=== PATIENT | male | born 1970 | race Caucasian/White ===

== ENCOUNTER 2023-08-21 05:38 | Inpatient (IN) | payer MEDICARE, SELFPAY ==
[2023-08-21] VITALS (22 sets, daily range): BP systolic 109–197; BP diastolic 67–127; BMI 22.8; BMI 22.2
[2023-08-21] MEDS: NSS 1000 IV (03:17)
[2023-08-21] MEDS: ZOFRAN 4 MG IV ×2 (03:26→04:21)
[2023-08-21] MEDS: PROTONIX IV 40 MG IV (03:26)
[2023-08-21] MEDS: PROTONIX 100 IV ×4 (03:27→23:39)
[2023-08-21 03:29] LABS: % Basophils 0.2 % (0-2); % Immature Granulocytes 0.8 % (0-0.5); % Lymphocytes 4.9 % (20.5-51.1); % Monocytes 3.2 % (1.7-9.3); % Neutrophils 90.9 % (42.2-75.2); Absolute Basophils 0.1 10^3/uL (0-0.2); Absolute Immature Granulocytes 0.2 10^3/uL (0-0.05); Absolute Lymphocytes 1.4 10^3/uL (1.2-3.4); Absolute Monocytes 0.9 10^3/uL (0.1-0.6); Absolute Neutrophils 25.1 10^3/uL (1.4-6.5); Hematocrit 50.1 % (39.0-52.0); Hemoglobin 17.5 g/dL (13.0-18.0); Mean Corp Hgb Conc. 34.9 g/dL (33.0-37.0); Mean Corpuscular Hgb 30.4 pg (27.0-31.0); Mean Corpuscular Volume 87.1 fL (80.0-94.0); Mean Platelet Volume 11.2 fL (7.4-10.4); Nucleated Red Blood Cells % 0 % (-); Platelet Count 228 10^3/uL (130-400); Red Blood Cell Count 5.75 10^6/uL (4.70-6.10); Red Cell Dist. Width 13.1 % (11.5-14.5); White Blood Cell Count 27.6 10^3/uL (4.8-10.8)
[2023-08-21 03:40] LABS: INR 1.02; PT 13.4 Sec (11.4-14.6)
[2023-08-21 03:44] LABS: ALT (SGPT) 23 U/L (0-50); AST (SGOT) 29 U/L (17-59); Albumin 4.7 g/dl (3.5-5.0); Alkaline Phosphatase 129 U/L (38-126); Blood Urea Nitrogen 19 mg/dl (9-20); Calcium 9.5 mg/dl (8.4-10.2); Carbon Dioxide 17 mmol/L (22-30); Chloride 97 mmol/L (98-107); Estimated Creatinine Clearance > 125 ml/min; Glucose 194 mg/dl (70-99); Lipase 32 U/L (23-300); Potassium 3.4 mmol/L (3.5-5.1); Sodium 133 mmol/L (135-145); Total Bilirubin 1.4 mg/dl (0.2-1.3); Total Protein 7.9 g/dl (6.3-8.2); eGFR > 60.00
[2023-08-21 03:45] LABS: Lactic Acid 2.9 mmol/L (0.7-2.0)
[2023-08-21 03:48] LABS: Urine Albumin 1+ (Neg - Trace); Urine Bilirubin Negative (Negative); Urine Character Clear (Clear); Urine Color Yellow; Urine Glucose 3+ (Negative); Urine Ketone 3+ (Negative); Urine Leukocyte Negative (Negative); Urine Nitrite Negative (Negative); Urine Occult Blood 3+ (Negative); Urine Urobilinogen Negative (Neg - 1+)
[2023-08-21 04:05] LABS: NT-proBNP 3180 pg/ml; Troponin I 0.035 ng/ml
[2023-08-21 04:20] LABS: Urine Amorphous Seen
[2023-08-21 04:22] LABS: Urine Bacteria Few (Negative); Urine White Cell 0-2 /HPF (0-5)
--- NOTE | 2023-08-21 04:27 | ED.GENMED ---
History of Present Illness
General
Chief Complaint: Vomiting Blood
Source: patient and family
Exam Limitations: none
Time Seen by Provider: 08/21/23 02:37
Nursing documentation reviewed up to this point in time: agreed with
Travel History
Have you had any contact with someone who has COVID-19?: No
Do you have any symptoms of coronavirus? Fever > 100 degrees, chills, cough, shortness of breath, sore throat, loss of taste or smell, muscle aches, or headache?: No
History of Present Illness
History of Present Illness:
This a pleasant 53-year-old male who presents with hematemesis. He states that for the last few hours he has been vomiting up brownish coffee-ground emesis like blood and blood clots which were bright red in nature. Patient denies fever or chills.
He does have a history of COPD and CHF but states that he does not have any difficulty breathing at this time. Patient reports that this has happened to him 1 other time but that stopped.
Past History
Past History
ED Past Medical History: Arrthythmia (afib), COPD, HTN, Hypercholesterolemia, NIDDM, Other (pericarditis, cardiomyopathy, Kidney stones, UTI, Opiate abuse, Pyelonephritis, PVD) and Other (Sponge kidney)
ED Past Surgical History: Appendectomy, Orthopedic, Urological and Other
Patient has exhibited threatening behavior?: No
Social History
Tobacco: Smoker (1-2 packs per day)
Alcohol: None
Drug: Former user and Narcotics
Personal:
Living: alone
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
Family History
Family History: Other (mom with hx PE); Negative Early CAD or CAD
Review of Systems
Review of Systems
Allergies reviewed?: Yes
All Other Systems: ROS reviewed and negative except as documented in HPI and ROS
Constitutional: Reports no symptoms
EENT: Reports no symptoms
Respiratory: Reports no symptoms
Cardiac: Reports no symptoms
ABD/GI: Reports nausea and vomiting
: Reports no symptoms
Musculoskeletal: Reports no symptoms
Skin: Reports no symptoms
Neurological: Reports no symptoms
Endocrine: Reports no symptoms
Hematologic/Lymphatic: Reports no symptoms
Psychiatric: Reports no symptoms
Phy Exam
General Physical Exam
General Presentation: well appearing, moderate distress and mild distress
General age: appears older than age
General Skin: warm and dry
General Habitus: normal
General Mental: alert
General Hydration: appears well hydrated
ENT Exam
ENT Exam: EOMI, pharynx normal, neck supple and normocephalic
Eye Exam
Eye Exam: PERRL, cornea clear and conjunctiva normal
Cardiovascular Exam
Cardiovascular Exam: regular rate/rhythm, no edema, no murmur and normal peripheral pulses
Pulmonary Exam
Pulmonary Exam: lungs clear, no respiratory distress, no rales, no crackles, no rhonchi, no stridor, no wheezing and no cough
Gastrointestinal Exam
Gastrointestinal Exam: normal bowel sounds, non tender, soft, no organomegaly, no pulsatile mass and non distended
Neurological Exam
Neurological Exam: alert, oriented x3, no motor deficits and speech normal
Musculoskeletal Exam
Musculoskeletal Exam: full ROM and no edema
Skin Exam
Skin Exam: normal color, warm/dry, no rash and no petechia
Psychiatric Exam
Psychiatric Exam: normal mood/affect
Course
Orders/Labs/Results
Orders:
Orders
08/21/23
Electrocardiogram (*1) Stat
Reason for Study: Chest Pain
08/21/23 02:54
Cardiac Monitoring- Treatment ONCE
08/21/23 02:55
0.9% Sodium Chloride 1000 ml [Nss] 1,000 ml IV BOLUS
08/21/23 03:07
Comprehensive Metabolic Panel Urgent
Lipase Urgent
Magnesium Urgent
Comment: ADD ON
NT-proBNP Urgent
PTT Urgent
Prothrombin Time Urgent
Troponin I Urgent
Blood Culture Urgent
POOL Source: Blood/Venous
Specimen Description:
08/21/23 03:08
Type+Screen Urgent
Complete Blood Count/With Diff Urgent
Lactic Acid Urgent
08/21/23 03:09
Pantoprazole 80 mg/100 ml Nss [Protonix] 80 mg in 100 ml IV NOW
Pantoprazole [Protonix IV] 40 mg IV NOW STA
08/21/23 03:21
Ondansetron Injectable [Zofran] 4 mg .ROUTE .[facility]
08/21/23 03:26
Ondansetron Injectable [Zofran] 4 mg IV NOW STA
08/21/23 03:32
Urinalysis Reflex To Culture Urgent
Date Specimen was Collected: 08/21/23
Time Specimen was Collected: 03:25
Urine Microscopic Reflex Cult Urgent
08/21/23 04:20
Ondansetron Injectable [Zofran] 4 mg IV NOW STA
08/21/23 05:00
CT Chest With Iv Contrast Urgent
Comment:
Reason For Exam: hematemesis hx of esoph rupture
08/21/23 05:01
Admit/Transfer Patient As Directed
Co-Sign Provider:
Level of Care: Inpatient admission
Assign to:: ICU
Physician / Group: [facility]
Diagnosis: Hematemesis, Intractable N/V
Reason for Hospitalization: Hematemesis, Intractable N/V
Expected length of stay greater than two midnights?: Yes
ELOS- Estimated Length of Stay in days: 3
I certify the patient meets the requirements for IP care: Yes
08/21/23 05:02
Code Status As Directed
Resuscitation Status: Full Code
08/21/23 05:43
Urine Drug Abuse Screen Urgent
Date Specimen was Collected: 08/21/23
Time Specimen was Collected: 05:40
08/21/23 06:17
Dextrose 50%-Water [Dextrose 50% Syringe] 12.5 grams IV [id number] PRN
Glucagon [GlucaGen] 1 mg IM PRN PRN
HydrALAZINE [Apresoline] 10 mg IV Q4HPRN PRN
Ipratropium/Albuterol Sulfate [Duoneb] 3 ml INH R Q4HPRN PRN
Lactated Ringers [Lr] 1,000 ml IV 60 mls/hr
Lorazepam [Ativan] 0.5 mg IV Q4HPRN PRN
Nitroglycerin Sublingual [Nitrostat (Sublingual)] 0.4 mg SL [id number] PRN
Pantoprazole 80 mg/100 ml Nss [Protonix] 80 mg in 100 ml IV Q10H
Prochlorperazine [Compazine] 5 mg IV Q6HPRN PRN
Trimethobenzamide [Tigan] 200 mg IM Q6HPRN PRN
08/21/23 06:17
Consult Notification Routine
Specialty to Notify: Gastroenterology
Date consulting provider notified: 08/21/23
Time consulting provider notified: 06:55
Notified:: Provider
Consult Notification Routine
Specialty to Notify: Coding Compliance Specialist
Date consulting provider notified: 08/21/23
Time consulting provider notified: 06:53
Notified:: Provider
GASTROINTESTINAL CONSULT Routine
Consulting Provider: Aydee Crews
Was physician already notified: No
Reason for consult: Hematemesis
Coding Compliance Specialist Consult Routine
Consulting Provider: Florian Guillen
Was physician already notified: No
Reason for consult: Hematemesis
Activity As Directed
Activity Level: Bedrest
Bedside Glucose Monitoring As Directed
Frequency: AC&HS
Comment: Change to q6h if pt on TPN, tube feeding or not eating
EKG with chest pain [ECG as needed] As Directed
ECG as needed for:: Chest Pain
I/O [Intake/ Output] As Directed
Frequency: Per unit guidelines
Orthostatic Vital Signs As Directed
Orthostatic VS Frequency: BID
Pneumatic Compression Sleeves As Directed
Type: Knee high
Vital Signs As Directed
Frequency: Per unit guidelines
Oxygen Therapy [O2 Therapy] [RESP] Routine
Titrate/Wean O2 to maintain O2 sat greater than (%): 94
DX Deep Vein Thrombosis Video Routine
08/21/23 06:20
HH [H&H] Q6H
Troponin I Q6H
08/21/23 07:30
Insulin Aspart Corrective Low [Novolog Flexpen-Low Resistance] See Protocol SC AC
08/21/23 14:23
HH [H&H] Q6H
08/21/23 18:50
HH [H&H] Q6H
Troponin I Q6H
08/22/23 05:56
Cardiovascular Evaluation IN AM
Magnesium IN AM
08/22/23 05:57
Complete Blood Count/No Diff IN AM
Glycohemoglobin (HgbA1c) IN AM
08/22/23 Breakfast
NPO
Allow oral meds: Yes
Allow clear liquids: Sips of Clears
Abnormal Lab Results
08/21/23 08/21/23 08/21/23
03:07 03:08 03:32
WBC 27.6 H 10^3/uL
(4.8-10.8)
MPV 11.2 H fL
(7.4-10.4)
Abs Immat Gran (auto) 0.2 H 10^3/uL
(0-0.05)
Absolute Neuts (auto) 25.1 H 10^3/uL
(1.4-6.5)
Absolute Monos (auto) 0.9 H 10^3/uL
(0.1-0.6)
Immature Gran % 0.8 H %
(0-0.5)
Neutrophils % 90.9 H %
(42.2-75.2)
Lymphocytes % 4.9 L %
(20.5-51.1)
Sodium 133 L mmol/L
(135-145)
Potassium 3.4 L mmol/L
(3.5-5.1)
Chloride 97 L mmol/L
(98-107)
Carbon Dioxide 17 L mmol/L
(22-30)
Creatinine 0.6 L mg/dL
(0.7-1.3)
Glucose 194 H mg/dl
(70-99)
Lactic Acid 2.9 H mmol/L
(0.7-2.0)
Total Bilirubin 1.4 H mg/dl
(0.2-1.3)
Alkaline Phosphatase 129 H U/L
(38-126)
Troponin I 0.035 H* ng/ml
Urine Ketones 3+ A
(Negative)
Ur Occult Blood Reflex 3+ A
(Negative)
Urine RBC 7-10 A /HPF
(0-2)
Urine Bacteria (Reflex) Few A
(Negative)
Urine Glucose 3+ A
(Negative)
Urine Albumin (Reflex) 1+ A
(Neg - Trace)
08/21/23 03:08
08/21/23 03:07
Vital Signs
Initial and Last Documented VS:
Initial Vital Signs
Temp Pulse Resp BP Pulse Ox
98.3 F 111 22 187/127 99
08/21/23 02:32 08/21/23 02:32 08/21/23 02:32 08/21/23 02:32 08/21/23 02:32
Last Documented Vital Signs
Temp Pulse Resp BP Pulse Ox
98.3 F 68 17 134/75 97
08/23/23 15:00 08/23/23 15:00 08/23/23 15:00 08/23/23 15:00 08/23/23 15:00
*Critical Care Note
Total Time (30-74mins, 75-104mins- exclusive of procedures): Not Applicable
ED Attending Note
-
Portions of this chart may have been created with voice recognition software.� Occasional wrong word or��sound alike� substitutions may have occurred due to the inherent limitations of voice recognition software.
Discharge Plan
Departure
Patient Disposition: Admit
Date of Disposition: 08/21/23
Time of Disposition: 04:41
Admit to: Telemetry
Presentation/result/management discussed w/ accepting MD/DO: Hospitalist
Discharge Problem:
Acute GI bleeding
Interventions
Interventions:
*General Assessment Last Done: 08/21/23 02:32
*Neglect/Abuse Screening Last Done: 08/21/23 02:32
ED- Fall Risk Assessment Last Done: 08/21/23 02:32
*Nursing Disposition Last Done: 08/21/23 06:16
[place]-Vtnvgp-Drfjharhdw Assessment Last Done: 08/21/23 03:41
ED- Cardiac Assessment Last Done: 08/21/23 03:41
ED- Pulmonary Assessment Last Done: 08/21/23 03:41
Discharge Date and Time
Discharge Date/Time: 08/21/23 06:17
--- NOTE | 2023-08-21 05:06 | HPS.HSE ---
Family Physician
-
Family Physician: * NONE
Chief Complaint
-
Throwing up blood
History of Present Illness
Patient is a 53y M with PMH significant for opioid abuse on chronic methadone, CHF and prior h/o GI bleeding who presents to ED complaining of N/V and hematemesis. History obtained from patient and family at the bedside. Patient started with
N/V around 9:30 in the AM and has had persistent symptoms since that time. Emesis was reportedly initially mucoid appearing but has since transitioned to bright red blood and clots. Mother estimates > 1 coffee cup in total of blood / clots
throughout the day. Patient complains of severe, burning discomfort in the chest. No abdominal pain. No changes in stools. No fevers / chills, cough, SOB, etc.
Patient had similar episodes in 04/2023 and 09/2022. His initial presentation in 04/2023 was noted to be secondary to esophageal tear at GE junction.
Patient was transferred to [facility] but notes that no specific intervention / procedure was done at that time.
He has since had multiple EGDs with dilation done at [facility] and he is followed by Dr. Chinchilla there.
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 He states that he has his medical marijuana card and he continues to use this daily.
Patient denies any recent changes in his medications.
He takes ASA 81mg daily but no other blood thinners / antiplatelets.
He is on chronic methadone and missed his appointment at the clinic today due to his current symptoms.
In the ED, patient is in moderate - severe distress due to burning chest discomfort and nausea.
Medical History
Past Medical History
Past Medical History: Reports Other
Additional Past Medical History:
Peripheral Arterial Disease s/p Right Fem-Pop Bypass
Non-Ischemic Cardiomyopathy / Chronic HFpEF
Esophageal Rupture
Hypertension
Hyperlipidemia
Type II Diabetes Mellitus
COPD
Hx Opioid Abuse
Gout
Past Surgical History: Reports Other
Additional Past Surgical History:
Appendectomy
Multiple Lithotripsies/Ureteral Stent
Bilateral Shoulder Surgery
Melanoma Resection
Right Lower Ext Fem-Pop Bypass
EGD with Dilations
Social History
Tobacco: Smoker (1ppd x 38 yrs)
Alcohol: None
Drug: Former User (Maintained on chronic methadone.)
Family History
Family History: Not pertinent
Allergies / Home Medications
Allergies reflects when Allergies were last updated in [employer].
Home Medications with original date entered in [employer]
Allergy/Medication List:
Patient is unable to state his current meds and doses other than:
Aspirin 81mg PO daily
Methadone 150mg PO daily
If medication reconciliation has not been performed, why?: Medication List N/A (Patient cannot recall.)
Review of Systems
-
History Source: Patient
A 12 point ROS was completed and negative except as noted: Yes
Constitutional: Denies Fever or Chills
EENT: Denies Sore Throat
Respiratory: Denies Cough or Trouble Breathing
Cardiac: Reports Chest Pain
Abdomen/GI: Reports Nausea and Vomiting; Denies Abdominal Pain, Diarrhea, Constipated, Bloody Stools or Black Stools
: Denies Dysuria, Frequency or Flank Pain
Musculoskeletal: Denies Joint Pain or Edema
Neurological: Denies Dizzy or Headache
Psych: Denies Depression or Anxiety
Physical Exam
Vital Signs
Vital Signs
Temp Pulse Resp BP Pulse Ox
98.3 F 85 26 182/82 96
08/21/23 02:37 08/21/23 04:29 08/21/23 04:01 08/21/23 04:01 08/21/23 02:54
Physical Exam
General: Other (53y M in moderate distress due to chest pain / nausea.)
HEENT: Other (Dry MM.)
Respiratory: Clear; No Wheezes, Rales or Rhonchi
Cardiac: S1/S2, Regular Rhythm and Tachycardia; No Murmur
GI: Soft, Non Tender, Non Distended and Normal Bowel Sounds
Musculoskeletal: No Clubbing, No Cyanosis and No Edema
Neuro: AO x 3
Laboratory Results
-
08/21/23 03:08
08/21/23 03:07
Laboratory Results
PT 13.4 Sec (11.4-14.6) 08/21/23 03:07
INR 1.02 08/21/23 03:07
APTT 29.0 Sec (23.4-35.0) 08/21/23 03:07
Lactic Acid 2.9 mmol/L (0.7-2.0) H 08/21/23 03:08
Total Bilirubin 1.4 mg/dl (0.2-1.3) H 08/21/23 03:07
AST 29 U/L (17-59) 08/21/23 03:07
ALT 23 U/L (0-50) 08/21/23 03:07
Alkaline Phosphatase 129 U/L (38-126) H 08/21/23 03:07
Troponin I 0.035 ng/ml H* 08/21/23 03:07
Lipase 32 U/L (23-300) 08/21/23 03:07
Impression/Plan
-
A/P: Patient is a 53y M with PMH significant for CHFpEF, chronic opioid dependence and GERD / GI bleeding who presents to ED for evaluation of intractable N/V and hematemesis.
Intractable N/V
Hematemesis secondary to the above
- Admit to ICU for further evaluation and treatment.
- Symptoms seem c/w prior presentation for esophageal tear secondary to intractable N/V.
- N/V started in the AM and persisted throughout the day - later developing into gross blood / clots.
- Burning chest pain concerning for more significant esophageal injury.
- HR is elevated, but BP and cell counts are stable at present.
- CT ordered in the ED to evaluate for possible rupture.
- IVF support. IV PPI infusion.
- GI evaluation and will likely require repeat endoscopic examination.
- Antiemetics / supportive care.
- Follow H&H and consider transfusion support if needed.
- Advised patient against habitual marijuana use given his repeated history of intractable N/V and associated esophageal injury.
Chronic HFpEF
- No evidence of volume overload at present and suspect hypovolemia due to GI losses.
- Hold all PO medications including diuretics.
- Follow I/Os, daily weights, etc.
ASCVD
Chest Pain
- Chest pain is very likely GI in origin as noted above.
- Does have documented history of PAD / ASCVD and prior LE bypass.
- Initial troponin is non-negative and will continue to trend to peak.
- Hold any ASA or similar obviously given GI bleeding.
- Had stress testing in 04/2023 which was unremarkable.
Benign Hypertension
- BP elevated / uncontrolled on presentation - likely in part due to acute distress / pain.
- Hold PO medications acutely.
- Supportive care - pain / nausea control as noted above.
- IV hydralazine for now as needed for very high BP.
- Resume PO regimen when able.
DM-II
- Glucose elevated on admission, likely secondary to stress response.
- Hold PO medications.
- Follow glucose and cover with SSI as needed.
- Update A1C.
Chronic Opioid Dependence
- Patient is on chronic methadone therapy 150mg daily.
- Resume regular dosing as soon as able / once acute GI issues are addressed and resolved.
- May need to monitor / treat for withdrawal if symptoms develop.
COPD without Acute Exacerbation
- Stable. No hypoemia, active wheezing, etc.
- DuoNebs PRN.
DVT Prophylaxis: SCDs
Code Status: Full
[2023-08-21 06:29] LABS: Amphetamines Negative (Negative); Barbiturates Negative (Negative); Benzodiazepines Negative (Negative); Buprenorphine Negative (Negative); Cocaine Negative (Negative); Marijuana Positive (Negative); Methadone Positive (Negative); Methamphetamines Negative (Negative); Opiates Negative (Negative); Phencyclidine Negative (Negative)
[2023-08-21 06:30] LABS: Tricyclic Antidepressants Negative (Negative)
[2023-08-21] MEDS: LR 1000 IV ×3 (06:32→23:40)
[2023-08-21 06:36] LABS: Hematocrit 47.7 % (39.0-52.0); Hemoglobin 16.5 g/dL (13.0-18.0)
[2023-08-21 06:45] LABS: Fentanyl, Urine Negative (Negative)
--- NOTE | 2023-08-21 06:54 | PTCARENOTE ---
Pt received form er alert tolerated transfer well,pt got up off of stretcher and into hospital bed without any difficulty.Physical assessment preformed,pt denies pain,VS stable,slight nausea.IVF LR at 125mls initiated upon arrival,Protonix gtt at
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
[2023-08-21 07:14] LABS: Troponin I 0.061 ng/ml
--- NOTE | 2023-08-21 07:15 | CON.INTV ---
Addendum entered and electronically signed by Florian Guillen MD 08/21/23 14:59:
Patient transferred out of ICU. We will sign off. Please call with questions
Addendum entered and electronically signed by Florian Guillen MD 08/21/23 08:36:
Correction: Patient followed at [facility] (Dr. Chinchilla)
Original Note:
Consultation
Consultation Request
Date/Time Consultation Requested: 08/21
Date/Time Consultation Performed: 08/21
Reason for Consultation: critical care
Medical History
-
History of Present Illness:
History obtained from the chart, reviewing records and obtained from the patient. 53-year-old male on chronic methadone therapy, daily marijuana use, history of esophageal stricture with follow-up at [facility], last dilatation about 4 months ago,
was in usual state of health until developed nausea, hematemesis throughout the day yesterday. Per records, clots with blood, about a coffee cup. With this he denied abdominal pain, diarrhea, blood in urine or stool. He denies any prior inciting
factors but does admit to chronic dysphagia, sticking sensation. Following dilatation symptoms improved. Upon arrival to [facility], afebrile, pulse 111, breathing at 22, blood pressure 187/127, 99%. Patient had CT chest to rule out
esophageal tear, pneumomediastinum. Will start on Protonix, IV fluids, antiemetic therapy. Hemoglobin 17.5. Patient admitted to ICU for further management 08/21/2023
Presently he is feeling much improved. Describes chest burning is 3/10, much improved from 10/10. Denies any further nausea. Has not had any hematemesis since hospital arrival
.
PMH: Chronic methadone therapy with opioid abuse, history of GI bleed, Hypertension, hyperlipidemia, diabetes, COPD, history of esophageal rupture in the past followed at [facility] with esophageal dilatation/stricture, gout. History of appendectomy,
lithotripsy/nephrolithiasis/ureteral stent, bilateral shoulder surgery, melanoma resection, right lower extremity femoropopliteal bypass
Past Medical History
Past Medical History: None (See above)
Past Surgical History: None (See above)
Social History
Tobacco: Smoker (1 pack a day, marijuana daily)
Alcohol: None
Drug: Marijuana (Daily marijuana)
Personal: Single
Living: With Family
Employment: Not Employed
Family History
Family History: Other (1 daughter, 1 sister, parents alive and well. Family history of lung cancer, blood clots negative)
Allergies / Home Medications
Allergies
Allergy/AdvReac Type Severity Reaction Status Date / Time
amlodipine besylate Allergy Tongue Verified 08/21/23 02:31
[From Norvas] Swelling
erythromycin base Allergy Hives Verified 08/21/23 02:31
Penicillins Allergy Hives/tolerates Verified 08/21/23 02:31
ceftriaxone
Home Medications
Medication Instructions Recorded Confirmed Last Taken Type
fluticasone fur. 100 mcg-umeclid 1 puff inhalation R DAILY 07/03/20 05/08/23 05/23/22 08:00 History
62.5 mcg-vilant 25 mcg Lung/breathing issues
inhalat.powder (Trelegy Ellipta)
aspirin 81 mg tablet,delayed 81 mg PO DAILY Blood clot 09/14/20 05/08/23 05/08/23 History
release prevention/tx
empagliflozin 10 mg tablet 10 mg PO DAILY Diabetes 04/29/22 05/08/23 05/08/23 History
(Jardiance)
sacubitril 24 mg-valsartan 26 mg 1 tab PO BID Heart Failure 04/29/22 05/08/23 05/08/23 History
tablet (Entresto)
atorvastatin 10 mg tablet 10 mg PO DAILY High cholesterol 10/21/22 05/08/23 05/08/23 History
pantoprazole 40 mg tablet,delayed 40 mg PO BID Gastrointestinal 10/23/22 05/08/23 05/08/23 Rx
release issue #60 tabs
albuterol sulfate 90 mcg/actuation 2 puff inhalation R Q6HPRN PRN SOB 05/08/23 05/08/23 Unknown History
aerosol inhaler
hydroxyzine pamoate 50 mg capsule 50 mg PO Q6HPRN PRN anxiety 05/08/23 05/08/23 Unknown History
carvedilol 25 mg tablet 12.5 mg PO BID Heart 05/11/23 05/08/23 05/08/23 Rx
disease/condition #0 tabs
furosemide 20 mg tablet 20 mg PO Q48H Fluid 05/11/23 Unknown Rx
retention/Swelling #30 tabs
methadone 10 mg/5 mL oral solution 145 mg (72.5 mL) PO DAILY Opioid 05/11/23 10/22/22 05/08/23 Rx
use disorder #0 mL
nicotine 14 mg/24 hr daily 14 mg transdermal DAILY Smoking 05/11/23 Unknown Rx
transdermal patch cessation #15 ea
Review of Systems
-
All other systems: Negative unless noted
Vitals / Labs / Diagnostic Testing
Vital Signs
Temp Pulse Resp BP Pulse Ox
98.3 F 104 23 171/94 96
08/21/23 06:40 08/21/23 06:30 08/21/23 06:30 08/21/23 06:17 08/21/23 06:45
Lab Data
08/21/23 03:07
Laboratory Results
08/21/23
03:07
PT 13.4
INR 1.02
APTT 29.0
Diagnostic Testing:
Physical Exam
-
HEENT: Normocephalic and Anicteric
Cardiovascular: S1/S2, Regular Rhythm (Tachycardic), Murmur (n) and Peripheral Edema (n)
Respiratory: Wheeze (n), Rales (n) and Rhonchi (n)
GI: Soft, Non Distended and Non Tender
Neurology: Awake, Alert and No Motor Deficits
Skin: Other (No clubbing, cyanosis. Lying flat)
General: Comfortable
Assessment
-
53-year-old male with history of esophageal rupture in the past with dilatation, chronic dysphagia, diabetes, peripheral arterial disease, on chronic methadone therapy presents with 24 hours of hematemesis. He cannot recall the trigger but states
he has chronic dysphagia, last dilatation 4 months ago. Takes aspirin daily. Admitted to ICU for further management on Protonix drip 08/21/2023
Acute hematemesis
CT chest negative for pneumomediastinum
Chronic methadone use
History of opioid abuse
History of esophageal rupture/stricture
Followed at [facility], intermittent dilatation
Conditions present prior to admission
Hypertension/hyperlipidemia
Type 2 diabetes
History of COPD
Mild emphysema per CT imaging
[id number] history of smoking, ongoing
Pulmonary nodule per CT imaging (my review)
Peripheral arterial disease with right femoropopliteal bypass
History of cardiomyopathy, heart failure
Normal echo April 2023
Daily marijuana use
Plan/recommendations
At this time, patient critically ill with hematemesis for 24 hours, unsure about trigger. Describes chronic dysphagia
No evidence of pneumomediastinum per CT chest. Formal report pending
Describes chest burning 04/07, significant improved since admission, currently 09/05
Hemoglobin stable
No evidence of coagulopathy
Moving forward
Continue with IV fluids, IV Protonix
Hold aspirin
GI evaluation
Patient with history of esophageal perforation/stricture with dilatation, last completed 4 months ago
Followed at [facility] ([facility])
Remains n.p.o.
Patient missed methadone dose yesterday
Will review with pharmacy
Hypertension noted. P.o. medications held. Hydralazine as needed for now
Follow blood sugars
Tobacco use noted. Discussed importance of tobacco cessation
Pulmonary nodule noted on CT chest. Would recommend follow-up CT chest January 2024
Reviewed with critical care nursing, respiratory care, pharmacy
TCCT 31 min
[2023-08-21 07:25] LABS: Magnesium 1.8 mg/dl (1.6-2.3)
[2023-08-21] MEDS: ATIVAN 0.5 MG IV (07:34)
[2023-08-21] MEDS: COMPAZINE 5 MG IV (07:38)
--- NOTE | 2023-08-21 07:58 | PTCARENOTE ---
patient received at 0700 in bed . AAO x3 able to answer questions appropriately . c/o of chest tightness which improved since admission. BP 150/90 ST 107; RR 23; POX 94%RA. Lungs clear . no edema . abdomen soft, denies been tender. c/o of nausea
Compazine adm. COWN 15 appears restless. Ativan 0.5 prn IV adm . Blood sugar 151. pt NPO call antunez with reach. SCD for DVT prevention .
[2023-08-21 08:16] LABS: Glucose - Point of Care 152 mg/dl (70-99)
--- NOTE | 2023-08-21 08:16 | CON.GI ---
Addendum entered and electronically signed by Aydee Crews DO 08/21/23 12:34:
patient seen and examined independently of PALOMO.
Agree with her note with my additions below:
Colt is a 53yoM with hx of chronic esophagitis who developed benign stricturing disease requiring multiple dilations in the past, possibly with last being about 4 months ago at [facility] with Dr. Chinchilla. Last one we have in our system was with
[facility] in 2021. He suffers with chronic dysphagia because of this. He also has many other chronic issues including: pericarditis, cardiomyopathy, HTN, DM2, PVD, COPD, HLD, kidney stones, hx heroin abuse on methadone, active marijuana use who
presented with vomiting that was initially bilious then turned bright red. He denies chest pain and says no vomiting since yesterday and his nausea stopped. His hgb is above normal likely dry/hemoconcentrated. UDS +methadone and marijuana. He is
tachy and hypertensive didn't get his methadone yesterday during the vomiting.
No abdominal imaging this admission, but his CT chest doesn't show any concerning pathology other than his chronic esophageal thickening. No perforation. No chest pain per patient.
Overall, n/v induced by cannabis vs infectious vs medication withdrawal
-- currently no more n/v
-- no indication for urgent EGD at this time
-- continue medications isaiah BZD to help keep his nausea and vomiting under control
-- IVF, ppi gtt is fine and if no more blood will change to twice daily
-- sips of clears if tolerated
Original Note:
Consultation
-
Date/Time Consultation Requested: 08/21/23 @ 06:17
Date/Time Consultation Performed: 08/21/23 @ 08:30
Requesting Provider: Dr. Ruben Segura
Performing Provider: PALOMO Coombs; Dr. Aydee Crews
Reason for Consultation: hematemesis
Medical History
Chief Complaint / HPI
Chief Complaint: vomiting blood
History of Present Illness:
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 Chinchilla, hx colon polyps, pericarditis, cardiomyopathy, HTN, DM2, PVD, COPD, HLD,
kidney stones, hx heroin abuse on methadone, hx of marijuana use, who presented to the ER with complaints of vomiting blood, which we are being asked to evaluate for. Upon review of records, he has been followed by [facility], Dr. Chinchilla, for
esophageal stenosis requiring several encounters for dilation in the past. He was last seen here at in September last year after having vomited blood with symptoms or odynophagia and dysphagia. At that time he was managed symptomatically with
carafate and PPI and advised to follow-up with [facility] for repeat dilation. He had been previously seen in April 2022 where he was found to have an esophageal tear and was evaluated at [facility]. He had subsequent admission later in the month
requiring repeat EGD with dilation for esophageal stenosis along with severe esophagitis. Today he is drowsy and unable to contribute much to the interview but admits to developing vomiting yesterday. He notes it was bilious at first but after
numerous episodes of vomiting it turned to bright red blood. He denies any fevers or chills. He denies any pain currently. He admits he has not been at [facility] recently for dilation. He is drifting off to sleep during the interview after multiple
attempts at stimulation. Per nursing he has been agitated and nauseated this morning but has had no vomiting, hematemesis, melena, or hematochezia. He did receive Ativan and Compazine this morning. CT imaging was performed which showed no signs of
esophageal perforation. Hgb stable on admission at 17.5. Other notable lab findings include WBC 27.6, lactic acid 2.9, plt 228,000, INR 1.02, Na 133, K 3.4, total Co2 17, BUN 19, Cr 0.6, troponin 0.035, ProBNP 3180, TB 1.4, ALk phos 129, lipase 32.
He was started on PPI gtt, made NPO, and admitted for further evaluation by GI. He is tachycardic and hypertensive upon my evaluation.
Past Medical History
Past Medical History: COPD, GERD, HTN, Hypercholesterolemia, NIDDM, Psychiatric (hx heroin abuse on methadone) and Other (severe esophagitis/stenosis requiring serial dilations, hx Boorhaaves Apr 2022, pericarditis, hx colon polyps, non-ischemic
cardiomyopathy, kidney stones)
Past Surgical History: Appendectomy, Urological and Other (right fem-pop bypass, esophageal dilation, kidney stone extraction)
Social History
Tobacco: Former Smoker
Alcohol: None
Drug: Marijuana
Family History
Family History: Unable to Obtain (pt lethargic)
Allergies / Home Medications
Allergy/AdvReac Type Severity Reaction Status Date / Time
amlodipine besylate Allergy Tongue Verified 08/21/23 02:31
[From Norvasc] Swelling
erythromycin base Allergy Hives Verified 08/21/23 02:31
Penicillins Allergy Hives/tolerates Verified 08/21/23 02:31
ceftriaxone
Medication Instructions Recorded
fluticasone fur. 100 mcg-umeclid 1 puff inhalation R DAILY 07/03/20
62.5 mcg-vilant 25 mcg Lung/breathing issues
inhalat.powder (Trelegy Ellipta)
aspirin 81 mg tablet,delayed 81 mg PO DAILY Blood clot 09/14/20
release prevention/tx
empagliflozin 10 mg tablet 10 mg PO DAILY Diabetes 04/29/22
(Jardiance)
sacubitril 24 mg-valsartan 26 mg 1 tab PO BID Heart Failure 04/29/22
tablet (Entresto)
atorvastatin 10 mg tablet 10 mg PO DAILY High cholesterol 10/21/22
pantoprazole 40 mg tablet,delayed 40 mg PO BID Gastrointestinal 10/23/22
release issue #60 tabs
albuterol sulfate 90 mcg/actuation 2 puff inhalation R Q6HPRN PRN SOB 05/08/23
aerosol inhaler
hydroxyzine pamoate 50 mg capsule 50 mg PO Q6HPRN PRN anxiety 05/08/23
carvedilol 25 mg tablet 12.5 mg PO BID Heart 05/11/23
disease/condition #0 tabs
furosemide 20 mg tablet 20 mg PO Q48H Fluid 05/11/23
retention/Swelling #30 tabs
methadone 10 mg/5 mL oral solution 145 mg (72.5 mL) PO DAILY Opioid 05/11/23
use disorder #0 mL
nicotine 14 mg/24 hr daily 14 mg transdermal DAILY Smoking 05/11/23
transdermal patch cessation #15 ea
Review of Systems
-
Unable to obtain full review of systems at this time due to: Other (lethargic)
Vital Signs
Temp Pulse Resp BP Pulse Ox
98.3 F 111 24 150/90 100
08/21/23 06:40 08/21/23 08:00 08/21/23 08:00 08/21/23 08:00 08/21/23 08:00
Physical Exam
Exam
General: Well Nourished and No Apparent Distress
HEENT: Normocephalic and Atraumatic
Respiratory: Clear
Cardiac: S1/S2 and Regular Rhythm (tachycardic on tele monitor)
GI: Soft, Non Tender, Non Distended and Normal Bowel Sounds
Rectal: Deferred by Provider
Musculoskeletal: No Edema
Skin: Warm and Dry
Neuro: Other (drowsy but arousable, falls asleep quickly)
Psych: Calm
Results
WBC 27.6 10^3/uL (4.8-10.8) H 08/21/23 03:08
Hgb 16.5 g/dL (13.0-18.0) 08/21/23 06:20
Hct 47.7 % (39.0-52.0) 08/21/23 06:20
MCV 87.1 fL (80.0-94.0) 08/21/23 03:08
Plt Count 228 10^3/uL (130-400) 08/21/23 03:08
Absolute Neuts (auto) 25.1 10^3/uL (1.4-6.5) H 08/21/23 03:08
PT 13.4 Sec (11.4-14.6) 08/21/23 03:07
INR 1.02 08/21/23 03:07
APTT 29.0 Sec (23.4-35.0) 08/21/23 03:07
Sodium 133 mmol/L (135-145) L 08/21/23 03:07
Potassium 3.4 mmol/L (3.5-5.1) L 08/21/23 03:07
Chloride 97 mmol/L (98-107) L 08/21/23 03:07
Carbon Dioxide 17 mmol/L (22-30) L 08/21/23 03:07
BUN 19 mg/dl (9-20) 08/21/23 03:07
Creatinine 0.6 mg/dL (0.7-1.3) L 08/21/23 03:07
Calcium 9.5 mg/dl (8.4-10.2) 08/21/23 03:07
Total Bilirubin 1.4 mg/dl (0.2-1.3) H 08/21/23 03:07
AST 29 U/L (17-59) 08/21/23 03:07
ALT 23 U/L (0-50) 08/21/23 03:07
Alkaline Phosphatase 129 U/L (38-126) H 08/21/23 03:07
Lipase 32 U/L (23-300) 08/21/23 03:07
Diagnostic Image Results:
08/21/23 CT Chest w IV contrast: IMPRESSION:
1. � Diffuse concentric abnormal wall thickening of the esophagus consistent with some form of esophagitis. Negative for mediastinal hematoma or collection. Negative for pneumomediastinum.
2. � Emphysema.
3. � Hepatic fatty infiltration
Prior GI Procedures:
EGD: 05/23/22, Dr. Hagan: LA Grade D esophagitis with bleeding as describe
�� � � � � � � � � � � above, friable, with areas of stenosis including GE
�� � � � � � � � � � � junction which could not be passed though was patent.
�� � � � � � � � � � � Possible change of EoE noted. Biopsied.
�� � � � � � � � � � � - Few areas of Esophageal stenoses including GE
�� � � � � � � � � � � junction.
04/30/2022 Dr. Martin: �Deep mucosal tear at the gastroesophageal junction,
�� � � � � � � � � � � but difficult to fully evaluate due to large overlying
�� � � � � � � � � � � clot.
�� � � � � � � � � � � - Discolored dusky mucosa in the entire esophagus.
�� � � � � � � � � � � - Hematin (altered blood/kfbgbj-hizunk-murm material)
�� � � � � � � � � � � in the stomach.
�� � � � � � � � � � � - Non-bleeding duodenal ulcers with no stigmata of
�� � � � � � � � � � � bleeding.
�� � � � � � � � � � � - No specimens collected.
Colonoscopy: 08/02/2019 Dr. Parikh: One 12 mm polyp in the cecum, removed with a hot
�� � � � � � � � � � snare. Resected and retrieved. Clip was placed.
�� � � � � � � � � � - One 17 mm polyp in the proximal ascending colon,
�� � � � � � � � � � removed with a hot snare. Resected and retrieved. Clip
�� � � � � � � � � � was placed. Tattooed.
�� � � � � � � � � � - One 6 mm polyp in the transverse colon, removed with a
�� � � � � � � � � � hot snare. Resected and retrieved.
�� � � � � � � � � � - One 5 mm polyp in the transverse colon, removed with a
�� � � � � � � � � � hot snare. Resected and retrieved.
�� � � � � � � � � � - One 4 mm polyp in the descending colon, removed with a
�� � � � � � � � � � hot snare. Resected and retrieved.
�� � � � � � � � � � - Diverticulosis in the cecum.
�� � � � � � � � � � - The examination was otherwise normal.
10/24/2014 Dr. Parikh: �� � � � � � � � � � � � � � � � � � � � � � � �
Impression:� � � � � - Diverticulosis in the sigmoid colon and in the cecum.
�� � � � � � � � � � - One 5 mm polyp in the cecum. Resected and retrieved.
�� � � � � � � � � � - One 5 mm polyp in the sigmoid colon. Resected and
�� � � � � � � � � � retrieved.
�� � � � � � � � � � - One 15 mm polyp in the rectum. Resected and retrieved.
�� � � � � � � � � � Clips were placed.
�� � � � � � � � � � - One 5 mm polyp in the rectum. Resected and retrieved.
�� � � � � � � � � � - The examination was otherwise normal.
Assessment / Plan
-
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 Chinchilla, hx colon polyps, pericarditis, cardiomyopathy, HTN, DM2, PVD, COPD, HLD,
kidney stones, hx heroin abuse on methadone, hx of marijuana use, who presented to the ER with complaints of vomiting blood, which we are being asked to evaluate for. History as noted above with severe esophagitis/stenosis and Boerhaave's in 2021.
Has required serial dilation at [facility] in the past with Dr. Chinchilla. Now with recurrent reported hematemesis. No further vomiting. Hgb is stable at 16.5. +Leukocytosis and lactic acidosis of unclear etiology. Started on PPI gtt and made NPO. ICU
monitoring for acuity. UDS+marijuana and methadone.
Problem list:
#1: Hematemesis:
-Possibly Elizabet Briggs tear as it was initially bilious v severe esophagitis v less likely recurrent esophageal tear v other.
-CT chest did not show any air to suggest esophageal perforation. He is not anemic and has had no further vomiting.
-Continue NPO
-Trend H/H
-PPI gtt
-PRN antiemetics
-Consider EGD for further evaluation pending record review and clinical course. To review with Dr. Crews and Dr. Camargo.
#2: hx severe esophagitis, esophageal stenosis requiring serial dilation at [facility]
-Follows with Dr. Chinchilla, unclear when his last dilation was. No records in [facility] and the pt is lethargic 2/2 ativan
-Obtain records from [facility]
-PPI
-Add Carafate when cleared for PO
#3: Daily marijuana use
-May be element of cyclical vomiting that induced this episode.
-Unclear how often he is using at this time but it was + in his UDS also for methadone which he is on for hx heroin abuse
-Would avoid marijuana going forward
#4: Hypokalemia
-replete electrolytes as per ICU team
-IV fluids while NPO
#5: Leukocytosis, lactic acidosis
-No obvious source of infection
-BC sent and pending
-No fevers
-Trend CBC
-further management per ICU team
#6: elevated troponin, proBNP
-ICU management
#7: hx heroin abuse on methadone
#8: hx colon polyps,
-He needs follow-up OP for this with hx of numerous colon polyps in 2020
Other pertinent medical hx:
-HTN
-PAD with hx fem-pop bypass
-kidney stones
-COPD
-non-ischemic cardiomyopathy
-HTN
-HLD
-DM2
-current smoker
-
-
Thank you for consultation and allowing me to participate in the patient's care. Please call the instrumentation supervisor GI physician during the after hours with any questions or concerns.
--- NOTE | 2023-08-21 09:11 | W.PN.HOSP.TC ---
Today's Communication/Plan
-
See plan
Total Critical Care Time___45__ minutes. I was immediately available to the patient and staff. I personally examined, reviewed labs, diagnostic images/reports, interpretations, treatment plans, discussed patient care with other providers and
family or caregivers (if patient is unable to make decisions), entered orders as appropriate and documented the medical record.
Assessment / Plan
Assessment / Plan
Impression:
Patient is a 53y M with PMH significant for CHFpEF, chronic opioid dependence and GERD / GI bleeding who presents to ED for evaluation of intractable N/V and hematemesis.
Presentation with intractable nausea and vomiting
Hematemesis.
Presumed esophagitis
Leukocytosis
Lactic acid elevation
Non-CT troponin elevation
Hemoconcentration
Conditions prior to admission:
History of esophagitis/esophageal tear/esophageal stenosis with prior dilation.
Chronic CHF preserved EF.
CAD.
Benign hypertension.
COPD without exacerbation
Diabetes type 2 known NIDDM.
Chronic opioid dependence on methadone.
Tobacco use disorder.
Plan:
Intractable nausea and vomiting
Hematemesis reported prior to admission, although no evidence since admission to ICU.
Patient with prior history of esophageal tear�esophageal stricture with prior dilation at [facility] records pending
Hemodynamically stable
CT scan in ED findings consistent with distal esophageal wall thickening, with no evidence of mediastinitis/esophageal tear/free air.
Hemoglobin stable with evidence of hemoconcentration 16
GI consult pending.
Keep n.p.o.
Hold aspirin
IV fluids,
IV PPI
Antiemetics.
Follow H&H
Leukocytosis.
Lactic acid elevation.
Suspected stress-induced and with dehydration/volume loss with persistent emesis.
Hemodynamically stable.
Imaging with no evidence of esophageal tear.
Monitor closely with serial CBCs/lactic acid level.
Opioid use disorder on methadone [employer] dose to be confirmed.
At risk for withdrawal given inability to take oral medications and missed methadone dose prior to admission
Remains tachycardic and diaphoretic.
IV opiates as needed while pending GI.
Chronic CHF preserved EF.
Hemoconcentrated on admission
Hold torsemide
Monitor volume status closely while on IV fluids.
CAD.
Hypertension
Presentation with chest pain most likely attributed to emesis.
Non-CT troponin elevation noted. Will follow trend.
ECG with no evidence of ischemia/sinus tachycardia.
Hold preadmission medications including Coreg, Entresto, aspirin, statin
IV hydralazine for elevated blood pressure.
Diabetes type 2.
Updated hemoglobin A1c pending.
Basal bolus protocol.
Hold Jardiance.
COPD without exacerbation.
Stable respiratory status.
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
Tobacco use disorder
Nicotine patch.
Full code
DVT prophylaxis mechanical
Anticipated Discharge: > 48 hours
Subjective/Interval History
-
Date of Service: August 21, 2023
Objective Data
-
Labs:
Laboratory Results
08/21/23 08/21/23 08/21/23
03:07 03:08 06:20
WBC 27.6 H
Hgb 17.5 16.5
Hct 50.1 47.7
Plt Count 228
PT 13.4
INR 1.02
APTT 29.0
Sodium 133 L
Potassium 3.4 L
Chloride 97 L
Carbon Dioxide 17 L
BUN 19
Creatinine 0.6 L
Glucose 194 H
Calcium 9.5
Total Bilirubin 1.4 H
AST 29
ALT 23
Alkaline Phosphatase 129 H
08/21/23 08/21/23
12:17 18:17
WBC
Hgb Pending Pending
Hct Pending Pending
Plt Count
PT
INR
APTT
Sodium
Potassium
Chloride
Carbon Dioxide
BUN
Creatinine
Glucose
Calcium
Total Bilirubin
AST
ALT
Alkaline Phosphatase
Vital Signs:
Vital Signs
Temp Pulse Resp BP Pulse Ox
98.3 F 111 24 150/90 100
08/21/23 06:40 08/21/23 08:00 08/21/23 08:00 08/21/23 08:00 08/21/23 08:00
I&O
08/20/23 08/21/23 08/22/23
06:59 06:59 06:59
Intake Total 135 / 135
Output Total 400 / 400
Balance -265 / -265
Physical Exam
-
General: Well Developed and No Apparent Distress
HEENT: Normocephalic, Atraumatic and Moist Mucous Membranes
Respiratory: Clear to Auscultation
Cardiac: Regular Rhythm and S1/S2; Negative Murmur, Rub or Gallop
GI: Soft, Nontender, Nondistended and Normal Bowel Sounds; Negative Organomegaly
Rectal: Deferred by Provider
Musculoskeletal: No Clubbing, No Cyanosis and No Edema
Skin: Negative Rash
Neuro: Awake, Alert and Nonfocal/Grossly Intact
[2023-08-21] MEDS: LOPRESSOR 5 MG IV (10:18)
[2023-08-21] MEDS: NOVOLOG FLEXPEN-LOW RESISTANCE SC ×3 (10:18→16:29)
[2023-08-21 11:51] LABS: Glucose - Point of Care 140 mg/dl (70-99)
--- NOTE | 2023-08-21 12:24 | CM ---
CM following re: discharge planning.
Discussed in Rounds, reviewed pt's chart, met with pt.
Pt is a 53 year old male, admitted with primary dx of Intractable nausea and vomiting.
Pt reports he lives with father and a mother in a 2SH, 2 steps to enter, has no children. Pt described himself as independent in all areas [employer], has [facility] in the past. No DME or SNF history.
Pt reports he is on methadone program at [facility] in [place], used to abuse illegal substances and has been on methadone program for some time. Pt expressed his desire to return back home at discharge with parents support. Pt stated
usually his father transports him home.
PCP - Abelardo Amaro
Pharmacy - [facility], [place]
D/C plan: home with anticipated no needs. Pt will resume methadone program at [facility].
CM will follow with discharge plan updates as hospitalization progresses
[2023-08-21] MEDS: COREG 12.5 MG PO ×2 (12:47→22:10)
[2023-08-21] MEDS: METHADONE 100 MG/10 ML 150 MG PO (12:49)
[2023-08-21 14:43] LABS: Hematocrit 45.9 % (39.0-52.0); Hemoglobin 16.3 g/dL (13.0-18.0)
[2023-08-21 14:49] LABS: Lactic Acid 1.8 mmol/L (0.7-2.0)
[2023-08-21 16:11] LABS: Glucose - Point of Care 142 mg/dl (70-99)
[2023-08-21 19:08] LABS: Hematocrit 42.8 % (39.0-52.0); Hemoglobin 15.1 g/dL (13.0-18.0)
--- NOTE | 2023-08-21 19:22 | PTCARENOTE ---
patient transfer telemetry room 326. pt's parent's at the bedside. labs troponin and H/H send results pending. pt transfer with LR at 125 and protonix VSS AAO x3
[2023-08-21 19:36] LABS: Troponin I 0.029 ng/ml
[2023-08-21] MEDS: PROTONIX IV (20:06)
[2023-08-21 20:49] LABS: Glucose - Point of Care 161 mg/dl (70-99)
[2023-08-21 21:44] LABS: Troponin I 0.021 ng/ml
--- NOTE | 2023-08-21 23:05 | PTCARENOTE ---
Patient with a hx of CHF, has been receiving IVF at 125ml/hr. New simone orbital edema noted. PALOMO Jay notified. Order entered electronically to decrease IVF to 100ml/hr. Will monitor.
[2023-08-21] MEDS: TYLENOL 650 MG PO (23:39)
[2023-08-22] VITALS (7 sets, daily range): BP systolic 127–158; BP diastolic 80–96; PULSE 64–75; BMI 22.9
--- NOTE | 2023-08-22 04:00 | PTCARENOTE ---
Patient becoming agitated, states his lower back pain is a 12/10. PALOMO Jay again notified of c/o pain. Order entered for Lidocaine patch. PALOMO aware of patient thinking he has a kidney stone. Will monitor.
--- NOTE | 2023-08-22 04:28 | PTCARENOTE ---
Patient c/o lower back pain. States he believes he has a kidney stone, has had them before per patient. Patient received Methadone 100mg earlier in the day. Patient requesting something for pain, PALOMO Wong notified. Order entered electronically
for a one time dose of Tylenol. Will monitor.
[2023-08-22] MEDS: LIDOCAINE 4% PATCH 1 PATCH TOPICAL (04:40)
[2023-08-22 07:13] LABS: Hematocrit 40.9 % (39.0-52.0); Hemoglobin 14.1 g/dL (13.0-18.0); Mean Corp Hgb Conc. 34.5 g/dL (33.0-37.0); Mean Corpuscular Hgb 30.5 pg (27.0-31.0); Mean Corpuscular Volume 88.5 fL (80.0-94.0); Platelet Count 161 10^3/uL (130-400); Red Blood Cell Count 4.62 10^6/uL (4.70-6.10); Red Cell Dist. Width 13.2 % (11.5-14.5)
[2023-08-22 08:00] LABS: ALT (SGPT) 16 U/L (0-50); AST (SGOT) 23 U/L (17-59); Albumin 3.1 g/dl (3.5-5.0); Alkaline Phosphatase 92 U/L (38-126); Blood Urea Nitrogen 18 mg/dl (9-20); Calcium 8.4 mg/dl (8.4-10.2); Carbon Dioxide 26 mmol/L (22-30); Chloride 104 mmol/L (98-107); Direct Bilirubin 0.5 mg/dl (0.0-0.4); Estimated Creatinine Clearance > 125 ml/min; Glucose 114 mg/dl (70-99); HDL Cholesterol 45 mg/dl; LDL Cholesterol, Calculated 58 mg/dl; Potassium 3.5 mmol/L (3.5-5.1); Sodium 135 mmol/L (135-145); Total Bilirubin 1.1 mg/dl (0.2-1.3); Total Cholesterol 118 mg/dl (50-199); Total Protein 5.7 g/dl (6.3-8.2); Triglyceride 76 mg/dl (10-149); Very Low Density Lipoprotein 15 mg/dl (0-30); eGFR > 60.00
--- NOTE | 2023-08-22 09:08 | W.PN.GI.CBS2 ---
Today's Communication / Plan
-
advance diet, add nutrition supplement, change ppi gtt to PO BID, add carafate and send home with BID
follow up with Dr. Chinchilla at [place]
GI to sign off, please call with questions
Assessment / Plan
-
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 Chinchilla (last about 4 months ago), hx colon polyps, pericarditis, cardiomyopathy, HTN,
DM2, PVD, COPD, HLD, kidney stones, hx heroin abuse on methadone, hx of marijuana use, who presented to the ER with complaints of vomiting blood, which we are being asked to evaluate for. History as noted above with severe esophagitis/stenosis and
Boerhaave's in 2021. Has required serial dilation at [place] in the past with Dr. Chinchilla. UDS+marijuana and methadone.
Problem list:
#1: Hematemesis:
-- stopped, hgb and vitals are stable
-Possibly Elizabet Briggs tear as it was initially bilious v severe esophagitis v less likely recurrent esophageal tear v other.
-CT chest did not show any air to suggest esophageal perforation. He is not anemic and has had no further vomiting.
-advance diet to soft - his baseline
-- change to PO bid ppi
--- added sucralfate
--- added apple supplement
-PRN antiemetics
-- I discussed stopping marijuana and he is refusing - needs better anxiety treatment
#2: hx severe esophagitis, esophageal stenosis requiring serial dilation at [place]
-Follows with Dr. Chinchilla, with last dilation 4 months ago - pt believes to 18mm
-- will follow up ther
-Obtain records from [place]
-PPI
-Add Carafate when cleared for PO
#3: Daily marijuana use
-- I discussed stopping marijuana and he is refusing - needs better anxiety treatment
#: hx heroin abuse on methadone
#: hx colon polyps,
-He needs follow-up OP for this with hx of numerous colon polyps in 2019
Other pertinent medical hx:
-HTN
-PAD with hx fem-pop bypass
-kidney stones
-COPD
-non-ischemic cardiomyopathy
-HTN
-HLD
-DM2
-current smoker
Total Time Spent with Patient (in minutes): 25
Subjective
Subjective
Date of Service: August 22, 2023
hgb stable. thirsty. last EGD with dilation was 4months ago at [place] - states dilated to 18mm
gets intermittent bouts of quick onset n/v - initially bilious turned bloody; no further since here
hurts to swallow. smokes marijuana daily since he was 13 and won't stop - says it helps his anxiety
Objective
Data Reviewed
Laboratory Data:
Laboratory Results
08/22/23 05:57
08/22/23 05:56
Laboratory Results
PT 13.4 Sec (11.4-14.6) 08/21/23 03:07
INR 1.02 08/21/23 03:07
APTT 29.0 Sec (23.4-35.0) 08/21/23 03:07
Magnesium 2.0 mg/dl (1.6-2.3) 08/22/23 05:56
Total Bilirubin 1.1 mg/dl (0.2-1.3) 08/22/23 05:56
AST 23 U/L (17-59) 08/22/23 05:56
ALT 16 U/L (0-50) 08/22/23 05:56
Alkaline Phosphatase 92 U/L (38-126) 08/22/23 05:56
Lipase 32 U/L (23-300) 08/21/23 03:07
Vital Signs and I&O:
Vital Signs
Temp Pulse Resp BP Pulse Ox
97.8 F 88 16 147/91 97
08/22/23 07:00 08/22/23 07:00 08/22/23 07:00 08/22/23 07:00 08/22/23 07:00
I&O
08/21/23 08/22/23 08/23/23
06:59 06:59 06:59
Intake Total 1305 / 1305
Output Total 1200 / 1200
Balance 105 / 105
Physical Exam
Physical Exam
HEENT: Anicteric
GI: Soft and Non Tender
Extremities: No Edema
Neuro: Non Focal
[2023-08-22] MEDS: COREG 12.5 MG PO ×2 (09:39→20:39)
[2023-08-22] MEDS: PROTONIX 40 MG PO ×2 (09:40→20:40)
[2023-08-22] MEDS: METHADONE 100 MG/10 ML 150 MG PO (09:40)
[2023-08-22] MEDS: LR 1000 IV ×2 (09:41→20:39)
[2023-08-22 09:45] LABS: Glucose - Point of Care 136 mg/dl (70-99)
[2023-08-22] MEDS: NOVOLOG FLEXPEN-LOW RESISTANCE SC ×3 (09:48→17:31)
[2023-08-22 11:10] LABS: Glycohemoglobin (HgbA1c) 5.9 % (4.0-5.6)
[2023-08-22 11:36] LABS: Glucose - Point of Care 121 mg/dl (70-99)
[2023-08-22] MEDS: CARAFATE SUSPENSION 1 GM PO ×3 (11:41→21:36)
[2023-08-22] MEDS: NORCO 5/325 1 TABLET PO (11:44)
--- NOTE | 2023-08-22 12:54 | PTCARENOTE ---
PT co pain 8/10 kidney pain. PT with hx of sponge kidney bilaterally and gets many stones. He says he lives with zero out of ten pain with his methadone dosing. However, last night he started with right sided flank 8/10 pain and radiates to
testicles sharp. He says he has had lots of stones in his life and he thinks he has a stone. Last night all we could give him was tylenol. He stated it did not work but he slept all night. ordered narcotic. it wsa given. pt now resting. CT scan
ordered. PT now vomiting. EKG obtained to evalute QTC 494. benadryl ordered
--- NOTE | 2023-08-22 13:28 | W.PN.HOSP.TC ---
Today's Communication/Plan
-
ct a/p
added pain meds
diet as tolerated
Assessment / Plan
Assessment / Plan
Impression:
Presentation with intractable nausea and vomiting
Hematemesis.
Presumed esophagitis
Leukocytosis
Lactic acid elevation
Non-SC troponin elevation
Hemoconcentration
Right flank pain - h/o nephrolithiasis
Conditions prior to admission:
History of esophagitis/esophageal tear/esophageal stenosis with prior dilation.
Chronic CHF preserved EF.
CAD.
Benign hypertension.
COPD without exacerbation
Diabetes type 2 known NIDDM.
Chronic opioid dependence on methadone.
Tobacco use disorder.
h/o marijuana use
h/o heroin abuse
Plan:
Intractable nausea and vomiting
Hematemesis reported prior to admission, although no evidence since admission to ICU.
Patient with prior history of esophageal tear�esophageal stricture with prior dilation at [facility] records pending
CT scan in ED findings consistent with distal esophageal wall thickening, with no evidence of mediastinitis/esophageal tear/free air.
Hemoglobin stable with evidence of hemoconcentration 16
GI evaluated -hematemesis likely from Elizabet-Briggs tear. No intervention required. Continue PPI/sucralfate. GI recommended for patient to follow-up with Dr. Chinchilla as of history of severe esophagitis/stenosis requiring serial dilations.
Started on diet as tolerated
Repeat QTc showed improvement in 495, continue on as needed Tigan. Trial of benadryl IV as well.
Having new onset of right flank pain
Reported history of nephrolithiasis with recurrent problems. Have been intervened upon by Dr. Ortiz in the past
Already on methadone home dose, with acute pain adding hydrocodone to regimen
CT a/p w/o contrast ordered.
Leukocytosis.
Lactic acid elevation.
Suspected stress-induced and with dehydration/volume loss with persistent emesis.
Hemodynamically stable.
Imaging with no evidence of esophageal tear.
Monitor closely with serial CBCs/lactic acid level.
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
At risk for withdrawal given inability to take oral medications and missed methadone dose prior to admission
Remains tachycardic and diaphoretic.
Patient has been started back on methadone 150 mg daily. Hydrocodone added for possible acute kidney stone pain.
Chronic CHF preserved EF.
Hemoconcentrated on admission
Hold torsemide as currently not able to tolerate oral diet/liquid
Monitor volume status closely while on IV fluids.
CAD.
Essential Hypertension
Presentation with chest pain most likely attributed to emesis.
Non-SC troponin elevation noted. Will follow trend.
ECG with no evidence of ischemia/sinus tachycardia.
Hold preadmission medications including Coreg, Entresto, aspirin, statin
IV hydralazine for elevated blood pressure.
Diabetes type 2.
Updated hemoglobin A1c pending.
Basal bolus protocol.
Hold Jardiance.
COPD without exacerbation.
Stable respiratory status.
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
Tobacco use disorder
Nicotine patch.
Full code
DVT prophylaxis mechanical
Anticipated Discharge: 24 - 48 hours
Subjective/Interval History
-
Date of Service: August 22, 2023
Complaining of new onset of right flank pain with radiation to testicle. Similar to previous pain related to kidney stone
Ongoing nausea and vomiting, poor appetite
Afebrile
Objective Data
-
Labs:
Laboratory Results
08/22/23 08/22/23
05:56 05:57
WBC 22.0 H
Hgb 14.1
Hct 40.9
Plt Count 161 D
Sodium 135
Potassium 3.5
Chloride 104
Carbon Dioxide 26
BUN 18
Creatinine 0.6 L
Glucose 114 H
Calcium 8.4
Total Bilirubin 1.1
AST 23
ALT 16
Alkaline Phosphatase 92
Vital Signs:
Vital Signs
Temp Pulse Resp BP Pulse Ox
97.6 F 77 16 134/82 96
08/22/23 11:00 08/22/23 11:00 08/22/23 11:00 08/22/23 11:00 08/22/23 11:00
I&O
08/21/23 08/22/23 08/23/23
06:59 06:59 06:59
Intake Total 1305 / 1305
Output Total 1200 / 1200
Balance 105 / 105
Review of Systems
-
Respiratory: Reports No Symptoms
Cardiac: Reports No Symptoms
Abdomen/GI: Reports Abdominal Pain (On right flank), Nausea and Vomiting
Physical Exam
-
General: Appears in Distress and Pain
HEENT: Negative Oxygen
Respiratory: Clear to Auscultation
GI: Soft, Nontender and Nondistended
Genito-urinary: Costovertebral Angle Tend (Right sided )
Neuro: Awake, Alert and Oriented
[2023-08-22] MEDS: BENADRYL 25 MG IV (13:47)
[2023-08-22 17:37] LABS: Glucose - Point of Care 152 mg/dl (70-99)
[2023-08-22 21:32] LABS: Glucose - Point of Care 132 mg/dl (70-99)
--- NOTE | 2023-08-22 21:56 | PTCARENOTE ---
Pt requesting something for sleep. States he takes something at home but cannot remember name. [employer] covering house contacted, electronic orders received for 1x dose of benadryl (refer to MAR). Will continue to closely monitor.
[2023-08-22] MEDS: BENADRYL 25 MG PO (21:59)
[2023-08-23] VITALS (7 sets, daily range): BP systolic 122–149; BP diastolic 73–91; PULSE 62–72; BMI 22.6
[2023-08-23] MEDS: LR 1000 IV ×2 (06:07→17:06)
[2023-08-23 07:51] LABS: Glucose - Point of Care 100 mg/dl (70-99)
[2023-08-23] MEDS: CARAFATE SUSPENSION 1 GM PO ×4 (09:02→23:15)
[2023-08-23] MEDS: COREG 12.5 MG PO ×2 (09:02→20:06)
[2023-08-23] MEDS: METHADONE 100 MG/10 ML 150 MG PO (09:02)
[2023-08-23] MEDS: PROTONIX 40 MG PO (09:02)
[2023-08-23] MEDS: NOVOLOG FLEXPEN-LOW RESISTANCE SC ×2 (09:26→11:57)
[2023-08-23] MEDS: BENADRYL 25 MG IV ×3 (10:03→23:16)
--- NOTE | 2023-08-23 10:21 | PTCARENOTE ---
PT drank orange juice and coffee from breakfast tray. I came in to give medications and then started vomiting clear liquid no blood, small amount within 25 minutes. Md notified and benadrly ordered and given with great response. pt now sitting on
bed not vomiting and feels better . EKG to be completed to monitor for QT interval. PT appears cachectic with sunken cheek bones and noticible temporal wasting. PT ate no food for breakfast weight 140.
[2023-08-23 10:34] LABS: Blood Urea Nitrogen 13 mg/dl (9-20); Calcium 9.1 mg/dl (8.4-10.2); Carbon Dioxide 32 mmol/L (22-30); Chloride 98 mmol/L (98-107); Estimated Creatinine Clearance > 125 ml/min; Glucose 168 mg/dl (70-99); Potassium 3.8 mmol/L (3.5-5.1); Sodium 136 mmol/L (135-145); eGFR > 60.00
[2023-08-23 11:56] LABS: Glucose - Point of Care 138 mg/dl (70-99)
--- NOTE | 2023-08-23 12:51 | W.PN.HOSP.TC ---
Today's Communication/Plan
-
Continue supportive measures
Changed to IV Protonix
slow IVF rate
QTc slowly improving
Assessment / Plan
Assessment / Plan
Impression:
Presentation with intractable nausea and vomiting
Hematemesis.
Presumed esophagitis
Leukocytosis
Lactic acid elevation
Non-WV troponin elevation
Hemoconcentration
Right flank pain - h/o nephrolithiasis
Conditions prior to admission:
History of esophagitis/esophageal tear/esophageal stenosis with prior dilation.
Chronic CHF preserved EF.
CAD.
Benign hypertension.
COPD without exacerbation
Diabetes type 2 known NIDDM.
Chronic opioid dependence on methadone.
Tobacco use disorder.
h/o marijuana use
h/o heroin abuse
Plan:
Intractable nausea and vomiting
Hematemesis reported prior to admission, although no evidence since admission to ICU.
Patient with prior history of esophageal tear�esophageal stricture with prior dilation at [facility] records pending
CT scan in ED findings consistent with distal esophageal wall thickening, with no evidence of mediastinitis/esophageal tear/free air.
Hemoglobin stable with evidence of hemoconcentration
GI evaluated -hematemesis likely from Elizabet-Briggs tear. No intervention required. Continue PPI/sucralfate. GI recommended for patient to follow-up with Dr. Chinchilla as of history of severe esophagitis/stenosis requiring serial dilations.
Started on diet as tolerated
Repeat QTc showed improvement in 495 > 485ms today, continue on as needed Tigan. feels better with benadryl, prn dose ordered.
Having new onset of right flank pain from thursday
Reported history of nephrolithiasis with recurrent problems. Have been intervened upon by Dr. Ortiz in the past
Already on methadone home dose, with acute pain adding hydrocodone to regimen
CT a/p w/o contrast did not show any obstructive uropathy
Leukocytosis.
Lactic acid elevation.
Suspected stress-induced and with dehydration/volume loss with persistent emesis.
Hemodynamically stable.
Imaging with no evidence of esophageal tear.
Monitor closely with serial CBCs/lactic acid level.
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
At risk for withdrawal given inability to take oral medications and missed methadone dose prior to admission
Remains tachycardic and diaphoretic.
Patient has been started back on methadone 150 mg daily. Hydrocodone added for possible acute kidney stone pain.
Chronic CHF preserved EF.
Hemoconcentrated on admission
Hold torsemide as currently not able to tolerate oral diet/liquid
Monitor volume status closely while on IV fluids.
CAD.
Essential Hypertension
Presentation with chest pain most likely attributed to emesis.
Non-WV troponin elevation noted. Will follow trend.
ECG with no evidence of ischemia/sinus tachycardia.
Hold preadmission medications including Coreg, Entresto, aspirin, statin
IV hydralazine for elevated blood pressure.
Diabetes type 2.
Updated hemoglobin A1c pending.
Basal bolus protocol.
Hold Jardiance.
COPD without exacerbation.
Stable respiratory status.
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
Tobacco use disorder
Nicotine patch.
Full code
DVT prophylaxis mechanical
Care plan discussed with GI 08/23
Anticipated Discharge: 24 - 48 hours
Subjective/Interval History
-
Date of Service: August 23, 2023
Nausea and vomiting better in the evening, reoccurred in the morning
Patient threw up morning medication
Also complaining significant pain
Objective Data
-
Labs:
Laboratory Results
08/23/23
10:00
Sodium 136
Potassium 3.8
Chloride 98
Carbon Dioxide 32 H
BUN 13
Creatinine 0.6 L
Glucose 168 H
Calcium 9.1
Vital Signs:
Vital Signs
Temp Pulse Resp BP Pulse Ox
97.8 F 64 18 149/91 96
08/23/23 11:00 08/23/23 11:00 08/23/23 11:00 08/23/23 11:00 08/23/23 11:00
I&O
08/22/23 08/23/23 08/24/23
06:59 06:59 06:59
Intake Total 1305 / 1305 1680 / 1680
Output Total 1200 / 1200 1500 / 1500 400 / 400
Balance 105 / 105 180 / 180 -400 / -400
Review of Systems
-
Respiratory: Reports No Symptoms
Cardiac: Reports No Symptoms
Abdomen/GI: Reports Nausea, Vomiting and Indigestion; Denies Diarrhea
Physical Exam
-
General: Appears in Distress and Pain
HEENT: Negative Oxygen
GI: Soft, Nontender and Nondistended
Genito-urinary: Costovertebral Angle Tend (Right sided )
Neuro: Awake, Alert and Oriented
[2023-08-23 16:43] LABS: Glucose - Point of Care 189 mg/dl (70-99)
[2023-08-23] MEDS: NOVOLOG FLEXPEN-LOW RESISTANCE 1 UNITS SC (17:06)
[2023-08-23] MEDS: COLACE 100 MG PO (17:34)
[2023-08-23] MEDS: DULCOLAX 10 MG PO (17:34)
--- NOTE | 2023-08-23 17:40 | PTCARENOTE ---
PT co constipation. notified ducolox and colace ordered given. PT requested to be off telemetry. removed tele and ordered pt may shower
[2023-08-23] MEDS: PROTONIX IV 40 MG IV (20:07)
[2023-08-23] MEDS: NSS (PRESERVATIVE FREE) 10 ML IV (20:07)
--- NOTE | 2023-08-23 21:38 | PTCARENOTE ---
Patient due for BG and vital signs for 08/23 patient refusing. I went in to speak with patient, explained plan of care and need for VS and BG, pt continues to refuse. Patient aggressively turned around, put his hands up in the air and agressively
stated 'Go Away, I want to sleep, leave me alone'.
[2023-08-24 00:17] VITALS: BP 145/80
[2023-08-24 03:39] VITALS: BP 138/83
[2023-08-24] MEDS: BENADRYL 25 MG IV ×2 (05:32→10:37)
[2023-08-24 06:00] VITALS: BMI 22.3
[2023-08-24 06:26] LABS: Blood Urea Nitrogen 13 mg/dl (9-20); Calcium 8.6 mg/dl (8.4-10.2); Carbon Dioxide 31 mmol/L (22-30); Chloride 102 mmol/L (98-107); Estimated Creatinine Clearance 107 ml/min; Glucose 110 mg/dl (70-99); Potassium 3.3 mmol/L (3.5-5.1); Sodium 136 mmol/L (135-145); eGFR > 60.00
[2023-08-24] MEDS: CARAFATE SUSPENSION 1 GM PO ×2 (08:51→14:06)
[2023-08-24] MEDS: PROTONIX IV 40 MG IV (08:51)
[2023-08-24] MEDS: METHADONE 100 MG/10 ML 150 MG PO (08:52)
[2023-08-24] MEDS: NSS (PRESERVATIVE FREE) 10 ML IV (08:52)
[2023-08-24] MEDS: NOVOLOG FLEXPEN-LOW RESISTANCE SC ×2 (08:57→14:38)
[2023-08-24] MEDS: COREG 12.5 MG PO (09:00)
[2023-08-24 10:12] LABS: Glucose - Point of Care 126 mg/dl (70-99)
--- NOTE | 2023-08-24 10:19 | W.PN.HOSP.TC ---
Today's Communication/Plan
-
Continue IV Protonix, Benadryl as needed
QTc improving
Monitor I&O while on IV fluid, patient currently retaining fluid but no obvious weight changes.
Continue Coreg, IV hydralazine as needed for elevated blood pressure. Consider restarting torsemide held on admission.
Respiratory alkalosis. Consider Xanax.
Discharge planning.
Assessment / Plan
Assessment / Plan
Impression:
Presentation with intractable nausea and vomiting
Respiratory alkalosis.
Hematemesis.
Presumed esophagitis
Leukocytosis
Lactic acid elevation
Non-MS troponin elevation
Hemoconcentration
Right flank pain - h/o nephrolithiasis
Conditions prior to admission:
History of esophagitis/esophageal tear/esophageal stenosis with prior dilation.
Chronic CHF preserved EF.
CAD.
Benign hypertension.
COPD without exacerbation
Diabetes type 2 known NIDDM.
Chronic opioid dependence on methadone.
Tobacco use disorder.
h/o marijuana use
h/o heroin abuse
Plan:
Intractable nausea and vomiting
-Hematemesis reported prior to admission, although no evidence since admission to ICU.
-Patient with prior history of esophageal tear�esophageal stricture with prior dilation at [facility] records pending
-CT scan in ED findings consistent with distal esophageal wall thickening, with no evidence of mediastinitis/esophageal tear/free air.
-Hemoglobin stable at 14.1 with history of hemoconcentration 16/17
-GI evaluated -hematemesis likely from Elizabet-Briggs tear. No intervention required. Continue PPI/sucralfate. GI recommended for patient to follow-up with Dr. Chinchilla as of history of severe esophagitis/stenosis requiring serial dilations.
-Tolerating oral diet.
-Repeat QTc showed improvement in 495 > 469ms today, continue on as needed Tigan. feels better with benadryl, prn dose ordered.
Respiratory alkalosis.
-Patient meets RR 20, HCO3 21, O2 sats 95% on room, labile blood pressure.
-Most likely due to untreated anxiety.
-Patient self-medicating with marijuana.
-Consider Xanax.
-Follow-up outpatient with psych.
Having new onset of right flank pain from Thursday.
-Resolved. Stated he passed the stone.
-Reported history of nephrolithiasis with recurrent problems. Have been intervened upon by Dr. Ortiz in the past
-Already on methadone home dose, with acute pain adding hydrocodone to regimen
-CT a/p w/o contrast did not show any obstructive uropathy.
Leukocytosis.
-Patient is afebrile.
-Normalized lactic acid, elevated on admission. Suspected stress-induced and with dehydration/volume loss with persistent emesis.
-Hemodynamically stable.
-Imaging with no evidence of esophageal tear.
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
-Patient tolerating methadone 150 mg daily.
-Hydrocodone as needed added for possible acute kidney stone pain.
Chronic CHF preserved EF.
-Stable, hemoconcentrated on admission.
-Monitor I&O while on IV fluid, patient currently retaining fluid but no obvious with change.
-Consider restarting torsemide as patient able to tolerate oral diet/liquid.
CAD.
-Essential Hypertension
-Labile, currently 175/92.
-Continue Coreg.
-IV hydralazine for elevated blood pressure.
-Consider restarting torsemide held on admission.
-May also be due to worsening anxiety given concurrent respiratory alkalosis.
-Consider Xanax for anxiety.
Presentation with chest pain most likely attributed to emesis.
-Resolved, patient in no acute distress.
-Normalized Non-MS troponin; elevation noted at presentation.
-ECG with sinus bradycardia with improving QTc interval.
-Hold preadmission medications including Entresto, aspirin, statin
Diabetes type 2.
-Updated hemoglobin A1c 5.9
-Basal bolus protocol.
-Hold Jardiance.
COPD without exacerbation.
-Stable respiratory status.
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
Tobacco use disorder
-Nicotine patch daily.
Full code
-DVT prophylaxis mechanical
Care plan discussed with GI 08/23
Anticipated Discharge: Within 24 hours
Subjective/Interval History
-
Date of Service: August 24, 2023
Objective Data
-
Labs:
Laboratory Results
08/24/23
05:32
Sodium 136
Potassium 3.3 L
Chloride 102
Carbon Dioxide 31 H
BUN 13
Creatinine 0.7
Glucose 110 H
Calcium 8.6
Vital Signs:
Vital Signs
Temp Pulse Resp BP Pulse Ox
98.2 F 61 20 175/92 95
08/24/23 03:39 08/24/23 09:00 08/24/23 03:39 08/24/23 09:00 08/24/23 03:39
I&O
08/23/23 08/24/23 08/25/23
06:59 06:59 06:59
Intake Total 1680 / 1680 2400 / 2400
Output Total 1500 / 1500 1825 / 1825
Balance 180 / 180 575 / 575
Review of Systems
-
History Source: Patient
All other systems: Not reviewed unless documented
Constitutional: Reports No Symptoms
EENT: Reports No Symptoms Reported
Respiratory: Reports Cough; Denies Hemoptysis, Trouble Breathing or Wheezing
Cardiac: Reports No Symptoms; Denies Chest Pain or Palpitations
Abdomen/GI: Reports Nausea; Denies Abdominal Pain, Vomiting, Bloody Stools, Black Stools or Hematemesis
Genitourinary: Reports No Symptoms
Musculoskeletal: Reports No Symptoms
Skin: Reports No Symptoms
Neuro: Reports No Symptoms; Denies Headache
Hematologic / Lymphatic: Reports No Symptoms
Physical Exam
-
General: No Apparent Distress; Negative Fever or Chills
HEENT: Anicteric; Negative Oxygen
Respiratory: Clear to Auscultation and Non Labored Respirations; Negative Rhonchi or Crackles
Cardiac: S1/S2 and Bradycardic; Negative Rub
GI: Soft, Nontender, Nondistended and Normal Bowel Sounds
Rectal: Deferred by Provider
Genito-urinary: No Costovertebral Tender
Musculoskeletal: No Clubbing, No Cyanosis and No Edema
Skin: Warm and Dry
Neuro: Awake, Alert, Oriented and AO x 3
Psych: Calm and Intact Judgement/Insight
Data Reviewed
-
CT Scan: Image personally visualized and interpreted, Report Reviewed by me and Discussed with Physician
Labs: Labs Reviewed by me and Discussed with Physician
Old Records: Reviewed
--- NOTE | 2023-08-24 14:01 | W.DS.TRANS ---
DC Summary - [employer]
-
Discharge Instructions:
Sleep Apnea Risk Intermediate
Discharge Diagnosis/Procedures Presentation with intractable nausea and
vomiting
Hematemesis.
Presumed esophagitis
Leukocytosis
Lactic acid elevation
Non-DE troponin elevation
Hemoconcentration
Conditions prior to admission:
History of esophagitis/esophageal tear/
esophageal stenosis with prior dilation.
Chronic CHF preserved EF.
CAD.
Benign hypertension.
COPD without exacerbation
Diabetes type 2 known NIDDM.
Chronic opioid dependence on methadone.
Tobacco use disorder.
Diet 2 Gram Sodium
Instructions:
Stand-Alone Forms:
Changes to Home Medications: Yes
Discharge Medications:
DC Medications w/original date entered in [facility]
fluticasone fur. 100 mcg-umeclid 62.5 mcg-vilant 25 mcg inhalat.powder (Trelegy Ellipta) 1 puff inhalation R DAILY Lung/breathing issues 07/03/20
aspirin 81 mg tablet,delayed release 81 mg PO DAILY Blood clot prevention/tx 09/14/20
empagliflozin 10 mg tablet (Jardiance) 10 mg PO DAILY Diabetes 04/29/22
sacubitril 24 mg-valsartan 26 mg tablet (Entresto) 1 tab PO BID Heart Failure 04/29/22
atorvastatin 10 mg tablet 10 mg PO DAILY High cholesterol 10/21/22
pantoprazole 40 mg tablet,delayed release 40 mg PO BID Gastrointestinal issue #60 tabs 10/23/22
albuterol sulfate 90 mcg/actuation aerosol inhaler 2 puff inhalation R Q6HPRN PRN SOB 05/08/23
hydroxyzine pamoate 50 mg capsule 50 mg PO Q6HPRN PRN anxiety 05/08/23
carvedilol 25 mg tablet 12.5 mg PO BID Heart disease/condition #0 tabs 05/11/23
furosemide 20 mg tablet 20 mg PO Q48H Fluid retention/Swelling #30 tabs 05/11/23
nicotine 14 mg/24 hr daily transdermal patch 14 mg transdermal DAILY Smoking cessation #15 ea 05/11/23
methadone 10 mg/mL oral concentrate (Methadone Intensol) 150 mg PO DAILY SUBSTANCE USE DISORDER 08/21/23
pantoprazole 40 mg tablet,delayed release 40 mg PO BID #60 tabs 08/24/23
Home Medication Changes
Protonix increased to BID
Pending Results: No
--- NOTE | 2023-08-24 14:19 | VNURNOTE ---
Patient is current with [facility] since 05/12 w/SN.
Resumption of care completed in [facility] after review of chart and discussion with patient. Patient confirmed having [facility] contact information.
[2023-08-24] MEDS: KCL ELIXIR 40 MEQ PO (14:30)
--- NOTE | 2023-08-24 14:50 | CM ---
CM reviewed chart and noted dc order
bedside meeting- no dc needs
IMM completed verbally- copy provided
Discharge Disposition- home no needs- family/friend transport
== END 2023-08-24 15:45 | disposition home or self-care (01) | DRG 369 ==
LOC: 3 WEST ACU 05:38
PROVIDERS: Hospitalist; ADMITTING PHYSICIAN Hospitalist; ATTENDING PHYSICIAN Internal Medicine; CONSULT PHYSICIAN Internal Medicine; CONSULT PHYSICIAN Internal Medicine Critical Care Medicine; EMERGENCY PHYSICIAN Student in an Organized Health Care Education/Training Program
DX: K22.6 Gastro-esophageal laceration-hemorrhage syndrome (principal); E87.20 Acidosis, unspecified; I50.32 Chronic diastolic (congestive) heart failure; F11.20 Opioid dependence, uncomplicated; I5A Non-ischemic myocardial injury (non-traumatic); E86.0 Dehydration; I11.0 Hypertensive heart disease with heart failure; I25.10 Atherosclerotic heart disease of native coronary artery without angina pectoris; E87.6 Hypokalemia; E11.51 Type 2 diabetes mellitus with diabetic peripheral angiopathy without gangrene; N20.0 Calculus of kidney; J44.9 Chronic obstructive pulmonary disease, unspecified; K21.00 Gastro-esophageal reflux disease with esophagitis, without bleeding; F17.210 Nicotine dependence, cigarettes, uncomplicated; F12.90 Cannabis use, unspecified, uncomplicated; Z79.84 Long term (current) use of oral hypoglycemic drugs; Z79.82 Long term (current) use of aspirin
CPT/HCPCS: 71260; 74176; 80048; 80053; 80061; 80306; 80307; 81003; 81015; 82248; 82962; 83036; 83605; 83690; 83735; 83880; 84484; 85014; 85018; 85025; 85027; 85610; 85730; 86850; 86900; 86901; 87040; 87070; 93005; 96365; 96366; 96375; 96376; 99285; 99406; Q9967

== ENCOUNTER 2023-09-19 20:01 | Emergency (ER) | payer MEDICARE, SELFPAY ==
[2023-09-19 20:03] VITALS: BP 138/71; BMI 21.6
--- NOTE | 2023-09-19 20:44 | ED.GENMED ---
History of Present Illness
General
Chief Complaint: Abdominal Pain
Source: patient
Exam Limitations: none
Time Seen by Provider: 09/19/23 20:16
Travel History
Have you had any contact with someone who has COVID-19?: No
Do you have any symptoms of coronavirus? Fever > 100 degrees, chills, cough, shortness of breath, sore throat, loss of taste or smell, muscle aches, or headache?: No
History of Present Illness
History of Present Illness:
This is a 53 year old male that comes in with c/o right sided abd pain. States that this started at 3pm today. States that he took Ibuprofen 600mg X 2 and Tylenol about 1 hour before coming. States that he also vomited this morning. States that he
has a headache and is nauseated. Denies any fever, chills, chest pain, SOB, diarrhea, dizziness, urinary burning.
Past History
Past History
ED Past Medical History: Arrthythmia (afib), Cancer (Skin Ca Melanoma), COPD, GERD, HTN, Hypercholesterolemia, NIDDM and Other (pericarditis, cardiomyopathy, Kidney stones, UTI, Opiate abuse, Pyelonephritis, PVD, Chronic back pain, Chronic
Bronchisis, Sleep apnea, Diverticulitis, GI bleeding, Gout)
ED Past Surgical History: Appendectomy, Orthopedic (right and left shoulder surgery), Urological and Other (Cataracts, Fem-pop bypass. Esophageal tears)
Patient has exhibited threatening behavior?: No
Social History
Tobacco: Smoker (1-2 packs per day)
Alcohol: None
Drug: Former user and Narcotics
Personal:
Living: alone
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
Family History
Family History: Other (mom with hx PE); Negative Early CAD or CAD
Review of Systems
Review of Systems
All Other Systems: ROS reviewed and negative except as documented in HPI and ROS
Constitutional: Reports no symptoms; Denies fever or chills
EENT: Reports no symptoms
Respiratory: Reports no symptoms; Denies cough or trouble breathing
Cardiac: Reports no symptoms; Denies chest pain
ABD/GI: Reports abdominal pain (Right sided), nausea and vomiting; Denies diarrhea
: Reports no symptoms
Musculoskeletal: Reports no symptoms
Skin: Reports no symptoms
Neurological: Reports headache; Denies dizzy
Psychiatric: Reports no symptoms
Phy Exam
General Physical Exam
General Presentation: mild distress
General age: appears stated age
General Skin: warm and dry
General Habitus: normal
General Mental: alert
General Hydration: dry mucous membranes
ENT Exam
ENT Exam: TM's normal, pharynx normal and neck supple
Eye Exam
Eye Exam: EOMI
Cardiovascular Exam
Cardiovascular Exam: regular rate/rhythm, no edema, no murmur and normal peripheral pulses
Pulmonary Exam
Pulmonary Exam: decreased breath sounds (at bases) and other (Faint wheezing noted)
Gastrointestinal Exam
Gastrointestinal Exam: normal bowel sounds, non tender, soft, no organomegaly, non distended and cva tenderness (Right sided)
Musculoskeletal Exam
Musculoskeletal Exam: full ROM and no edema
Skin Exam
Skin Exam: normal color, warm/dry, no rash and no petechia
Psychiatric Exam
Psychiatric Exam: normal mood/affect
Course
Orders/Labs/Results
Orders:
Orders
09/19/23 20:42
0.9% Sodium Chloride 1000 ml [Nss] 1,000 ml IV BOLUS
HYDROmorphone [Dilaudid] 0.5 mg IV NOW STA
Ondansetron Injectable [Zofran] 4 mg IV NOW STA
09/19/23 20:43
CT Abd/pel Without Iv Or Oral Urgent
Comment:
Reason For Exam: rIGHT SIDED ABD PAIN
09/19/23 21:02
Complete Blood Count/With Diff Urgent
09/19/23 21:25
Comprehensive Metabolic Panel Urgent
09/19/23 21:27
HYDROmorphone [Dilaudid] 0.5 mg .ROUTE .STK-MED ONE
09/19/23 21:30
HYDROmorphone [Dilaudid] 0.5 mg IV NOW STA
09/19/23 22:26
Urinalysis Reflex To Culture Urgent
Date Specimen was Collected: 09/19/23
Time Specimen was Collected: :25
09/19/23 23:15
Potassium Chloride [KCl] 40 meq PO NOW STA
Abnormal Lab Results
09/19/23 09/19/23 09/19/23
21:02 21:25 22:26
MCHC 32.8 L g/dL
(33.0-37.0)
MPV 10.8 H fL
(7.4-10.4)
Absolute Neuts (auto) 8.6 H 10^3/uL
(1.4-6.5)
Neutrophils % 79.1 H %
(42.2-75.2)
Lymphocytes % 16.1 L %
(20.5-51.1)
Potassium 3.3 L mmol/L
(3.5-5.1)
Calcium 8.3 L mg/dl
(8.4-10.2)
Total Protein 6.1 L g/dl
(6.3-8.2)
Albumin 3.4 L g/dl
(3.5-5.0)
Urine Ketones Trace A
(Negative)
Urine Glucose 3+ A
(Negative)
09/19/23 21:02
09/19/23 21:25
Potassium slightly low. Calcium very slightly low. Total protein slightly low. Albumin slightly low. Urine negative for infection.
Vital Signs
Initial and Last Documented VS:
Initial Vital Signs
Temp Pulse Resp BP Pulse Ox
98.2 F 74 16 138/71 97
09/19/23 20:03 09/19/23 20:03 09/19/23 20:03 09/19/23 20:03 09/19/23 20:03
Last Documented Vital Signs
Temp Pulse Resp BP Pulse Ox
98.2 F 80 17 101/70 95
09/19/23 20:03 09/19/23 23:04 09/19/23 23:04 09/19/23 23:04 09/19/23 23:04
MDM/Problems Addressed
Differential Diagnosis Includes:
Renal calculus,
MDM/Problems Addressed:
This is a 53 year old male that comes in with c/o right sided abd pain. States that this started at 3pm today. States that he did vomit this morning and he took Tylenol and Ibuprofen before coming.
Will check labs and get CT scan. Will give IV fluid and medicate for pain.
Back into see patient. Explained that his urine is negative for infection and his CT is negative for any stones. Unsure what caused patient pain. Patient to follow up with the family doctor. Return with any concerns.
Chronic conditions affecting care:
Renal calculus
Acute Exacerbation and/or Progression of Chronic Illness:
Renal calculus
*Radiology
Radiology exam reviewed: radiology read reviewed (CT night hawk- MIld extasia is noted of both ureters without evidence of obstructing ureteral calculus. Soft tissue stranding and/or scarring is seen along both kidneys with suggestion of subtle
stranding along both ureter. Appearance can be seen with ascending urinary tract infection and/or ) and other (CT cont- pyelonephritis. Would recommend correlation with urinalysis and clinical presentation. Several nonobstructing calculi noted in
both kidneys. )
*Pulse Oximetry
Patient hypoxic: no
*EKG
Interpreted by ED Provider?: NA
Rate: EKG- N/A
*Floor Polisher Interpretation
Rate: Floor Polisher- N/A
*Critical Care Note
Total Time (30-74mins, 75-104mins- exclusive of procedures): Not Applicable
ED Attending Note
-
Portions of this chart may have been created with voice recognition software.� Occasional wrong word or��sound alike� substitutions may have occurred due to the inherent limitations of voice recognition software.
Discharge Plan
Departure
Patient Disposition: Home (Routine Discharge)
Date of Disposition: 09/19/23
Time of Disposition: 23:17
Patient with high blood pressure during this ER visit?: Yes
Condition: Good
Covid-19: Not Applicable
Discharge Problem:
Abdominal pain, Acute flank pain
Instructions: Flank Pain (DC), Abdominal Pain
Prescriptions:
No Action
Trelegy Ellipta 1 EACH blister with device
1 puff inhalation R DAILY
aspirin 81 MG tablet,delayed release (DR/EC)
81 mg PO DAILY
Hold Instructions: Resume on 05/06/22.
Jardiance 10 mg tablet
10 mg PO DAILY
Hold Instructions: Resume on 05/06/22.
Entresto 24-26 mg tablet
1 tab PO BID
Hold Instructions: Resume on 05/06/22.
atorvastatin 10 mg tablet
10 mg PO DAILY
pantoprazole 40 mg tablet,delayed release (DR/EC)
40 mg PO BID Qty: 60 0RF
hydroxyzine pamoate 50 mg Capsule
50 mg PO Q6HPRN PRN (Reason: anxiety)
albuterol sulfate 90 mcg/actuation Hfa Aerosol Inhaler
2 puff INHALATION R Q6HPRN PRN (Reason: SOB)
nicotine 14 mg/24 hr Patch 24 Hour
14 mg transdermal DAILY Qty: 15 0RF
furosemide 20 mg Tablet
20 mg PO Q48H Qty: 30 0RF
carvedilol 25 mg Tablet
12.5 mg PO BID Qty: 0 0RF
methadone [Methadone Intensol] 10 mg/mL Concentrate
150 mg PO DAILY
Patient Comments:
[facility] ([facility]) [phone] FAX [phone]
pantoprazole 40 mg Tablet,Delayed Release (/Ec)
40 mg PO BID Qty: 60 0RF
Referrals:
Karen Jones DO [Family Provider] - Call in 1-3 days for appt
Activity Restrictions/Additional Instructions:
As discussed, your blood work shows that your potassium was a little low. You have been given a dose of Potassium here. Please try eating some banana's. Your CT is negative for any renal calculus and your urine is negative for infection. Please
follow up with the family doctor as needed. IF YOU HAVE ANY OTHER CONCERNS PLEASE RETURN TO THE EMERGENCY ROOM.
Interventions
Interventions:
*Risk Screen - Suicide Last Done: 09/19/23 20:03
*Neglect/Abuse Screening Last Done: 09/19/23 20:03
*ED COVID-19 Vaccine History Last Done: 09/19/23 20:03
EO-Kyqfgj-Vwfauafcpe Assessment Last Done: 09/19/23 21:09
[2023-09-19] MEDS: DILAUDID 0.5 MG IV ×2 (21:04→21:30)
[2023-09-19] MEDS: ZOFRAN 4 MG IV (21:04)
[2023-09-19] MEDS: NSS 1000 IV (21:04)
[2023-09-19 21:08] LABS: % Basophils 0.5 % (0-2); % Eosinophils 0.6 % (0-6); % Immature Granulocytes 0.3 % (0-0.5); % Lymphocytes 16.1 % (20.5-51.1); % Monocytes 3.4 % (1.7-9.3); % Neutrophils 79.1 % (42.2-75.2); Absolute Basophils 0.1 10^3/uL (0-0.2); Absolute Eosinophils 0.1 10^3/uL (0-0.7); Absolute Lymphocytes 1.7 10^3/uL (1.2-3.4); Absolute Monocytes 0.4 10^3/uL (0.1-0.6); Absolute Neutrophils 8.6 10^3/uL (1.4-6.5); Hematocrit 46.4 % (39.0-52.0); Hemoglobin 15.2 g/dL (13.0-18.0); Mean Corp Hgb Conc. 32.8 g/dL (33.0-37.0); Mean Corpuscular Hgb 30.2 pg (27.0-31.0); Mean Corpuscular Volume 92.1 fL (80.0-94.0); Mean Platelet Volume 10.8 fL (7.4-10.4); Nucleated Red Blood Cells % 0 % (-); Platelet Count 158 10^3/uL (130-400); Red Blood Cell Count 5.04 10^6/uL (4.70-6.10); Red Cell Dist. Width 13.6 % (11.5-14.5); White Blood Cell Count 10.8 10^3/uL (4.8-10.8)
[2023-09-19 21:45] LABS: ALT (SGPT) 21 U/L (0-50); AST (SGOT) 30 U/L (17-59); Albumin 3.4 g/dl (3.5-5.0); Alkaline Phosphatase 70 U/L (38-126); Blood Urea Nitrogen 16 mg/dl (9-20); Calcium 8.3 mg/dl (8.4-10.2); Carbon Dioxide 27 mmol/L (22-30); Chloride 105 mmol/L (98-107); Estimated Creatinine Clearance 91 ml/min; Glucose 88 mg/dl (70-99); Potassium 3.3 mmol/L (3.5-5.1); Sodium 135 mmol/L (135-145); Total Bilirubin 0.9 mg/dl (0.2-1.3); Total Protein 6.1 g/dl (6.3-8.2); eGFR > 60.00
[2023-09-19 22:27] VITALS: BP 101/68
[2023-09-19 22:59] LABS: Urine Albumin Negative (Neg - Trace); Urine Bilirubin Negative (Negative); Urine Character Clear (Clear); Urine Color Yellow; Urine Glucose 3+ (Negative); Urine Ketone Trace (Negative); Urine Leukocyte Negative (Negative); Urine Nitrite Negative (Negative); Urine Occult Blood Negative (Negative); Urine Urobilinogen Negative (Neg - 1+)
[2023-09-19 23:04] VITALS: BP 101/70
== END 2023-09-19 23:42 | disposition home or self-care (01) ==
LOC: EMR 20:01
PROVIDERS: Clinical Nurse Specialist Family Health; EMERGENCY PHYSICIAN Student in an Organized Health Care Education/Training Program; FAMILY PHYSICIAN Internal Medicine
DX: R10.9 Unspecified abdominal pain (principal); R11.10 Vomiting, unspecified; F17.210 Nicotine dependence, cigarettes, uncomplicated; N20.0 Calculus of kidney; I10 Essential (primary) hypertension
CPT/HCPCS: 99284; 96374; 96375; 96361; 96376; 74176; 80053; 81003; 85025

== ENCOUNTER 2023-11-28 13:58 | Observation (INO) | payer MEDICARE, SELFPAY ==
[2023-11-28] VITALS (7 sets, daily range): BP systolic 138–189; BP diastolic 88–113; BMI 21.0
--- NOTE | 2023-11-28 08:26 | ED.GENMED ---
History of Present Illness
General
Chief Complaint: Abdominal Symptoms
Source: patient
Exam Limitations: none
Time Seen by Provider: 11/28/23 08:09
Travel History
Have you had any contact with someone who has COVID-19?: No
Do you have any symptoms of coronavirus? Fever > 100 degrees, chills, cough, shortness of breath, sore throat, loss of taste or smell, muscle aches, or headache?: No
History of Present Illness
History of Present Illness:
53-year-old male with history of cardiomyopathy, COPD, CHF presents complaining of onset of chills myalgias abdominal discomfort and vomiting since yesterday. He is unable to keep anything down. He denies diarrhea. No measurable fever. He sees
specks of blood in his vomit. He has a history of a Elizabet-Briggs tear resulting in a large amount of GI bleeding he states this is not similar to that. No known sick contacts. Prior abdominal surgical history includes appendectomy
Past History
Past History
ED Past Medical History: Arrthythmia (afib), Cancer (Skin Ca Melanoma), COPD, GERD, HTN, Hypercholesterolemia, NIDDM and Other (pericarditis, cardiomyopathy, Kidney stones, UTI, Opiate abuse, Pyelonephritis, PVD, Chronic back pain, Chronic
Bronchisis, Sleep apnea, Diverticulitis, GI bleeding, Gout)
ED Past Surgical History: Appendectomy, Orthopedic (right and left shoulder surgery), Urological and Other (Cataracts, Fem-pop bypass. Esophageal tears)
Patient has exhibited threatening behavior?: No
Social History
Tobacco: Smoker (1-2 packs per day)
Alcohol: None
Drug: Former user and Narcotics
Personal:
Living: alone
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
Family History
Family History: Other (mom with hx PE); Negative Early CAD or CAD
Phy Exam
Physical Exam
Physical Exam:
General: Uncomfortable appearing male no acute respiratory distress
HEENT: Normocephalic atraumatic mucosa dry
Heart: Tachycardic but regular
Lungs: Clear no wheeze or rales
Abdomen soft tender to the mid abdomen and right side of the abdomen. No guarding or rebound normal bowel sounds
Extremities: No cyanosis
Course
Orders/Labs/Results
Orders:
Orders
11/28/23 08:25
Electrocardiogram (*1) Urgent
Reason for Study: QTc Monitoring
EKG- Treatment ONCE
0.9% Sodium Chloride 1000 ml [Nss] 1,000 ml IV BOLUS
Ketorolac [Toradol] 15 mg IV NOW STA
Ondansetron Injectable [Zofran] 4 mg IV NOW STA
11/28/23 08:26
CT Abd/pelvis W Iv Cont Urgent
Comment:
Reason For Exam: abdominal pain, vomiting
11/28/23 09:09
Complete Blood Count/With Diff Urgent
Comprehensive Metabolic Panel Urgent
Lipase Urgent
11/28/23 10:05
Metoclopramide [Reglan] 10 mg IV NOW STA
Abnormal Lab Results
11/28/23
09:09
WBC 25.2 H 10^3/uL
(4.8-10.8)
MPV 11.2 H fL
(7.4-10.4)
Abs Immat Gran (auto) 0.3 H 10^3/uL
(0-0.05)
Absolute Neuts (auto) 22.1 H 10^3/uL
(1.4-6.5)
Absolute Monos (auto) 1.0 H 10^3/uL
(0.1-0.6)
Immature Gran % 1.0 H %
(0-0.5)
Neutrophils % 89.7 H %
(42.2-75.2)
Lymphocytes % 5.2 L %
(20.5-51.1)
Potassium 3.2 L mmol/L
(3.5-5.1)
Chloride 90 L mmol/L
(98-107)
BUN 24 H mg/dl
(9-20)
Glucose 216 H mg/dl
(70-99)
Alkaline Phosphatase 134 H U/L
(38-126)
11/28/23 09:09
11/28/23 09:09
Vital Signs
Initial and Last Documented VS:
Initial Vital Signs
Temp Pulse Resp BP Pulse Ox
99.3 F 137 20 144/113 98
11/28/23 07:50 11/28/23 07:50 11/28/23 07:50 11/28/23 07:50 11/28/23 07:50
Last Documented Vital Signs
Temp Pulse Resp BP Pulse Ox
99.3 F 137 20 144/113 98
11/28/23 07:50 11/28/23 07:50 11/28/23 07:50 11/28/23 07:50 11/28/23 07:50
MDM/Problems Addressed
Differential Diagnosis Includes:
Abdominal pain with vomiting. Differential could include viral illness versus gastritis versus bowel obstruction will check for electrolyte abnormality
I reviewed prior hospital records which shows he has had a history of upper GI bleeding.
Labs pending fluids Toradol Zofran ordered. CT pending.
Other medical conditions affecting today's care could include CHF, COPD and cardiomyopathy. Patient does not appear volume overloaded will give fluid bolus to monitor volume status
*Critical Care Note
Total Time (30-74mins, 75-104mins- exclusive of procedures): Not Applicable
Update Note
Update Note:
Labs reviewed. He has a white blood cell count of 25,000. CT reviewed demonstrates findings consistent with gastroenteritis. Reevaluated still tachycardic at rest so unable to tolerate p.o. fluid. Will admit to hospital for further treatment.
ED Attending Note
-
Portions of this chart may have been created with voice recognition software.� Occasional wrong word or��sound alike� substitutions may have occurred due to the inherent limitations of voice recognition software.
Discharge Plan
Departure
Patient Disposition: Admit
Date of Disposition: 11/28/23
Time of Disposition: 11:47
Admit to: Telemetry
Presentation/result/management discussed w/ accepting MD/DO: Hospitalist
Discharge Problem:
Gastroenteritis
Prescriptions:
No Action
Trelegy Ellipta 1 EACH blister with device
1 puff inhalation R DAILY
aspirin 81 MG tablet,delayed release (DR/EC)
81 mg PO DAILY
Hold Instructions: Resume on 05/06/22.
Jardiance 10 mg tablet
10 mg PO DAILY
Hold Instructions: Resume on 05/06/22.
Entresto 24-26 mg tablet
1 tab PO BID
Hold Instructions: Resume on 05/06/22.
atorvastatin 10 mg tablet
10 mg PO DAILY
pantoprazole 40 mg tablet,delayed release (DR/EC)
40 mg PO BID Qty: 60 0RF
hydroxyzine pamoate 50 mg Capsule
50 mg PO Q6HPRN PRN (Reason: anxiety)
albuterol sulfate 90 mcg/actuation Hfa Aerosol Inhaler
2 puff INHALATION R Q6HPRN PRN (Reason: SOB)
nicotine 14 mg/24 hr Patch 24 Hour
14 mg transdermal DAILY Qty: 15 0RF
furosemide 20 mg Tablet
20 mg PO Q48H Qty: 30 0RF
carvedilol 25 mg Tablet
12.5 mg PO BID Qty: 0 0RF
methadone [Methadone Intensol] 10 mg/mL Concentrate
150 mg PO DAILY
Patient Comments:
[email or web address] [phone] FAX [phone]
pantoprazole 40 mg Tablet,Delayed Release (Dr/Ec)
40 mg PO BID Qty: 60 0RF
Referrals:
Karen Jones DO [Family Provider] -
Interventions
Interventions:
*ED COVID-19 Vaccine History Last Done: 11/28/23 07:54
Discharge Date and Time
Print Language: SAMOAN
[2023-11-28] MEDS: ZOFRAN 4 MG IV (09:09)
[2023-11-28] MEDS: TORADOL 15 MG IV (09:10)
[2023-11-28] MEDS: NSS 1000 IV (09:10)
[2023-11-28 09:24] LABS: Absolute Immature Granulocytes 0.3 10^3/uL (0-0.05); Hematocrit 50.3 % (39.0-52.0); Hemoglobin 17.9 g/dL (13.0-18.0); Mean Corp Hgb Conc. 35.6 g/dL (33.0-37.0); Mean Corpuscular Hgb 30.7 pg (27.0-31.0); Mean Corpuscular Volume 86.1 fL (80.0-94.0); Mean Platelet Volume 11.2 fL (7.4-10.4); Nucleated Red Blood Cells % 0 % (-); Platelet Count 184 10^3/uL (130-400); Red Blood Cell Count 5.84 10^6/uL (4.70-6.10); Red Cell Dist. Width 14.4 % (11.5-14.5); White Blood Cell Count 25.2 10^3/uL (4.8-10.8)
[2023-11-28 09:38] LABS: ALT (SGPT) 22 U/L (0-50); AST (SGOT) 30 U/L (17-59); Albumin 4.6 g/dl (3.5-5.0); Alkaline Phosphatase 134 U/L (38-126); Blood Urea Nitrogen 24 mg/dl (9-20); Calcium 9.9 mg/dl (8.4-10.2); Carbon Dioxide 30 mmol/L (22-30); Chloride 90 mmol/L (98-107); Glucose 216 mg/dl (70-99); Lipase 27 U/L (23-300); Potassium 3.2 mmol/L (3.5-5.1); Sodium 135 mmol/L (135-145); Total Bilirubin 1.3 mg/dl (0.2-1.3); Total Protein 7.9 g/dl (6.3-8.2); eGFR > 60.00
[2023-11-28 10:25] LABS: % Lymphocytes 5.2 % (20.5-51.1); % Neutrophils 89.7 % (42.2-75.2)
[2023-11-28 10:26] LABS: % Basophils 0.1 % (0-2)
[2023-11-28 10:27] LABS: Absolute Lymphocytes 1.3 10^3/uL (1.2-3.4); Absolute Neutrophils 22.1 10^3/uL (1.4-6.5)
[2023-11-28] MEDS: REGLAN 10 MG IV (11:06)
--- NOTE | 2023-11-28 12:25 | HPS.HSE ---
Family Physician
-
Family Physician: Karen Jones,
Chief Complaint
-
n/v
History of Present Illness
The patient is a 53 year old male with PMH significant for recent admission 08/21/23 to 08/24/23 for intractable n/v, likely Elizabet-Briggs tear at that time, history of esophageal tear, esophagitis with esophageal stricture requiring dilation, medical
marijuana use daily (smoking), HFpEF, Benign HTN, CAD, COPD, Type 2 DM NIDDM, opiate abuse (dependence on Methadone- goes to [facility] in [place]), tobacco use disorder, who presents to the ED due to recurrent nausea and vomiting, similar to recent
admission in July. No diarrhea. No acute abdominal pain associated with vomiting, described as 'gas pains' in his lower abdomen for several months. He lives with his mom, who is is information assurance as well, and she is helping answer questions regarding
his history, as he is in discomfort and sleepy following IV Reglan in the ED. He had some improvement in nausea /vomiting post IV Zofran and Reglan in ED. She said he started vomiting yesterday 6am, with intractable vomiting since that time, no
blood in vomit nor bowel movements. He was on his regular routine prior to yesterday am, and currently has to take in a very bland diet including bananas, cream of wheat, eggs, in order to tolerate PO. He's had weight loss over the past several
months. He had a large polyp removed several years ago, and his mom notes he is likely overdue for a repeat colonoscopy.
He went to Methadone clinic this am, received and took his Methadone, however he was vomiting afterwards, unsure what he kept down. Likely has not taken oral meds yesterday and today. Vomit is clear frothy liquid at this time. He denies CP, no SOB,
though in ED his O2 was dropping on the monitor when he was sleeping, to high 80s, and he was placed on O2, and states he has sleep apnea. He uses marijuana (medical) frequently.
ED txt:
Ketorolac 15 mg IV, Reglan 10 mg IV, Zofran 4 mg IV, IV fluid bolus
Medical History
Past Medical History
Past Medical History: Reports Other
Additional Past Medical History:
Peripheral Arterial Disease s/p Right Fem-Pop Bypass
Non-Ischemic Cardiomyopathy / Chronic HFpEF
Esophageal Rupture/Grade D esophagitis/stenotic GE s/p dilation
Hypertension
Hyperlipidemia
Type II Diabetes Mellitus
COPD
Hx Opioid Abuse
Gout
Colon Polyps
Past Surgical History: Reports Other
Additional Past Surgical History:
Appendectomy
Multiple Lithotripsies/Ureteral Stent
Bilateral Shoulder Surgery
Melanoma Resection
Right Lower Ext Fem-Pop Bypass
EGD with Dilations
Social History
Tobacco: Smoker (1ppd x 38 yrs)
Alcohol: None
Drug: Former User (Maintained on chronic methadone.)
Family History
Family History: Not pertinent
Allergies / Home Medications
Allergies reflects when Allergies were last updated in [employer].
Home Medications with original date entered in [employer]
Allergy/Medication List:
Allergies
Allergy/AdvReac Type Severity Reaction Status Date / Time
amlodipine besylate Allergy Tongue Verified 11/28/23 07:57
[From [facility]vas] Swelling
erythromycin base Allergy Hives Verified 11/28/23 07:57
Penicillins Allergy Hives/tolerates Verified 11/28/23 07:57
ceftriaxone
Home Medications
fluticasone fur. 100 mcg-umeclid 62.5 mcg-vilant 25 mcg inhalat.powder (Trelegy Ellipta) 1 puff inhalation R DAILY Lung/breathing issues 07/03/20
aspirin 81 mg tablet,delayed release 81 mg PO DAILY Blood clot prevention/tx 09/14/20
empagliflozin 10 mg tablet (Jardiance) 10 mg PO DAILY Diabetes 04/29/22
sacubitril 24 mg-valsartan 26 mg tablet (Entresto) 1 tab PO BID Heart Failure 04/29/22
atorvastatin 10 mg tablet 10 mg PO DAILY High cholesterol 10/21/22
pantoprazole 40 mg tablet,delayed release 40 mg PO BID Gastrointestinal issue #60 tabs 10/23/22
albuterol sulfate 90 mcg/actuation aerosol inhaler 2 puff inhalation R Q6HPRN PRN SOB 05/08/23
hydroxyzine pamoate 50 mg capsule 50 mg PO Q6HPRN PRN anxiety 05/08/23
carvedilol 25 mg tablet 12.5 mg (1/2 x 25 mg) PO BID Heart disease/condition #0 tabs 05/11/23
methadone 10 mg/mL oral concentrate (Methadone Intensol) 150 mg PO DAILY SUBSTANCE USE DISORDER 08/21/23
pantoprazole 40 mg tablet,delayed release 40 mg PO BID #60 tabs 08/24/23
Review of Systems
-
A 12 point ROS was completed and negative except as noted: Yes
Physical Exam
Vital Signs
Vital Signs
Temp Pulse Resp BP Pulse Ox
99.3 F 137 20 144/113 98
11/28/23 07:50 11/28/23 07:50 11/28/23 07:50 11/28/23 07:50 11/28/23 07:50
Physical Exam
General: Appears Chronically Ill
HEENT: NormoCephalic and Anicteric
Respiratory: Clear and Wheezes
Cardiac: S1/S2 and Regular Rhythm
GI: Soft, Non Tender and Non Distended
Musculoskeletal: No Clubbing, No Cyanosis and No Edema
Skin: Warm and Dry
Neuro: AO x 3, No Motor Deficits and Nonfocal/grossly intact
Psych: Calm
Laboratory Results
-
11/28/23 09:09
11/28/23 09:09
Laboratory Results
Total Bilirubin 1.3 mg/dl (0.2-1.3) 11/28/23 09:09
AST 30 U/L (17-59) 11/28/23 09:09
ALT 22 U/L (0-50) 11/28/23 09:09
Alkaline Phosphatase 134 U/L (38-126) H 11/28/23 09:09
Lipase 27 U/L (23-300) 11/28/23 09:09
Data Reviewed
-
CT Scan: Report Reviewed by me (Moderate distention of the stomach, mainly with fluid. There is also fluid distention of the duodenum and slight prominence of fluid within the jejunal small bowel loops. Suggestion of slight wall thickening involving
jejunal small bowel loops. These findings would be suggestive of gastroenteritis. )
Medical Tests (Nuc Med, Echo, EKG etc): Report Reviewed by me (EKG sinus tachy, RBBB, LAFB, TURNER)
Old Records: Reviewed ( EGD 04/202211/28/2023: Impression: - LA Grade D esophagitis with bleeding as describe above, friable, with areas of stenosis including GE junction which could
not be passed though was patent. Possible change of )
Impression/Plan
-
IMPRESSION:
The patient is a 53 year old male with PMH significant for recent admission 08/21/23 to 08/24/23 for intractable n/v, likely Elizabet-Briggs tear at that time, history of esophageal tear, esophagitis with esophageal stricture requiring dilation, medical
marijuana use daily (smoking), HFpEF, Benign HTN, CAD, COPD, Type 2 DM NIDDM, opiate abuse (dependence on Methadone- goes to [facility] in [place]), tobacco use disorder, who presents to the ED due to recurrent nausea and vomiting, similar to recent
admission in July. No diarrhea. He uses marijuana (medical) frequently.
ED txt:
Ketorolac 15 mg IV, Reglan 10 mg IV, Zofran 4 mg IV, IV fluid bolus
#Intractable vomiting - -likely multifactorial associated with gastroenteritis/esophagitis in setting of history of esophageal stricture, Elizabet-Briggs tear, esophageal dilation, habitual marijuana use (question a component of cannabis hyperemesis
syndrome)
-no evidence for bowel obstruction, no evidence for acute infectious etiology at this time
-CT results: Moderate distention of the stomach, mainly with fluid, fluid distention of the duodenum, slight prominence of fluid within the jejunal small bowel loops, slight wall thickening involving jejunal small bowel loops, cw gastroenteritis
-IVF bolus followed by gentle IVF, monitor closely due to HFpEF
-IV PPI daily
-GI consultation placed
-IV Zofran prn, may also require additional anti-emetics
-EKG in am - QTc monitoring
-NPO for now exept sips of clears/ice chips
#Volume depletion, sinus tachycardia
-telemetry monitoring
-IVF bolus followed by gentle IVF
#Hypokalemia due to vomiting
-replete/check Mg
#Type 2 DM
-Jardiance
-SSI
#Opiate abuse history, on daily methadone
-had dose today, will have to confirm with [employer] tomorrow am dosing (pharmacy unable to confirm dosing today)-hold until dose confirmed in am
-[facility] [phone] FAX [phone]
#Medical Marijuana use
-discussed cessation
#Tobacco use daily
-pt declines nicotine patch
#Peripheral Arterial Disease s/p Right Fem-Pop Bypass
-hold daily aspirin for now
#Non-Ischemic Cardiomyopathy / Chronic HFpEF
-Coreg, may need to give IV BB if cannot take PO
-Entresto
#Esophageal Rupture/Grade D esophagitis/stenotic GE s/p dilation, history of
-GI cx,
-IV PPI
#Hypertension
-Coreg, may require IV txt , monitor
#Hyperlipidemia
-statin
#COPD, not in exacerbation
-nebs prn, continue Trelegy, albuterol prn
#Colon Polyps
-will need OP colonoscopy
DVT proph-Lovenox
Full Code
[2023-11-28] MEDS: KCL 270 MEQ IV (14:26)
[2023-11-28] MEDS: PROTONIX IV 40 MG IV ×2 (14:26→20:58)
[2023-11-28] MEDS: NSS 250 IV (14:27)
--- NOTE | 2023-11-28 16:01 | CON.GI ---
Consultation
-
Date/Time Consultation Performed: 11/28/23
Performing Provider: Edgardo Hagan MD
Reason for Consultation: abdominal pain, N/V
Medical History
Chief Complaint / HPI
Chief Complaint: N/V/abdominal pain
History of Present Illness:
The patient is a 49-year-old male with past medical history as noted who presents with vomiting and abdominal pain. He has had multiple admissions for vomiting over the years, including in 2021 with concern for ischemia and Boerhaave's. He follows
up regularly with Dr. Chinchilla at [facility] for serial dilations, last couple of months ago. He was hospitalized most recently in July with a repeat trip to the ER in August with abdominal pain, and vomiting, thought possibly more due to marijuana
and methadone. He states that he been doing okay over the last month and acutely yesterday started developing abdominal pain described as severe and diffuse, with vomiting. He is having bowel movements and denies any melena. He states that his
vomitus was blood-tinged. He denies any chest pain or shortness of breath. He states that he is cut back on his marijuana recently. Denies any significant sick contacts, travel or antibiotics.
Past Medical History
Past Medical History: Other (pericarditis, cardiomyopathy, HTN, DM2, PVD, COPD, HLD, kidney stones, hx heroin abuse on methadone, active marijuana,severe esophagitis with esophageal stricture)
Past Surgical History: Other (right fem-pop bypass, esophageal dilation, kidney stone extraction, appy)
Social History
Tobacco: Smoker
Alcohol: None
Drug: Marijuana
Family History
Family History: Reviewed & Not Pertinent
Allergies / Home Medications
Allergy/AdvReac Type Severity Reaction Status Date / Time
amlodipine besylate Allergy Tongue Verified 11/28/23 07:57
[facility] Swelling
erythromycin base Allergy Hives Verified 11/28/23 07:57
Penicillins Allergy Hives/tolerates Verified 11/28/23 07:57
ceftriaxone
�Medication �Instructions �Recorded
fluticasone fur. 100 mcg-umeclid 1 puff inhalation R DAILY 07/03/20
62.5 mcg-vilant 25 mcg Lung/breathing issues
inhalat.powder (Trelegy Ellipta)
aspirin 81 mg tablet,delayed 81 mg PO DAILY Blood clot 09/14/20
release prevention/tx
empagliflozin 10 mg tablet 10 mg PO DAILY Diabetes 04/29/22
(Jardiance)
sacubitril 24 mg-valsartan 26 mg 1 tab PO BID Heart Failure 04/29/22
tablet (Entresto)
atorvastatin 10 mg tablet 10 mg PO DAILY High cholesterol 10/21/22
pantoprazole 40 mg tablet,delayed 40 mg PO BID Gastrointestinal 10/23/22
release issue #60 tabs
albuterol sulfate 90 mcg/actuation 2 puff inhalation R Q6HPRN PRN SOB 05/08/23
aerosol inhaler
hydroxyzine pamoate 50 mg capsule 50 mg PO Q6HPRN PRN anxiety 05/08/23
carvedilol 25 mg tablet 12.5 mg (1/2 x 25 mg) PO BID Heart 05/11/23
disease/condition #0 tabs
methadone 10 mg/mL oral 150 mg PO DAILY SUBSTANCE USE 08/21/23
concentrate (Methadone Intensol) DISORDER
pantoprazole 40 mg tablet,delayed 40 mg PO BID #60 tabs 08/24/23
release
Review of Systems
-
All other systems: A 12 pt ROS was Negative except as stated above in HPI
Vital Signs
Temp Pulse Resp BP Pulse Ox
99.3 F 108 19 138/101 99
11/28/23 07:50 11/28/23 12:30 11/28/23 12:30 11/28/23 12:00 11/28/23 12:30
Physical Exam
Exam
General: NAD
HEENT: MMM, anicteric, no lymphadenopathy
Heart: Regular, no murmurs
Lungs: CTA bilaterally
Abdomen: normal bowel sounds, soft, no tenderness, mild epigastric rebound or guarding, no masses, bruits or ascites
Extremeties: no edema
Skin: no rashes
Results
WBC 25.2 10^3/uL (4.8-10.8) H 11/28/23 09:09
Hgb 17.9 g/dL (13.0-18.0) 11/28/23 09:09
Hct 50.3 % (39.0-52.0) 11/28/23 09:09
MCV 86.1 fL (80.0-94.0) 11/28/23 09:09
Plt Count 184 10^3/uL (130-400) 11/28/23 09:09
Absolute Neuts (auto) 22.1 10^3/uL (1.4-6.5) H 11/28/23 09:09
Sodium 135 mmol/L (135-145) 11/28/23 09:09
Potassium 3.2 mmol/L (3.5-5.1) L 11/28/23 09:09
Chloride 90 mmol/L (98-107) L 11/28/23 09:09
Carbon Dioxide 30 mmol/L (22-30) 11/28/23 09:09
BUN 24 mg/dl (9-20) H 11/28/23 09:09
Creatinine 0.8 mg/dL (0.7-1.3) 11/28/23 09:09
Calcium 9.9 mg/dl (8.4-10.2) 11/28/23 09:09
Total Bilirubin 1.3 mg/dl (0.2-1.3) 11/28/23 09:09
AST 30 U/L (17-59) 11/28/23 09:09
ALT 22 U/L (0-50) 11/28/23 09:09
Alkaline Phosphatase 134 U/L (38-126) H 11/28/23 09:09
Lipase 27 U/L (23-300) 11/28/23 09:09
Diagnostic Image Results:
CT:
IMPRESSION: Moderate distention of the stomach, mainly with fluid. There is also fluid distention of the duodenum and slight prominence of fluid within the jejunal small bowel loops. Suggestion of slight wall thickening involving jejunal small bowel
loops. These findings would be suggestive of gastroenteritis.
There is no evidence for bowel obstruction or free intraperitoneal air.
Colonic diverticula with no CT evidence for diverticulitis.
Bilateral nephroliths. No evidence for ureteral calculus.
Enlargement of both adrenal glands, left greater than right. Stable appearance dating back to CT examination of January 21, 2021, compatible with adrenal hyperplasia.
Prior GI Procedures:
EGD:
Colonoscopy:
Assessment / Plan
-
1. Abdominal pain/nausea/vomiting: With longstanding history as described above, though now CT scan does show some fluid distention of the duodenum and jejunum with some slight thickening of jejunal loops, now more consistent with infectious
gastroenteritis. Given his longstanding history of vomiting and severe esophagitis other etiologies including inflammatory bowel disease not excluded the do seem less likely given no significant symptoms in between these hospitalizations. He
relates some blood-streaked emesis, though no melena and doubt significant bleeding now, he is significantly dehydrated. At this point we will continue supportive care, PPI twice daily, IV fluids. If he has diarrhea we will check stool studies.
Assuming he continues to resolve with follow-up with Dr. Amor Bragg, to consider small bowel imaging and further evaluation.
-
-
Thank you for consultation and allowing me to participate in the patient's care. Please call the window air conditioner installer GI physician during the after hours with any questions or concerns.
[2023-11-28 18:22] LABS: Glucose - Point of Care 143 mg/dl (70-99)
--- NOTE | 2023-11-28 19:18 | PTCARENOTE ---
received pt to 3W room 319-1 approx 1600. Pt oriented to room, VS taken, pt c/o of R flank pain. Provider ordered 1000mg IV Tylenol. Pt with call antunez within reach.
[2023-11-28] MEDS: OFIRMEV 100 IV (20:36)
[2023-11-28] MEDS: LOVENOX 40 MG SC (20:39)
[2023-11-28] MEDS: NSS (PRESERVATIVE FREE) 10 ML IV (20:58)
[2023-11-28 21:53] LABS: Urine Albumin Trace (Neg - Trace); Urine Bilirubin Negative (Negative); Urine Character Clear (Clear); Urine Color Yellow; Urine Glucose 3+ (Negative); Urine Ketone 2+ (Negative); Urine Leukocyte Negative (Negative); Urine Nitrite Negative (Negative); Urine Occult Blood 2+ (Negative); Urine Specific Gravity 1.015 (<1.030); Urine Urobilinogen Negative (Neg - 1+); Urine pH 6.5 (5.0-9.0)
[2023-11-28 22:00] LABS: Urine Squamous Cell 0-2 /LPF (Few)
[2023-11-28 22:01] LABS: Urine White Cell 0-2 /HPF (0-5)
[2023-11-28 22:02] LABS: Urine Bacteria Few (Negative)
[2023-11-28 23:41] LABS: Glucose - Point of Care 112 mg/dl (70-99)
[2023-11-29] VITALS (7 sets, daily range): BP systolic 91–135; BP diastolic 57–99; BMI 21.1
[2023-11-29 06:05] LABS: Glucose - Point of Care 121 mg/dl (70-99)
[2023-11-29 07:17] LABS: % Basophils 0.1 % (0-2); % Eosinophils 0.1 % (0-6); % Immature Granulocytes 0.8 % (0-0.5); % Lymphocytes 9.7 % (20.5-51.1); % Monocytes 7.1 % (1.7-9.3); % Neutrophils 82.2 % (42.2-75.2); Absolute Immature Granulocytes 0.2 10^3/uL (0-0.05); Absolute Lymphocytes 1.9 10^3/uL (1.2-3.4); Absolute Monocytes 1.4 10^3/uL (0.1-0.6); Absolute Neutrophils 15.9 10^3/uL (1.4-6.5); Hemoglobin 15.2 g/dL (13.0-18.0); Mean Corp Hgb Conc. 33.8 g/dL (33.0-37.0); Mean Corpuscular Hgb 30.5 pg (27.0-31.0); Mean Corpuscular Volume 90.2 fL (80.0-94.0); Mean Platelet Volume 11.7 fL (7.4-10.4); Nucleated Red Blood Cells % 0 % (-); Platelet Count 144 10^3/uL (130-400); Red Blood Cell Count 4.99 10^6/uL (4.70-6.10); Red Cell Dist. Width 14.3 % (11.5-14.5); White Blood Cell Count 19.4 10^3/uL (4.8-10.8)
[2023-11-29] MEDS: SYMBICORT 80/4.5 MCG INHALER 2 PUFF INH ×2 (07:42→20:38)
[2023-11-29] MEDS: SPIRIVA RESPIMAT 2.5 MCG 2 PUFF INH (07:42)
[2023-11-29 07:53] LABS: Blood Urea Nitrogen 27 mg/dl (9-20); Carbon Dioxide 30 mmol/L (22-30); Chloride 101 mmol/L (98-107); Estimated Creatinine Clearance 98 ml/min; Glucose 123 mg/dl (70-99); Potassium 3.7 mmol/L (3.5-5.1); Sodium 137 mmol/L (135-145); eGFR > 60.00
[2023-11-29 08:14] LABS: TSH 0.81 uIU/ml (0.47-4.68)
[2023-11-29] MEDS: METHADONE 100 MG/10 ML 150 MG PO (09:16)
[2023-11-29] MEDS: PROTONIX IV 40 MG IV ×2 (09:17→20:39)
[2023-11-29] MEDS: ENTRESTO 24 MG/26 MG 1 TAB PO (09:17)
[2023-11-29] MEDS: COREG 12.5 MG PO ×2 (09:17→20:45)
[2023-11-29] MEDS: JARDIANCE 10 MG PO (09:17)
[2023-11-29] MEDS: NSS (PRESERVATIVE FREE) 10 ML IV ×2 (09:18→20:39)
--- NOTE | 2023-11-29 09:34 | W.PN.HOSP.TC ---
Today's Communication/Plan
-
Check blood cultures
Control pain
Clear liquid diet
Assessment / Plan
Assessment / Plan
Gen-AAOx3, mild distress due to pain and chills
HEENT-NC, AT, anicteric, clear oral mm
Neck-supple
CV-reg, no M, +S1/S2
Lungs-clear B/L
Abd-soft, NT, ND
Ext-no edema
Musculoskeletal-no cyanosis, clubbing
Skin-warm and dry
Neuro-grossly non-focal
Psych-calm, cooperative
Sepsis -present on admission. Leukocytosis and tachycardia noted. Source of sepsis could be due to gastroenteritis versus pyelonephritis versus other. Given history of nephrolithiasis and current complaints of left flank pain, rule out
pyelonephritis. Check blood cultures. However, urinalysis without pyuria. Currently having chills currently but afebrile this morning. White blood cell count trending down.
Patient claims that he is allergic to NSAIDs although it appears that he tolerated ketorolac, received a dose Thursday morning. Also claims he is allergic to acetaminophen.
Acute gastroenteritis - improving. Not nauseous currently. Start clear liquids. CT abdomen pelvis results noted.
Cannot rule out component of cannabis hyperemesis syndrome to explain his vomiting.
Does have a history of esophagitis. Continue IV Protonix.
Bilateral nephrolithiasis - no evidence of ureteral stone on CT.
DM2 with hyperglycemia -glucose 123 this morning. On Jardiance at home.
Hypokalemia -resolved.
Chronic heart failure preserved EF -stable.
Essential hypertension -stable. Presentation with hypertensive urgency, now resolved.
COPD without exacerbation -stable.
Hyperlipidemia -on atorvastatin.
Colon polyps
Opioid dependence - on chronic methadone therapy. Need to verify dose with his clinic on Thursday.
Full code
Anticipated Discharge: 24 - 48 hours
Subjective/Interval History
-
Date of Service: November 29, 2023
Patient seen and examined. Complaining of left flank pain. Having chills.
Objective Data
-
Labs:
Laboratory Results
11/29/23
06:23
WBC 19.4 H
Hgb 15.2
Hct 45.0
Plt Count 144 D
Sodium 137
Potassium 3.7
Chloride 101
Carbon Dioxide 30
BUN 27 H
Creatinine 0.7
Glucose 123 H
Calcium 9.0
Vital Signs:
Vital Signs
Temp Pulse Resp BP Pulse Ox
98.8 F 88 14 121/84 100
11/29/23 07:00 11/29/23 07:54 11/29/23 07:54 11/29/23 07:00 11/29/23 07:54
I&O
11/28/23 11/29/23 11/30/23
06:59 06:59 06:59
Output Total 550 / 550
Balance -550 / -550
Review of Systems
-
History Source: Patient
All other systems: Reviewed and negative
[2023-11-29 09:59] LABS: Magnesium 2.1 mg/dl (1.6-2.3)
[2023-11-29 10:17] LABS: Glycohemoglobin (HgbA1c) 5.8 % (4.0-5.6)
[2023-11-29] MEDS: ULTRAM 50 MG PO (11:34)
[2023-11-29 12:05] LABS: Glucose - Point of Care 122 mg/dl (70-99)
--- NOTE | 2023-11-29 12:32 | CM ---
Attempted to meet with patient for assessment, however he was asleep and would not wake up. Placed a call to his parents however there was no answer. Left a voice mail message and encouraged return call.
Will attempt to meet with patient again.
Plan: Case management will continue to follow and assist with discharge planning. Will attempt to meet with patient again.
[2023-11-29] MEDS: ZOFRAN 4 MG IV ×2 (13:32→19:32)
--- NOTE | 2023-11-29 13:40 | PTCARENOTE ---
Addendum entered by Bruna Ojeda RN 11/29/23 14:11:
Nausea unrelieved, patient requesting additional antiemetic. Dr. Gómez sanchez. Order received for Compazine.
Original Note:
Vomited small amount of watery/mucous like emesis, small amount of coffee grounds present. Medicated w/ Zofran.
[2023-11-29] MEDS: COMPAZINE 10 MG IV ×2 (14:38→20:46)
--- NOTE | 2023-11-29 16:02 | W.PN.GI.CBS2 ---
Today's Communication / Plan
-
compazine started by primary, monitor for n/v/pain
Assessment / Plan
-
1. Abdominal pain/nausea/vomiting: With longstanding history as described above, though now CT scan does show some fluid distention of the duodenum and jejunum with some slight thickening of jejunal loops, now more consistent with infectious
gastroenteritis. Given his longstanding history of vomiting and severe esophagitis other etiologies including inflammatory bowel disease not excluded the do seem less likely given no significant symptoms in between these hospitalizations. He
relates some blood-streaked emesis, though no melena and doubt significant bleeding now, he is significantly dehydrated. At this point we will continue supportive care, PPI twice daily, IV fluids - no changes today no improvement. If he has
diarrhea we will check stool studies. Assuming he continues to resolve with follow-up with Dr. Amor Bragg, to consider small bowel imaging and further evaluation - may need MRE vs push enteroscopy inpatient if no improvement.
Subjective
Subjective
Date of Service: November 29, 2023
still with n/v/pain
no diarrhea
just started compazine which is helping more than other anti-emetics
Objective
Data Reviewed
Laboratory Data:
Laboratory Results
11/29/23 06:23
11/29/23 06:23
Laboratory Results
Magnesium 2.1 mg/dl (1.6-2.3) 11/29/23 06:23
Total Bilirubin 1.3 mg/dl (0.2-1.3) 11/28/23 09:09
AST 30 U/L (17-59) 11/28/23 09:09
ALT 22 U/L (0-50) 11/28/23 09:09
Alkaline Phosphatase 134 U/L (38-126) H 11/28/23 09:09
Lipase 27 U/L (23-300) 11/28/23 09:09
Vital Signs and I&O:
Vital Signs
Temp Pulse Resp BP Pulse Ox
97.8 F 63 12 91/57 95
11/29/23 15:00 11/29/23 15:00 11/29/23 15:00 11/29/23 15:00 11/29/23 15:00
I&O
11/28/23 11/29/23 11/30/23
06:59 06:59 06:59
Output Total 550 / 550
Balance -550 / -550
Physical Exam
Physical Exam
GI: Non Distended and Non Tender
[2023-11-29] MEDS: LOVENOX SC ×2 (18:21→18:29)
[2023-11-29] MEDS: TORADOL 30 MG IV (18:22)
[2023-11-29] MEDS: NOVOLOG FLEXPEN-LOW RESISTANCE SC (18:28)
[2023-11-29 18:29] LABS: Glucose - Point of Care 93 mg/dl (70-99)
--- NOTE | 2023-11-29 18:32 | PTCARENOTE ---
Concerned that patient is febrile despite oral temps WNL, patient w/ facial flushing, chills. Patient adamantly refusing rectal temperature. Medicated w/ Toradol for 6/10 L flank pain, see AUG.
[2023-11-29] MEDS: ENTRESTO 24 MG/26 MG PO (20:44)
--- NOTE | 2023-11-29 20:45 | PTCARENOTE ---
Blood pressure decreased. WELDER EXPLOSION made aware, parameters added liyah Entresto, see MAR. Will continue to monitor.
[2023-11-29 21:35] LABS: Glucose - Point of Care 82 mg/dl (70-99)
[2023-11-30] MEDS: METHADONE 100 MG/10 ML PO (05:54)
[2023-11-30 07:39] VITALS: BP 108/69
[2023-11-30] MEDS: METHADONE 100 MG/10 ML 150 MG PO (08:12)
[2023-11-30] MEDS: JARDIANCE 10 MG PO (08:13)
[2023-11-30] MEDS: SYMBICORT 80/4.5 MCG INHALER 2 PUFF INH (08:20)
[2023-11-30] MEDS: COREG 12.5 MG PO (08:20)
[2023-11-30] MEDS: SPIRIVA RESPIMAT 2.5 MCG 2 PUFF INH (08:20)
[2023-11-30 08:22] LABS: Glucose - Point of Care 71 mg/dl (70-99)
[2023-11-30] MEDS: ENTRESTO 24 MG/26 MG PO (08:22)
[2023-11-30] MEDS: PROTONIX IV 40 MG IV (08:22)
[2023-11-30] MEDS: NSS (PRESERVATIVE FREE) 10 ML IV (08:23)
[2023-11-30] MEDS: NOVOLOG FLEXPEN-LOW RESISTANCE SC (08:23)
--- NOTE | 2023-11-30 08:39 | W.PN.GI.CBS2 ---
Today's Communication / Plan
-
Please see assessment and plan for details.
Assessment / Plan
-
1. Abdominal pain/nausea/vomiting: With longstanding history as described previously though now CT scan does show some fluid distention of the duodenum and jejunum with some slight thickening of jejunal loops, now more consistent with infectious
gastroenteritis. Given his longstanding history of vomiting and severe esophagitis other etiologies including inflammatory bowel disease not excluded the do seem less likely given no significant symptoms in between these hospitalizations. He is
feeling much better overall, tolerated clears and exam is benign. Will advance to full liquid diet if tolerates is okay to DC from GI standpoint. He will follow-up with Dr. Chinchilla as previously scheduled, will consider small bowel imaging in the
future.
Subjective
Subjective
Date of Service: November 30, 2023
Patient feeling much better overall, eager to go home, tolerated clears without difficulty.
Objective
Data Reviewed
Laboratory Data:
Laboratory Results
11/29/23 06:23
11/29/23 06:23
Laboratory Results
Magnesium 2.1 mg/dl (1.6-2.3) 11/29/23 06:23
Total Bilirubin 1.3 mg/dl (0.2-1.3) 11/28/23 09:09
AST 30 U/L (17-59) 11/28/23 09:09
ALT 22 U/L (0-50) 11/28/23 09:09
Alkaline Phosphatase 134 U/L (38-126) H 11/28/23 09:09
Lipase 27 U/L (23-300) 11/28/23 09:09
Vital Signs and I&O:
Vital Signs
Temp Pulse Resp BP Pulse Ox
98.2 F 84 16 104/69 98
11/30/23 07:39 11/30/23 08:24 11/30/23 08:24 11/30/23 08:22 06/03/24 08:24
I&O
11/29/23 11/30/23 12/01/23
06:59 06:59 06:59
Intake Total
Output Total 550 / 550 100 / 100
Balance -550 / -550 -80 / -80
Physical Exam
Physical Exam
General: NAD
Abdomen: normal bowel sounds, soft, no tenderness, no masses or bruits, no ascites
--- NOTE | 2023-11-30 08:57 | W.PN.HOSP.TC ---
Addendum entered and electronically signed by Kobe Hanson MD 11/30/23 16:37:
Will hold off on antibiotics on discharge -- patient is getting better without antibiotics -- close outpatient PCP follow-up
Addendum entered and electronically signed by Kobe Hanson MD 11/30/23 15:45:
Patient has actually had chronic left flank pain, as per patient, and he said his chronic left flank pain has not been getting worse, the pain has actually disappeared now, he denied any blood in his urine, dysuria or any other symptoms that would
suggest a UTI. I also spoke with on-call radiologist Dr. Delvin Boggs who said that patient's CT Abdomen Pelvis that was done this admission showed no pyelonephritis, but did show small nonobstructing renal stones. Plan would be for outpatient PCP
and urology follow-up and 1 week course of outpatient antibiotics given leukocytosis.
Original Note:
Today's Communication/Plan
-
Discharge today
Assessment / Plan
Assessment / Plan
Physical Exam
Gen-AAOx3, not in acute distress
HEENT-NC, AT, anicteric, clear oral mm
Neck-supple
CV-reg, no M, +S1/S2
Lungs-clear to auscultation bilaterally
Abd-soft, NT, ND. Positive bowel sounds.
Ext-no edema
Musculoskeletal-no cyanosis
Skin-warm and dry
Neuro-grossly non-focal
Psych-calm, cooperative

CT Abdomen Pelvis Imaging results, as per radiologist's report:
IMPRESSION: Moderate distention of the stomach, mainly with fluid. There is also fluid distention of the duodenum and slight prominence of fluid within the jejunal small bowel loops. Suggestion of slight wall thickening involving jejunal small bowel
loops. These findings would be suggestive of gastroenteritis.
There is no evidence for bowel obstruction or free intraperitoneal air.
Colonic diverticula with no CT evidence for diverticulitis.
Bilateral nephroliths. No evidence for ureteral calculus.
Enlargement of both adrenal glands, left greater than right. Stable appearance dating back to CT examination of January 21, 2021, compatible with adrenal hyperplasia.

Assessment/Plan
Sepsis - present on admission. Leukocytosis noted. No pain or any other complaints at this time. Blood cultures showed no growth to date. Recheck CBC and follow-up with PCP outpatient.
Infectious gastroenteritis - improving. Not nauseous currently. Tolerating diet. CT abdomen pelvis results noted.
Cannot rule out component of cannabis hyperemesis syndrome to explain his vomiting.
Does have a history of esophagitis.
Follow-up with your casino gaming worker Dr. Chinchilla and consider small bowel imaging.
Bilateral nephrolithiasis - no evidence of ureteral stone on CT.
DM2 with hyperglycemia -On Jardiance at home.
Hypokalemia -resolved.
Chronic heart failure preserved EF -stable.
Essential hypertension -stable. Presentation with hypertensive urgency, now resolved.
Coronary Artery Disease?
COPD without exacerbation -stable.
Hyperlipidemia -on atorvastatin.
Colon polyps
Opioid dependence - on chronic methadone therapy.
Full code
More than 30 minutes spent in discharge including
Final examination of the patient
Summarizing hospital stay
Instructions for continuing care to all relevant caregivers
Preparation of discharge records, prescriptions, and referral forms
Total time spent (in minutes): 40
Anticipated Discharge: Today
Subjective/Interval History
-
Date of Service: November 30, 2023
Patient was seen and examined. He reported feeling good, denied any nausea and expressed that he would like to go home today.
Objective Data
-
Vital Signs:
Vital Signs
Temp Pulse Resp BP Pulse Ox
98.2 F 84 16 104/69 98
11/30/23 07:39 11/30/23 08:24 11/30/23 08:24 11/30/23 08:22 11/30/23 08:24
I&O
11/29/23 11/30/23 12/01/23
06:59 06:59 06:59
Intake Total 20
Output Total 550 / 550 100 / 100
Balance -550 / -550 -80 / -80
[2023-11-30] MEDS: ULTRAM 50 MG PO (09:34)
--- NOTE | 2023-11-30 10:08 | CM ---
Patient seen at bedside. Patient stated that he lives with his parents and that it is a 2 story home. Patient has no DME, but per nursing patient has [employer] but does not use it. Patient currently on O2, but patient does not have any home O2.
Patient stated that [facility] but could not remember the name of the physician. Patient uses [facility] on [address] [place] and stated that he is independent and driving. Patient reviewed OBS form and signed form placed on chart, all
questions answered. CM will continue to follow for discharge planning needs.
Plan; home with no needs.
[2023-11-30 10:30] VITALS: BMI 21.1
[2023-11-30 11:30] VITALS: BP 117/79
[2023-11-30 12:49] LABS: Glucose - Point of Care 175 mg/dl (70-99)
[2023-11-30] MEDS: NOVOLOG FLEXPEN-LOW RESISTANCE 1 UNITS SC (13:35)
[2023-11-30 16:00] VITALS: BP 118/65
--- NOTE | 2023-11-30 16:34 | W.DS.TRANS ---
DC Summary - [employer]
-
Discharge Instructions:
Discharge Diagnosis/Procedures Bilateral Adrenal Gland Enlargement
Sepsis and Leukocytosis likely from Viral
Infectious gastroenteritis.
Infectious gastroenteritis - improving
History of Esophagitis
Bilateral nephrolithiasis
Type 2 Diabetes Mellitus with hyperglycemia
Hypokalemia
Chronic heart failure preserved ejection
fraction
Essential hypertension
History of Coronary Artery Disease?
COPD without exacerbation
Hyperlipidemia
Colon polyps
Opioid dependence - on chronic methadone therapy
CT Abdomen Pelvis Imaging results, as per
radiologist's report:
IMPRESSION: Moderate distention of the stomach,
mainly with fluid. There is also fluid
distention of the duodenum and slight prominence
of fluid within the jejunal small bowel loops.
Suggestion of slight wall thickening involving
jejunal small bowel loops. These findings would
be suggestive of gastroenteritis.
There is no evidence for bowel obstruction or
free intraperitoneal air.
Colonic diverticula with no CT evidence for
diverticulitis.
Bilateral nephroliths. No evidence for ureteral
calculus.
Enlargement of both adrenal glands, left greater
than right. Stable appearance dating back to CT
examination of January 21, 2021, compatible with
adrenal hyperplasia.
Diet Diabetic, Carb Controlled,Low Sodium,2 Gram
Sodium,Restrict fluids to 64 oz
Blood Work Needs CBC (WITH Differential), BMP and Magnesium
checked within 1-2 days with primary care
provider office.
Instructions:
Stand-Alone Forms:
Changes to Home Medications: Yes
Discharge Medications:
DC Medications w/original date entered in [employer]
fluticasone fur. 100 mcg-umeclid 62.5 mcg-vilant 25 mcg inhalat.powder (Trelegy Ellipta) 1 puff inhalation R DAILY Lung/breathing issues 07/03/20
aspirin 81 mg tablet,delayed release 81 mg PO DAILY Blood clot prevention/tx 09/14/20
empagliflozin 10 mg tablet (Jardiance) 10 mg PO DAILY Diabetes 04/29/22
sacubitril 24 mg-valsartan 26 mg tablet (Entresto) 1 tab PO BID Heart Failure 04/29/22
atorvastatin 10 mg tablet 10 mg PO DAILY High cholesterol 10/21/22
pantoprazole 40 mg tablet,delayed release 40 mg PO BID Gastrointestinal issue #60 tabs 10/23/22
albuterol sulfate 90 mcg/actuation aerosol inhaler 2 puff inhalation R Q6HPRN PRN SOB 05/08/23
hydroxyzine pamoate 50 mg capsule 50 mg PO Q6HPRN PRN anxiety 05/08/23
carvedilol 25 mg tablet 12.5 mg (1/2 x 25 mg) PO BID Heart disease/condition #0 tabs 05/11/23
methadone 10 mg/mL oral concentrate (Methadone Intensol) 150 mg PO DAILY SUBSTANCE USE DISORDER 08/21/23
Home Medication Changes
Pending Results: Yes
Additional Pending Results:
Blood culture results from hospitalization
Total time spent discharging patient (in min): 40
--- NOTE | 2023-12-01 18:31 | W.DCSUMMARY ---
Discharge Summary
Discharge Data
Date of Admission: 11/28/23
Date of Discharge: 11/30/23
Total time spent discharging patient (in min): 40
-
Pending Results: Yes
Additional Pending Results:
Blood culture results from hospitalization
Hospital Course
53 year old male with PMH significant for recent admission 08/21/23 to 08/24/23 for intractable n/v, likely Elizabet-Briggs tear at that time, history of esophageal tear, esophagitis with esophageal stricture requiring dilation, medical marijuana use
daily (smoking), HFpEF, Benign HTN, CAD, COPD, Type 2 DM NIDDM, opiate abuse (dependence on Methadone- [facility] [place]), tobacco use disorder, who presented to the emergency department due to recurrent nausea and vomiting, similar to his
recent July [address] of the abdomen suggested gastroenteritis, but as confirmed with radiologist it did not show any pyelonephritis. Patient noted chronic flank pains (which improved/resolved during the hospitalization), CT did show
small nonobstructing renal stones which could be followed up outpatient, as discussed with urology. Patient denied any blood in his urine, dysuria or any other symptoms that would suggest a urinary tract infection. Gastroenterology was consulted
and their impression was that patient had infectious gastroenteritis. He was given PPI medication and intravenous fluids, and his symptoms improved without antibiotics. Patient would need to follow-up closely with his outpatient physicians on
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 Chinchilla at [place] for small bowel imaging.
Discharge Plan
-
Patient Disposition: Home (Routine Discharge)
Discharge Diagnosis/Procedures: Bilateral Adrenal Gland Enlargement
Sepsis and Leukocytosis likely from Viral Infectious gastroenteritis.
Infectious gastroenteritis - improving
History of Esophagitis
Bilateral nephrolithiasis
Type 2 Diabetes Mellitus with hyperglycemia
Hypokalemia
Chronic heart failure preserved ejection fraction
Essential hypertension
History of Coronary Artery Disease?
COPD without exacerbation
Hyperlipidemia
Colon polyps
Opioid dependence - on chronic methadone therapy
CT Abdomen Pelvis Imaging results, as per radiologist's report:
IMPRESSION: Moderate distention of the stomach, mainly with fluid. There is also fluid distention of the duodenum and slight prominence of fluid within the jejunal small bowel loops. Suggestion of slight wall thickening involving jejunal small bowel
loops. These findings would be suggestive of gastroenteritis.
There is no evidence for bowel obstruction or free intraperitoneal air.
Colonic diverticula with no CT evidence for diverticulitis.
Bilateral nephroliths. No evidence for ureteral calculus.
Enlargement of both adrenal glands, left greater than right. Stable appearance dating back to CT examination of January 21, 2021, compatible with adrenal hyperplasia.
Condition: Fair
Diet: Low Sodium, 2 Gram Sodium, Diabetic, Carb Controlled and Restrict fluids to 64 oz
Blood Work: Needs CBC (WITH Differential), BMP and Magnesium checked within 1-2 days with primary care provider office.
Referrals:
Karen Jones, [Family Provider] - in one to two days (Needs CBC (WITH Differential), BMP and Magnesium checked within 1-2 days with primary care provider office. Hospital follow-up.)
Marlon Callejas MD [Active] - in three to four weeks (Nonobstructing kidney stones)
Prescriptions:
Continued
Trelegy Ellipta 1 EACH blister with device
1 puff inhalation R DAILY
aspirin 81 MG tablet,delayed release (DR/EC)
81 mg PO DAILY
Hold Instructions: Resume on 05/06/22.
Jardiance 10 mg tablet
10 mg PO DAILY
Hold Instructions: Resume on 05/06/22.
Entresto 24-26 mg tablet
1 tab PO BID
Hold Instructions: Resume on 05/06/22.
atorvastatin 10 mg tablet
10 mg PO DAILY
pantoprazole 40 mg tablet,delayed release (DR/EC)
40 mg PO BID Qty: 60 0RF
hydroxyzine pamoate 50 mg Capsule
50 mg PO Q6HPRN PRN (Reason: anxiety)
albuterol sulfate 90 mcg/actuation Hfa Aerosol Inhaler
2 puff INHALATION R Q6HPRN PRN (Reason: SOB)
carvedilol 25 mg Tablet
12.5 mg PO BID Qty: 0 0RF
methadone [Methadone Intensol] 10 mg/mL Concentrate
150 mg PO DAILY
Patient Comments:
11/28/2023: [email or web address] [phone] FAX [phone]
Discharge Orders:
Discharge Patient (As Directed); Ordered 11/30/23
Ordered By: Kobe Hanson
Discharge Date and Time
Discharge Date/Time: 11/30/23 17:38
Print Language: DUTCH
== END 2023-11-30 17:38 | disposition home or self-care (01) ==
LOC: 3 WEST ACU 13:58
PROVIDERS: Physician Assistant; ADMITTING PHYSICIAN Internal Medicine; ATTENDING PHYSICIAN Hospitalist; CONSULT PHYSICIAN Internal Medicine Gastroenterology; EMERGENCY PHYSICIAN Emergency Medicine; FAMILY PHYSICIAN Internal Medicine
DX: A41.9 Sepsis, unspecified organism (principal); A09 Infectious gastroenteritis and colitis, unspecified; I11.0 Hypertensive heart disease with heart failure; K92.0 Hematemesis; F17.210 Nicotine dependence, cigarettes, uncomplicated; I16.0 Hypertensive urgency; I50.32 Chronic diastolic (congestive) heart failure; F12.90 Cannabis use, unspecified, uncomplicated; I25.10 Atherosclerotic heart disease of native coronary artery without angina pectoris; E11.65 Type 2 diabetes mellitus with hyperglycemia; K57.30 Diverticulosis of large intestine without perforation or abscess without bleeding; E78.5 Hyperlipidemia, unspecified; E87.6 Hypokalemia; M10.9 Gout, unspecified; J44.9 Chronic obstructive pulmonary disease, unspecified; F11.20 Opioid dependence, uncomplicated; Z86.010 Personal history of colon polyps; Z88.1 Allergy status to other antibiotic agents; Z88.0 Allergy status to penicillin; Z88.8 Allergy status to other drugs, medicaments and biological substances
CPT/HCPCS: 74177; 80048; 80053; 81003; 81015; 82962; 83036; 83690; 83735; 84443; 85025; 87040; 87070; 93005; 94640; 96361; 96365; 96366; 96375; 99285; G0378; Q9967

== ENCOUNTER → 2024-03-15 12:19 | Outpatient (REF) | payer MEDICARE, SELFPAY | LOC: RAD 12:19 | PROVIDERS: ATTENDING PHYSICIAN Surgery Vascular Surgery | DX: I73.9 Peripheral vascular disease, unspecified (principal) | CPT/HCPCS: 93922; 93925 ==

== ENCOUNTER 2024-03-17 14:06 | Inpatient (IN) | payer MEDICARE, SELFPAY ==
[2024-03-17] VITALS (10 sets, daily range): BP systolic 109–189; BP diastolic 64–97
--- NOTE | 2024-03-17 09:17 | ED.GENMED ---
History of Present Illness
General
Chief Complaint: Abdominal Symptoms
Source: patient
Exam Limitations: none
Time Seen by Provider: 03/17/24 09:13
Nursing documentation reviewed up to this point in time: agreed with
History of Present Illness
History of Present Illness:
53-year-old male with a past medical history of COPD, opioid use disorder on methadone, GERD, A-fib, CHF presenting emergency department today with concerns of nausea, vomiting, and chills since last night. Patient present in room with family who
reports that he has had multiple episodes of this in the past and needs attributed to different things. Family reports that he will often get episodes of nausea and vomiting however is usually not this prolonged. Patient himself reports that he
did not change anything in his diet he states that the symptoms came on all of a sudden last night. He notes some mild abdominal cramping but no focal pain. Does have some pain in his flank which she said is chronic for him. Patient denies any
blood in his vomitus or stools. Patient did have 1 episode of diarrhea last night. Patient states that he is not able to tolerate any oral intake including water. Patient had a history of esophageal stricture and had dilation most recently
March 02. Patient states that he has not had trouble swallowing within the past few weeks. Patient denies any chest pain or shortness of breath. Patient denies any dysuria, hematuria. Of note, patient does have a history of opioid use
disorder however cannot take his methadone today he has a nausea and vomiting
Past History
Past History
ED Past Medical History: Arrthythmia (afib), Cancer (Skin Ca Melanoma), COPD, GERD, HTN, Hypercholesterolemia, NIDDM and Other (pericarditis, cardiomyopathy, Kidney stones, UTI, Opiate abuse, Pyelonephritis, PVD, Chronic back pain, Chronic
Bronchisis, Sleep apnea, Diverticulitis, GI bleeding, Gout)
ED Past Surgical History: Appendectomy, Orthopedic (right and left shoulder surgery), Urological and Other (Cataracts, Fem-pop bypass. Esophageal tears)
Patient has exhibited threatening behavior?: No
Social History
Tobacco: Smoker (1-2 packs per day)
Alcohol: None
Drug: Former user and Narcotics
Personal:
Living: alone
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
Family History
Family History: Other (mom with hx PE); Negative Early CAD or CAD
Review of Systems
Review of Systems
All Other Systems: ROS reviewed and negative except as documented in HPI and ROS
Phy Exam
Physical Exam
Physical Exam:
General: Patient is well appearing and in no acute distress; non-toxic
Skin: Diaphoresis otherwise no rashes or lesions
Head: Normocephalic, atraumatic
Eyes: Sclera non-icteric. EOMs intact. PERRLA.
Cardiac: Regular rate and rhythm, no murmur
Peripheral Vascular: No lower extremity swelling or edema
Pulm: Normal respiratory effort, scattered wheezes heard throughout
Abdomen: No abdominal tenderness to palpation, no palpable masses
Neuro: CN II-XII intact, no focal neurologic deficits.
Psychiatric: Appropriate mood and affect.
Course
Orders/Labs/Results
Orders:
Orders
03/17/24 Breakfast
NPO
Allow oral meds: Yes
Allow clear liquids: Sips of Clears
NPO with Ice Chips: Yes
03/17/24 09:34
0.9% Sodium Chloride 1000 ml [Nss] 1,000 ml IV BOLUS
Ondansetron Injectable [Zofran] 4 mg IV NOW STA
03/17/24 09:35
Complete Blood Count/With Diff Urgent
03/17/24 10:56
Metoclopramide [Reglan] 10 mg IV NOW STA
03/17/24 10:57
Comprehensive Metabolic Panel Urgent
Direct Bilirubin Urgent
Lipase Urgent
Magnesium Urgent
Comment: MAG ADDED ON BY FLOOR 12:40PM 03-17-24
03/17/24 10:59
Electrocardiogram (*1) Urgent
Reason for Study: QTc Monitoring
03/17/24 11:51
Add On- LAB Urgent
Tests Added?: direct and indirect bilirubin
CARDIOLOGY CONSULT Urgent
Consulting Provider: Venu Medrano
Was physician already notified: Yes
03/17/24 12:40
Add On- LAB Routine
Tests Added?: Magnesium
03/17/24 13:44
Admit/Transfer Patient As Directed
Co-Sign Provider:
Level of Care: Inpatient admission
Assign to:: Telemetry
Physician / Group: Blake
Diagnosis: Acute gastroenteritis with abnormal EKG
Reason for Telemetry: Other
Other Reason for Telemetry: av block
Date to Stop Telemetry: 03/19/24
Time to Stop Telemetry: 11:00
Reason for Hospitalization: see progress note
Expected length of stay greater than two midnights?: Yes
ELOS- Estimated Length of Stay in days: 2
I certify the patient meets the requirements for IP care: Yes
PRN Pain Medication Management As Directed
May give lesser potent ordered pain med per pt: Yes
preference::
Protocol:: Medication orders for pain may be administered in a
manner that supports deferring to patient preference
when the pt is:
- Requesting an ordered lesser potent pain medication.
Least to most potent pain medications are defined
as: acetaminophen < NSAID < tramadol < opioids
(morphine, oxycodone, hydromorphone).
- Requesting a lesser dose of the same medication IF
ORDERED.
- Requesting a less intrusive route of administration
if both routes are prescribed by the provider (PO <
IV).
03/17/24 13:46
Code Status As Directed
Resuscitation Status: Full Code
03/17/24 15:13
0.9% Sodium Chloride 1000 ml [Nss] 1,000 ml IV 80 mls/hr
Acetaminophen [Tylenol] 650 mg PO Q4HPRN PRN
Dextrose 50%-Water [Dextrose 50% Syringe] 12.5 grams IV [id number] PRN
Glucagon [GlucaGen] 1 mg IM PRN PRN
Prochlorperazine [Compazine] 5 mg IV Q6HPRN PRN
03/17/24 15:13
CT Abd/pel W Iv And Oral Contr Routine
Comment:
Reason For Exam: abdominal pain with intractable vomiting
Activity As Directed
Activity Level: As Tolerated
Bedside Glucose Monitoring As Directed
Frequency: AC&HS
Additional Instructions:: Change to q6h if pt on TPN, tube feeding or not eating
I&O [Intake/ Output] As Directed
Frequency: q12h
DX Deep Vein Thrombosis Video Routine
03/17/24 15:19
Potassium Chloride [KCl] 40 meq 0.9% Sodium Chloride 250 ml [Nss] 250 ml IV NOW
03/17/24 16:30
Insulin Aspart Corrective Low [Novolog Flexpen-Low Resistance] See Protocol SC AC
03/17/24 18:00
Enoxaparin Sodium [Lovenox] 40 mg SC QPM
03/17/24 20:00
Carvedilol [Coreg] 6.25 mg PO BID
Pantoprazole [Protonix] 40 mg PO BID
Sacubitril 24/Valsartan 26 [Entresto 24 mg/26 mg] 1 tab PO BID
03/18/24 06:00
Basic Metabolic Panel IN AM
CBC/No Diff [Complete Blood Count/No Diff] IN AM
Glycohemoglobin (HgbA1c) IN AM
03/18/24 08:00
Aspirin Low Dose EC [Aspir Low (Enteric Coated)] 81 mg PO DAILY
Atorvastatin [Lipitor] 10 mg PO DAILY
Furosemide [Lasix] 20 mg PO DAILY
03/19/24 11:00
DC Protocol for Telemetry ONCE
Abnormal Lab Results
03/17/24 03/17/24
09:35 10:57
WBC 14.7 H 10^3/uL
(4.8-10.8)
MCH 31.8 H pg
(27.0-31.0)
MPV 11.4 H fL
(7.4-10.4)
Abs Immat Gran (auto) 0.1 H 10^3/uL
(0-0.05)
Absolute Neuts (auto) 12.3 H 10^3/uL
(1.4-6.5)
Neutrophils % 84.2 H %
(42.2-75.2)
Lymphocytes % 11.0 L %
(20.5-51.1)
Glucose 149 H mg/dl
(70-99)
Total Bilirubin 1.8 H mg/dl
(0.2-1.3)
Direct Bilirubin 0.5 H mg/dl
(0.0-0.4)
03/17/24 09:35
03/17/24 10:57
Vital Signs
Initial and Last Documented VS:
Initial Vital Signs
Temp Pulse Resp BP Pulse Ox
98.1 F 67 18 189/97 97
03/17/24 08:59 03/17/24 08:59 03/17/24 08:59 03/17/24 08:59 03/17/24 08:59
Last Documented Vital Signs
Temp Pulse Resp BP Pulse Ox
98.4 F 70 20 109/64 100
03/17/24 16:45 03/17/24 16:45 03/17/24 16:45 03/17/24 16:45 03/17/24 16:45
MDM/Problems Addressed
Differential Diagnosis Includes:
Differentials include gastroenteritis, cannabis hyperemesis syndrome, opioid withdrawal, esophageal stricture, esophagitis, cholecystitis
MDM/Problems Addressed:
53-year-old male history of COPD, A-fib, CHF, diabetes, opioid use disorder presents emergency department today with intractable nausea and vomiting. He also has diaphoresis. This started last night. Of note, patient has been hospitalized for
this multiple times in the past. During his most recent admission in November 2023, he was hospitalized for intractable nausea vomiting and diagnosed with gastroenteritis. He also had similar presentation in August where he had a CAT scan use abdominal
pain and had negative workup. In July 2023, he is also hospitalized for intractable nausea and vomiting but they attributed to Elizabet-Briggs tear, he is also had esophageal strictures in the past that required dilation.
Here in emergency department today, he he appears uncomfortable, he is diaphoretic, not actively vomiting at this time. He has no tenderness on exam. He is afebrile, his vitals are stable. Will obtain blood work, rehydrate, treat, nausea and
reassess.
On reassessment, patient continues to have persistent vomiting. Required multiple doses of antiemetics. In addition, EKG was obtained for QTc monitoring which demonstrated a potential second-degree Mobitz 2 versus U waves, cardiology was
consulted, potassium today normal. Considering new EKG findings, patient's persistent symptoms, will admit for further evaluation observation as well as rehydration.
Chronic conditions affecting care:
COPD, GERD, diverticulitis, esophagitis, marijuana use, diabetes
*Pulse Oximetry
Patient hypoxic: no
*EKG
Interpreted by ED Provider?: Yes
EKG Intrepretation Date: 03/17/24
Interpretation: abnormal
Heart Rate: 48
Rate: bradycardiac
Rhythm: sinus
[place]: normal axis
*Critical Care Note
Total Time (30-74mins, 75-104mins- exclusive of procedures): Not Applicable
ED Attending Note
-
Portions of this chart may have been created with voice recognition software.� Occasional wrong word or��sound alike� substitutions may have occurred due to the inherent limitations of voice recognition software.
Discharge Plan
Departure
Patient Disposition: Admit
Date of Disposition: 03/17/24
Time of Disposition: 11:50
Admit to: Telemetry
Presentation/result/management discussed w/ accepting MD/DO: Hospitalist
Condition: Fair
Discharge Problem:
Intractable nausea and vomiting
Interventions
Interventions:
*Risk Screen - Suicide Last Done: 03/17/24 10:12
*General Assessment Last Done: 03/17/24 10:12
*Neglect/Abuse Screening Last Done: 03/17/24 10:12
*ED COVID-19 Vaccine History Last Done: 03/17/24 16:42
*Nursing Disposition Last Done: 03/17/24 14:56
IQ-Wewvgk-Npsaokmnzj Assessment Last Done: 03/17/24 09:20
Discharge Date and Time
Discharge Date/Time: 03/17/24 14:58
[2024-03-17] MEDS: ZOFRAN 4 MG IV (09:57)
[2024-03-17] MEDS: NSS 1000 IV ×2 (09:57→15:42)
[2024-03-17 10:15] LABS: % Basophils 0.3 % (0-2); % Eosinophils 0.7 % (0-6); % Immature Granulocytes 0.4 % (0-0.5); % Monocytes 3.4 % (1.7-9.3); % Neutrophils 84.2 % (42.2-75.2); Absolute Basophils 0.1 10^3/uL (0-0.2); Absolute Eosinophils 0.1 10^3/uL (0-0.7); Absolute Immature Granulocytes 0.1 10^3/uL (0-0.05); Absolute Lymphocytes 1.6 10^3/uL (1.2-3.4); Absolute Monocytes 0.5 10^3/uL (0.1-0.6); Absolute Neutrophils 12.3 10^3/uL (1.4-6.5); Hematocrit 46.4 % (39.0-52.0); Hemoglobin 16.1 g/dL (13.0-18.0); Mean Corp Hgb Conc. 34.7 g/dL (33.0-37.0); Mean Corpuscular Hgb 31.8 pg (27.0-31.0); Mean Corpuscular Volume 91.7 fL (80.0-94.0); Mean Platelet Volume 11.4 fL (7.4-10.4); Nucleated Red Blood Cells % 0 % (-); Platelet Count 166 10^3/uL (130-400); Red Blood Cell Count 5.06 10^6/uL (4.70-6.10); Red Cell Dist. Width 13.4 % (11.5-14.5); White Blood Cell Count 14.7 10^3/uL (4.8-10.8)
[2024-03-17] MEDS: REGLAN 10 MG IV (11:04)
[2024-03-17 11:25] LABS: ALT (SGPT) 22 U/L (0-50); AST (SGOT) 38 U/L (17-59); Albumin 4.5 g/dl (3.5-5.0); Alkaline Phosphatase 110 U/L (38-126); Blood Urea Nitrogen 18 mg/dl (9-20); Calcium 8.9 mg/dl (8.4-10.2); Carbon Dioxide 26 mmol/L (22-30); Chloride 101 mmol/L (98-107); Glucose 149 mg/dl (70-99); Lipase 52 U/L (23-300); Potassium 3.5 mmol/L (3.5-5.1); Sodium 143 mmol/L (135-145); Total Bilirubin 1.8 mg/dl (0.2-1.3); Total Protein 7.2 g/dl (6.3-8.2); eGFR > 60.00
--- NOTE | 2024-03-17 12:29 | CON.CAR ---
Addendum entered and electronically signed by Venu Medrano MD 03/17/24 18:08:
53 yo male with PMH of NICM, with improved EF, RBBB, opiate abuse on methadone is admitted with intractable nausea/vomiting. We are consulted for abnormal EKG. At time of my interview, these symptoms have subsided. He reports occasional palps.
Exam with RRR, no murmurs, no edema. EKG: sinus deepali, RBBB, U waves.Tele: ventricular bigeminy.
We are consulted for abnormal EKG. There was a question of 2:1 heart block vs U wave. Discussed with EP: thought to be U waves. We will check lytes and replete. Repeat EKG in AM.
Tele also shows periods of ventricular bigeminy. We will check echo in AM.
Original Note:
Consultation
Consultation Request
Date/Time Consultation Requested: 03/17/24 1151
Date/Time Consultation Performed: 03/17/24 1230
Requesting Provider: Linda Vilchis
Performing Provider: Elba CULVER for Dr. Medrano
Reason for Consultation: Abnormal EKG
Medical History
-
Chief Complaint: nausea and vomiting
History of Present Illness:
53 y/o male with resolved NICM, PAD, RBBB, HTN, DM, ELA, opiate use disorder on methadone, bradycardia, and smoking who is here for evaluation of nausea and vomiting that started yesterday around 4 PM. This has been a recurrent issue for him. In
March 2022, he had an esophageal tear. He has had esophageal narrowing with dilations. He was last here 11/2023 for nausea/vomiting felt to be gastroenteritis. We are consulted since EKG was abnormal, concerning for Type II heart block- however on
review with EP- appears to be prominent U waves and not heart block. He denies any dizziness or passing out. He has received medicines and is not actively vomiting at the time of my assessment, but is tired.
Past Medical History
Past Medical History: Arrhythmias, HTN, NIDDM and Other (cardiomyopathy)
Social History
Tobacco: Smoker
Drug: Marijuana and Other (on methadone)
Family History
Family History: Other (mom with history of PE)
Allergies / Home Medications
Allergy/AdvReac Type Severity Reaction Status Date / Time
acetaminophen Allergy Mild Rash Verified 11/29/23 10:53
ibuprofen Allergy Mild Hives Verified 11/29/23 09:37
amlodipine besylate Allergy Tongue Verified 11/28/23 07:57
[From Norvas] Swelling
erythromycin base Allergy Hives Verified 11/28/23 07:57
Penicillins Allergy Hives/tolerates Verified 11/28/23 07:57
ceftriaxone
�Medication �Instructions �Recorded �Confirmed �Type
fluticasone fur. 100 mcg-umeclid 1 puff inhalation R DAILY 07/03/20 11/28/23 History
62.5 mcg-vilant 25 mcg Lung/breathing issues
inhalat.powder (Trelegy Ellipta)
aspirin 81 mg tablet,delayed 81 mg PO DAILY Blood clot 09/14/20 11/28/23 History
release prevention/tx
empagliflozin 10 mg tablet 10 mg PO DAILY Diabetes 04/29/22 11/28/23 History
(Jardiance)
sacubitril 24 mg-valsartan 26 mg 1 tab PO BID Heart Failure 04/29/22 11/28/23 History
tablet (Entresto)
atorvastatin 10 mg tablet 10 mg PO DAILY High cholesterol 10/21/22 11/28/23 History
pantoprazole 40 mg tablet,delayed 40 mg PO BID Gastrointestinal 10/23/22 11/28/23 Rx
release issue #60 tabs
albuterol sulfate 90 mcg/actuation 2 puff inhalation R Q6HPRN PRN SOB 05/08/23 11/28/23 History
aerosol inhaler
hydroxyzine pamoate 50 mg capsule 50 mg PO Q6HPRN PRN anxiety 05/08/23 11/28/23 History
carvedilol 25 mg tablet 12.5 mg (1/2 x 25 mg) PO BID Heart 05/11/23 11/28/23 Rx
disease/condition #0 tabs
methadone 10 mg/mL oral 150 mg PO DAILY SUBSTANCE USE 08/21/23 11/30/23 History
concentrate (Methadone Intensol) DISORDER
Review of Systems
-
History Source: Patient
All other systems: Negative unless noted
Abdomen/GI: Nausea and Vomiting
Physical Exam
Vital Signs
Temp Pulse Resp BP Pulse Ox
98.1 F 67 18 189/97 97
03/17/24 08:59 03/17/24 08:59 03/17/24 08:59 03/17/24 08:59 03/17/24 08:59
Lab Results
03/17/24 09:35
03/17/24 10:57
Physical Exam
General: Well Developed, Well Nourished and No Apparent Distress
HEENT: Normocephalic and Anicteric
Respiratory: Clear and Non Labored Respirations
Cardiac: Regular Rhythm
Musculoskeletal: No Edema
Skin: Warm and Dry
Neuro: AO x 3
Psych: Calm
Impression / Plan
-
Nausea/vomiting: severe
-improved with medicines
-management per IM
Abnormal EKG:
-does not appear to be type 2 heart block, but rather U waves are noted
-follow telemetry
-patient has known bradycardia and RBBB and coreg was just decreased
-repeat in AM
-replace mag and potassium
-denies dizziness or syncope
Resolved NICM:
-EF normalized by most recent echo
-continue Entresto, Coreg, and Jardiance
HFimpEF: chronic
-on Lasix as OP. Does not appear volume overloaded.
Smoker:
-would benefit from cessation
Data Reviewed
-
EKG: Tracing Personally Visualized and interpreted (SR with with RBBB (and U waves, not type II heart block))
Medical Tests (Nuc Med, Echo etc): Report Reviewed by me (Echo 05/11/23: Normal left ventricular systolic function. Left ventricular ejection fraction is 55-60% . No significant valvular disease. )
Labs: Labs Reviewed by me
[2024-03-17 12:47] LABS: Direct Bilirubin 0.5 mg/dl (0.0-0.4)
[2024-03-17 13:39] LABS: Magnesium 1.8 mg/dl (1.6-2.3)
--- NOTE | 2024-03-17 13:52 | HPS.HSE ---
Family Physician
-
Family Physician: Karen Jones DO
Chief Complaint
-
Intractable vomiting with abdominal pain
History of Present Illness
Patient states he was in his usual state of health till 2 days ago.
It all started with nausea and recurrent episodes of vomiting. With his intractable nausea and vomiting he was not able to eat or keep anything down. He is also having abdominal discomfort especially on both the sides of the abdomen. Rates it at
7 out of 10. Localized to abdomen. No aggravating or relieving factors. No diarrhea. No fever or chills.
He had a similar episode few months ago and was diagnosed with gastroenteritis.
Denies any travel, eating unusual food, nobody with GI illness at home. Denies any antibiotics use. No new changes to the medications.
He has a history of esophageal stricture or so and he gets regular dilatation the last 1 was mar 02. Denying any dysphagia symptoms.
Is on chronic methadone. Did not take his medication today as he was nauseous and vomiting and could not keep anything down.
Use canabis every day.
Medical History
Past Medical History
Past Medical History: Reports Other
Additional Past Medical History:
Peripheral Arterial Disease s/p Right Fem-Pop Bypass
Non-Ischemic Cardiomyopathy / Chronic HFpEF
Esophageal Rupture/Grade D esophagitis/stenotic GE s/p dilation
Hypertension
Hyperlipidemia
Type II Diabetes Mellitus
COPD
Hx Opioid Abuse
Gout
Colon Polyps
Past Surgical History: Reports Other
Additional Past Surgical History:
Appendectomy
Multiple Lithotripsies/Ureteral Stent
Bilateral Shoulder Surgery
Melanoma Resection
Right Lower Ext Fem-Pop Bypass
EGD with Dilations
Social History
Tobacco: Smoker (1ppd x 38 yrs)
Alcohol: None
Drug: Former User (Maintained on chronic methadone.)
Family History
Family History: Not pertinent
Allergies / Home Medications
Allergies reflects when Allergies were last updated in [employer].
Home Medications with original date entered in [employer]
Allergy/Medication List:
Allergies
Allergy/AdvReac Type Severity Reaction Status Date / Time
amlodipine besylate Allergy Tongue Verified 11/28/23 07:57
[From Norvas] Swelling
erythromycin base Allergy Hives Verified 11/28/23 07:57
Penicillins Allergy Hives/tolerates Verified 11/28/23 07:57
ceftriaxone
Home Medications
fluticasone fur. 100 mcg-umeclid 62.5 mcg-vilant 25 mcg inhalat.powder (Trelegy Ellipta) 1 puff inhalation R DAILY Lung/breathing issues 07/03/20
aspirin 81 mg tablet,delayed release 81 mg PO DAILY Blood clot prevention/tx 09/14/20
empagliflozin 10 mg tablet (Jardiance) 10 mg PO DAILY Diabetes 04/29/22
sacubitril 24 mg-valsartan 26 mg tablet (Entresto) 1 tab PO BID Heart Failure 04/29/22
atorvastatin 10 mg tablet 10 mg PO DAILY High cholesterol 10/21/22
pantoprazole 40 mg tablet,delayed release 40 mg PO BID Gastrointestinal issue #60 tabs 10/23/22
albuterol sulfate 90 mcg/actuation aerosol inhaler 2 puff inhalation R Q6HPRN PRN SOB 05/08/23
hydroxyzine pamoate 50 mg capsule 50 mg PO Q6HPRN PRN anxiety 05/08/23
carvedilol 25 mg tablet 12.5 mg (1/2 x 25 mg) PO BID Heart disease/condition #0 tabs 05/11/23
methadone 10 mg/mL oral concentrate (Methadone Intensol) 150 mg PO DAILY SUBSTANCE USE DISORDER 08/21/23
pantoprazole 40 mg tablet,delayed release 40 mg PO BID #60 tabs 08/24/23
Review of Systems
-
Constitutional: Reports See HPI
EENT: Denies Sore Throat
Respiratory: Denies Cough or Trouble Breathing
Cardiac: Denies Chest Pain
Abdomen/GI: Reports See HPI
: Denies Dysuria
Neurological: Denies Dizzy
Psych: Reports Calm
Physical Exam
Vital Signs
Vital Signs
Temp Pulse Resp BP Pulse Ox
98.1 F 67 22 168/87 96
03/17/24 08:59 03/17/24 12:30 03/17/24 12:30 03/17/24 12:09 03/17/24 11:45
Physical Exam
General: No Comfortable (retching in ER)
HEENT: No Moist mucous membranes
Respiratory: Clear
Cardiac: S1/S2 and Regular Rhythm; No Tachycardia
GI: Soft, Non Distended, Normal Bowel Sounds and Tender (Discomfort in all quadrants but no rebound guarding rigidity.)
Neuro: AO x 3
Psych: Calm; No Confused
Laboratory Results
-
03/17/24 09:35
03/17/24 10:57
Laboratory Results
Total Bilirubin 1.8 mg/dl (0.2-1.3) H 03/17/24 10:57
AST 38 U/L (17-59) 03/17/24 10:57
ALT 22 U/L (0-50) 03/17/24 10:57
Alkaline Phosphatase 110 U/L (38-126) 03/17/24 10:57
Lipase 52 U/L (23-300) 03/17/24 10:57
Data Reviewed
-
Lab Data: Labs Reviewed by me
Impression/Plan
-
Intractable nausea vomiting with abdominal pain.-Acute onset of the last 2 days. Nontoxic looking. Afebrile. Abdomen nondistended and discomfort in all quadrants but no rebound or guarding. Leukocytosis noted. Clinically sounding like
gastroenteritis. Has a prior history of recurrent gastroenteritis. No history of IBD. In view of persistent GI symptoms and inability to take p.o.'s patient will be admitted to hospital. Will start with CT scan of the abdomen pelvis to rule out
recurrent gastroenteritis and if present consider IBD evaluation. I doubt IBD as he has no intercurrent symptoms.
Other differential will be cannabis related hyperemesis.
Doubt esophageal stricture related and as he had dilated this month and is being having no dysphagia symptoms.
Abnormal EKG-doubt that this is type II AV block, maybe it is a U wave after the T wave than P wave. Magnesium 1.8 potassium 3.5. Replete potassium to aim for goal of 4 . Follow on tele. Consult cardiology.
Hx of cardiomyopathy - clinically compensated .CW home dose of diuretics tomorrow depending on GI symptoms. Continue with Coreg and Entresto. Continue with aspirin and statins.
DM - Hold jardiance with GI symptoms. start on SSI.
Hx of esophageal stricture s/p dilatation-continue PPI
Chronic pain syndrome -cw methadone once dose is known.
COPD witout flare.
Counselled about Marijuana use and its association with hyperemesis syndrome.
--- NOTE | 2024-03-17 14:41 | PHANOTE ---
med rec note- called to methadone to inform them about release form being faxed over for patient, re faxed form again to [phone]. still awaiting fax for patient dose
[2024-03-17] MEDS: MAGNESIUM SULFATE 102 GRAMS IV (15:44)
[2024-03-17] MEDS: OMNIPAQUE 50 ML PO ×2 (15:47→16:27)
[2024-03-17] MEDS: KCL 270 MEQ IV (16:29)
[2024-03-17 17:10] LABS: Glucose - Point of Care 163 mg/dl (70-99)
[2024-03-17] MEDS: NOVOLOG FLEXPEN-LOW RESISTANCE SC (17:14)
[2024-03-17] MEDS: LOVENOX SC (17:27)
[2024-03-17] MEDS: COMPAZINE 5 MG IV (20:01)
[2024-03-17] MEDS: ENTRESTO 24 MG/26 MG 1 TAB PO (20:02)
[2024-03-17] MEDS: PROTONIX 40 MG PO (20:02)
[2024-03-17] MEDS: COREG 6.25 MG PO (20:03)
[2024-03-17] MEDS: SYMBICORT 160/4.5 MCG INHALER 2 PUFF INH (20:13)
[2024-03-17 21:28] LABS: Glucose - Point of Care 173 mg/dl (70-99)
[2024-03-18] VITALS (7 sets, daily range): BP systolic 144–176; BP diastolic 77–114
[2024-03-18 00:05] LABS: Glucose - Point of Care 169 mg/dl (70-99)
[2024-03-18] MEDS: NSS 1000 IV ×2 (05:10→23:34)
--- NOTE | 2024-03-18 06:09 | PTCARENOTE ---
Addendum entered by Sammy Orellana RN 03/18/24 08:22:
Pt c/o 8/10 chest pain throughout chest, non- radiating. Pt states, 'It feels like I am getting hit with a bat.' EKG done, BP 158/79, HR 67. CASH ACCOUNTING CLERK Etta, So Ri notified. Morning aspirin given, sublingual Nitro ordered, 3 doses given. Pt placed on 3LO2,
SPO2 99%. Pain decreased from 8/10 to 6/10 after third nitro per pt. Dr. Lozano and Venu Medrano notified.
Original Note:
Pt had scheduled 0600 EKG done, post EKG pt c/o non radiating, dull chest pressure. Another EKG done, BP 165/100, HR 71. ELIAS Quiles, So RI notified. Pt chest pressure resolved, trops ordered. No further orders.
[2024-03-18] MEDS: ASPIR LOW (ENTERIC COATED) 81 MG PO (06:45)
--- NOTE | 2024-03-18 06:51 | W.PN.UPDATE ---
Update Note
Progress Note Update
Approximately 0600 notified by RN, patient having chest pressure. EKG unremarkable, chest pressured resolved. VSS. About 10min later notified by RN again patient having chest pressure again, VSS. Rx Troponin, SL nitroSTAT. TT CBCardiology agronomy technician.
[2024-03-18] MEDS: NITROSTAT (SUBLINGUAL) 0.4 MG SL ×6 (06:53→12:42)
[2024-03-18 07:14] LABS: Hematocrit 47.7 % (39.0-52.0); Hemoglobin 16.8 g/dL (13.0-18.0); Mean Corp Hgb Conc. 35.2 g/dL (33.0-37.0); Mean Corpuscular Hgb 31.6 pg (27.0-31.0); Mean Corpuscular Volume 89.7 fL (80.0-94.0); Mean Platelet Volume 11.5 fL (7.4-10.4); Platelet Count 177 10^3/uL (130-400); Red Blood Cell Count 5.32 10^6/uL (4.70-6.10); Red Cell Dist. Width 13.4 % (11.5-14.5); White Blood Cell Count 22.8 10^3/uL (4.8-10.8)
[2024-03-18 07:29] LABS: Glucose - Point of Care 200 mg/dl (70-99)
--- NOTE | 2024-03-18 07:30 | RR ---
A Rapid Response was called on this patient, please see Rapid Response form.
Pt c/o chest pain, 02/05 EKG done, BP 158/79 HR 67. Charlotte Quiles notified- sublingual nitro ordered. 3 doses nitro given, pain down to 10. 3LO2 placed, SPO2 99%. Continued pain with no relief past 12/06. Dr. Lozano and Venu Medrano notified. Rapid
called.
[2024-03-18] MEDS: MORPHINE SULFATE 2 MG IV ×2 (07:42→13:02)
[2024-03-18 07:50] LABS: Hemoglobin 16.3 g/dL (13.0-18.0); Mean Corp Hgb Conc. 35.4 g/dL (33.0-37.0); Mean Corpuscular Hgb 30.8 pg (27.0-31.0); Mean Platelet Volume 11.2 fL (7.4-10.4); Platelet Count 188 10^3/uL (130-400); Red Blood Cell Count 5.29 10^6/uL (4.70-6.10); Red Cell Dist. Width 13.3 % (11.5-14.5); White Blood Cell Count 25.4 10^3/uL (4.8-10.8)
[2024-03-18] MEDS: SPIRIVA RESPIMAT 2.5 MCG 2 PUFF INH (07:58)
[2024-03-18] MEDS: SYMBICORT 160/4.5 MCG INHALER 2 PUFF INH ×2 (07:58→20:16)
[2024-03-18 08:02] LABS: INR 1.22; PT 15.2 Sec (11.4-14.6)
[2024-03-18 08:03] LABS: APTT 28.5 Sec (23.4-35.0)
[2024-03-18 08:05] LABS: Lactic Acid 1.6 mmol/L (0.7-2.0)
[2024-03-18 08:08] LABS: Glucose - Point of Care 209 mg/dl (70-99)
--- NOTE | 2024-03-18 08:08 | W.PN.CD ---
Addendum entered and electronically signed by Shaniqua Bowser MD 03/18/24 09:58:
I saw and examined the patient.
The ELECTRONICS PROCESSING SUPERVISOR's note was reviewed and I agree with the note.
Comment: Patient asleep and comfortable in bed when I arrived at the bedside. Upon waking, he told me he just like to sleep he is feeling much better, just very tired. On exam he had a regular rate and rhythm with extrasystoles, lungs were clear to
auscultation. No lower extremity edema. EKG was sinus bradycardia with right bundle branch block on telemetry he had sinus rhythm with ventricular bigeminy. No evidence of advanced heart block. Overall, clinical picture not significant for
cardiac chest pain, rather likely due to atypical chest pain in the setting of methadone withdrawal and colitis of the transverse and descending colon. Troponin is lower than his baseline. Will check an echocardiogram. If echocardiogram is
normal. Would treat high blood pressure and colitis. Will sign off and return with questions.
Original Note:
Today's Communication / Plan
-
check labs/troponin and echo this am
Impression / Plan
-
Chest pain: acute at 6am woke him from sleep.
-given 3 SL NTG and IV Morphine, no relief
-EKG w/o acute ischemia
-check troponin and BMP this am
-check echo this am
-he didn't have his methadone yesterday due to vomiting, possible withdrawal
Abnormal EKG:
-no heart block, but U waves are noted
-telemetry with ventricular bigeminy
-patient has known bradycardia and RBBB and Coreg was just decreased
-replace mag and potassium, check labs this am
-denies dizziness or syncope
Resolved NICM:
-EF normalized by most recent outpatient echo
-continue Entresto, Coreg, and Jardiance
HFimpEF: chronic
-on Lasix as OP.
-on exam, does not appear volume overloaded
Nausea/vomiting: severe
-improved with medicines
-management per primary team
-abd/pelvis CT scan with moderate low density bowel wall thickening in the distal transverse and descending colon consistent with colitis.
-also with elevated WBC.
Smoker:
-would benefit from cessation
Physical Exam
Vital Signs/Labs
Vital Signs
Temp Pulse Resp BP Pulse Ox
97.5 F 44 16 136/89 100
03/18/24 03:00 03/18/24 08:01 03/18/24 08:01 03/18/24 07:13 03/18/24 08:01
03/17/24 03/18/24 03/19/24
06:59 06:59 06:59
Actual Weight 126 lb 4.8 oz
03/18/24 07:39
PT 15.2 Sec (11.4-14.6) H 03/18/24 07:39
INR 1.22 03/18/24 07:39
APTT 28.5 Sec (23.4-35.0) 03/18/24 07:39
Magnesium 1.8 mg/dl (1.6-2.3) 03/17/24 10:57
Physical Exam
Constitutional: Distress (mild from pain)
Data Reviewed
-
Date of Service: March 18, 2024
Medical Decision Making: Reviewed Test Results
EKG: Tracing Personally Visualized and interpreted
Echo: Report Reviewed by me
X-Ray/CT/US/MRI/NUC/PET: Report Reviewed by me
Labs: Labs Reviewed by me
Old Records: Reviewed
[2024-03-18 08:11] LABS: Blood Urea Nitrogen 21 mg/dl (9-20); Calcium 9.3 mg/dl (8.4-10.2); Carbon Dioxide 17 mmol/L (22-30); Chloride 97 mmol/L (98-107); Estimated Creatinine Clearance 98 ml/min; Glucose 196 mg/dl (70-99); Potassium 3.5 mmol/L (3.5-5.1); Sodium 138 mmol/L (135-145); eGFR > 60.00
[2024-03-18 08:16] LABS: Troponin I 0.015 ng/ml
--- NOTE | 2024-03-18 08:55 | W.PN.HOSP.TC ---
Addendum entered and electronically signed by Delvin Lozano MD 03/18/24 09:12:
K not in hypokalemic range but with question of U wave aim to keep it close to 4 -kcl given
Addendum entered and electronically signed by Delvin Lozano MD 03/18/24 09:05:
CT of the abdomen pelvis shows moderate bowel wall thickening in the distal transverse colon and descending colon concerning for colitis. Patient with abdominal tenderness and leukocytosis and presented with GI symptoms. Start on antibiotics with
ceftriaxone and Flagyl. Consult GI.
Original Note:
Today's Communication/Plan
-
10 troponins. Check an echocardiogram per cardiology.
Await CT abdomen pelvis.
Start on methadone once the dose is known.
Assessment / Plan
Assessment / Plan
Acute chest pain-localized to the chest without radiation. Not pleuritic. No chest wall tenderness. EKG with right bundle branch block which is old. No acute ST-T changes. Pain much improved with IV morphine. Continue telemetry. Check
troponins. Check an echocardiogram. Cardiology following.
Intractable nausea vomiting with abdominal pain.-Acute onset of the last 2 days. Nontoxic looking. Afebrile. Abdomen nondistended and discomfort in all quadrants but no rebound or guarding. Leukocytosis noted. Clinically sounding like
gastroenteritis. Has a prior history of recurrent gastroenteritis. No history of IBD. In view of persistent GI symptoms and inability to take p.o.'s patient will be admitted to hospital. CT scan of the abdomen pelvis to rule out recurrent
gastroenteritis and if present consider IBD evaluation. I doubt IBD as he has no intercurrent symptoms.
Other differential will be cannabis related hyperemesis.
Doubt esophageal stricture related and as he had dilated this month and is being having no dysphagia symptoms.
Abnormal EKG-doubt that this is type II AV block, maybe it is a U wave after the T wave than P wave. Magnesium 1.8 potassium 3.5. Repleted potassium to aim for goal of 4 . Follow on tele. Await labs from today.
Hx of cardiomyopathy - clinically compensated .CW home dose of diuretics . Continue with Coreg and Entresto. Continue with aspirin and statins.
DM - Hold jardiance with GI symptoms. cw SSI.
Hx of esophageal stricture s/p dilatation-continue PPI
Chronic pain syndrome -cw methadone once dose is known. Await fax from his methadone clinic and once dose known will start his methadone today.
COPD witout flare.
[facility] team
[facility]
Total time spent on today's encounter was 52 minutes which included time spent in counseling the patient/ regarding diagnosis and treatment plan as listed above, goals of care, and symptom management. Case was discussed with nursing staff,
specialists . All labs and imaging personally reviewed by me. Remainder the time spent in detailed review of previous records, lab data, imaging, and other medical provider documentation.
Anticipated Discharge: > 48 hours
Subjective/Interval History
-
Date of Service: March 18, 2024
Rapid response was called this morning around 715.
Patient was having chest pain since 6 AM. He had a trail of sublingual nitro which made some difference but recurrent chest pain.
This morning again at around 7 that she had chest pain. He reports it is severe chest pain central in his chest and some nausea. No sweating. To be at least he said no radiation but had mention radiation to the left arm to the nurse. No
associated shortness of breath. Still some abdominal discomfort.
Patient got a dose of morphine which settled down the pain to 4 out of 10 and looks comfortable to me.
Cardiology present during the rapid response.
Objective Data
-
Labs:
Laboratory Results
03/18/24 03/18/24 03/18/24
06:24 07:39 08:44
WBC 22.8 H 25.4 H
Hgb 16.8 16.3
Hct 47.7 46.0
Plt Count 177 188
PT 15.2 H
INR 1.22
APTT 28.5
Sodium 138 Cancelled Pending
Potassium 3.5 Cancelled Pending
Chloride 97 L Cancelled Pending
Carbon Dioxide 17 L Cancelled Pending
BUN 21 H Cancelled Pending
Creatinine 0.7 Cancelled Pending
Glucose 196 H Cancelled Pending
Calcium 9.3 Cancelled Pending
Vital Signs:
Vital Signs
Temp Pulse Resp BP Pulse Ox
98.3 F 44 16 166/109 100
03/18/24 07:30 03/18/24 08:01 03/18/24 08:01 03/18/24 07:30 03/18/24 08:01
I&O
03/17/24 03/18/24 03/19/24
06:59 06:59 06:59
Output Total 1600 / 1600
Balance -1600 / -1600
Review of Systems
-
Unable to obtain full review of systems at this time due to: Other (not detailed as pt was in middle of SURFACER)
Constitutional: Denies Fever
Physical Exam
-
General: Negative Comfortable
HEENT: Moist Mucous Membranes
Respiratory: Clear to Auscultation
Cardiac: Regular Rhythm and S1/S2
GI: Soft, Nondistended, Normal Bowel Sounds and Tender ( epigastric and by and large in upper abdomen area but no rebound guarding rigidity.)
Neuro: AO x 3
Psych: Calm
Data Reviewed
-
Labs: Labs Reviewed by me
[2024-03-18 09:03] LABS: Glycohemoglobin (HgbA1c) 5.8 % (4.0-5.6)
[2024-03-18] MEDS: PROTONIX 40 MG PO ×2 (09:08→20:22)
[2024-03-18] MEDS: LIPITOR 10 MG PO (09:08)
[2024-03-18] MEDS: ENTRESTO 24 MG/26 MG 1 TAB PO ×2 (09:10→20:23)
[2024-03-18] MEDS: COREG 6.25 MG PO ×2 (09:10→20:22)
[2024-03-18] MEDS: LASIX 20 MG PO (09:13)
[2024-03-18] MEDS: COMPAZINE 5 MG IV (09:14)
[2024-03-18 09:23] LABS: Blood Urea Nitrogen 22 mg/dl (9-20); Calcium 9.4 mg/dl (8.4-10.2); Carbon Dioxide 21 mmol/L (22-30); Chloride 97 mmol/L (98-107); Estimated Creatinine Clearance 98 ml/min; Glucose 205 mg/dl (70-99); Potassium 3.7 mmol/L (3.5-5.1); Sodium 137 mmol/L (135-145); eGFR > 60.00
[2024-03-18] MEDS: NOVOLOG FLEXPEN-LOW RESISTANCE 2 UNITS SC (09:30)
--- NOTE | 2024-03-18 09:54 | CON.GI ---
Addendum entered and electronically signed by Curtis Rivera DO 03/18/24 12:09:
I saw and examined the patient. The JAVA J2EE APPLICATION DEVELOPER's note was reviewed and I agree with the note.
Comment: Mr Renae is a 53 y.o male with past medical history notable for HTN, DM, ELA, nonischemic cardiomyopathy (w/ improved EF), RBBB, chronic opiate use (on methadone), chronic cannabis use, hx of esophageal stricture (s/p serial dilations, last
dilation 03/03/24) multiple admissions in the past for nausea/vomiting and abdominal pain over the past few years who presented to the ED with nausea/vomiting and abdominal pain. Reports sudden onset of symptoms with nausea/vomiting along with specks
of coffee grounds along with abdominal pain. Denies any diarrhea or bloody stools. Last BM was yesterday and well-formed with brown stools. No recent abx, recent hx of travel or known sick contacts. His last colonoscopy was back in 2019 and notable
for multiple adenomatous colon polyps. Otherwise, no changes in bowel habits or unintentional weight loss. Does note a recent EGD where he had a dilation (no records of this) at [place] with Dr. Chinchilla. Denies any current dysphagia, odynophagia,
globus sensation or other significant upper GI symptoms. Labs notable for leukocytosis with WBC 25k and CT imaging revealing bowel wall thickening of the distal TC and DC colon indicating colitis without intramural abscess, pericolonic inflammatory
stranding or other abnormalities. Etiology suspicious for infectious colitis given his symptomatology and CT findings although without diarrhea which is atypical. Has risk factors for ischemic colitis but without evidence of bloody stools or
hypotension (and hypertensive here). Much less likely stercoral colitis given location. Suspect underlying gastroenteritis as well but without any findings to suggest this on CT without any gastroduodenal thickening. Suspect his acute on chronic
nausea/vomiting is also multifactorial in setting of cannabis hyperemesis syndrome vs methadone withdrawal vs cyclic vomiting syndrome vs underlying esophagitis vs gastroparesis (due to chronic opioids). No concern for UGIB given reported coffee
ground emesis and stable Hgb 16s along with recent EGD with dilation.
Recommendations:
- Continue IV fluids to maintain euvolemia
- Repeat LFTs this AM given mildly elevated T Bili
- Agree with empiric IV antibiotics, consider obtaining blood cultures. Favor empiric treatment for 7-10 day course
- Empiric IV PPI 40 mg BiD and Pepcid 40 mg qhs if component of esophagitis to maximize acid suppression
- If evidence of loose stools and/or diarrhea, obtain stool studies. Extremely low suspicion for C Diff as without any BM in 24 hrs
- No plans for endoscopic intervention at this time
- Discussed importance of outpatient follow-up with GI for a repeat colonoscopy due to his history of multiple adenomatous colon polyps. He plans on following up at [place] [facility] (f/w Dr. Chinchilla) for his ongoing care
- IV anti-emetics as needed
- Agree with obtaining TTE as per Cards given atypical chest pain
- Discussed cessation of marijuana
Rest of care as outlined below. GI team will sign-off. Please re-engage if there any additional questions or concerns.
Original Note:
Consultation
-
Date/Time Consultation Requested: 03/18/24905
Date/Time Consultation Performed: 03/18/24953
Requesting Provider: Dr. Lozano
Performing Provider: Dr. Rivera/PALOMO Perez
Reason for Consultation: colitis
Medical History
Chief Complaint / HPI
Chief Complaint: N/V/abdominal pain
History of Present Illness:
53-year-old male with past medical history diabetes obstructive sleep apnea, opiate use on methadone, bradycardia, nonischemic cardiomyopathy with improved EF, PAD, right bundle branch block, hypertension, daily cannabis use who has been seen in the
past for multiple admissions for nausea vomiting abdominal pain over the years including in 2021 with concerns as noted who presents with vomiting and abdominal pain. He has had multiple admissions for vomiting over the years, including just
recently in November as well as in 2021 with concern for ischemia and Boerhaave's. He follows up regularly with Dr. Chinchilla at [place] for serial dilations, last couple of months ago. We saw him back in November he had CT that showed some fluid distention
of the duodenum and jejunum with some slight thickening of jejunal loops now more consistent with infectious get or gastroenteritis. The patient was to follow-up with Dr. Chinchilla and consider small bowel imaging in the future. The patient states
that he followed up with GI at [place] and had his esophagus stretched on March 03. He states since that time he has had improved swallowing. He states that on Thursday he had abrupt onset of nausea and vomiting. He lives with his parents.
He works. He denies any recent travel, sick contacts or spoiled food. He does smoke cannabis. He does take methadone. He states he could not tolerate any oral intake and he had what felt like 'a rock' in his stomach. His vomit was clear and
bilious in nature. This last episode had some specks of coffee-ground in it. His last bowel movement was yesterday. This was brown. He denies any fevers, chills, melena, hematochezia, dysphagia or odynophagia recently since being dilated. He
denies any early satiety or unintentional weight loss. He does take aspirin 81 mg daily. Otherwise he denies any other NSAIDs. He states that he has made plans to follow-up with colonoscopy with his doctors at [place] as he is '2 years overdue'.
Past Medical History
Past Medical History: Other (pericarditis, cardiomyopathy, HTN, DM2, PVD, COPD, HLD, kidney stones, hx heroin abuse on methadone, active marijuana,severe esophagitis with esophageal stricture)
Past Surgical History: Other (right fem-pop bypass, esophageal dilation, kidney stone extraction, appy)
Social History
Tobacco: Smoker
Alcohol: None
Drug: Marijuana
Personal: Single
Living: With Family
Family History
Family History: Reviewed & Not Pertinent
Allergies / Home Medications
Allergy/AdvReac Type Severity Reaction Status Date / Time
acetaminophen Allergy Mild Rash Verified 11/29/23 10:53
ibuprofen Allergy Mild Hives Verified 11/29/23 09:37
amlodipine besylate Allergy Tongue Verified 11/28/23 07:57
[From [facility]] Swelling
erythromycin base Allergy Hives Verified 11/28/23 07:57
Penicillins Allergy Hives/tolerates Verified 11/28/23 07:57
ceftriaxone
�Medication �Instructions �Recorded
fluticasone fur. 100 mcg-umeclid 1 puff inhalation R DAILY 07/03/20
62.5 mcg-vilant 25 mcg Lung/breathing issues
inhalat.powder (Trelegy Ellipta)
aspirin 81 mg tablet,delayed 81 mg PO DAILY Blood clot 09/14/20
release prevention/tx
empagliflozin 10 mg tablet 10 mg PO DAILY Diabetes 04/29/22
(Jardiance)
sacubitril 24 mg-valsartan 26 mg 1 tab PO BID Heart Failure 04/29/22
tablet (Entresto)
atorvastatin 10 mg tablet 10 mg PO DAILY High cholesterol 10/21/22
pantoprazole 40 mg tablet,delayed 40 mg PO BID Gastrointestinal 10/23/22
release issue #60 tabs
methadone 10 mg/mL oral 155 mg PO DAILY SUBSTANCE USE 08/21/23
concentrate (Methadone Intensol) DISORDER
carvedilol 6.25 mg tablet (Coreg) 6.25 mg PO BID 03/17/24
furosemide 20 mg tablet (Lasix) 20 mg PO DAILY 03/17/24
Review of Systems
-
All other systems: A 12 pt ROS was Negative except as stated above in HPI
Vital Signs
Temp Pulse Resp BP Pulse Ox
98.3 F 80 16 166/103 100
03/18/24 07:30 03/18/24 09:10 03/18/24 08:01 03/18/24 09:10 03/18/24 08:01
Physical Exam
Exam
General: No Apparent Distress
HEENT: Anicteric
Respiratory: Clear (Anterior)
Cardiac: Regular Rhythm
GI: Soft, Non Distended, Normal Bowel Sounds and Tender (Mild epigastric tenderness)
Musculoskeletal: No Edema
Skin: Warm and Dry
Neuro: Other (Lethargic but arousable)
Psych: Calm
Results
WBC 25.4 10^3/uL (4.8-10.8) H 03/18/24 07:39
Hgb 16.3 g/dL (13.0-18.0) 03/18/24 07:39
Hct 46.0 % (39.0-52.0) 03/18/24 07:39
MCV 87.0 fL (80.0-94.0) 03/18/24 07:39
Plt Count 188 10^3/uL (130-400) 03/18/24 07:39
Absolute Neuts (auto) 12.3 10^3/uL (1.4-6.5) H 03/17/24 09:35
PT 15.2 Sec (11.4-14.6) H 03/18/24 07:39
INR 1.22 03/18/24 07:39
APTT 28.5 Sec (23.4-35.0) 03/18/24 07:39
Sodium 137 mmol/L (135-145) 03/18/24 08:44
Potassium 3.7 mmol/L (3.5-5.1) 03/18/24 08:44
Chloride 97 mmol/L (98-107) L 03/18/24 08:44
Carbon Dioxide 21 mmol/L (22-30) L 03/18/24 08:44
BUN 22 mg/dl (9-20) H 03/18/24 08:44
Creatinine 0.7 mg/dL (0.7-1.3) 03/18/24 08:44
Calcium 9.4 mg/dl (8.4-10.2) 03/18/24 08:44
Total Bilirubin 1.8 mg/dl (0.2-1.3) H 03/17/24 10:57
AST 38 U/L (17-59) 03/17/24 10:57
ALT 22 U/L (0-50) 03/17/24 10:57
Alkaline Phosphatase 110 U/L (38-126) 03/17/24 10:57
Lipase 52 U/L (23-300) 03/17/24 10:57
Diagnostic Image Results:
Prior GI Procedures:
EGD: Patient states he had EGD March 03 with 'stretching'. At [place]
EGD: 05/23/22, Dr. Hagan: LA Grade D esophagitis with bleeding as describe
�� � � � � � � � � � � above, friable, with areas of stenosis including GE
�� � � � � � � � � � � junction which could not be passed though was patent.
�� � � � � � � � � � � Possible change of EoE noted. Biopsied.
�� � � � � � � � � � � - Few areas of Esophageal stenoses including GE
�� � � � � � � � � � � junction.
04/30/2022 Dr. Martin: �Deep mucosal tear at the gastroesophageal junction,
�� � � � � � � � � � � but difficult to fully evaluate due to large overlying
�� � � � � � � � � � � clot.
�� � � � � � � � � � � - Discolored dusky mucosa in the entire esophagus.
�� � � � � � � � � � � - Hematin (altered blood/vzgrgy-gpmwcd-gmlk material)
�� � � � � � � � � � � in the stomach.
�� � � � � � � � � � � - Non-bleeding duodenal ulcers with no stigmata of
�� � � � � � � � � � � bleeding.
�� � � � � � � � � � � - No specimens collected.
Colonoscopy: 08/02/2019 Dr. Parikh: One 12 mm polyp in the cecum, removed with a hot
�� � � � � � � � � � snare. Resected and retrieved. Clip was placed.
�� � � � � � � � � � - One 17 mm polyp in the proximal ascending colon,
�� � � � � � � � � � removed with a hot snare. Resected and retrieved. Clip
�� � � � � � � � � � was placed. Tattooed.
�� � � � � � � � � � - One 6 mm polyp in the transverse colon, removed with a
�� � � � � � � � � � hot snare. Resected and retrieved.
�� � � � � � � � � � - One 5 mm polyp in the transverse colon, removed with a
�� � � � � � � � � � hot snare. Resected and retrieved.
�� � � � � � � � � � - One 4 mm polyp in the descending colon, removed with a
�� � � � � � � � � � hot snare. Resected and retrieved.
�� � � � � � � � � � - Diverticulosis in the cecum.
�� � � � � � � � � � - The examination was otherwise normal.
10/24/2014 Dr. Parikh: �� � � � � � � � � � � � � � � � � � � � � � � �
Impression:� � � � � - Diverticulosis in the sigmoid colon and in the cecum.
�� � � � � � � � � � - One 5 mm polyp in the cecum. Resected and retrieved.
�� � � � � � � � � � - One 5 mm polyp in the sigmoid colon. Resected and
�� � � � � � � � � � retrieved.
�� � � � � � � � � � - One 15 mm polyp in the rectum. Resected and retrieved.
�� � � � � � � � � � Clips were placed.
�� � � � � � � � � � - One 5 mm polyp in the rectum. Resected and retrieved.
�� � � � � � � � � � - The examination was otherwise normal.
Assessment / Plan
-
53-year-old male with past medical history diabetes obstructive sleep apnea, opiate use on methadone, bradycardia, nonischemic cardiomyopathy with improved EF, PAD, right bundle branch block, hypertension, daily cannabis use who has been seen in the
past for multiple admissions for nausea vomiting abdominal pain over the years including in 2021 with concerns as noted who presents with vomiting and abdominal pain. Patient states he had a recent dilatation down at [facility] on March 03. He states his dysphagia improved after that. He presents with acute onset of nausea and vomiting as well as abdominal pain since Thursday of this week. This was clear and bilious. Episode of emesis that I visualized was a
small amount of clear emesis with a few specks of coffee grounds. Patient's hemoglobin is stable it is currently 16.3 up from 16.1. Of note his white count is increasing. Patient denies any fevers, chills. CT of the abdomen and pelvis shows
possible colitis. Patient without any bowel movements since yesterday. He states that these were solid and brown.
Impression:
Nausea/vomiting
History of esophagitis/history of esophageal stricture status post dilatation per patient 03/03/2024 at [facility]
Methadone use/chronic cannabis use
Leukocytosis
Plan:
-Continue IV fluids and supportive care, with antiemetics
-Continue pantoprazole 40 mg IV twice daily
-Patient currently on ceftriaxone and Flagyl
-If with diarrhea would collect stool studies
-Patient states that he plans on following up with [place] for colonoscopies in the near future.
-Further recommendations to be forthcoming
-
-
Thank you for consultation and allowing me to participate in the patient's care. Please call the mechatronics technologist GI physician during the after hours with any questions or concerns.
[2024-03-18 10:11] LABS: Erythrocyte Sed Rate 3 mm/hour (0-20)
[2024-03-18] MEDS: FLAGYL 500 MG 100 IV ×2 (11:07→17:12)
[2024-03-18] MEDS: STERILE WATER FOR INJECTION 10 ML IV (11:08)
[2024-03-18] MEDS: ROCEPHIN 1000 MG IV (11:08)
[2024-03-18 11:55] LABS: Glucose - Point of Care 182 mg/dl (70-99)
[2024-03-18] MEDS: NOVOLOG FLEXPEN-LOW RESISTANCE 1 UNITS SC ×2 (13:04→17:11)
--- NOTE | 2024-03-18 14:50 | CM ---
manager housekeeping reviewed patient's chart and met with patient and patient lives with her parents in a 2 story home, patient is independent with adl's and ambulation, no dme, patient drives.
Pharmacy: [facility]
PCP: Karen Jones
Plan; Home when stable, no needs.
--- NOTE | 2024-03-18 14:52 | CARDSERVLU ---
Echocardiogram with [facility] completed after protocol screening completed. Allergies verified.
Patent IV site:left wrist site clear
IV site flushed with 0.9% NaCl pre and post administration.
Diluted bolus method utilized to enhance visualization of ventricular rodriguez.
Total volume given: __3__ mL
Patient tolerated all procedures well without complications.
[2024-03-18] MEDS: KCL 270 MEQ IV (15:14)
[2024-03-18] MEDS: METHADONE 100 MG/10 ML 155 MG PO (15:15)
[2024-03-18 17:06] LABS: Glucose - Point of Care 170 mg/dl (70-99)
[2024-03-18] MEDS: LOVENOX 40 MG SC (17:13)
[2024-03-19] VITALS (7 sets, daily range): BP systolic 121–160; BP diastolic 81–116; BMI 20.9
[2024-03-19 00:08] LABS: Glucose - Point of Care 147 mg/dl (70-99)
[2024-03-19] MEDS: FLAGYL 500 MG 100 IV ×3 (02:21→17:12)
[2024-03-19 05:08] LABS: Hematocrit 45.2 % (39.0-52.0); Mean Corp Hgb Conc. 35.4 g/dL (33.0-37.0); Mean Corpuscular Hgb 30.7 pg (27.0-31.0); Mean Corpuscular Volume 86.8 fL (80.0-94.0); Mean Platelet Volume 11.1 fL (7.4-10.4); Platelet Count 165 10^3/uL (130-400); Red Blood Cell Count 5.21 10^6/uL (4.70-6.10); Red Cell Dist. Width 13.3 % (11.5-14.5); White Blood Cell Count 23.8 10^3/uL (4.8-10.8)
[2024-03-19 05:21] LABS: ALT (SGPT) 17 U/L (0-50); AST (SGOT) 22 U/L (17-59); Albumin 3.5 g/dl (3.5-5.0); Alkaline Phosphatase 90 U/L (38-126); Blood Urea Nitrogen 21 mg/dl (9-20); Calcium 8.8 mg/dl (8.4-10.2); Carbon Dioxide 23 mmol/L (22-30); Chloride 103 mmol/L (98-107); Estimated Creatinine Clearance 98 ml/min; Glucose 154 mg/dl (70-99); Potassium 3.9 mmol/L (3.5-5.1); Sodium 138 mmol/L (135-145); Total Bilirubin 1.2 mg/dl (0.2-1.3); Total Protein 6.1 g/dl (6.3-8.2); eGFR > 60.00
[2024-03-19 05:28] LABS: Troponin I < 0.012 ng/ml
[2024-03-19 05:59] LABS: Glucose - Point of Care 159 mg/dl (70-99)
[2024-03-19] MEDS: SYMBICORT 160/4.5 MCG INHALER 2 PUFF INH ×2 (07:40→21:18)
[2024-03-19] MEDS: SPIRIVA RESPIMAT 2.5 MCG 2 PUFF INH (07:40)
[2024-03-19] MEDS: STERILE WATER FOR INJECTION 10 ML IV (09:08)
[2024-03-19] MEDS: FLAGYL 500 MG IV (09:08)
[2024-03-19] MEDS: METHADONE 100 MG/10 ML 155 MG PO (09:08)
[2024-03-19] MEDS: ROCEPHIN 1000 MG IV (09:08)
[2024-03-19] MEDS: COREG 6.25 MG PO ×2 (09:09→19:33)
[2024-03-19] MEDS: PROTONIX 40 MG PO ×2 (09:09→19:34)
[2024-03-19] MEDS: ASPIR LOW (ENTERIC COATED) 81 MG PO (09:09)
[2024-03-19] MEDS: LIPITOR 10 MG PO (09:09)
[2024-03-19] MEDS: LASIX 20 MG PO (09:09)
[2024-03-19] MEDS: ENTRESTO 24 MG/26 MG 1 TAB PO ×2 (09:09→19:33)
[2024-03-19] MEDS: NOVOLOG FLEXPEN-LOW RESISTANCE SC ×2 (09:25→17:03)
[2024-03-19 12:03] LABS: Glucose - Point of Care 157 mg/dl (70-99)
[2024-03-19] MEDS: NOVOLOG FLEXPEN-LOW RESISTANCE 1 UNITS SC (12:37)
[2024-03-19] MEDS: NSS 1000 IV (12:37)
[2024-03-19] MEDS: COMPAZINE 5 MG IV (12:40)
--- NOTE | 2024-03-19 14:44 | W.PN.UPDATE ---
Update Note
Progress Note Update
Seen and examined by me independently in collaboration with the medical director.
Lab data and imaging data reviewed.
Addendum as below :
No further chest pain. No shortness of breath.
Improved abdominal pain.
Tolerating clear liquid diet. no nausea vomiting.
Denies any withdrawal symptoms From opiates. Is back on methadone since yesterday.
Afebrile and hemodynamically stable.
Abdomen soft and nontender today.
Acute colitis suspected infectious-continue with empirical antibiotics. Follow white count closely. Advance to full liquids today. Appreciate GI input.
No evidence of cardiovascular event-patient had echocardiogram which was okay. No evidence of KS based on troponins or EKG. Cardiology signed off.
Portions of this chart may have been created with voice recognition software. Occasional wrong word or 'sound alike' substitutions may have occurred due to the inherent limitations of voice recognition software.
--- NOTE | 2024-03-19 15:20 | W.PN.HOSP.TC ---
Today's Communication/Plan
-
Planning to discharge if patient can transition to solid foods
Assessment / Plan
Assessment / Plan
Administered his dose of methadone today (03/19)
patient has upgraded his diet to clear liquids (03/19)
Acute chest pain:
- Patient rates the intensity of pain as barely noticeable since last night so has improved
- Discontinued telemetry today (03/19)
- Cardiology signed off. No abnormal echocardiogram findings.
- EKG showed no acute ST-T changes.
- Pain improved on multiple doses of IV morphine.
Intractable nausea vomiting with abdominal pain.
- Gastroenterology saw patient today and recommended to Continue IV fluids , continue empiric IV antibiotics, Favor empiric treatment for 7-10 day course, Empiric IV PPI 40 mg BiD and Pepcid 40 mg qhs if component of esophagitis to maximize acid
suppression, discussed importance of outpatient follow-up with GI for a repeat colonoscopy due to his history of multiple adenomatous colon polyps. He plans on following up at [facility] (f/w Dr. Chinchilla) for his ongoing care, Agree with obtaining
transthoracic echo as per Cards given atypical chest pain
- Discussed cessation of marijuana
Doubt esophageal stricture
- Having no dysphagia symptoms.
- continue PPI
Hx of cardiomyopathy -
- CW home dose of diuretics .
- Continue with Coreg and Entresto.
- Continue with aspirin and statins.
DM - Hold jardiance with GI symptoms. cw SSI.
[facility] FIELD SERVICE CONSULTANT team
[facility]
Anticipated Discharge: 24 - 48 hours
Subjective/Interval History
-
Date of Service: March 19, 2024
Patient states that his chest pain has reduced. He has no episodes of nausea and vomiting.
Objective Data
-
Labs:
Laboratory Results
03/19/24
04:42
WBC 23.8 H
Hgb 16.0
Hct 45.2
Plt Count 165
Sodium 138
Potassium 3.9
Chloride 103
Carbon Dioxide 23
BUN 21 H
Creatinine 0.7
Glucose 154 H
Calcium 8.8
Total Bilirubin 1.2
AST 22
ALT 17
Alkaline Phosphatase 90
Vital Signs:
Vital Signs
Temp Pulse Resp BP Pulse Ox
98.6 F 77 18 133/92 97
03/19/24 11:05 03/19/24 11:05 03/19/24 11:05 03/19/24 11:05 03/19/24 11:05
I&O
03/18/24 03/19/24 03/20/24
06:59 06:59 06:59
Intake Total 1100 / 1100
Output Total 1600 / 1600 950 / 950
Balance -1600 / -1600 150 / 150
Review of Systems
-
History Source: Patient
All other systems: Reviewed and negative
Physical Exam
-
General: Well Developed and Well Nourished
HEENT: Normocephalic and Atraumatic
Respiratory: Clear to Auscultation
Cardiac: Regular Rhythm and S1/S2
GI: Soft, Nontender, Nondistended, Normal Bowel Sounds and Tender
Skin: Warm and Dry
Neuro: Awake, Alert, Oriented and AO x 3
Psych: Calm
Data Reviewed
-
Labs: Labs Reviewed by me and Discussed with Physician
[2024-03-19 16:38] LABS: Glucose - Point of Care 125 mg/dl (70-99)
[2024-03-19] MEDS: LOVENOX 40 MG SC (17:12)
--- NOTE | 2024-03-19 18:44 | PTCARENOTE ---
Patient notified staff of dark brown/black loose BM. Dr. Lozano and Dr. Barnes aware. Will hemetest next BM as able.
[2024-03-19 22:02] LABS: Glucose - Point of Care 140 mg/dl (70-99)
--- NOTE | 2024-03-19 22:46 | W.PN.UPDATE ---
Update Note
Progress Note Update
Reported by the nursing staff that the patient had moderate amount of loose stool dark in color, patient is+ heme test. Patient had another episode of diarrhea during dayshift. Vital signs within normal range.
-Patient complained of abdominal pain/LT side abdominal pain and some time is radiating to the LT flank but not currently. + bowel sounds on exam, light tenderness to the LT lower abdominal. Patient denied any urinary symptoms, urgency or difficult
urination.
-Will give one time Ofirmev to manage pain for now.
-Patient has history of kidney stone, 03/17/24 abd/PLV CT shows There is a 9 mm nonobstructing calculus in the lower pole of the left kidney, Patient is passes urine with no difficulty. Consider urology if needed.
-After few mins, recheck on the patient he was comfortably sleeping in bed.
-Stool for c-diff and stool culture ordered, will change Pantoprazole from PO to IV for now, and will monitor h& h as needed.
[2024-03-20] MEDS: OFIRMEV 100 IV (00:12)
[2024-03-20] MEDS: PEPCID 20 MG IV (00:13)
[2024-03-20] MEDS: NSS (PRESERVATIVE FREE) 8 ML IV (00:13)
[2024-03-20] MEDS: NSS 1000 IV ×3 (00:25→22:00)
[2024-03-20] MEDS: FLAGYL 500 MG 100 IV ×3 (02:12→17:39)
[2024-03-20] MEDS: COMPAZINE 5 MG IV ×3 (04:20→22:01)
[2024-03-20 06:00] VITALS: BMI 21.1
[2024-03-20 07:20] VITALS: BP 137/86
[2024-03-20] MEDS: METHADONE 100 MG/10 ML 155 MG PO (08:49)
[2024-03-20] MEDS: COREG 6.25 MG PO ×2 (08:50→19:56)
[2024-03-20] MEDS: LASIX 20 MG PO (08:50)
[2024-03-20] MEDS: PROTONIX IV 40 MG IV ×2 (08:50→19:57)
[2024-03-20] MEDS: ENTRESTO 24 MG/26 MG 1 TAB PO ×2 (08:50→19:56)
[2024-03-20] MEDS: LIPITOR 10 MG PO (08:50)
[2024-03-20] MEDS: ASPIR LOW (ENTERIC COATED) 81 MG PO (08:50)
[2024-03-20] MEDS: SYMBICORT 160/4.5 MCG INHALER 2 PUFF INH ×2 (08:53→20:40)
[2024-03-20] MEDS: SPIRIVA RESPIMAT 2.5 MCG 2 PUFF INH (08:53)
[2024-03-20] MEDS: ROCEPHIN 1000 MG IV (09:12)
[2024-03-20] MEDS: STERILE WATER FOR INJECTION 10 ML IV (09:12)
[2024-03-20] MEDS: TYLENOL 650 MG PO (09:14)
[2024-03-20 09:17] LABS: Glucose - Point of Care 132 mg/dl (70-99)
[2024-03-20] MEDS: NOVOLOG FLEXPEN-LOW RESISTANCE SC ×3 (09:17→16:36)
[2024-03-20 09:26] LABS: Blood Urea Nitrogen 14 mg/dl (9-20); Calcium 8.5 mg/dl (8.4-10.2); Carbon Dioxide 27 mmol/L (22-30); Chloride 104 mmol/L (98-107); Estimated Creatinine Clearance 97 ml/min; Glucose 108 mg/dl (70-99); Potassium 3.4 mmol/L (3.5-5.1); Sodium 139 mmol/L (135-145); eGFR > 60.00
[2024-03-20 09:39] LABS: Hemoglobin 13.8 g/dL (13.0-18.0); Mean Corp Hgb Conc. 34.5 g/dL (33.0-37.0); Mean Corpuscular Hgb 31.4 pg (27.0-31.0); Mean Corpuscular Volume 90.9 fL (80.0-94.0); Mean Platelet Volume 11.2 fL (7.4-10.4); Platelet Count 111 10^3/uL (130-400); Red Cell Dist. Width 13.2 % (11.5-14.5); White Blood Cell Count 10.6 10^3/uL (4.8-10.8)
[2024-03-20 11:50] LABS: Glucose - Point of Care 121 mg/dl (70-99)
[2024-03-20] MEDS: FIRVANQ 250 MG PO ×3 (12:23→23:47)
--- NOTE | 2024-03-20 14:06 | W.PN.HOSP.TC ---
Addendum entered and electronically signed by Delvin Lozano MD 03/20/24 15:07:
Seen and examined by me independently in collaboration with the medical record administrator.
Lab data and imaging data reviewed.
Addendum as below :
Acute colitis-improved upper GI symptoms and tolerating liquid diet but had 2 loose bowel movements and they are bloody. C. difficile toxin came back positive. Not immunosuppressed nor any recent antibiotics. Nontoxic looking. Started p.o.
vancomycin I would continue with Flagyl for now until the bloody diarrhea settles. Hold further systemic antibiotics.
Continue with liquid diet.
Original Note:
Today's Communication/Plan
-
continue to monitor patients cbc and vitals
Assessment / Plan
Assessment / Plan
Administered his 2nd dose of methadone today (03/20)
patient has upgraded his diet to clear liquids (03/20)
C. Diff Colitis:
- Patient complaining of pain in the left side of abdomen, and abdominal tenderness on physical examination
- Stool sample tested positive for D. Diff (03/20)
- ordered vancomycin for patient (03/20)
- Patient had 3 episodes of diarrhea today
- For pain, prescribed Tylenol
- Continue to keep patient on clear liquids for today
Acute chest pain:
- Patient rates the intensity of pain as barely noticeable since last night so has improved
- Discontinued telemetry today (03/19)
- Cardiology signed off. No abnormal echocardiogram findings.
- EKG showed no acute ST-T changes.
- Pain improved on multiple doses of IV morphine.
Intractable nausea vomiting with abdominal pain.
- Gastroenterology saw patient today and recommended to Continue IV fluids , continue empiric IV antibiotics, Favor empiric treatment for 7-10 day course, Empiric IV PPI 40 mg BiD and Pepcid 40 mg qhs if component of esophagitis to maximize acid
suppression, discussed importance of outpatient follow-up with GI for a repeat colonoscopy due to his history of multiple adenomatous colon polyps. He plans on following up at [facility] (f/w Dr. Chinchilla) for his ongoing care, Agree with obtaining
transthoracic echo as per Cards given atypical chest pain
- Discussed cessation of marijuana
Doubt esophageal stricture
- Having no dysphagia symptoms.
- continue PPI
Hx of cardiomyopathy -
- CW home dose of diuretics .
- Continue with Coreg and Entresto.
- Continue with aspirin and statins.
DM - Hold jardiance with GI symptoms. cw SSI.
[facility] HEALTH INFORMATICS INSTRUCTOR team
[facility]
Anticipated Discharge: 24 - 48 hours
Subjective/Interval History
-
Date of Service: March 20, 2024
Patient is complaining about left sided abdominal pain which he rates as a 6 out of 10. Had 2 loose stool movements today, 1 of which was a positive heme test. Received second dose of methadone today.
Objective Data
-
Labs:
Laboratory Results
03/20/24
08:21
WBC 10.6
Hgb 13.8
Hct 40.0
Plt Count 111 L D
Sodium 139
Potassium 3.4 L
Chloride 104
Carbon Dioxide 27
BUN 14
Creatinine 0.7
Glucose 108 H
Calcium 8.5
Vital Signs:
Vital Signs
Temp Pulse Resp BP Pulse Ox
98.1 F 72 16 137/86 99
03/20/24 07:20 03/20/24 09:08 03/20/24 09:08 03/20/24 07:20 03/20/24 09:08
I&O
03/19/24 03/20/24 03/21/24
06:59 06:59 06:59
Intake Total 1100 / 1100 2009 960 / 960
Output Total 950 / 950 710 / 710 700 / 700
Balance 150 / 150 1300 / 1300 260 / 260
Review of Systems
-
History Source: Patient
Abdomen/GI: Reports Diarrhea and Pain (left sided abdominal pain )
Physical Exam
-
General: Well Developed and Well Nourished
HEENT: Normocephalic and Atraumatic
Cardiac: Regular Rhythm and S1/S2
GI: Soft, Nontender, Nondistended, Normal Bowel Sounds and Tender
Skin: Warm and Dry
Neuro: Awake, Alert, Oriented and AO x 3
Psych: Calm
Data Reviewed
-
Labs: Labs Reviewed by me and Discussed with Physician
[2024-03-20 15:09] VITALS: BP 134/86
[2024-03-20 16:35] LABS: Glucose - Point of Care 147 mg/dl (70-99)
[2024-03-20] MEDS: LOVENOX SC (17:22)
--- NOTE | 2024-03-20 18:53 | PTCARENOTE ---
rec'd pt from room 434. oriented to room. NSSi infusing at 100ml/hr. pt offers no complaints
[2024-03-20 19:53] VITALS: BP 122/66
[2024-03-20] MEDS: MELATONIN 5 MG PO (20:43)
[2024-03-20 21:15] LABS: Glucose - Point of Care 92 mg/dl (70-99)
[2024-03-20 23:18] VITALS: BP 113/58
[2024-03-21] MEDS: FLAGYL 500 MG 100 IV ×2 (01:38→09:00)
[2024-03-21] MEDS: FIRVANQ 250 MG PO ×4 (06:03→23:15)
[2024-03-21 06:06] VITALS: BMI 21.5
--- NOTE | 2024-03-21 07:22 | W.PN.HOSP.TC ---
Addendum entered and electronically signed by Mai Jefferson MD 03/21/24 19:25:
I saw and evaluated the patient independently. I reviewed the resident�s note and agree with findings and plan as documented by Dr. Gilliland.
GENERAL: well developed, well nourished, male in no apparent distress
HEENT: NC/AT
HEART: regular rate and rhythm, +S1, +S2
LUNGS : clear to auscultation bilaterally
ABDOM: soft, diffusely tender right > left, nondistended, hyperactive bowel sounds
EXT: no cyanosis, clubbing, or edema
NEUROLOGIC: grossly intact
abdominal pain and tenderness--CT scan with colitis--C. Diff positive--ongoing diarrhea--cont oral vanco--stop Flagyl--restarted methadone--toradol as one time dose (would not use long term care pharmacist)--advance to low residue diet
Acute chest pain--- Patient rates the intensity of pain as barely noticeable since last night so has improved --apprec cards-- No abnormal echocardiogram findings or EKG changes
Intractable nausea vomiting with abdominal pain--apprec GI--cont PPI--discussed importance of outpatient follow-up with GI for a repeat colonoscopy due to his history of multiple adenomatous colon polyps. He plans on following up at [facility]
(f/w Dr. Chinchilla) for his ongoing care- Discussed cessation of marijuana
Doubt esophageal stricture-- no dysphagia symptoms- continue PPI
Hx of cardiomyopathy---cont home dose of diuretics - Continue with Coreg and Entresto- Continue with aspirin and statins.
Type 2 DM-- Hold Jardiance with GI symptoms--agree with SSI
code status -- FULL CODE
Original Note:
Today's Communication/Plan
-
The patient started to have more frequent diarrhea and his stool was dark. A stool culture was ordered. Additonally he complained having abdominal pain and Toradol 15 mg IV was ordered to address his pain.
Assessment / Plan
Assessment / Plan
Assessment and Plan
Impression:
53 year old male presented to ER 2 days ago complaining from nausea, vomiting, and chills. The patient has a PMH of COPD, opioid use disorder on methadone, GERD, A-fib, CHF. Additionally, the patient has a history of esophageal stricture and had
dilation most recently March 02. Patient denies having trouble with swallowing within the past few weeks. Patient denies any chest pain or shortness of breath. Patient denies any dysuria, hematuria. The patient reported he stopped vomiting
yesterday but he started to have bloody diarrhea. He reported having 8 times of diarrhea which he saw his stool color was dark.
Assessment:
Acute Colitis/C. Diff Colitis
Intractable nausea vomiting with abdominal pain
Diarrhea
DM
OUD
Acute Chest pain
Doubt esophageal stricture
PLAN
C. Diff Colitis: Left side of abdomen, and abdominal tenderness on physical examination
- Stool sample tested positive for D. Diff (03/20): on vancomycin
- Diarrhea: Patient had 8 episodes of diarrhea yesterday and had 2 episodes of diarrhea today: A stool culture was sent. Metronidazole was stopped. CBC was ordered to follow up Hgb levels for possible GI bleeding
- For pain: Toradol Iv was ordered with PRN Tylenol
- Diet: Changed his diet to low residue diet this afternoon
OUD: Administered his 3rd dose of methadone today (03/21)
Acute chest pain: Improved on multiple doses of IV morphine
-No abnormal echocardiogram findings. ECHO showed:Normal biventricular size and systolic function without regional wall motion abnormality. Estimated LVEF 60-65%.
-No significant valve disease. Cardiology signed off.
Hx of cardiomyopathy
- CW home dose of diuretics .
- Continue with Coreg and Entresto.
- Continue with aspirin and statins.
Intractable nausea vomiting with abdominal pain:
-Nausea resolved since yesterday. Continue IV fluids , continue empiric IV antibiotics, Favor empiric treatment for 7-10 day course, Empiric IV PPI 40 mg BiD and Pepcid 40 mg qhs if component of esophagitis to maximize acid suppression
-GI recommended outpatient follow-up with GI for a repeat colonoscopy due to his history of multiple adenomatous colon polyps. He plans on following up at [facility] (f/w Dr. Chinchilla) for his ongoing care.
Doubt esophageal stricture
- Having no dysphagia symptoms.
- continue PPI
DM
- Hold Jardiance with GI symptoms. Continue SCI.
Anticipated Discharge: 24 - 48 hours
Subjective/Interval History
-
Date of Service: March 21, 2024
Patient was seen in his bed complaining from some abdominal pain, but reports feels much better comparing ED admission day. He reported more frequent diarrhea with blood. Reported his stool was dark. He denied fever abd chills and other pain.
Objective Data
-
Labs:
Laboratory Results
03/21/24
06:45
WBC Pending
Hgb Pending
Hct Pending
Plt Count Pending
Sodium Pending
Potassium Pending
Chloride Pending
Carbon Dioxide Pending
BUN Pending
Creatinine Pending
Glucose Pending
Calcium Pending
Total Bilirubin Pending
AST Pending
ALT Pending
Alkaline Phosphatase Pending
Vital Signs:
Vital Signs
Temp Pulse Resp BP Pulse Ox
98.6 F 62 19 113/58 97
03/20/24 23:18 03/20/24 23:18 03/20/24 23:18 03/20/24 23:18 03/20/24 23:18
I&O
03/20/24 03/21/24 03/22/24
06:59 06:59 06:59
Intake Total 2009 4440 / 4440
Output Total 710 / 710 1875 / 1875
Balance 1300 / 1300 2565 / 2565
Review of Systems
-
Respiratory: Reports No Symptoms
Cardiac: Reports No Symptoms
Abdomen/GI: Reports Abdominal Pain and Other (moderate tenderness on the middle area of the abdomen, No rebound or guarding. )
Genitourinary: Reports No Symptoms
Musculoskeletal: Reports No Symptoms
Skin: Reports No Symptoms
Physical Exam
-
General: No Apparent Distress
HEENT: Normocephalic and Atraumatic
Respiratory: Clear to Auscultation
Cardiac: Regular Rhythm
GI: Tender
Musculoskeletal: No Clubbing
Skin: Warm
Neuro: Awake, Alert and Oriented
[2024-03-21 07:39] VITALS: BP 124/78
[2024-03-21] MEDS: SPIRIVA RESPIMAT 2.5 MCG 2 PUFF INH (08:13)
[2024-03-21] MEDS: SYMBICORT 160/4.5 MCG INHALER 2 PUFF INH ×2 (08:14→20:40)
[2024-03-21 08:15] LABS: Glucose - Point of Care 110 mg/dl (70-99)
[2024-03-21] MEDS: NOVOLOG FLEXPEN-LOW RESISTANCE SC ×2 (08:20→16:58)
[2024-03-21 08:54] LABS: Hematocrit 38.2 % (39.0-52.0); Mean Corpuscular Volume 91.2 fL (80.0-94.0); Mean Platelet Volume 11.4 fL (7.4-10.4); Platelet Count 113 10^3/uL (130-400); Red Blood Cell Count 4.19 10^6/uL (4.70-6.10); Red Cell Dist. Width 13.2 % (11.5-14.5); White Blood Cell Count 9.4 10^3/uL (4.8-10.8)
[2024-03-21] MEDS: NSS 1000 IV (08:59)
[2024-03-21] MEDS: LIPITOR 10 MG PO (09:03)
[2024-03-21] MEDS: ASPIR LOW (ENTERIC COATED) 81 MG PO (09:03)
[2024-03-21] MEDS: COREG 6.25 MG PO ×2 (09:03→19:52)
[2024-03-21] MEDS: ENTRESTO 24 MG/26 MG 1 TAB PO ×2 (09:03→19:52)
[2024-03-21] MEDS: STERILE WATER FOR INJECTION 10 ML IV (09:03)
[2024-03-21] MEDS: LASIX 20 MG PO (09:03)
[2024-03-21] MEDS: PROTONIX IV 40 MG IV ×2 (09:04→19:53)
[2024-03-21] MEDS: METHADONE 100 MG/10 ML 155 MG PO (09:04)
[2024-03-21 09:31] LABS: ALT (SGPT) 19 U/L (0-50); AST (SGOT) 24 U/L (17-59); Albumin 2.8 g/dl (3.5-5.0); Alkaline Phosphatase 68 U/L (38-126); Blood Urea Nitrogen 8 mg/dl (9-20); Calcium 8.5 mg/dl (8.4-10.2); Carbon Dioxide 26 mmol/L (22-30); Chloride 105 mmol/L (98-107); Estimated Creatinine Clearance 100 ml/min; Glucose 92 mg/dl (70-99); Potassium 3.2 mmol/L (3.5-5.1); Sodium 141 mmol/L (135-145); Total Bilirubin 0.5 mg/dl (0.2-1.3); eGFR > 60.00
[2024-03-21] MEDS: COMPAZINE 5 MG IV (11:24)
[2024-03-21 11:49] LABS: Glucose - Point of Care 186 mg/dl (70-99)
[2024-03-21] MEDS: NOVOLOG FLEXPEN-LOW RESISTANCE 1 UNITS SC (11:54)
[2024-03-21] MEDS: TYLENOL 650 MG PO (13:05)
[2024-03-21 15:43] VITALS: BP 139/80
[2024-03-21 16:47] LABS: Glucose - Point of Care 96 mg/dl (70-99)
--- NOTE | 2024-03-21 16:47 | CM ---
CM reviewed chart, patient plan discharge home, no needs. CM will continue to follow for all discharge planning needs.
Plan; home no needs when medically stable.
[2024-03-21] MEDS: TORADOL 15 MG IV (17:08)
[2024-03-21] MEDS: LOVENOX SC ×2 (17:09→17:19)
[2024-03-21 19:50] VITALS: BP 158/99
[2024-03-21] MEDS: MELATONIN 5 MG PO (22:06)
[2024-03-21 22:24] LABS: Glucose - Point of Care 152 mg/dl (70-99)
[2024-03-21 23:45] VITALS: BP 145/82
[2024-03-22] MEDS: FIRVANQ 250 MG PO ×2 (05:16→12:19)
[2024-03-22 05:47] VITALS: BMI 21.2
--- NOTE | 2024-03-22 07:02 | W.PN.HOSP.TC ---
Addendum entered and electronically signed by Mai Jefferson MD 03/22/24 19:21:
I saw and evaluated the patient independently. I reviewed the resident�s note and agree with findings and plan as documented by Dr. Gilliland.
GENERAL: well developed, well nourished, male in no apparent distress
HEENT: NC/AT
HEART: regular rate and rhythm, +S1, +S2
LUNGS : clear to auscultation bilaterally
ABDOM: soft, nontender, nondistended, + bowel sounds
EXT: no cyanosis, clubbing, or edema
NEUROLOGIC: grossly intact
C. diff colitis--abdominal pain and tenderness--CT scan with colitis--C. Diff positive- diarrhea much improved--cont oral vanco--stop Flagyl--restarted methadone--tolerating low residue diet--OK for d/c
hypokalemia--K+ = 3.3--ordered PO potassium (pt refused), ordered IV potassium (pt refused)
Acute chest pain--resolved--apprec cards-- No abnormal echocardiogram findings or EKG changes
Intractable nausea vomiting with abdominal pain--apprec GI--cont PPI--discussed importance of outpatient follow-up with GI for a repeat colonoscopy due to his history of multiple adenomatous colon polyps. He plans on following up at [facility]
(f/w Dr. Chinchilla) for his ongoing care- Discussed cessation of marijuana
Doubt esophageal stricture-- no dysphagia symptoms- continue PPI
Hx of cardiomyopathy---cont home dose of diuretics - Continue with Coreg and Entresto- Continue with aspirin and statins.
Type 2 DM-- Hold Jardiance with GI symptoms--agree with SSI
code status -- FULL CODE
Original Note:
Today's Communication/Plan
-
..
Assessment / Plan
Assessment / Plan
Assessment and Plan
Impression:
53 year old male presented to ER 3 days ago complaining from nausea, vomiting, and chills. The patient has a PMH of COPD, opioid use disorder on methadone, GERD, A-fib, CHF. Additionally, the patient has a history of esophageal stricture and had
dilation most recently March 02. Patient denies having trouble with swallowing within the past few weeks. Patient denies any chest pain or shortness of breath. Patient denies any dysuria, hematuria. The patient reported he stopped vomiting
but he started to have bloody diarrhea yesterday. He reported that his stool color was dark. A stool culture was sent. Today he reported he only 2 episodes of diarrhea and its color was not dark.
Assessment:
Acute Colitis/C. Diff Colitis
Intractable nausea vomiting with abdominal pain
Diarrhea
DM
OUD
Acute Chest pain
Doubt esophageal stricture
PLAN
C. Diff Colitis: Left side of abdomen, and abdominal tenderness on physical examination
- Stool sample tested positive for D. Diff (03/20): on vancomycin
- Diarrhea: Patient had 8 episodes of diarrhea yesterday and had 2 episodes of diarrhea today: A stool culture was sent. Metronidazole was stopped. CBC was ordered to follow up Hgb levels for possible GI bleeding
- For pain: PRN Tylenol
- Diet: Changed his diet to low residue diet on 03/21
OUD: Administered his 3rd dose of methadone today (03/21)
Acute chest pain: Improved on multiple doses of IV morphine
-No abnormal echocardiogram findings. ECHO showed:Normal biventricular size and systolic function without regional wall motion abnormality. Estimated LVEF 60-65%.
-No significant valve disease. Cardiology signed off.
Hx of cardiomyopathy
- CW home dose of diuretics .
- Continue with Coreg and Entresto.
- Continue with aspirin and statins.
Intractable nausea vomiting with abdominal pain:
-Nausea resolved 2 days ago. Empiric IV PPI 40 mg BiD and Pepcid 40 mg qhs if component of esophagitis to maximize acid suppression
-GI recommended outpatient follow-up with GI for a repeat colonoscopy due to his history of multiple adenomatous colon polyps. He plans on following up at [facility] (f/w Dr. Chinchilla) for his ongoing care.
Doubt esophageal stricture
- Having no dysphagia symptoms.
- continue PPI
DM
- Hold Jardiance with GI symptoms. Continue SSI.
Code status -- FULL CODE
Anticipated Discharge: Today
Subjective/Interval History
-
Date of Service: March 22, 2024
The patient was seen in his bed. The patient reports have less abdominal pain and less frequent diarrhea today. Reported he had 2 episodes of diarrhea and the color of stool was brown and not dark.
Objective Data
-
Labs:
Laboratory Results
03/22/24
06:00
WBC Pending
Hgb Pending
Hct Pending
Plt Count Pending
Sodium Pending
Potassium Pending
Chloride Pending
Carbon Dioxide Pending
BUN Pending
Creatinine Pending
Glucose Pending
Calcium Pending
Total Bilirubin Pending
AST Pending
ALT Pending
Alkaline Phosphatase Pending
Vital Signs:
Vital Signs
Temp Pulse Resp BP Pulse Ox
98.2 F 66 18 145/82 97
03/21/24 23:45 03/21/24 23:45 03/21/24 23:45 03/21/24 23:45 03/21/24 23:45
I&O
03/21/24 03/22/24 03/23/24
06:59 06:59 06:59
Intake Total 4440 / 4440 1440 / 1440
Output Total 1875 / 1875
Balance 2565 / 2565 1440 / 1440
Review of Systems
-
Constitutional: Reports No Symptoms
EENT: Reports No Symptoms Reported
Respiratory: Reports No Symptoms
Cardiac: Reports No Symptoms
Abdomen/GI: Reports Diarrhea
Genitourinary: Reports No Symptoms
Musculoskeletal: Reports No Symptoms
Skin: Reports No Symptoms
Neuro: Reports No Symptoms
Physical Exam
-
General: Well Developed
HEENT: Normocephalic and Atraumatic
Respiratory: Clear to Auscultation
Cardiac: Regular Rhythm
GI: Soft and Nontender
Musculoskeletal: No Clubbing
Neuro: Awake, Alert, Oriented and AO x 3
[2024-03-22 07:34] LABS: Glucose - Point of Care 104 mg/dl (70-99)
[2024-03-22] MEDS: NOVOLOG FLEXPEN-LOW RESISTANCE SC ×2 (07:40→16:30)
[2024-03-22 07:52] VITALS: BP 114/69
[2024-03-22] MEDS: SPIRIVA RESPIMAT 2.5 MCG 2 PUFF INH (08:13)
[2024-03-22] MEDS: SYMBICORT 160/4.5 MCG INHALER 2 PUFF INH (08:13)
[2024-03-22 08:25] LABS: Hematocrit 36.7 % (39.0-52.0); Hemoglobin 12.5 g/dL (13.0-18.0); Mean Corp Hgb Conc. 34.1 g/dL (33.0-37.0); Mean Corpuscular Hgb 30.3 pg (27.0-31.0); Mean Corpuscular Volume 88.9 fL (80.0-94.0); Mean Platelet Volume 11.4 fL (7.4-10.4); Platelet Count 122 10^3/uL (130-400); Red Blood Cell Count 4.13 10^6/uL (4.70-6.10); Red Cell Dist. Width 13.2 % (11.5-14.5); White Blood Cell Count 9.1 10^3/uL (4.8-10.8)
[2024-03-22] MEDS: STERILE WATER FOR INJECTION IV (08:39)
[2024-03-22] MEDS: ENTRESTO 24 MG/26 MG 1 TAB PO (08:45)
[2024-03-22] MEDS: COREG 6.25 MG PO (08:45)
[2024-03-22] MEDS: LASIX 20 MG PO (08:46)
[2024-03-22] MEDS: ASPIR LOW (ENTERIC COATED) 81 MG PO (08:46)
[2024-03-22] MEDS: METHADONE 100 MG/10 ML 155 MG PO (08:46)
[2024-03-22] MEDS: PROTONIX IV 40 MG IV (08:46)
[2024-03-22] MEDS: LIPITOR 10 MG PO (08:46)
[2024-03-22 09:12] LABS: ALT (SGPT) 22 U/L (0-50); AST (SGOT) 26 U/L (17-59); Albumin 2.9 g/dl (3.5-5.0); Alkaline Phosphatase 61 U/L (38-126); Blood Urea Nitrogen 9 mg/dl (9-20); Calcium 8.5 mg/dl (8.4-10.2); Carbon Dioxide 32 mmol/L (22-30); Chloride 100 mmol/L (98-107); Estimated Creatinine Clearance 86 ml/min; Glucose 111 mg/dl (70-99); Potassium 3.3 mmol/L (3.5-5.1); Sodium 138 mmol/L (135-145); Total Bilirubin 0.5 mg/dl (0.2-1.3); Total Protein 5.2 g/dl (6.3-8.2); eGFR > 60.00
[2024-03-22] MEDS: COMPAZINE 5 MG IV (10:21)
[2024-03-22 12:15] LABS: Glucose - Point of Care 185 mg/dl (70-99)
[2024-03-22] MEDS: NOVOLOG FLEXPEN-LOW RESISTANCE 1 UNITS SC (12:18)
--- NOTE | 2024-03-22 14:34 | CM ---
Patient seen at bedside with physician and residents. Patient for discharge home with no needs at this time. Patient mother and father in process of cleaning as directed by physician at home. patient mother here for transportation home. CM will
continue to follow for discharge planning needs.
Plan; home with no needs.
[2024-03-22 14:51] VITALS: BP 143/84
--- NOTE | 2024-03-22 16:30 | PTCARENOTE ---
Pt waiting for discharge order and refusing blood sugar being taken at this time.
--- NOTE | 2024-03-22 16:59 | PTCARENOTE ---
Pt potassium today 3.3. Pt ordered 40 of po potassium , pt refusing stating it 'makes him throw up'. Dr. Jefferson made aware. Dr ordered IV potassium, pt also refused. Dr Jefferson made aware at 1700.
--- NOTE | 2024-03-22 17:32 | W.DCSUMMARY ---
Addendum entered and electronically signed by Mai Jefferson MD 03/22/24 20:13:
Read, reviewed, and agree. See same day progress note for additional details. Time spent coordinating care, DC planning, review of DC plan of care with resident, transition of care, review of records in EMR, med rec, consults, notes, d/w
consultants, nursing, family, and CM =45 minutes.
Patient's diarrhea significantly improved. He was tolerating a low residue diet. His pain resolved as well. Upon reviewing his labs, potassium was 3.3. Patient was ordered oral potassium which she refused to take saying it gave him nausea and
vomiting. He was then prescribed IV potassium for repletion which again he refused.
Patient is stable for discharge home at this time.
Original Note:
Discharge Summary
Discharge Data
Date of Admission: 03/17/24
Date of Discharge: 03/22/24
-
Pending Results: No
Hospital Course
Principal Discharge diagnosis: Acute Colitis
Hospital Course: 53 year old male presented to ER on 03/17/24 complaining from nausea, vomiting, and chills. C. difficile toxin came back positive with the patient`s stool. He was not immunosuppressed or he was not on any recent antibiotics. His
looking was nontoxic. He was started p.o. vancomycin and Flagyl for until the bloody diarrhea settles. And his Flagyl was stopped 2 days ago. His WBC count showed a decreasing rend and come back to normal limits. His pain decreased and his nausea
resolved. The patient reported he stopped vomiting 2 days ago and his stool color was normal today. GI recommended follow up with his GI physician at [facility]( Dr Chinchilla)
K level of the patient was found 3.3/L and he was ordered K today.
Problem 1:Acute Colitis: improved upper GI symptoms and tolerating low residue diet. He had 2 loose bowel movements but it was not bloody.
Problem 2:Intractable nausea vomiting with abdominal pain: Nausea and abdominal pain resolved.
Problem 3: - Diarrhea: Patient had 8 episodes of diarrhea 2 days ago and 4 episodes of diarrhea yesterday and today he had 2 episodes of diarrhea. His stool culture was sent. The patient reported the amount and frequency of diarrhea decreased and he
feels better.
Problem 4: All other medical issues. the patient has DM, OUD, Doubt esophageal stricture. These medical issues were stable during his hospitalization. Medications were continued as able.
Patient is stable for discharge home with 7 days cure of vancomycin to complete to treatment for 10 days. If there are any questions regarding this dictation or his hospital stay, please not hesitate to call. Our office number is [phone].
Time for discharge 45 minutes.
Important imaging findings :
Abdominal CT 03/17/24
IMPRESSION:
1). Moderate low density bowel wall thickening in the distal transverse and descending colon consistent with colitis
2). 9 mm nonobstructing calculus in the lower pole of the left kidney
Discharge Plan
-
Patient Disposition: Home (Routine Discharge)
Discharge Diagnosis/Procedures: Acute Colitis/C. Diff Colitis, Intractable nausea vomiting with abdominal pain, Diarrhea, DM, OUD, Doubt esophageal stricture
Condition: Good
Diet: As tolerated and Regular
Activity: No restrictions
Referrals:
Karen Jones DO [Family Provider] -
Prescriptions:
New
vancomycin 250 mg capsule
250 mg PO QID 7 Days Qty: 28 0RF
Continued
Trelegy Ellipta 1 EACH blister with device
1 puff inhalation R DAILY
aspirin 81 MG tablet,delayed release (DR/EC)
81 mg PO DAILY
Jardiance 10 mg tablet
10 mg PO DAILY
Entresto 24-26 mg tablet
1 tab PO BID
atorvastatin 10 mg tablet
10 mg PO DAILY
pantoprazole 40 mg tablet,delayed release (DR/EC)
40 mg PO BID Qty: 60 0RF
methadone [Methadone Intensol] 10 mg/mL Concentrate
155 mg PO DAILY
Patient Comments:
11/28/2023: [facility] ([place]) [phone] FAX [phone]
carvedilol [Coreg] 6.25 mg Tablet
6.25 mg PO BID
Patient Comments:
decrease dose on 03/15/24
furosemide [Lasix] 20 mg Tablet
20 mg PO DAILY
Discharge Orders:
Discharge Patient (As Directed); Ordered 03/22/24
Ordered By: Annamaria Gilliland
Discharge Date and Time
Discharge Date/Time: 03/22/24 17:50
Print Language: NIGERIEN
== END 2024-03-22 17:50 | disposition home or self-care (01) | DRG 372 ==
LOC: 4 WEST ACU 14:06
PROVIDERS: Nurse Practitioner; Nurse Practitioner Gerontology; Physician Assistant; Student in an Organized Health Care Education/Training Program; ADMITTING PHYSICIAN Internal Medicine; ATTENDING PHYSICIAN Internal Medicine; CONSULT PHYSICIAN Internal Medicine; EMERGENCY PHYSICIAN Emergency Medicine; FAMILY PHYSICIAN Internal Medicine; OTHER PHYSICIAN Student in an Organized Health Care Education/Training Program
DX: A04.72 Enterocolitis due to Clostridium difficile, not specified as recurrent (principal); F11.20 Opioid dependence, uncomplicated; I50.32 Chronic diastolic (congestive) heart failure; I42.8 Other cardiomyopathies; E11.51 Type 2 diabetes mellitus with diabetic peripheral angiopathy without gangrene; I11.0 Hypertensive heart disease with heart failure; J44.9 Chronic obstructive pulmonary disease, unspecified; K22.2 Esophageal obstruction; E78.00 Pure hypercholesterolemia, unspecified; F17.210 Nicotine dependence, cigarettes, uncomplicated; G89.4 Chronic pain syndrome; M10.9 Gout, unspecified; F12.90 Cannabis use, unspecified, uncomplicated; G47.33 Obstructive sleep apnea (adult) (pediatric); I45.10 Unspecified right bundle-branch block; R00.1 Bradycardia, unspecified; Z79.82 Long term (current) use of aspirin; Z79.84 Long term (current) use of oral hypoglycemic drugs; Z79.899 Other long term (current) drug therapy; Z87.19 Personal history of other diseases of the digestive system; Z86.010 Personal history of colon polyps; Z86.79 Personal history of other diseases of the circulatory system; Z85.820 Personal history of malignant melanoma of skin; Z88.0 Allergy status to penicillin; Z88.1 Allergy status to other antibiotic agents; Z88.6 Allergy status to analgesic agent; Z88.8 Allergy status to other drugs, medicaments and biological substances
CPT/HCPCS: 74177; 80048; 80053; 82248; 82962; 83036; 83605; 83690; 83735; 84484; 85025; 85027; 85610; 85652; 85730; 86140; 87045; 87046; 87324; 87427; 87449; 93005; 93306; 93922; 93925; 94640; 99285; Q9950; Q9967

== ENCOUNTER → 2024-03-29 10:08 | Outpatient (REF) | payer MEDICARE, SELFPAY ==
[2024-03-29 12:46] LABS: % Basophils 0.6 % (0-2); % Eosinophils 2.7 % (0-6); % Immature Granulocytes 0.2 % (0-0.5); % Lymphocytes 30.7 % (20.5-51.1); % Monocytes 6.9 % (1.7-9.3); % Neutrophils 58.9 % (42.2-75.2); Absolute Basophils 0.1 10^3/uL (0-0.2); Absolute Eosinophils 0.2 10^3/uL (0-0.7); Absolute Lymphocytes 2.7 10^3/uL (1.2-3.4); Absolute Monocytes 0.6 10^3/uL (0.1-0.6); Absolute Neutrophils 5.2 10^3/uL (1.4-6.5); Hematocrit 35.6 % (39.0-52.0); Hemoglobin 11.8 g/dL (13.0-18.0); Mean Corp Hgb Conc. 33.1 g/dL (33.0-37.0); Mean Corpuscular Hgb 30.4 pg (27.0-31.0); Mean Corpuscular Volume 91.8 fL (80.0-94.0); Mean Platelet Volume 10.4 fL (7.4-10.4); Nucleated Red Blood Cells % 0 % (-); Platelet Count 259 10^3/uL (130-400); Red Blood Cell Count 3.88 10^6/uL (4.70-6.10); Red Cell Dist. Width 14.1 % (11.5-14.5); White Blood Cell Count 8.8 10^3/uL (4.8-10.8)
[2024-03-29 13:02] LABS: Blood Urea Nitrogen 15 mg/dl (9-20); Carbon Dioxide 31 mmol/L (22-30); Chloride 100 mmol/L (98-107); Glucose 117 mg/dl (70-99); Potassium 4.2 mmol/L (3.5-5.1); Sodium 141 mmol/L (135-145); eGFR > 60.00
[2024-03-29 13:26] LABS: Calcium 9.1 mg/dl (8.4-10.2)
== END ==
LOC: HWLAB 10:08
PROVIDERS: ATTENDING PHYSICIAN Internal Medicine
DX: D64.9 Anemia, unspecified (principal); E87.6 Hypokalemia
CPT/HCPCS: 36415; 80048; 85025

== ENCOUNTER → 2024-04-12 14:54 | Outpatient (REF) | payer MEDICARE, SELFPAY | LOC: RAD 14:54 | PROVIDERS: ATTENDING PHYSICIAN Internal Medicine; FAMILY PHYSICIAN Nurse Practitioner Family | DX: R60.0 Localized edema (principal) | CPT/HCPCS: 93971 ==

== ENCOUNTER 2024-04-18 16:00 | Emergency (ER) | payer MEDICARE, SELFPAY ==
[2024-04-18 16:13] VITALS: BP 132/78
--- NOTE | 2024-04-18 16:28 | EDRN ---
jill attempted to get bld and was not successful
[2024-04-18 17:16] LABS: Urine Albumin Negative (Neg - Trace); Urine Bilirubin Negative (Negative); Urine Character Clear (Clear); Urine Color Yellow; Urine Glucose Negative (Negative); Urine Ketone Negative (Negative); Urine Leukocyte Negative (Negative); Urine Nitrite Negative (Negative); Urine Occult Blood Negative (Negative); Urine Specific Gravity 1.015 (<1.030); Urine Urobilinogen Negative (Neg - 1+); Urine pH 6.5 (5.0-9.0)
--- NOTE | 2024-04-18 18:17 | ED.GENMED ---
History of Present Illness
General
Chief Complaint: Flank Pain
Source: patient
Exam Limitations: none
Time Seen by Provider: 04/18/24 18:14
Nursing documentation reviewed up to this point in time: agreed with
History of Present Illness
History of Present Illness:
53-year-old male with history of esophageal stricture getting intermittent dilatations, is chronically on methadone, uses cannabis every day, PAD, status post right femoropopliteal bypass, nonischemic cardiomyopathy, chronic HFpEF, HTN, HLD, NIDDM,
COPD, gout presents for right flank and RLQ pain, bilateral leg swelling. Denies CP, SOB, fever, n/v.
Pt States legs started swelling a few days after discharge, he states this occurs off and on chronically. He states he was told he has the above kidney stone and was also told he had a 'small stone in the right kidney.'
Here 03/17-03/22 for intractable n/v, CT showing colitis, incidental 9 mm non obstructing calculus in lower pole L kidney. No mention of R kidney stone.
Past History
Past History
ED Past Medical History: Arrthythmia (afib), Cancer (Skin Ca Melanoma), COPD, GERD, HTN, Hypercholesterolemia, NIDDM and Other (pericarditis, cardiomyopathy, Kidney stones, UTI, Opiate abuse, Pyelonephritis, PVD, Chronic back pain, Chronic
Bronchisis, Sleep apnea, Diverticulitis, GI bleeding, Gout)
ED Past Surgical History: Appendectomy, Orthopedic (right and left shoulder surgery), Urological and Other (Cataracts, Fem-pop bypass. Esophageal tears)
Patient has exhibited threatening behavior?: No
Social History
Tobacco: Smoker (1-2 packs per day)
Alcohol: None
Drug: Former user and Narcotics
Personal:
Living: alone
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
Family History
Family History: Other (mom with hx PE); Negative Early CAD or CAD
Review of Systems
Review of Systems
Allergies reviewed?: Yes
All Other Systems: ROS reviewed and negative except as documented in HPI and ROS
Constitutional: Denies fever or chills
Respiratory: Denies trouble breathing
Cardiac: Denies chest pain
ABD/GI: Reports abdominal pain; Denies nausea, vomiting or diarrhea
: Reports frequency, flank pain (Right), difficulty voiding and urgency; Denies dysuria
Musculoskeletal: Reports edema (leg swelling L>R)
Skin: Reports no symptoms
Neurological: Reports no symptoms
Phy Exam
Physical Exam
Physical Exam:
GENERAL: No acute distress. A&Ox3.
CONSTITUTIONAL: Afebrile.
EYES: clear, conjunctivae normal
ENMT: moist mucus membranes, Pharynx nl
RESPIRATORY: Regular respirations, nonlabored, lungs clear.
CARDIOVASCULAR: Regular rate and rhythm, no murmurs, no rubs.
GI: Soft, mild tenderness right abdomen, nondistended. normal BS
MUSCULOSKELETAL: Moves with ease. Well perfused. +1 swelling RLE, +2 swelling LLE
SKIN: Warm, dry, pink
PSYCH: Normal mood and affect. Well kept, interactive and appropriate
NEUROLOGIC: Awake, alert and oriented. No focal neurological deficits
Course
Orders/Labs/Results
Orders:
Orders
04/18/24 16:33
Urinalysis Reflex To Culture Urgent
Date Specimen was Collected: 04/18/24
Time Specimen was Collected: 16:16
04/18/24 18:28
IV Insert/Care/Rem.- Treatment PRN
04/18/24 18:36
Complete Blood Count/With Diff Urgent
Comprehensive Metabolic Panel Urgent
Lipase Urgent
Comment: ADD ON
04/18/24 18:39
Add On- LAB Urgent
Tests Added?: Lipase
04/18/24 19:20
CT Abd/pel Without Iv Or Oral Urgent
Comment:
Reason For Exam: R flank, abd pain
Abnormal Lab Results
04/18/24
18:36
RBC 3.91 L 10^6/uL
(4.70-6.10)
Hgb 11.8 L g/dL
(13.0-18.0)
Hct 35.2 L %
(39.0-52.0)
Carbon Dioxide 31 H mmol/L
(22-30)
BUN 38 H mg/dl
(9-20)
04/18/24 18:36
04/18/24 18:36
Vital Signs
Initial and Last Documented VS:
Initial Vital Signs
Temp Pulse Resp BP Pulse Ox
98.5 F 56 16 132/78 98
04/18/24 16:13 04/18/24 16:13 04/18/24 16:13 04/18/24 16:13 04/18/24 16:13
Last Documented Vital Signs
Temp Pulse Resp BP Pulse Ox
98.5 F 48 16 129/62 96
04/18/24 16:13 04/18/24 20:24 04/18/24 20:24 04/18/24 20:24 04/18/24 20:24
MDM/Problems Addressed
Differential Diagnosis Includes:
Dependent edema, CHF, PVD
Kidney stone, constipation
MDM/Problems Addressed:
53-year-old male with history of esophageal stricture getting intermittent dilatations, is chronically on methadone, uses cannabis every day, PAD, status post right femoropopliteal bypass, nonischemic cardiomyopathy, chronic HFpEF, HTN, HLD, NIDDM,
COPD, gout presents for right flank and RLQ pain, bilateral leg swelling. Denies CP, SOB, fever, n/v.
Pt States legs started swelling a few days after discharge, he states this occurs off and on chronically. He states he was told he has the above kidney stone and was also told he had a 'small stone in the right kidney.'
Here 03/17-03/22 for intractable n/v, CT showing colitis, incidental 9 mm non obstructing calculus in lower pole L kidney. No mention of R kidney stone.
Afebrile, NAD
6:50 p.m.
CBC no clinically significant abnormality
CMP: Unremarkable save for BUN 28
U/A neg
8:30 p.m.
Pt resting comfortably, awaiting CT scan
10:[address] Abd/Pelvis w/o IV or oral contrast radiology report read: IMPRESSION:
No acute findings in the abdomen or pelvis.
Bilateral nonobstructing renal calculi measuring up to 7 mm on the left and 2 mm on the right.
Moderate colonic stool burden.
Most likely dependent edema. He has compression stocking he doesn't wear. He admits legs are less swollen in the mornings.
No clear explanation of abd pain, ?constipation? pt denies. He does state his pain is much better
*Critical Care Note
Total Time (30-74mins, 75-104mins- exclusive of procedures): Not Applicable
ED Attending Note
-
Portions of this chart may have been created with voice recognition software.� Occasional wrong word or��sound alike� substitutions may have occurred due to the inherent limitations of voice recognition software.
Discharge Plan
Departure
Patient Disposition: Home (Routine Discharge)
Date of Disposition: 04/18/24
Time of Disposition: 22:05
Patient with high blood pressure during this ER visit?: No
Condition: Good
Discharge Problem:
Abdominal pain, Mild dehydration
Instructions: Swelling, Constipation, Adult ED, Dehydration, Adult ED, Abdominal pain in adults - Discharge instructions
Prescriptions:
No Action
Trelegy Ellipta 1 EACH blister with device
1 puff inhalation R DAILY
aspirin 81 MG tablet,delayed release (DR/EC)
81 mg PO DAILY
Jardiance 10 mg tablet
10 mg PO DAILY
Entresto 24-26 mg tablet
1 tab PO BID
atorvastatin 10 mg tablet
10 mg PO DAILY
pantoprazole 40 mg tablet,delayed release (DR/EC)
40 mg PO BID Qty: 60 0RF
methadone [Methadone Intensol] 10 mg/mL Concentrate
155 mg PO DAILY
Patient Comments:
11/28/2023: [facility]) [phone] FAX [phone]
carvedilol [Coreg] 6.25 mg Tablet
6.25 mg PO BID
Patient Comments:
decrease dose on 03/15/24
furosemide [Lasix] 20 mg Tablet
20 mg PO DAILY
vancomycin 250 mg capsule
250 mg PO QID 7 Days Qty: 28 0RF
Referrals:
Your, Doctor [Other] - As needed
Buddy Joy CRNP [Family Provider] -
Activity Restrictions/Additional Instructions:
As we discussed, be sure to drink the allotted 64 ounces a day as you are mildly dehydrated
Your CAT scan and lab work showed nothing concerning.
You have a moderate amount of stool throughout your colon, if you are constipated this may contribute to your abdominal pain.
I have provided you with information on constipation to use if needed.
See your doctor in one week if your legs continue to swell despite using your compression stockings and elevating the legs to the level of your hear frequently during the day.
Interventions
Interventions:
*Risk Screen - Suicide Last Done: 04/18/24 16:13
*Neglect/Abuse Screening Last Done: 04/18/24 16:13
ED- Fall Risk Assessment Last Done: 04/18/24 20:24
VB-Vcbzbi-Aqzitrxswe Assessment Last Done: 04/18/24 18:37
ED-Male Genitourinary Assessment Last Done: 04/18/24 18:37
Discharge Date and Time
Print Language: HUNGARIAN
[2024-04-18 18:36] VITALS: BMI 20.9
[2024-04-18 18:42] LABS: % Basophils 0.4 % (0-2); % Eosinophils 3.1 % (0-6); % Immature Granulocytes 0.1 % (0-0.5); % Lymphocytes 32.7 % (20.5-51.1); % Monocytes 8.4 % (1.7-9.3); % Neutrophils 55.3 % (42.2-75.2); Absolute Eosinophils 0.2 10^3/uL (0-0.7); Absolute Lymphocytes 2.5 10^3/uL (1.2-3.4); Absolute Monocytes 0.6 10^3/uL (0.1-0.6); Absolute Neutrophils 4.2 10^3/uL (1.4-6.5); Hematocrit 35.2 % (39.0-52.0); Hemoglobin 11.8 g/dL (13.0-18.0); Mean Corp Hgb Conc. 33.5 g/dL (33.0-37.0); Mean Corpuscular Hgb 30.2 pg (27.0-31.0); Mean Platelet Volume 10.3 fL (7.4-10.4); Nucleated Red Blood Cells % 0 % (-); Platelet Count 160 10^3/uL (130-400); Red Blood Cell Count 3.91 10^6/uL (4.70-6.10); Red Cell Dist. Width 13.6 % (11.5-14.5); White Blood Cell Count 7.5 10^3/uL (4.8-10.8)
[2024-04-18 19:02] LABS: ALT (SGPT) 30 U/L (0-50); AST (SGOT) 30 U/L (17-59); Albumin 3.8 g/dl (3.5-5.0); Alkaline Phosphatase 55 U/L (38-126); Blood Urea Nitrogen 38 mg/dl (9-20); Carbon Dioxide 31 mmol/L (22-30); Chloride 102 mmol/L (98-107); Estimated Creatinine Clearance 100 ml/min; Glucose 87 mg/dl (70-99); Potassium 4.2 mmol/L (3.5-5.1); Sodium 143 mmol/L (135-145); Total Bilirubin 0.3 mg/dl (0.2-1.3); Total Protein 6.4 g/dl (6.3-8.2); eGFR > 60.00
[2024-04-18 19:56] LABS: Lipase 36 U/L (23-300)
[2024-04-18 20:24] VITALS: BP 129/62
== END 2024-04-18 22:29 | disposition home or self-care (01) ==
LOC: EMR 16:00
PROVIDERS: Registered Nurse; EMERGENCY PHYSICIAN Emergency Medicine; FAMILY PHYSICIAN Nurse Practitioner Adult Health
DX: R10.9 Unspecified abdominal pain (principal); E86.0 Dehydration; R22.43 Localized swelling, mass and lump, lower limb, bilateral; E11.36 Type 2 diabetes mellitus with diabetic cataract; E11.51 Type 2 diabetes mellitus with diabetic peripheral angiopathy without gangrene; E78.00 Pure hypercholesterolemia, unspecified; G47.30 Sleep apnea, unspecified; F17.210 Nicotine dependence, cigarettes, uncomplicated; I11.0 Hypertensive heart disease with heart failure; I50.32 Chronic diastolic (congestive) heart failure; I42.8 Other cardiomyopathies; J44.9 Chronic obstructive pulmonary disease, unspecified; K21.9 Gastro-esophageal reflux disease without esophagitis; Z85.820 Personal history of malignant melanoma of skin; Z85.828 Personal history of other malignant neoplasm of skin; Z87.440 Personal history of urinary (tract) infections; Z87.442 Personal history of urinary calculi; Z90.49 Acquired absence of other specified parts of digestive tract
CPT/HCPCS: 99284; 74176; 80053; 81003; 83690; 85025

== ENCOUNTER 2024-05-06 05:23 | Inpatient (IN) | payer MEDICARE, SELFPAY ==
[2024-05-05 23:07] VITALS: BP 171/100
--- NOTE | 2024-05-05 23:42 | ED.GENMED ---
History of Present Illness
General
Chief Complaint: Abdominal Symptoms
Source: patient
Exam Limitations: none
Time Seen by Provider: 05/05/24 23:13
History of Present Illness
History of Present Illness:
This is a 53 year old male that comes in with c/o vomiting since Thursday. States that everything hurts. States that he has been vomiting since Thursday and that he is very weak. States that he has felt SOB and had some chest tightness with the SOB.
States that he is dizzy and the room is spinning. Denies any fever, abd pain, diarrhea, headache, urinary burning.
Past History
Past History
ED Past Medical History: Arrthythmia (afib), Cancer (Skin Ca Melanoma), COPD, GERD, HTN, Hypercholesterolemia, NIDDM, Other (pericarditis, cardiomyopathy, Kidney stones, UTI, Opiate abuse, Pyelonephritis, PVD, Chronic back pain, Chronic Bronchitis,
Sleep apnea, Diverticulitis, GI bleeding, Gout) and Other (Ischemic esophagus, Esophageal tears)
ED Past Surgical History: Appendectomy, Orthopedic (right shoulder surgery X 2, left shoulder surgery), Urological and Other (Cataracts, Fem-pop bypass. Esophageal tears)
Patient has exhibited threatening behavior?: No
Social History
Tobacco: Smoker (1-2 packs per day)
Alcohol: None
Drug: Former user and Narcotics
Personal:
Living: alone
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
Family History
Family History: Other (mom with hx PE); Negative Early CAD or CAD
Review of Systems
Review of Systems
All Other Systems: ROS reviewed and negative except as documented in HPI and ROS
Constitutional: Reports chills; Denies fever
EENT: Reports no symptoms
Respiratory: Reports trouble breathing; Denies cough
Cardiac: Reports chest pain (tightness with breathing)
ABD/GI: Reports nausea and vomiting; Denies abdominal pain or diarrhea
: Reports no symptoms; Denies dysuria, frequency or urgency
Musculoskeletal: Reports no symptoms
Skin: Reports no symptoms
Neurological: Reports dizzy; Denies headache
Psychiatric: Reports no symptoms
Phy Exam
General Physical Exam
General Presentation: no apparent distress
General age: appears stated age
General Skin: warm and dry
General Habitus: normal
General Mental: alert
General Hydration: dry mucous membranes
ENT Exam
ENT Exam: TM's normal, pharynx normal and neck supple
Eye Exam
Eye Exam: EOMI
Cardiovascular Exam
Cardiovascular Exam: regular rate/rhythm, no edema, no murmur and normal peripheral pulses
Pulmonary Exam
Pulmonary Exam: lungs clear, no respiratory distress, no rales, chest non tender, no crackles, no rhonchi, no wheezing and no cough
Gastrointestinal Exam
Gastrointestinal Exam: normal bowel sounds, non tender, soft, no organomegaly, no pulsatile mass and non distended
Musculoskeletal Exam
Musculoskeletal Exam: full ROM and edema (very slight lower leg edema nonpitting)
Skin Exam
Skin Exam: normal color, warm/dry, no rash and no petechia
Psychiatric Exam
Psychiatric Exam: normal mood/affect
Course
Orders/Labs/Results
Orders:
Orders
05/05/24 23:40
0.9% Sodium Chloride 1000 ml [Nss] 1,000 ml IV BOLUS
Metoclopramide [Reglan] 10 mg IV NOW STA
05/05/24 23:41
Pantoprazole [Protonix IV] 40 mg IV NOW STA
05/05/24 23:43
Electrocardiogram (*1) Urgent
Reason for Study: Shortness of Breath
EKG- Treatment ONCE
05/05/24 23:44
Urinalysis Reflex To Culture Urgent
Date Specimen was Collected: 05/06/24
Time Specimen was Collected: 01:12
05/05/24 23:56
Complete Blood Count/With Diff Urgent
05/06/24 00:59
Comprehensive Metabolic Panel Urgent
Lipase Urgent
Troponin I Urgent
05/06/24 01:18
Urine Microscopic Reflex Cult Urgent
05/06/24 01:51
US Abdomen Complete/Upper Urgent
Comment:
Reason For Exam: Elevated liver enzymes. Vomiting since Thursday
Abnormal Lab Results
05/05/24 05/06/24 05/06/24
23:56 00:59 01:18
WBC 13.7 H 10^3/uL
(4.8-10.8)
MCH 31.4 H pg
(27.0-31.0)
MPV 11.5 H fL
(7.4-10.4)
Abs Immat Gran (auto) 0.3 H 10^3/uL
(0-0.05)
Absolute Neuts (auto) 11.6 H 10^3/uL
(1.4-6.5)
Immature Gran % 1.8 H %
(0-0.5)
Neutrophils % 84.6 H %
(42.2-75.2)
Lymphocytes % 8.6 L %
(20.5-51.1)
Potassium 3.4 L mmol/L
(3.5-5.1)
Glucose 158 H mg/dl
(70-99)
Total Bilirubin 1.4 H mg/dl
(0.2-1.3)
AST 82 H U/L
(17-59)
ALT 285 H U/L
(0-50)
Urine Ketones 2+ A
(Negative)
Ur Occult Blood Reflex Trace A
(Negative)
Urine RBC 3-6 A /HPF
(0-2)
Urine Bacteria (Reflex) Few A
(Negative)
Urine Glucose 1+ A
(Negative)
05/05/24 23:56
05/06/24 00:59
Leukocytosis, hyperglycemia. Total baldev slightly elevated. AST/ALT elevation. Urine negative for infection. Troponin <0.012, Lipase normal at 58
Vital Signs
Initial and Last Documented VS:
Initial Vital Signs
Temp Pulse Resp BP Pulse Ox
98.6 F 99 20 171/100 98
05/05/24 23:07 05/05/24 23:07 05/05/24 23:07 05/05/24 23:07 05/05/24 23:07
Last Documented Vital Signs
Temp Pulse Resp BP Pulse Ox
98.6 F 84 19 171/100 97
05/05/24 23:07 05/06/24 01:49 05/06/24 01:49 05/05/24 23:07 05/06/24 01:49
MDM/Problems Addressed
Differential Diagnosis Includes:
Viral GI syndrome.
MDM/Problems Addressed:
This is a 53 year old male that comes in with c/o vomiting since Thursday. States that everything hurts.
Will check labs. Give IV fluids and check urine. Medicate with Reglan for nausea.
Back into see patient. States that he is still nauseated and that his stomach hurts all over. However, patient had not tenderness with palpation. Awaiting US report as patient liver enzymes elevated.
US negative for gallbladder disease. Will admit patient due to continued abd discomfort and elevated liver enzymes for further evaluation. Hospitalist notified. Into see patient and explained that his US was negative for gallbladder disease. Will
admit due to continued abd pain, nausea and elevated liver enzymes.
Chronic conditions affecting care:
Esophageal issues
Chronic conditions affecting care: DM
Acute Exacerbation and/or Progression of Chronic Illness: DM
*Radiology
Radiology exam reviewed: radiology read reviewed (US night hawk- NO evidence of cholelithiasis or acute cholecystitis. The common bile duct is dilated giana 1.2cm. Correlate with LFT's and consider further evaluation with MRCP. Unremarkable liver,
spleen, right kidney, and visualized pancreas. The left kidney demonstrated a 7mm nonobstructing stone. )
*Pulse Oximetry
Patient hypoxic: no
*EKG
Interpreted by ED Provider?: Yes
Heart Rate: 67
Rate: normal
Rhythm: sinus
[place]: left axis deviation
Interval: normal interval
QRS Pattern: right bundle branch block
Ischemia: no ischemia
*Investment Professional Interpretation
Rate: Investment Professional- N/A
*Critical Care Note
Total Time (30-74mins, 75-104mins- exclusive of procedures): Not Applicable
ED Attending Note
-
Portions of this chart may have been created with voice recognition software.� Occasional wrong word or��sound alike� substitutions may have occurred due to the inherent limitations of voice recognition software.
Discharge Plan
Departure
Patient Disposition: Admit
Date of Disposition: 05/06/24
Time of Disposition: 03:08
Admit to: Med/Surg
Presentation/result/management discussed w/ accepting MD/DO: Hospitalist
Patient with high blood pressure during this ER visit?: Yes
Condition: Good
Covid-19: Not Applicable
Discharge Problem:
Elevated liver enzymes, Abdominal pain, Nausea & vomiting
Prescriptions:
No Action
Trelegy Ellipta 1 EACH blister with device
1 puff inhalation R DAILY
aspirin 81 MG tablet,delayed release (DR/EC)
81 mg PO DAILY
Jardiance 10 mg tablet
10 mg PO DAILY
Entresto 24-26 mg tablet
1 tab PO BID
atorvastatin 10 mg tablet
10 mg PO DAILY
pantoprazole 40 mg tablet,delayed release (DR/EC)
40 mg PO BID Qty: 60 0RF
methadone [Methadone Intensol] 10 mg/mL Concentrate
155 mg PO DAILY
Patient Comments:
11/28/2023: [facility]) [phone] FAX [phone]
carvedilol [Coreg] 6.25 mg Tablet
6.25 mg PO BID
Patient Comments:
decrease dose on 03/15/24
furosemide [Lasix] 20 mg Tablet
20 mg PO DAILY
vancomycin 250 mg capsule
250 mg PO QID 7 Days Qty: 28 0RF
Referrals:
UNKNOWN - PT DOES,NOT KNOW [Family Provider] -
Interventions
Interventions:
*Risk Screen - Suicide Last Done: 05/05/24 23:07
*General Assessment Last Done: 05/05/24 23:07
*Neglect/Abuse Screening Last Done: 05/05/24 23:07
ED- Fall Risk Assessment Last Done: 05/05/24 23:07
*ED COVID-19 Vaccine History Last Done: 05/05/24 23:07
HV-Jwupif-Ngkmgtmulz Assessment Last Done: 05/06/24 00:00
Discharge Date and Time
Print Language: [place]
[2024-05-05] MEDS: NSS 1000 IV (23:56)
[2024-05-05] MEDS: PROTONIX IV 40 MG IV (23:56)
[2024-05-05] MEDS: REGLAN 10 MG IV (23:56)
[2024-05-06 00:30] LABS: % Basophils 0.4 % (0-2); % Eosinophils 0.3 % (0-6); % Immature Granulocytes 1.8 % (0-0.5); % Lymphocytes 8.6 % (20.5-51.1); % Monocytes 4.3 % (1.7-9.3); % Neutrophils 84.6 % (42.2-75.2); Absolute Basophils 0.1 10^3/uL (0-0.2); Absolute Immature Granulocytes 0.3 10^3/uL (0-0.05); Absolute Lymphocytes 1.2 10^3/uL (1.2-3.4); Absolute Monocytes 0.6 10^3/uL (0.1-0.6); Absolute Neutrophils 11.6 10^3/uL (1.4-6.5); Hematocrit 42.9 % (39.0-52.0); Hemoglobin 14.8 g/dL (13.0-18.0); Mean Corp Hgb Conc. 34.5 g/dL (33.0-37.0); Mean Corpuscular Hgb 31.4 pg (27.0-31.0); Mean Corpuscular Volume 90.9 fL (80.0-94.0); Mean Platelet Volume 11.5 fL (7.4-10.4); Nucleated Red Blood Cells % 0 % (-); Platelet Count 175 10^3/uL (130-400); Red Blood Cell Count 4.72 10^6/uL (4.70-6.10); Red Cell Dist. Width 13.2 % (11.5-14.5); White Blood Cell Count 13.7 10^3/uL (4.8-10.8)
[2024-05-06 01:26] LABS: Urine Albumin Negative (Neg - Trace); Urine Bilirubin Negative (Negative); Urine Character Clear (Clear); Urine Color Straw; Urine Glucose 1+ (Negative); Urine Ketone 2+ (Negative); Urine Leukocyte Negative (Negative); Urine Nitrite Negative (Negative); Urine Occult Blood Trace (Negative); Urine Urobilinogen Negative (Neg - 1+)
[2024-05-06 01:35] LABS: Urine Squamous Cell 0-2 /LPF (Few)
[2024-05-06 01:36] LABS: Urine Bacteria Few (Negative); Urine Hyaline Cast 0-2 /LPF (0-2); Urine Sperm Seen; Urine White Cell 0-2 /HPF (0-5)
[2024-05-06 01:36] LABS: ALT (SGPT) 285 U/L (0-50); AST (SGOT) 82 U/L (17-59); Albumin 4.4 g/dl (3.5-5.0); Alkaline Phosphatase 85 U/L (38-126); Blood Urea Nitrogen 9 mg/dl (9-20); Carbon Dioxide 24 mmol/L (22-30); Chloride 102 mmol/L (98-107); Glucose 158 mg/dl (70-99); Potassium 3.4 mmol/L (3.5-5.1); Sodium 141 mmol/L (135-145); Total Bilirubin 1.4 mg/dl (0.2-1.3); Total Protein 7.3 g/dl (6.3-8.2); eGFR > 60.00
[2024-05-06 01:37] LABS: Troponin I < 0.012 ng/ml
[2024-05-06 01:46] LABS: Lipase 58 U/L (23-300)
[2024-05-06 03:16] VITALS: BP 142/86
--- NOTE | 2024-05-06 04:49 | HPS.HSE ---
Family Physician
-
Family Physician: NOT KNOW UNKNOWN - PT DOES
Chief Complaint
-
Nausea vomiting and abdominal pain for 3 days
History of Present Illness
This is a 53-year-old with history of opioid dependence, nonischemic cardiomyopathy, iatrogenic left ventricular dysplasia, COPD, tobacco dependence, nephrolithiasis, mkm-uwglvzx-hjqmpojpm diabetes, ELA on CPAP hypertension, history of peptic ulcer
disease with duodenal ulcer prior GI hemorrhage who presents to the emergency department with 2 to 3 days of intractable abdominal pain nausea vomiting.
Patient reports generalized abdominal pain without any specific radiation. Is associated with vomiting with last episode of vomiting in the evening yesterday. He reports some specks of blood in the vomit. He denies bilious emesis. Patient denies
having any diarrhea. He has chills but denies any fevers. Is intolerant of p.o. Patient was last admitted to the hospital in February and at that time had intractable nausea vomiting and abdominal pain. He also had some diarrhea at that time
and had C. difficile colitis. He was initially treated with Flagyl and vancomycin. Patient reported that he completed the course and he has not has any significant diarrhea since. He denies any melena. He denies history of gallstones. He does
report history of nephrolithiasis and was found to have a microscopic hematuria by PMD few days ago. Patient reported that his last methadone was 2 days ago due to intolerance of p.o. He denies any alcohol use. Has history of opioid withdrawal in
the past.
In the emergency department the patient was afebrile, blood pressure was 140/86 with a pulse of 102. ECG showed normal sinus rhythm with a right bundle branch block at a rate of 67 unchanged from prior. CBC was notable for leukocytosis to 13.7 but
otherwise unremarkable. Chemistries showing normal electrolytes BUN and creatinine, slight elevation in T total bilirubin to 1.4 and slight elevations in AST and ALT. Lipase was within normal limits. The right upper quadrant ultrasound showed
common bile duct dilatation to 1.2 cm, no evidence gallstones and no cholecystitis. There is left nonobstructing 7 mm kidney stone.
Medical History
Past Medical History
Past Medical History: Reports Asthma, COPD and NIDDM
Additional Past Medical History:
Peptic ulcer disease
Tobacco dependence
Opioid dependence on methadone
Past Surgical History: Reports Appendectomy
Social History
Tobacco: Smoker
Alcohol: None
Drug: Former User
Personal: Single
Family History
Family History: Not pertinent
Allergies / Home Medications
Allergies reflects when Allergies were last updated in [facility].
Home Medications with original date entered in [facility]
Allergy/Medication List:
Allergies
Allergy/AdvReac Type Severity Reaction Status Date / Time
acetaminophen Allergy Rash Verified 05/05/24 23:07
amlodipine besylate Allergy Tongue Verified 05/05/24 23:07
[From Norvas] Swelling
erythromycin base Allergy Hives Verified 05/05/24 23:07
ibuprofen Allergy Hives Verified 05/05/24 23:07
Penicillins Allergy Hives/tolerates Verified 05/05/24 23:07
ceftriaxone
Home Medications
fluticasone fur. 100 mcg-umeclid 62.5 mcg-vilant 25 mcg inhalat.powder (Trelegy Ellipta) 1 puff inhalation R DAILY Lung/breathing issues 07/03/20
aspirin 81 mg tablet,delayed release 81 mg PO DAILY Blood clot prevention/tx 09/14/20
empagliflozin 10 mg tablet (Jardiance) 10 mg PO DAILY Diabetes 04/29/22
sacubitril 24 mg-valsartan 26 mg tablet (Entresto) 1 tab PO BID Heart Failure 04/29/22
atorvastatin 10 mg tablet 10 mg PO DAILY High cholesterol 10/21/22
pantoprazole 40 mg tablet,delayed release 40 mg PO BID Gastrointestinal issue #60 tabs 10/23/22
methadone 10 mg/mL oral concentrate (Methadone Intensol) 155 mg PO DAILY SUBSTANCE USE DISORDER 08/21/23
carvedilol 6.25 mg tablet (Coreg) 6.25 mg PO BID 03/17/24
furosemide 20 mg tablet (Lasix) 20 mg PO DAILY 03/17/24
vancomycin 250 mg capsule 250 mg PO QID 7 days #28 caps 03/22/24
Review of Systems
-
History Source: Patient
Constitutional: Reports Chills
EENT: Reports No Symptoms
Respiratory: Reports No Symptoms
Cardiac: Reports No Symptoms
Abdomen/GI: Reports Abdominal Pain, Nausea and Vomiting
: Reports No Symptoms
Musculoskeletal: Reports No Symptoms
Skin: Reports No Symptoms
Neurological: Reports No Symptoms
Endocrine: Reports No Symptoms
Hematologic/Lymphatic: Reports No Symptoms
Psych: Reports No Symptoms
Physical Exam
Vital Signs
Vital Signs
Temp Pulse Resp BP Pulse Ox
98.6 F 102 20 142/86 97
05/05/24 23:07 05/06/24 03:16 05/06/24 03:20 05/06/24 03:16 05/06/24 01:49
Physical Exam
General: Well Developed, Appears in Distress and Pain
HEENT: NormoCephalic, Anicteric, Moist mucous membranes and Atraumatic
Respiratory: Clear
Cardiac: S1/S2 and Regular Rhythm
GI: Soft, Non Distended, Normal Bowel Sounds, Flat and Other (voluntary guarding)
Rectal: Deferred by Provider
Genito-urinary: Clear Urine
Musculoskeletal: No Clubbing, No Cyanosis and No Edema
Skin: Warm
Neuro: AO x 3
Hematologic/Lymphatic: No Lymphadenopathy
Psych: Anxious
Laboratory Results
-
05/05/24 23:56
05/06/24 00:59
Laboratory Results
Total Bilirubin 1.4 mg/dl (0.2-1.3) H 05/06/24 00:59
AST 82 U/L (17-59) H 05/06/24 00:59
ALT 285 U/L (0-50) H 05/06/24 00:59
Alkaline Phosphatase 85 U/L (38-126) 05/06/24 00:59
Troponin I < 0.012 ng/ml 05/06/24 00:59
Lipase 58 U/L (23-300) 05/06/24 00:59
Data Reviewed
-
Ultrasound: Report Reviewed by me
Medical Tests (Nuc Med, Echo, EKG etc): Image Personally Visualized and interpreted
Lab Data: Labs Reviewed by me
Old Records: Reviewed
Impression/Plan
-
IMPRESSION:
Patient with h/o opioid dependence, PUD, NIDDM presents to ED with 2-3 days of N/V/abd pain. Initial testing is fairly benign except for mild elevation in LFTs and 1.2 cm CBD dilation without cholelithiasis or cholecystitis. Lipase normal. There
is leukocytosis. U/A is clear. No etoh use. Recently admitted with colitis and found to have CD diff in setting of intractable N/V. Had diarrhea at that time. Finished tx and no diarrhea since. No melena. Possibly had stone that passed but
will not explain current pain which is diffuse and associated with voluntary guarding. Possibly diverticulitis.
PLAN:
1. Abdominal pain - Differential includes diverticulitis, opioid withdrawal and gastritis.
- admit to med/surg
- obtain CT abd/pelvis to rule out diverticulitis
- NPO for now except sips
- IV fluids LR 50 ml/hr
- PPI IV bid.
- pain control with iv morphine prn
2. DM II on Jardiance.
- hold jardiance
- insulin sliding scale for now
3. Transaminitis - CBD dilation but no obvious stones. No ETOH use
- trend LFTs
- f/u CT scan, if unrevealing, consider MRCP
4. NICM
- conitnue entresto
- holding lasix for now
- continue coreg
5. Opioid dependence
- methadone 155 mg daily, Qtc 464 monitor
DVT PPX - lovenox sq
Code Status - Full code
[2024-05-06 06:00] VITALS: BMI 19.7
[2024-05-06 07:12] VITALS: BP 143/88
[2024-05-06 07:30] VITALS: BP 146/85
[2024-05-06] MEDS: SYMBICORT 80/4.5 MCG INHALER 2 PUFF INH (08:05)
[2024-05-06] MEDS: SPIRIVA RESPIMAT 2.5 MCG 2 PUFF INH (08:06)
[2024-05-06 08:15] LABS: Glucose - Point of Care 137 mg/dl (70-99)
[2024-05-06] MEDS: LR 1000 IV (09:41)
[2024-05-06] MEDS: FLAGYL 500 MG PO ×3 (09:44→23:57)
[2024-05-06] MEDS: ENTRESTO 24 MG/26 MG 1 TAB PO ×2 (09:44→21:35)
[2024-05-06] MEDS: ASPIR LOW (ENTERIC COATED) 81 MG PO (09:45)
[2024-05-06] MEDS: COREG 6.25 MG PO ×2 (09:45→21:39)
[2024-05-06] MEDS: PROTONIX IV 40 MG IV ×2 (09:45→21:36)
[2024-05-06] MEDS: LIPITOR 10 MG PO (09:45)
[2024-05-06] MEDS: ROCEPHIN 2000 MG IV (09:46)
[2024-05-06] MEDS: NSS (PRESERVATIVE FREE) 10 ML IV ×2 (09:46→21:36)
[2024-05-06] MEDS: STERILE WATER FOR INJECTION 20 ML IV (09:46)
[2024-05-06] MEDS: FLUSH (NSS) 1 FLUSH IV ×2 (09:47)
[2024-05-06] MEDS: METHADONE 100 MG/10 ML 153 MG PO (09:56)
[2024-05-06] MEDS: REGLAN 10 MG IV ×2 (10:30→17:32)
--- NOTE | 2024-05-06 11:47 | CM ---
Reviewed the chart notes and spoke with the patient at the bedside. The patient resides with his parents in a two story home with four steps to enter. The patient reports no DME/VN/SNF in the past. The patient confirmed his pharmacy of choice is
the [facility] [address] [facility]. [facility] continues to be available to patient/family and is monitoring medical plan for needs at discharge.
Plan: Discharge to home when medically stable. No needs identified at this time.
[2024-05-06] MEDS: FIRVANQ 125 MG PO (13:31)
[2024-05-06 13:40] LABS: Glucose - Point of Care 156 mg/dl (70-99)
--- NOTE | 2024-05-06 14:33 | W.PN.UPDATE ---
Update Note
Progress Note Update
Non-billable addendum
Admitted 4 AM for colitis
seen this afternoon
reports diffuse abdominal pain in all 4 quadrants RUQ is greatest pain
reports vomiting and abd pain chronically as well, due for C-scope in May
CT shows colitis, US with CBD dilation and also elevated LFTS
Assessment:
Acute uncomplicated sigmoid colitis
- seen on CT
- empiric Rocephin/Flagyl day 1
- check stool studies with recent C. Diff. Vanco prophylaxis added
- clears if able to tolerate
- cap IVF after current bag
- pain control (low doses)
RUQ pain
Elevated LFTs
US with CBD dilation
- trend LFTs
- check MRI/MRCP
Type 2 DM on Jardiance
- hold Jardiance
- low dose SSI
NICM
- cap IVF after current bag
- resume Lasix in AM
- continue Entresto/Coreg
- recent Echo 03/18: Normal biventricular size and systolic function without regional wall motion abnormality. Estimated LVEF 60-65%. No significant valve disease.
Hx of opioid dependance
- continue Methadone, QTC 464 on admission. Dose confirmed with pharmacy.
DVT ppx: Lovenox
Code: Full
[2024-05-06] MEDS: NOVOLOG FLEXPEN-LOW RESISTANCE 1 UNITS SC ×2 (14:48→16:08)
[2024-05-06 15:45] VITALS: BP 113/74
[2024-05-06 15:57] VITALS: BMI 19.7
[2024-05-06] MEDS: DILAUDID 0.5 MG IV ×2 (16:04→21:39)
[2024-05-06 16:10] LABS: Glucose - Point of Care 191 mg/dl (70-99)
--- NOTE | 2024-05-06 16:19 | CON.GI ---
Addendum entered and electronically signed by Bee Marquezissa DO Dot 05/06/24 17:27:
I saw and examined the patient.
The PHOTOGRAPHIC DOUBLE or PA's note was reviewed and I agree with the note.
Comment:
Briefly, Christian Renae is a 53-year-old male with past medical history of diabetes, obstructive sleep apnea, opiate abuse on methadone, nonischemic cardiomyopathy, PAD, hypertension, daily cannabis use who presents with acute on chronic abdominal pain
found to have elevated liver enzymes and CBD dilation of 1.2 cm on ultrasound, no evidence of cholelithiasis or acute cholecystitis seen. Of note, he has a history of erosive esophagitis complicated by stenosis and Boerhaave's, follows with
[facility] for serial esophageal dilations.
LFTs: Tbili 1.4, ALT 285, AST 82, Alk phos 285; Lipase WNL
Abdominal US: Common bile duct is dilated, measuring 1.2 cm in diameter.
MRCP-- limited as patient unable to complete exam due to patient's claustrophobia.
No evidence for cholelithiasis or choledocholithiasis.
The common hepatic duct measures 8 mm in diameter and the common bile duct measures 6 mm in diameter with normal inferior tapering. The main pancreatic duct is nondilated. The visualized portions of the pancreas, liver, spleen, bilateral adrenal
glands, and kidneys are unremarkable. No hydronephrosis.
# Acute on Chronic Abdominal Pain
#Elevated Liver Enzymes
#CBD dilation
-Abdominal US with CBD dilation to 1.2 cm; 2 sequences obtained in MRCP show normal size common hepatic and common bile duct, no filing defect to suggest choledocholithiasis
-recommend trending LFTs, he possibly passed a stone
-If no improvement or they continue to rise, will discuss inpatient vs. outpatient EUS with Dr. Camargo
#Erosive esophagitis c/b esophageal strictures and Boerhaaves
-follows with Dr. Chinchilla for serial dilations
-need to obtain records from prior EGDs to see if feasible to pass an EUS scope, in the event he would require one
Original Note:
Consultation
-
Date/Time Consultation Requested: 05/06/24 1435
Date/Time Consultation Performed: 05/06/24 1620
Requesting Provider: Joselo Barakat MD
Performing Provider: PALOMO Brenner, Fauzia Chris DO
Reason for Consultation: increased LFT's, colitis
Medical History
Chief Complaint / HPI
Chief Complaint: N/V/abdominal pain
History of Present Illness:
53-year-old male with past medical history diabetes obstructive sleep apnea, opiate use on methadone, bradycardia, nonischemic cardiomyopathy with improved EF, PAD, right bundle branch block, hypertension, daily cannabis use. He has been seen
multiple times in past last in February with vomiting with concern for ischemia and Boerhaave's in 2021. He has been followed by Dr. Chinchilla for serial dilations. He now presents with abdominal pain with nausea and vomiting. This admission he is
noted with elevated LFT's with bili 1.4, AST 82, ALT 285, alk phos 85. Imaging with US with concern for CBD dilation 1.2 cm but no cholelithiasis,or acute cholecystitis. Ct was noted with colitis.
In review with patient he states he does have some chronic intermittent pain which he relates to chronic kidney stones which is located in his flank area. He does take the chronic methadone with history of substance abuse but has been clean
for 3 years he states the pain that brings him in at this time is no it is associated with nonbloody emesis though he did see a trace of pink but mostly bile emesis. He currently rates abdominal pain as 9 out of 10 it is associated with some
dizziness and sweats. He does have some chronic odynophagia and is limited in his diet with his esophageal issues. He maintains mostly a soft diet but does admit to about 15 pound weight weight loss with his esophageal problems. He denies any
GERD he denies any diarrhea constipation or rectal bleeding he does relate he is overdue for colonoscopy that has been set up more recently through [facility] possibly in May. He continues to use marijuana on a regular basis along with
tobacco use 1 pack/day.
H
Past Medical History
Past Medical History: Other (pericarditis, cardiomyopathy, HTN, DM2, PVD, COPD, HLD, kidney stones, hx heroin abuse on methadone, active marijuana,severe esophagitis with esophageal stricture with mutiple dilation)
Past Surgical History: Other (right fem-pop bypass, esophageal dilation, kidney stone extraction, appy)
Social History
Tobacco: Smoker
Alcohol: None
Drug: Marijuana and Other (prior drug use clean 3 years on chronic methadone )
Personal: Single
Living: With Family
Employment: Disabled
Family History
Family History: Reviewed & Not Pertinent
Allergies / Home Medications
Allergy/AdvReac Type Severity Reaction Status Date / Time
acetaminophen Allergy Rash Verified 05/05/24 23:07
amlodipine besylate Allergy Tongue Verified 05/05/24 23:07
[From [facility]] Swelling
erythromycin base Allergy Hives Verified 05/05/24 23:07
ibuprofen Allergy Hives Verified 05/05/24 23:07
Penicillins Allergy Hives/tolerates Verified 05/05/24 23:07
ceftriaxone
�Medication �Instructions �Recorded
fluticasone fur. 100 mcg-umeclid 1 puff inhalation R DAILY 07/03/20
62.5 mcg-vilant 25 mcg Lung/breathing issues
inhalat.powder (Trelegy Ellipta)
aspirin 81 mg tablet,delayed 81 mg PO DAILY Blood clot 09/14/20
release prevention/tx
empagliflozin 10 mg tablet 10 mg PO DAILY Diabetes 04/29/22
(Jardiance)
sacubitril 24 mg-valsartan 26 mg 1 tab PO BID Heart Failure 04/29/22
tablet (Entresto)
atorvastatin 10 mg tablet 10 mg PO DAILY High cholesterol 10/21/22
pantoprazole 40 mg tablet,delayed 40 mg PO BID Gastrointestinal 10/23/22
release issue #60 tabs
methadone 10 mg/mL oral 153 mg PO DAILY SUBSTANCE USE 08/21/23
concentrate (Methadone Intensol) DISORDER
carvedilol 6.25 mg tablet (Coreg) 6.25 mg PO BID 03/17/24
furosemide 20 mg tablet (Lasix) 20 mg PO DAILY 03/17/24
Review of Systems
-
History Source: Patient
Constitutional: Reports Weight Loss and Fatigue
EENT: Reports No Symptoms
Respiratory: Reports No Symptoms
Abdomen/GI: Reports Abdominal Pain, Nausea and Vomiting
: Reports Other (chronic intermittent flank pain with hx stones in past )
Musculoskeletal: Reports No Symptoms
Neurological: Reports Other (+ anxiety)
Endocrine: Reports No Symptoms
Hematologic/Lymphatic: Reports No Symptoms
Vital Signs
Temp Pulse Resp BP Pulse Ox
98.4 F 111 18 146/85 99
05/06/24 07:30 05/06/24 09:45 05/06/24 08:11 05/06/24 09:45 05/06/24 08:11
Physical Exam
Exam
General: Well Developed, Well Nourished and Other (distressed with pain)
HEENT: Normocephalic and Anicteric
Respiratory: Clear
Cardiac: Regular Rhythm
GI: Soft, Non Distended and Tender (mid abdomen)
Musculoskeletal: No Clubbing and No Cyanosis
Skin: Warm and Dry
Neuro: Awake, Alert and AO x 3
Psych: Other (slight anxious but cooperative )
Results
WBC 13.7 10^3/uL (4.8-10.8) H 05/05/24 23:56
Hgb 14.8 g/dL (13.0-18.0) 05/05/24 23:56
Hct 42.9 % (39.0-52.0) 05/05/24 23:56
MCV 90.9 fL (80.0-94.0) 05/05/24 23:56
Plt Count 175 10^3/uL (130-400) 05/05/24 23:56
Absolute Neuts (auto) 11.6 10^3/uL (1.4-6.5) H 05/05/24 23:56
Sodium 141 mmol/L (135-145) 05/06/24 00:59
Potassium 3.4 mmol/L (3.5-5.1) L 05/06/24 00:59
Chloride 102 mmol/L (98-107) 05/06/24 00:59
Carbon Dioxide 24 mmol/L (22-30) 05/06/24 00:59
BUN 9 mg/dl (9-20) 05/06/24 00:59
Creatinine 0.7 mg/dL (0.7-1.3) 05/06/24 00:59
Calcium 9.0 mg/dl (8.4-10.2) 05/06/24 00:59
Total Bilirubin 1.4 mg/dl (0.2-1.3) H 05/06/24 00:59
AST 82 U/L (17-59) H 05/06/24 00:59
ALT 285 U/L (0-50) H 05/06/24 00:59
Alkaline Phosphatase 85 U/L (38-126) 05/06/24 00:59
Lipase 58 U/L (23-300) 05/06/24 00:59
Diagnostic Image Results:
03/16/24 CT Abd/pel W Iv And Oral Contr
1). Moderate low density bowel wall thickening in the distal transverse and descending colon consistent with colitis
2). 9 mm nonobstructing calculus in the lower pole of the left kidney
04/18/24 CT Abd/pel Without Iv Or Oral
No acute findings in the abdomen or pelvis.
Bilateral nonobstructing renal calculi measuring up to 7 mm on the left and 2 mm on the right.
Moderate colonic stool burden.
05/06/24 US Abdomen Complete/Upper
1. No evidence of cholelithiasis, acute cholecystitis, or biliary ductal dilation.
2. Common bile duct is dilated, measuring 1.2 cm in diameter. Please correlate with serum LFTs.
3. Left intrarenal nephrolithiasis without hydronephrosis.
05/06/24 CT Abd/pelvis W Iv Cont
1. Acute uncomplicated sigmoid colitis.
EGD: Patient states he had EGD March 03 with 'stretching'. At [place]
EGD: 05/23/22, Dr. Hagan: LA Grade D esophagitis with bleeding as describe
�� � � � � � � � � � � above, friable, with areas of stenosis including GE
�� � � � � � � � � � � junction which could not be passed though was patent.
�� � � � � � � � � � � Possible change of EoE noted. Biopsied.
�� � � � � � � � � � � - Few areas of Esophageal stenoses including GE
�� � � � � � � � � � � junction.
04/30/2022 Dr. Martin: �Deep mucosal tear at the gastroesophageal junction,
�� � � � � � � � � � � but difficult to fully evaluate due to large overlying
�� � � � � � � � � � � clot.
�� � � � � � � � � � � - Discolored dusky mucosa in the entire esophagus.
�� � � � � � � � � � � - Hematin (altered blood/mouemy-rrjmac-ksdt material)
�� � � � � � � � � � � in the stomach.
�� � � � � � � � � � � - Non-bleeding duodenal ulcers with no stigmata of
�� � � � � � � � � � � bleeding.
�� � � � � � � � � � � - No specimens collected.
Colonoscopy: 08/02/2019 Dr. Parikh: One 12 mm polyp in the cecum, removed with a hot
�� � � � � � � � � � snare. Resected and retrieved. Clip was placed.
�� � � � � � � � � � - One 17 mm polyp in the proximal ascending colon,
�� � � � � � � � � � removed with a hot snare. Resected and retrieved. Clip
�� � � � � � � � � � was placed. Tattooed.
�� � � � � � � � � � - One 6 mm polyp in the transverse colon, removed with a
�� � � � � � � � � � hot snare. Resected and retrieved.
�� � � � � � � � � � - One 5 mm polyp in the transverse colon, removed with a
�� � � � � � � � � � hot snare. Resected and retrieved.
�� � � � � � � � � � - One 4 mm polyp in the descending colon, removed with a
�� � � � � � � � � � hot snare. Resected and retrieved.
�� � � � � � � � � � - Diverticulosis in the cecum.
�� � � � � � � � � � - The examination was otherwise normal.
10/24/2014 Dr. Parikh: �� � � � � � � � � � � � � � � � � � � � � � � �
Impression:� � � � � - Diverticulosis in the sigmoid colon and in the cecum.
�� � � � � � � � � � - One 5 mm polyp in the cecum. Resected and retrieved.
�� � � � � � � � � � - One 5 mm polyp in the sigmoid colon. Resected and
�� � � � � � � � � � retrieved.
�� � � � � � � � � � - One 15 mm polyp in the rectum. Resected and retrieved.
�� � � � � � � � � � Clips were placed.
�� � � � � � � � � � - One 5 mm polyp in the rectum. Resected and retrieved.
�� � � � � � � � � � - The examination was otherwise normal.
Assessment / Plan
-
53-year-old male with past medical history diabetes obstructive sleep apnea, opiate use on methadone, bradycardia, nonischemic cardiomyopathy with improved EF, PAD, right bundle branch block, hypertension, daily cannabis use. He has been seen
multiple times in past last in February with vomiting with concern for ischemia and Boerhaave's in 2021. He has been followed by Dr. Chinchilla for serial dilations. He now presents with abdominal pain with nausea and vomiting. This admission he is
noted with elevated LFT's with bili 1.4, AST 82, ALT 285, alk phos 85. Imaging with US with concern for CBD dilation 1.2 cm but no cholelithiasis,or acute cholecystitis. Ct was noted with colitis.
-new mid abdominal pain with LFT elevation
-CBD dilation on US
-hx Boerhaave's with serial dilation with Dr. Chinchilla at [place]
-daily cannabis use
-hx substance abuse on chronic methadone
-wt loss
other med problems:
-DM
-sleep apnea
-bradicardia
-non ischemic CM
-right BBB
-HTN
PLAN:
etiology of pain with LFT's elevation and CBD dilation related to CBD stone, stricture vs other
s/p MRI with 2 sequences taken then intolerant
await to see if any results vs reviewed may need EUS next week
timing to be determined
cont pain control per medical team
cont clear diet, add apple enlive with wt loss
-
-
Thank you for consultation and allowing me to participate in the patient's care. Please call the extrusion operator GI physician during the after hours with any questions or concerns.
[2024-05-06] MEDS: TYLENOL 650 MG PO (17:31)
[2024-05-06] MEDS: SYMBICORT 80/4.5 MCG INHALER INH (19:27)
[2024-05-06 21:35] LABS: Glucose - Point of Care 141 mg/dl (70-99)
[2024-05-06 23:06] VITALS: BP 99/63
[2024-05-07] MEDS: DILAUDID 0.5 MG IV ×5 (03:27→22:18)
[2024-05-07 05:00] LABS: Hematocrit 41.6 % (39.0-52.0); Hemoglobin 13.9 g/dL (13.0-18.0); Mean Corp Hgb Conc. 33.4 g/dL (33.0-37.0); Mean Corpuscular Hgb 30.7 pg (27.0-31.0); Mean Corpuscular Volume 91.8 fL (80.0-94.0); Mean Platelet Volume 11.4 fL (7.4-10.4); Platelet Count 159 10^3/uL (130-400); Red Blood Cell Count 4.53 10^6/uL (4.70-6.10); Red Cell Dist. Width 13.1 % (11.5-14.5); White Blood Cell Count 12.1 10^3/uL (4.8-10.8)
[2024-05-07 05:21] LABS: ALT (SGPT) 182 U/L (0-50); AST (SGOT) 43 U/L (17-59); Albumin 3.5 g/dl (3.5-5.0); Alkaline Phosphatase 80 U/L (38-126); Blood Urea Nitrogen 10 mg/dl (9-20); Calcium 9.3 mg/dl (8.4-10.2); Carbon Dioxide 30 mmol/L (22-30); Chloride 99 mmol/L (98-107); Creatine Phosphokinase 39 U/L (55-170); Direct Bilirubin 0.1 mg/dl (0.0-0.4); Estimated Creatinine Clearance 83 ml/min; Glucose 103 mg/dl (70-99); Sodium 138 mmol/L (135-145); Total Bilirubin 1.1 mg/dl (0.2-1.3); Total Protein 6.1 g/dl (6.3-8.2); eGFR > 60.00
[2024-05-07] MEDS: SPIRIVA RESPIMAT 2.5 MCG 2 PUFF INH (07:30)
[2024-05-07] MEDS: SYMBICORT 80/4.5 MCG INHALER 2 PUFF INH ×2 (07:31→17:52)
[2024-05-07 07:35] VITALS: BP 139/83
[2024-05-07 07:50] LABS: Glucose - Point of Care 223 mg/dl (70-99)
[2024-05-07] MEDS: NSS (PRESERVATIVE FREE) 10 ML IV ×2 (07:50→21:35)
[2024-05-07] MEDS: ASPIR LOW (ENTERIC COATED) 81 MG PO (07:51)
[2024-05-07] MEDS: ROCEPHIN 2000 MG IV (07:51)
[2024-05-07] MEDS: PROTONIX IV 40 MG IV ×2 (07:51→21:35)
[2024-05-07] MEDS: COREG 6.25 MG PO ×2 (07:51→21:36)
[2024-05-07] MEDS: STERILE WATER FOR INJECTION 20 ML IV (07:51)
[2024-05-07] MEDS: LIPITOR 10 MG PO (07:51)
[2024-05-07] MEDS: METHADONE 100 MG/10 ML 153 MG PO (07:52)
[2024-05-07] MEDS: KCL 270 MEQ IV (08:04)
[2024-05-07] MEDS: FIRVANQ 125 MG PO (08:05)
[2024-05-07] MEDS: ENTRESTO 24 MG/26 MG 1 TAB PO ×2 (08:11→21:36)
[2024-05-07] MEDS: FLAGYL 500 MG PO ×3 (08:11→22:20)
[2024-05-07] MEDS: FLUSH (NSS) IV ×2 (08:12)
[2024-05-07] MEDS: NOVOLOG FLEXPEN-LOW RESISTANCE 2 UNITS SC (08:12)
--- NOTE | 2024-05-07 08:25 | W.PN.GI.CBS2 ---
Today's Communication / Plan
-
LFTs improving, continue to monitor
Assessment / Plan
-
farhan Renae is a 53-year-old male with past medical history of diabetes, obstructive sleep apnea, opiate abuse on methadone, nonischemic cardiomyopathy, PAD, hypertension, daily cannabis use who presents with acute on chronic abdominal pain found to
have elevated liver enzymes and CBD dilation of 1.2 cm on ultrasound, no evidence of cholelithiasis or acute cholecystitis seen. Of note, he has a history of erosive esophagitis complicated by stenosis and Boerhaave's, follows with Dr. Chinchilla for
serial esophageal dilations.
LFTs:
Tbili 1.4 --> 1.1
ALT 285 --> 182
AST 82-->43
Alk phos 285 --> 80
Lipase WNL on arrival
Abdominal US: Common bile duct is dilated, measuring 1.2 cm in diameter.
MRCP-- limited as patient unable to complete exam due to patient's claustrophobia.
No evidence for cholelithiasis or choledocholithiasis.
The common hepatic duct measures 8 mm in diameter and the common bile duct measures 6 mm in diameter with normal inferior tapering. The main pancreatic duct is nondilated. The visualized portions of the pancreas, liver, spleen, bilateral adrenal
glands, and kidneys are unremarkable. No hydronephrosis.
# Acute on Chronic Abdominal Pain
#Elevated Liver Enzymes
#CBD dilation
-Abdominal US with CBD dilation to 1.2 cm; 2 sequences obtained in MRCP show normal size common hepatic and common bile duct, no filing defect to suggest choledocholithiasis
-LFTs with significant improvement overnight as well as improvement in pain-- suspect he passed a stone
-continue to trend LFTs-- if they normalize, would recommend outpatient f/u to discuss EUS with Dr. Camargo or Dr. Chinchilla-- his esophageal stricture may pose a challenge, reports recently dilated to 13mm
#Erosive esophagitis c/b esophageal strictures and Boerhaaves
-follows with Dr. Chinchilla for serial dilations
-need to obtain records from prior EGDs to see if feasible to pass an EUS scope/ERCP, in the event he would require one
Subjective
Subjective
Date of Service: May 07, 2024
Patient seen in follow-up. Endorses some improvement in abdominal pain. He is tolerating clears. He reports at baseline, mostly eats cream of wheat and eggs due to his esophageal strictures. He believes his most recent dilation in February dilation
was performed to 13 mm.
Objective
Data Reviewed
Laboratory Data:
Laboratory Results
05/07/24 04:17
05/07/24 04:17
Laboratory Results
Total Bilirubin 1.1 mg/dl (0.2-1.3) 05/07/24 04:17
AST 43 U/L (17-59) 05/07/24 04:17
ALT 182 U/L (0-50) H 05/07/24 04:17
Alkaline Phosphatase 80 U/L (38-126) 05/07/24 04:17
Lipase 58 U/L (23-300) 05/06/24 00:59
Vital Signs and I&O:
Vital Signs
Temp Pulse Resp BP Pulse Ox
98.9 F 88 16 99/63 98
05/06/24 23:06 05/07/24 07:38 05/07/24 07:38 05/06/24 23:06 05/07/24 07:38
I&O
05/06/24 05/07/24 05/08/24
06:59 06:59 06:59
Intake Total 1949
Balance 1949
Physical Exam
Physical Exam
General: NAD, resting comfortably
Abdomen: normal bowel sounds, soft, mild TTP diffusely, no rebound or guarding, improved exam from yesterday
[2024-05-07 09:08] LABS: Magnesium 1.7 mg/dl (1.6-2.3)
[2024-05-07] MEDS: LR 1000 IV (10:01)
--- NOTE | 2024-05-07 11:16 | PTCARENOTE ---
pt's K is 3.0 this morning, refused taking PO KCL and IV KCL, he states that his Low K is not the reason he is here, and not taking it in any form. Nurse educated pt on the importance of taking these medication as it can cause lethal arrhythmias. PT
still refusing, made aware.
[2024-05-07] MEDS: TYLENOL 650 MG PO (11:48)
--- NOTE | 2024-05-07 12:30 | W.PN.HOSP.TC ---
Today's Communication/Plan
-
further observe LFTs
full liquids
continue Abx for colitis on CT
follow GI recs
Assessment / Plan
Assessment / Plan
Assessment:
Acute uncomplicated sigmoid colitis
- seen on CT
- continue Rocephin/Flagyl day 2
- check stool studies with recent C. Diff. Vanco prophylaxis added
- full liquids
- pain control (low doses)
RUQ pain
Elevated LFTs
US with CBD dilation
- LFTs improved
- s/p MRI - with limited sequence images obtained, no gross CBD abnormalities
- possibility of passed stone
- possible EUS per GI, inpatient vs outpatient, pending LFTs
- follow GI recs
Erosive esophagitis c/b esophageal strictures and Boerhaave
- s/p EGD dilation with Y[facility] Chinchilla, last in February
- records pending
Type 2 DM on Jardiance
- hold Jardiance
- low dose SSI
NICM
- cap IVF after current bag
- hold Lasix
- continue Entresto/Coreg
- recent Echo 03/18: Normal biventricular size and systolic function without regional wall motion abnormality. Estimated LVEF 60-65%. No significant valve disease.
Hx of opioid dependance
- continue Methadone, QTC 464 on admission. Dose confirmed with pharmacy.
Hypokalemia
- replete via powder (refuses pill as too hard for him to swallow and refuses IV due to burning sensation)
DVT ppx: Lovenox
Code: Full
Anticipated Discharge: 24 - 48 hours
Subjective/Interval History
-
Date of Service: May 07, 2024
pain slightly improved
willing to try full liquids
LFTs in labs improving
Objective Data
-
Labs:
Laboratory Results
05/07/24
04:17
WBC 12.1 H
Hgb 13.9
Hct 41.6
Plt Count 159
Sodium 138
Potassium 3.0 L
Chloride 99
Carbon Dioxide 30
BUN 10
Creatinine 0.8
Glucose 103 H
Calcium 9.3
Total Bilirubin 1.1
AST 43
ALT 182 H
Alkaline Phosphatase 80
Vital Signs:
Vital Signs
Temp Pulse Resp BP Pulse Ox
98.1 F 88 16 139/83 98
05/07/24 07:35 05/07/24 07:38 05/07/24 07:38 05/07/24 07:35 05/07/24 07:38
I&O
05/06/24 05/07/24 05/08/24
06:59 06:59 06:59
Intake Total 1949
Balance 1949
Physical Exam
-
General: No Apparent Distress
HEENT: Normocephalic and Atraumatic
Respiratory: Negative Wheezes
Cardiac: Regular Rhythm
GI: Soft
Genito-urinary: No Costovertebral Tender
Neuro: AO x 3
Hematologic / Lymphatic: No Lymphadenopathy
Psych: Calm
Data Reviewed
-
Total Time Spent with Patient (in minutes): 42
Labs: Labs Reviewed by me
[2024-05-07 12:47] LABS: Glucose - Point of Care 99 mg/dl (70-99)
[2024-05-07] MEDS: NOVOLOG FLEXPEN-LOW RESISTANCE SC ×2 (12:56→16:47)
[2024-05-07] MEDS: KLOR-CON 40 MEQ PO (12:58)
[2024-05-07] MEDS: REGLAN 10 MG IV (13:50)
[2024-05-07 15:35] VITALS: BP 111/59
[2024-05-07 16:48] LABS: Glucose - Point of Care 109 mg/dl (70-99)
[2024-05-07 21:36] LABS: Glucose - Point of Care 82 mg/dl (70-99)
[2024-05-07 23:05] VITALS: BP 125/67
[2024-05-08] MEDS: DILAUDID 0.5 MG IV ×5 (02:25→20:59)
[2024-05-08] MEDS: MORPHINE SULFATE 1 MG IV (05:46)
[2024-05-08 06:31] LABS: Hematocrit 39.9 % (39.0-52.0); Hemoglobin 13.2 g/dL (13.0-18.0); Mean Corp Hgb Conc. 33.1 g/dL (33.0-37.0); Mean Corpuscular Hgb 30.8 pg (27.0-31.0); Mean Platelet Volume 11.4 fL (7.4-10.4); Platelet Count 131 10^3/uL (130-400); Red Blood Cell Count 4.29 10^6/uL (4.70-6.10); Red Cell Dist. Width 13.1 % (11.5-14.5); White Blood Cell Count 9.7 10^3/uL (4.8-10.8)
[2024-05-08 06:50] LABS: ALT (SGPT) 123 U/L (0-50); AST (SGOT) 28 U/L (17-59); Albumin 3.2 g/dl (3.5-5.0); Alkaline Phosphatase 73 U/L (38-126); Blood Urea Nitrogen 9 mg/dl (9-20); Carbon Dioxide 32 mmol/L (22-30); Chloride 100 mmol/L (98-107); Estimated Creatinine Clearance 83 ml/min; Glucose 79 mg/dl (70-99); Potassium 3.6 mmol/L (3.5-5.1); Sodium 138 mmol/L (135-145); Total Bilirubin 0.7 mg/dl (0.2-1.3); Total Protein 5.6 g/dl (6.3-8.2); eGFR > 60.00
--- NOTE | 2024-05-08 07:07 | W.PN.GI.CBS2 ---
Today's Communication / Plan
-
Abdominal xray. f/u stool studies. t/c CT w/ PO contrast tomorrow pending workup.
Assessment / Plan
-
farhan Renae is a 53-year-old male with past medical history of diabetes, obstructive sleep apnea, opiate abuse on methadone, nonischemic cardiomyopathy, PAD, hypertension, daily cannabis use who presents with acute on chronic abdominal pain found to
have elevated liver enzymes and CBD dilation of 1.2 cm on ultrasound, no evidence of cholelithiasis or acute cholecystitis seen. Of note, he has a history of erosive esophagitis complicated by stenosis and Boerhaave's, follows with Dr. Chinchilla for
serial esophageal dilations.
LFTs:
Tbili 1.4 --> 1.1 --> 0.1
ALT 285 --> 182 --> 123
AST 82-->43 --> 28
Alk phos 285 --> 80 --> 73
Lipase WNL on arrival
-->Abdominal US: Common bile duct is dilated, measuring 1.2 cm in diameter.
-->MRCP-- limited as patient unable to complete exam due to patient's claustrophobia.
No evidence for cholelithiasis or choledocholithiasis. The common hepatic duct measures 8 mm in diameter and the common bile duct measures 6 mm in diameter with normal inferior tapering. The main pancreatic duct is nondilated. The visualized
portions of the pancreas, liver, spleen, bilateral adrenal glands, and kidneys are unremarkable. No hydronephrosis.
-->CT A/P W/ IV Contrast (05/06/24): Moderate circumferential wall thickening of the proximal to mid sigmoid colon, new from prior, no mention of diverticulosis/diverticulitis in this area.
# Acute on Chronic Abdominal Pain
#Elevated Liver Enzymes
#CBD dilation
-Abdominal US with CBD dilation to 1.2 cm; 2 sequences obtained in MRCP show normal size common hepatic and common bile duct, no filing defect to suggest choledocholithiasis
-LFTs with significant improvement overnight as well as improvement in pain-- suspect he passed a stone
-continue to trend LFTs-- if they normalize, would recommend outpatient f/u to discuss EUS with Dr. Camargo or Dr. Chinchilla-- his esophageal stricture may pose a challenge, reports recently dilated to 13mm
#Erosive esophagitis c/b esophageal strictures and Boerhaaves
-follows with Dr. Chinchilla for serial dilations
-need to obtain records from prior EGDs to see if feasible to pass an EUS scope/ERCP, in the event he would require one
#Mild colitis--
-hx of recent c.diff (02/2024)
-CT A/P W/ IV Contrast (05/06/24): Moderate circumferential wall thickening of the proximal to mid sigmoid colon, new from prior, no mention of diverticulosis/diverticulitis in this area.
-started on rocephin/flagyl
-stool studies pending; agree with empiric coverage, however, CT lacking PO contrast
-recommend abdominal xray today to assess stool burden to ensure this is not overflow-- prior CT scan showing large colonic stool burden; if neg. with normal stool studies, would recommend repeating CT scan tomorrow with PO contrast
-recommend outpatient colonoscopy
Prior CT scans:
-CT A/P w/ IV Contrast (03/17/24): bowel wall thickening in the distal transverse and descendign colon, consistent with colitis
-CT A/P w/ IV Contrast (11/28/23): scattered diverticula noted throughout the colon, no evidence of diverticulitis or colitis
-request records from [facility] (Dr. Guajardo) on Thursday, given reported 'questionable' Crohns on prior exams
-CT A/P w/ IV Contrast (06/14/22); Moderate diverticulosis in the sigmoid colon; moderate amount of fecal material throughout the colon, suggesting constipation
Subjective
Subjective
Date of Service: May 08, 2024
LFTs continue to improve, ALT 123, decreased from 182, T. bili, AST and alkaline phosphatase within normal limits.
He reports having multiple episodes of brown, watery diarrhea this morning. His abdominal pain is present in the right black, wrapping around his abdomen like a belt; apepars somewhat different than pain on admission. He feels he may have just
passed a kidney stone.
Objective
Data Reviewed
Laboratory Data:
Laboratory Results
05/08/24 05:06
05/08/24 05:06
Laboratory Results
Magnesium 1.7 mg/dl (1.6-2.3) 05/07/24 04:17
Total Bilirubin 0.7 mg/dl (0.2-1.3) 05/08/24 05:06
AST 28 U/L (17-59) 05/08/24 05:06
ALT 123 U/L (0-50) H 05/08/24 05:06
Alkaline Phosphatase 73 U/L (38-126) 05/08/24 05:06
Lipase 58 U/L (23-300) 05/06/24 00:59
Vital Signs and I&O:
Vital Signs
Temp Pulse Resp BP Pulse Ox
98.1 F 63 18 125/67 98
05/07/24 23:05 05/07/24 23:05 05/07/24 23:05 05/07/24 23:05 05/07/24 23:05
I&O
05/07/24 05/08/24 05/09/24
06:59 06:59 06:59
Intake Total 1949 1540 / 1540
Output Total 1000 / 1000
Balance 1949 540 / 540
Physical Exam
Physical Exam
General: NAD, resting comfortably
Abdomen: normal bowel sounds, soft, mild TTP diffusely, worse in periumbilical area and RLQ, no rebound or guarding
[2024-05-08 07:28] LABS: Glucose - Point of Care 87 mg/dl (70-99)
[2024-05-08 07:30] VITALS: BP 122/70
[2024-05-08] MEDS: SPIRIVA RESPIMAT 2.5 MCG 2 PUFF INH (08:18)
[2024-05-08] MEDS: SYMBICORT 80/4.5 MCG INHALER 2 PUFF INH ×2 (08:19→17:50)
[2024-05-08] MEDS: NOVOLOG FLEXPEN-LOW RESISTANCE SC ×3 (09:05→18:04)
[2024-05-08] MEDS: TYLENOL 650 MG PO ×2 (09:09→20:01)
[2024-05-08] MEDS: FIRVANQ 125 MG PO (09:21)
[2024-05-08] MEDS: ENTRESTO 24 MG/26 MG 1 TAB PO ×2 (09:21→20:01)
[2024-05-08] MEDS: FLAGYL 500 MG PO ×3 (09:21→23:55)
[2024-05-08] MEDS: LIPITOR 10 MG PO (09:21)
[2024-05-08] MEDS: COREG 6.25 MG PO ×2 (09:21→20:01)
[2024-05-08] MEDS: ASPIR LOW (ENTERIC COATED) 81 MG PO (09:21)
[2024-05-08] MEDS: REGLAN 10 MG IV ×2 (09:22→20:03)
[2024-05-08] MEDS: STERILE WATER FOR INJECTION 20 ML IV (09:22)
[2024-05-08] MEDS: METHADONE 100 MG/10 ML 153 MG PO (09:22)
[2024-05-08] MEDS: ROCEPHIN 2000 MG IV (09:23)
[2024-05-08] MEDS: NSS (PRESERVATIVE FREE) 10 ML IV ×2 (09:23→20:02)
[2024-05-08] MEDS: PROTONIX IV 40 MG IV ×2 (09:23→20:02)
[2024-05-08] MEDS: FLUSH (NSS) IV ×2 (09:23→09:24)
[2024-05-08] MEDS: MYLICON 80 MG PO (11:30)
[2024-05-08 12:09] LABS: Glucose - Point of Care 116 mg/dl (70-99)
--- NOTE | 2024-05-08 14:07 | W.PN.HOSP.TC ---
Today's Communication/Plan
-
diet advancement per GI
continue IV pain meds
Assessment / Plan
Assessment / Plan
Acute uncomplicated sigmoid colitis
- seen on CT
- continue Rocephin/Flagyl for now
- check stool studies with recent C. Diff. Vanco prophylaxis added
- Stool studies pending today
- GI planning to do repeat CT abd tomorrow
- Abd xr today did not show any increased stool burden
RUQ pain
Elevated LFTs
US with CBD dilation
- LFTs improved
- s/p MRI - with limited sequence images obtained, no gross CBD abnormalities
- possibility of passed stone
- possible EUS per GI, inpatient vs outpatient
Erosive esophagitis c/b esophageal strictures and Boerhaave
- s/p EGD dilation with Yemi Chinchilla, last in February
- records pending
Type 2 DM on Jardiance
- hold Jardiance
- low dose SSI
NICM
- cap IVF after current bag
- hold Lasix
- continue Entresto/Coreg
- recent Echo 03/18: Normal biventricular size and systolic function without regional wall motion abnormality. Estimated LVEF 60-65%. No significant valve disease.
Hx of opioid dependance
- continue Methadone, QTC 464 on admission. Dose confirmed with pharmacy.
Hypokalemia
- replete via powder (refuses pill as too hard for him to swallow and refuses IV due to burning sensation)
DVT ppx: Lovenox
Code: Full
Complex GI issues.
Anticipated Discharge: 24 - 48 hours
Subjective/Interval History
-
Date of Service: May 08, 2024
continues to have diffuse abd pain
have difficulty swallowing with some reported regurgitation issue
Objective Data
-
Labs:
Laboratory Results
05/08/24
05:06
WBC 9.7
Hgb 13.2
Hct 39.9
Plt Count 131
Sodium 138
Potassium 3.6
Chloride 100
Carbon Dioxide 32 H
BUN 9
Creatinine 0.8
Glucose 79
Calcium 9.0
Total Bilirubin 0.7
AST 28
ALT 123 H
Alkaline Phosphatase 73
Vital Signs:
Vital Signs
Temp Pulse Resp BP Pulse Ox
98.4 F 76 16 122/70 98
05/08/24 07:30 05/08/24 08:25 05/08/24 08:25 05/08/24 07:30 05/08/24 08:25
I&O
05/07/24 05/08/24 05/09/24
06:59 06:59 06:59
Intake Total 1949 1540 / 1540
Output Total 1000 / 1000
Balance 1949 540 / 540
Review of Systems
-
Respiratory: Reports No Symptoms
Cardiac: Reports No Symptoms
Abdomen/GI: Reports Abdominal Pain and Diarrhea; Denies Nausea or Vomiting
Physical Exam
-
General: Comfortable
GI: Soft and Tender (diffuse)
Musculoskeletal: No Clubbing and No Edema
Neuro: Awake, Alert, Oriented and No Motor Deficits
[2024-05-08 15:30] VITALS: BP 116/70
[2024-05-08 17:07] LABS: Glucose - Point of Care 125 mg/dl (70-99)
[2024-05-08 21:26] LABS: Glucose - Point of Care 141 mg/dl (70-99)
[2024-05-08 23:32] VITALS: BP 102/61
[2024-05-09] MEDS: DILAUDID 0.5 MG IV ×5 (01:00→20:21)
[2024-05-09 06:44] LABS: Hematocrit 39.8 % (39.0-52.0); Hemoglobin 13.1 g/dL (13.0-18.0); Mean Corp Hgb Conc. 32.9 g/dL (33.0-37.0); Mean Corpuscular Volume 94.1 fL (80.0-94.0); Mean Platelet Volume 11.3 fL (7.4-10.4); Platelet Count 135 10^3/uL (130-400); Red Blood Cell Count 4.23 10^6/uL (4.70-6.10); White Blood Cell Count 8.7 10^3/uL (4.8-10.8)
[2024-05-09 06:56] LABS: ALT (SGPT) 98 U/L (0-50); AST (SGOT) 27 U/L (17-59); Albumin 3.3 g/dl (3.5-5.0); Alkaline Phosphatase 70 U/L (38-126); Blood Urea Nitrogen 9 mg/dl (9-20); Calcium 9.2 mg/dl (8.4-10.2); Carbon Dioxide 32 mmol/L (22-30); Chloride 101 mmol/L (98-107); Estimated Creatinine Clearance 95 ml/min; Glucose 88 mg/dl (70-99); Potassium 4.2 mmol/L (3.5-5.1); Sodium 140 mmol/L (135-145); Total Bilirubin 0.6 mg/dl (0.2-1.3); Total Protein 5.8 g/dl (6.3-8.2); eGFR > 60.00
[2024-05-09 07:35] VITALS: BP 109/68
[2024-05-09] MEDS: SPIRIVA RESPIMAT 2.5 MCG 2 PUFF INH (07:44)
[2024-05-09] MEDS: SYMBICORT 80/4.5 MCG INHALER 2 PUFF INH ×2 (07:44→19:33)
[2024-05-09 08:11] LABS: Glucose - Point of Care 90 mg/dl (70-99)
[2024-05-09] MEDS: NOVOLOG FLEXPEN-LOW RESISTANCE SC ×2 (08:57→18:05)
[2024-05-09] MEDS: METHADONE 100 MG/10 ML 153 MG PO (08:59)
[2024-05-09] MEDS: ENTRESTO 24 MG/26 MG 1 TAB PO ×2 (08:59→20:28)
[2024-05-09] MEDS: PROTONIX IV 40 MG IV ×2 (09:00→20:27)
[2024-05-09] MEDS: COREG 6.25 MG PO ×2 (09:00→20:26)
[2024-05-09] MEDS: ROCEPHIN 2000 MG IV (09:00)
[2024-05-09] MEDS: LIPITOR 10 MG PO (09:00)
[2024-05-09] MEDS: STERILE WATER FOR INJECTION 20 ML IV (09:00)
[2024-05-09] MEDS: NSS (PRESERVATIVE FREE) 10 ML IV ×2 (09:00→20:28)
[2024-05-09] MEDS: FLAGYL 500 MG PO ×2 (09:00→15:14)
[2024-05-09] MEDS: ASPIR LOW (ENTERIC COATED) 81 MG PO (09:00)
[2024-05-09] MEDS: FLUSH (NSS) IV ×2 (09:01)
[2024-05-09] MEDS: FIRVANQ 125 MG PO ×2 (09:01→20:32)
--- NOTE | 2024-05-09 12:02 | W.PN.GI.CBS2 ---
Today's Communication / Plan
-
D/c today. Outpatient GI f/u.
Assessment / Plan
-
farhan Renae is a 53-year-old male with past medical history of diabetes, obstructive sleep apnea, opiate abuse on methadone, nonischemic cardiomyopathy, PAD, hypertension, daily cannabis use who presents with acute on chronic abdominal pain found to
have elevated liver enzymes and CBD dilation of 1.2 cm on ultrasound, no evidence of cholelithiasis or acute cholecystitis seen. Of note, he has a history of erosive esophagitis complicated by stenosis and Boerhaave's, follows with Dr. Chinchilla for
serial esophageal dilations.
LFTs:
Tbili 1.4 --> 1.1 --> 0.1
ALT 285 --> 182 --> 123--> 98
AST 82-->43 --> 28
Alk phos 285 --> 80 --> 73
Lipase WNL on arrival
--> Abdominal Xray (05/08/24): moderate amount of gas in nondilated bowel
-->Abdominal US: Common bile duct is dilated, measuring 1.2 cm in diameter.
-->MRCP-- limited as patient unable to complete exam due to patient's claustrophobia.
No evidence for cholelithiasis or choledocholithiasis. The common hepatic duct measures 8 mm in diameter and the common bile duct measures 6 mm in diameter with normal inferior tapering. The main pancreatic duct is nondilated. The visualized
portions of the pancreas, liver, spleen, bilateral adrenal glands, and kidneys are unremarkable. No hydronephrosis.
-->CT A/P W/ IV Contrast (05/06/24): Moderate circumferential wall thickening of the proximal to mid sigmoid colon, new from prior, no mention of diverticulosis/diverticulitis in this area.
# Acute on Chronic Abdominal Pain
#Elevated Liver Enzymes
#CBD dilation
-Abdominal US with CBD dilation to 1.2 cm; 2 sequences obtained in MRCP show normal size common hepatic and common bile duct, no filing defect to suggest choledocholithiasis
-LFTs with significant improvement overnight as well as improvement in pain-- suspect he passed a stone
-no plans for inpatient EUS-- need to get records from Dr. Chinchilla for recent EGDs/dilations, if he would require an eventual EUS, his esophageal stricture may pose a challenge, reports recently dilated to 13mm
#Erosive esophagitis c/b esophageal strictures and Boerhaaves
-follows with Dr. Chinchilla for serial dilations
-need to obtain records from prior EGDs to see if feasible to pass an EUS scope/ERCP, in the event he would require one
#Mild colitis--
-hx of recent c.diff (02/2024)
-CT A/P W/ IV Contrast (05/06/24): Moderate circumferential wall thickening of the proximal to mid sigmoid colon, new from prior, no mention of diverticulosis/diverticulitis in this area.
-started on rocephin/flagyl
-stool studies show postiive c.diff antigen, neg toxin-- c/w colonization, no active infection
-abd. xray showed moderate amount of gas, no dilatation
-recommend outpatient colonoscopy
Prior CT scans:
-CT A/P w/ IV Contrast (03/17/24): bowel wall thickening in the distal transverse and descendign colon, consistent with colitis
-CT A/P w/ IV Contrast (11/28/23): scattered diverticula noted throughout the colon, no evidence of diverticulitis or colitis
-request records from [facility] (Dr. Guajardo) on Thursday, given reported 'questionable' Crohns on prior exams
-CT A/P w/ IV Contrast (06/14/22); Moderate diverticulosis in the sigmoid colon; moderate amount of fecal material throughout the colon, suggesting constipation
Okay for discharge today from a GI perspective. He has a colonoscopy scheduled on 05/[address] Rivera. He should also follow-up with Dr. Chinchilla.
Subjective
Subjective
Date of Service: May 09, 2024
Patient seen in follow-up. No overnight events. Reports significant improvement in symptoms. ALT continues to improve, 123 --> 98
Objective
Data Reviewed
Laboratory Data:
Laboratory Results
05/09/24 05:48
05/09/24 05:48
Laboratory Results
Magnesium 1.7 mg/dl (1.6-2.3) 05/07/24 04:17
Total Bilirubin 0.6 mg/dl (0.2-1.3) 05/09/24 05:48
AST 27 U/L (17-59) 05/09/24 05:48
ALT 98 U/L (0-50) H 05/09/24 05:48
Alkaline Phosphatase 70 U/L (38-126) 05/09/24 05:48
Lipase 58 U/L (23-300) 05/06/24 00:59
Vital Signs and I&O:
Vital Signs
Temp Pulse Resp BP Pulse Ox
98.5 F 76 14 109/68 99
05/09/24 07:35 05/09/24 07:49 05/09/24 07:49 05/09/24 08:59 05/09/24 11:59
I&O
05/08/24 05/09/24 05/10/24
06:59 06:59 06:59
Intake Total 1540 / 1540 2039 / 2039
Output Total 1000 / 1000 500 / 500
Balance 540 / 540 1540 / 1540
Physical Exam
Physical Exam
General: NAD, resting comfortably
Abdomen: normal bowel sounds, soft, mild TTP, improved exam from yesterday, no rebound or guarding
[2024-05-09 12:18] LABS: Glucose - Point of Care 195 mg/dl (70-99)
--- NOTE | 2024-05-09 12:36 | CM ---
Reviewed the chart notes. CM continues to be available to patient/family and is monitoring medical plan for needs at discharge.
Plan: Discharge to home when medically stable. No needs anticipated at this time.
[2024-05-09] MEDS: NOVOLOG FLEXPEN-LOW RESISTANCE 1 UNITS SC (13:21)
--- NOTE | 2024-05-09 13:54 | W.PN.HOSP.TC ---
Today's Communication/Plan
-
advance to [facility] soft diet
await GI eval, possible d/c later today
Assessment / Plan
Assessment / Plan
Acute uncomplicated sigmoid colitis
- seen on CT
- continue Rocephin/Flagyl for now
- patient have Cdiff colonization, toxin neg.
- Abd xr today did not show any increased stool burden
Cdiff colonization
- toxin neg
- maintain on vancomycin 125mg/bid for PPX, need to be continued 5 days after finishing abx course
RUQ pain - Improved
Elevated LFTs - Improved
- LFTs improved
- s/p MRI - with limited sequence images obtained, no gross CBD abnormalities
- possibility of passed stone
- possible EUS per GI, inpatient vs outpatient
Erosive esophagitis c/b esophageal strictures and Boerhaave
- s/p EGD dilation with Yemi Chinchilla, last in February
- records pending
Type 2 DM on Jardiance
- hold Jardiance
- low dose SSI
NICM
- cap IVF after current bag
- Lasix remains on hold
- continue Entresto/Coreg
- recent Echo 03/18: Normal biventricular size and systolic function without regional wall motion abnormality. Estimated LVEF 60-65%. No significant valve disease.
Hx of opioid dependance
- continue Methadone, QTC 464 on admission. Dose confirmed with pharmacy.
Hypokalemia
- replete via powder (refuses pill as too hard for him to swallow and refuses IV due to burning sensation)
DVT ppx: Lovenox
Code: Full
Anticipated Discharge: Within 24 hours
Subjective/Interval History
-
Date of Service: May 09, 2024
abd pain is better
have diarrhea
no reported nausea/vomiting
Objective Data
-
Labs:
Laboratory Results
05/09/24
05:48
WBC 8.7
Hgb 13.1
Hct 39.8
Plt Count 135
Sodium 140
Potassium 4.2
Chloride 101
Carbon Dioxide 32 H
BUN 9
Creatinine 0.7
Glucose 88
Calcium 9.2
Total Bilirubin 0.6
AST 27
ALT 98 H
Alkaline Phosphatase 70
Vital Signs:
Vital Signs
Temp Pulse Resp BP Pulse Ox
98.5 F 76 14 109/68 99
05/09/24 07:35 05/09/24 07:49 05/09/24 07:49 05/09/24 08:59 05/09/24 11:59
I&O
05/08/24 05/09/24 05/10/24
06:59 06:59 06:59
Intake Total 1540 / 1540 2040 / 2040
Output Total 1000 / 1000 500 / 500
Balance 540 / 540 1540 / 1540
Review of Systems
-
Respiratory: Reports No Symptoms
Cardiac: Reports No Symptoms
Abdomen/GI: Reports Abdominal Pain; Denies Nausea or Vomiting
Physical Exam
-
General: Comfortable
GI: Soft, Nontender and Nondistended
Musculoskeletal: No Clubbing and No Edema
Neuro: Awake, Alert, Oriented and No Motor Deficits
--- NOTE | 2024-05-09 14:19 | PN.CDI ---
CDI
- -
CDI:
Physician Documentation Request
Admit Date: 05/06/24 05:23
Dear Doctor Alberto,
Please review the following and provide your response in the progress notes.
Clinical Indicators:
Height: 5 ft 6 in
Weight: 122 lb 1.6oz
BMI:19.7
Other Clinical Notes:Nutrition note 05/06, ' External medical summary reports pt's wt was 133 lbs 04/26/24. Records show 11 lb loss in less than one month (8.3% wt change). ...'
If possible, please provide an associated diagnosis related to the abnormal BMI, such as:
Underweight
Weight Loss
- Other
Use of terms such as suspected, likely, concern for, or probable (associated with a specific diagnosis that is being evaluated, monitored, or treated as if it exists) are acceptable and can be coded in the inpatient setting, when documented at the
time of discharge.
Thank you,
Joyce Cruz RN
CDI Specialist
[facility]
Please use your independent medical judgment in providing your response.
--- NOTE | 2024-05-09 14:23 | PN.CDI ---
CDI
- -
CDI:
Physician Documentation Request
Admit Date: 05/06/24 05:23
Dear Doctor Alberto,
Please review the following and provide your response in the progress notes.
Clinical Indicators:
Pt admitted with abdominal pain / Acute Sigmoid colitis
Progress note 05/08 & 05/09, ' NICM..- hold Lasix continue Entresto/Coreg recent Echo 03/18: Normal biventricular size and systolic function without regional wall motion abnormality. Estimated LVEF 60-65%. No significant valve disease...'
Past visit 03/17 H&P, ' Chronic HFpEF...'
Please provide a diagnosis for the above medications Entresto/Lasix /Findings:
Chronic Diastolic CHF
NICM only
Other ( please specify)
Use of terms such as suspected, likely, concern for, or probable (associated with a specific diagnosis that is being evaluated, monitored, or treated as if it exists) are acceptable and can be coded in the inpatient setting, when documented at the
time of discharge.
Thank you,
Joyce Cruz RN
CDI Specialist
[place] [employer]
Please use your independent medical judgment in providing your response.
[2024-05-09 15:40] VITALS: BP 117/81
[2024-05-09 18:06] LABS: Glucose - Point of Care 87 mg/dl (70-99)
[2024-05-09 21:48] LABS: Glucose - Point of Care 125 mg/dl (70-99)
[2024-05-09 23:49] VITALS: BP 109/68
[2024-05-10] MEDS: DILAUDID 0.5 MG IV ×2 (04:17→09:19)
[2024-05-10 06:00] VITALS: BMI 19.6
[2024-05-10] MEDS: SPIRIVA RESPIMAT 2.5 MCG 2 PUFF INH (07:18)
[2024-05-10] MEDS: SYMBICORT 80/4.5 MCG INHALER 2 PUFF INH (07:19)
[2024-05-10 07:27] LABS: Hematocrit 39.6 % (39.0-52.0); Hemoglobin 13.1 g/dL (13.0-18.0); Mean Corp Hgb Conc. 33.1 g/dL (33.0-37.0); Mean Corpuscular Hgb 31.3 pg (27.0-31.0); Mean Corpuscular Volume 94.7 fL (80.0-94.0); Mean Platelet Volume 11.5 fL (7.4-10.4); Platelet Count 142 10^3/uL (130-400); Red Blood Cell Count 4.18 10^6/uL (4.70-6.10); White Blood Cell Count 8.5 10^3/uL (4.8-10.8)
[2024-05-10 07:30] VITALS: BP 114/81
[2024-05-10 07:44] LABS: ALT (SGPT) 84 U/L (0-50); AST (SGOT) 29 U/L (17-59); Albumin 3.4 g/dl (3.5-5.0); Alkaline Phosphatase 60 U/L (38-126); Blood Urea Nitrogen 11 mg/dl (9-20); Calcium 9.1 mg/dl (8.4-10.2); Carbon Dioxide 30 mmol/L (22-30); Chloride 102 mmol/L (98-107); Estimated Creatinine Clearance 83 ml/min; Glucose 91 mg/dl (70-99); Potassium 4.4 mmol/L (3.5-5.1); Sodium 143 mmol/L (135-145); Total Bilirubin 0.4 mg/dl (0.2-1.3); Total Protein 5.9 g/dl (6.3-8.2); eGFR > 60.00
[2024-05-10 08:03] LABS: Glucose - Point of Care 115 mg/dl (70-99)
[2024-05-10] MEDS: NOVOLOG FLEXPEN-LOW RESISTANCE SC (08:07)
[2024-05-10] MEDS: FIRVANQ 125 MG PO (08:15)
[2024-05-10] MEDS: ASPIR LOW (ENTERIC COATED) 81 MG PO (08:16)
[2024-05-10] MEDS: METHADONE 100 MG/10 ML 153 MG PO (08:16)
[2024-05-10] MEDS: COREG 6.25 MG PO (08:16)
[2024-05-10] MEDS: ENTRESTO 24 MG/26 MG 1 TAB PO (08:16)
[2024-05-10] MEDS: FLAGYL 500 MG PO ×2 (08:16)
[2024-05-10] MEDS: FLUSH (NSS) IV ×2 (08:16)
[2024-05-10] MEDS: LIPITOR 10 MG PO (08:16)
[2024-05-10] MEDS: STERILE WATER FOR INJECTION 20 ML IV (08:17)
[2024-05-10] MEDS: NSS (PRESERVATIVE FREE) 10 ML IV (08:17)
[2024-05-10] MEDS: ROCEPHIN 2000 MG IV (08:17)
[2024-05-10] MEDS: PROTONIX IV 40 MG IV (08:17)
[2024-05-10] MEDS: REGLAN 10 MG IV (10:13)
[2024-05-10 12:08] VITALS: BP 138/81
--- NOTE | 2024-05-10 13:04 | W.PN.HOSP.TC ---
Addendum entered and electronically signed by Dante Dominguez MD 05/10/24 13:41:
Add to list:
Chronic diastolic HF
Normal weight
Original Note:
Today's Communication/Plan
-
d/c home
Assessment / Plan
Assessment / Plan
Acute uncomplicated sigmoid colitis
- seen on CT
- patient have C-diff colonization, toxin neg.
- Abd xr did not show any increased stool burden
- Finish short course of oral Omnicef/Flagyl at discharge
Cdiff colonization
- toxin neg
- maintain on vancomycin 125mg/bid for PPX, need to be continued 5 days after finishing abx course
RUQ pain - Improved
Elevated LFTs - Improved
- LFTs improved
- s/p MRI - with limited sequence images obtained, no gross CBD abnormalities
- possibility of passed stone
- possible EUS per GI, inpatient vs outpatient
Erosive esophagitis c/b esophageal strictures and Boerhaave
- s/p EGD dilation with Yemi Chinchilla, last in February
- records pending
Type 2 DM on Jardiance
- hold Jardiance
- low dose SSI
NICM
- cap IVF after current bag
- Lasix remains on hold
- continue Entresto/Coreg
- recent Echo 03/18: Normal biventricular size and systolic function without regional wall motion abnormality. Estimated LVEF 60-65%. No significant valve disease.
Hx of opioid dependance
- continue Methadone, QTC 464 on admission. Dose confirmed with pharmacy.
Hypokalemia
- replete via powder (refuses pill as too hard for him to swallow and refuses IV due to burning sensation)
DVT ppx: Lovenox
Code: Full
D/c home
Anticipated Discharge: Today
Subjective/Interval History
-
Date of Service: May 10, 2024
seen and examined
Abdominal pain is better
Still have some diarrhea
No nausea vomiting
Objective Data
-
Labs:
Laboratory Results
05/10/24
06:26
WBC 8.5
Hgb 13.1
Hct 39.6
Plt Count 142
Sodium 143
Potassium 4.4
Chloride 102
Carbon Dioxide 30
BUN 11
Creatinine 0.8
Glucose 91
Calcium 9.1
Total Bilirubin 0.4
AST 29
ALT 84 H
Alkaline Phosphatase 60
Vital Signs:
Vital Signs
Temp Pulse Resp BP Pulse Ox
97.8 F 52 16 138/81 100
05/10/24 12:08 05/10/24 12:08 05/10/24 12:08 05/10/24 12:08 05/10/24 12:08
I&O
05/09/24 05/10/24 05/11/24
06:59 06:59 06:59
Intake Total 0 / 2040 1080 / 1080 720 / 720
Output Total 500 / 500
Balance 1540 / 1540 1080 / 1080 720 / 720
Review of Systems
-
Respiratory: Reports No Symptoms
Cardiac: Reports No Symptoms
Abdomen/GI: Reports No Symptoms
Physical Exam
-
General: Comfortable
GI: Soft, Nontender and Nondistended
Musculoskeletal: No Clubbing and No Edema
Neuro: Awake, Alert, Oriented and No Motor Deficits
--- NOTE | 2024-05-11 16:06 | W.DCSUMMARY ---
Discharge Summary
Discharge Data
Date of Admission: 05/06/24
Date of Discharge: 05/10/24
-
Pending Results: No
Hospital Course
Discharging Physician : Dr Dante Dominguez
Disposition : To home
Primary care physician : Unknown
Principal Discharge diagnosis :
Sigmoid colitis
Acute transaminitis suspected from passed stone
Clostridium difficile colonization
Chronic Discharge diagnosis :
Etiology of esophagitis
History of esophageal stricture
Type 2 diabetes mellitus
Nonischemic cardiomyopathy
history of opioid dependence
Hospital Course :
Patient is a 53-year-old male with above-mentioned past medical history came to ER with new onset of 2 to 3 days of intractable abdominal pain and nausea vomiting. Patient had some blood in the vomitus. Initial laboratory evaluation showing
patient having minor transaminitis. Liver and abdominal ultrasound showing dilated common bile duct. GI was involved in care and patient had a follow-up MRI MRCP which patient was not able to complete due to claustrophobia although imaged
abdominal section ruled out any cholelithiasis/choledocholithiasis. Clinical it was felt that patient may have passed a gallstone in was having pain/nausea vomiting from that. Patient's symptoms persisted and a follow-up CT abdomen pelvis was done
which showed an uncomplicated sigmoid colitis. Patient was started on Rocephin and Flagyl as well. Patient developed some diarrhea with antibiotic use and stool was checked was found to be positive for non toxin producing C. difficile. As patient
required to be on antibiotic for colitis, patient was provided script for prophylactic vancomycin. Patient was discharged home at this point with follow-up with GI in office.
Important imaging findings :
None
Procedure findings :
None
Discharge Plan
-
Patient Disposition: Home (Routine Discharge)
Discharge Diagnosis/Procedures: Presumed passed gallstone, LFT elevation, Cdiff colonization, Colitis
Condition: Fair
Diet: Other diet
Additional Diets: Mechanical soft diet
Activity: As tolerated
Driving Restrictions: As prior to admission
Bathing Restrictions: OK to Shower
Referrals:
Curtis Rivera, DO [Active] - 05/30/24 7:30 am (Colonoscopy )
UNKNOWN - PT DOES,NOT KNOW [Family Provider] -
Prescriptions:
New
vancomycin 125 mg capsule
125 mg PO BID Qty: 14 0RF
cefdinir 300 mg capsule
300 mg PO BID 2 Days Qty: 4 0RF
metronidazole 500 mg tablet
500 mg PO Q8H 2 Days Qty: 6 0RF
Continued
Trelegy Ellipta 1 EACH blister with device
1 puff inhalation R DAILY
aspirin 81 MG tablet,delayed release (DR/EC)
81 mg PO DAILY
Jardiance 10 mg tablet
10 mg PO DAILY
Entresto 24-26 mg tablet
1 tab PO BID
atorvastatin 10 mg tablet
10 mg PO DAILY
pantoprazole 40 mg tablet,delayed release (DR/EC)
40 mg PO BID Qty: 60 0RF
methadone [Methadone Intensol] 10 mg/mL Concentrate
153 mg PO DAILY
Patient Comments:
11/28/2023: [employer] [employer] [phone] FAX [phone]
05/06/24 Contacted Rosa. Confirmed patient's dose has changed to 153mg since 04/29/24. Patient picked up 6 take home bottles at 153mg methadone each.
carvedilol [Coreg] 6.25 mg Tablet
6.25 mg PO BID
Patient Comments:
decrease dose on 03/15/24
furosemide [Lasix] 20 mg Tablet
20 mg PO DAILY
Discharge Orders:
Discharge Patient (As Directed); Ordered 05/10/24
Ordered By: Dante Dominguez
Discharge Date and Time
Discharge Date/Time: 05/10/24 12:39
Print Language: SETSWANA
== END 2024-05-10 12:39 | disposition home or self-care (01) | DRG 445 ==
LOC: 2 NORTH 05:23
PROVIDERS: Clinical Nurse Specialist Family Health; Internal Medicine; ADMITTING PHYSICIAN Internal Medicine; ATTENDING PHYSICIAN Hospitalist; CONSULT PHYSICIAN Internal Medicine; EMERGENCY PHYSICIAN Student in an Organized Health Care Education/Training Program
DX: K83.8 Other specified diseases of biliary tract (principal); F11.20 Opioid dependence, uncomplicated; I42.8 Other cardiomyopathies; I50.32 Chronic diastolic (congestive) heart failure; K52.9 Noninfective gastroenteritis and colitis, unspecified; J44.89 Other specified chronic obstructive pulmonary disease; F12.90 Cannabis use, unspecified, uncomplicated; F17.210 Nicotine dependence, cigarettes, uncomplicated; F40.240 Claustrophobia; G47.33 Obstructive sleep apnea (adult) (pediatric); I11.0 Hypertensive heart disease with heart failure; E11.51 Type 2 diabetes mellitus with diabetic peripheral angiopathy without gangrene; E78.00 Pure hypercholesterolemia, unspecified; K22.2 Esophageal obstruction; E87.6 Hypokalemia; K21.00 Gastro-esophageal reflux disease with esophagitis, without bleeding; Z22.39 Carrier of other specified bacterial diseases; Z90.49 Acquired absence of other specified parts of digestive tract; Z88.6 Allergy status to analgesic agent; Z88.0 Allergy status to penicillin; Z87.11 Personal history of peptic ulcer disease; Z79.84 Long term (current) use of oral hypoglycemic drugs; Z79.82 Long term (current) use of aspirin; Z79.899 Other long term (current) drug therapy
CPT/HCPCS: 74019; 74177; 74181; 76700; 80053; 81003; 81015; 82248; 82550; 82962; 83690; 83735; 84484; 85025; 85027; 87045; 87046; 87324; 87427; 87449; 89055; 93005; 94640; 96361; 96374; 96375; 99285; Q9967

== ENCOUNTER → 2024-05-30 06:26 | Day surgery (SDC) | payer MEDICARE, SELFPAY | LOC: GI 06:26 | PROVIDERS: ATTENDING PHYSICIAN Student in an Organized Health Care Education/Training Program | DX: Z12.11 Encounter for screening for malignant neoplasm of colon (principal); Z86.0101 Personal history of adenomatous and serrated colon polyps; Z53.8 Procedure and treatment not carried out for other reasons; K57.30 Diverticulosis of large intestine without perforation or abscess without bleeding | CPT/HCPCS: G0105 ==

== ENCOUNTER 2024-06-26 19:25 | Inpatient (IN) | payer MEDICARE, SELFPAY ==
[2024-06-26 11:17] VITALS: BP 190/87
[2024-06-26 14:26] VITALS: BMI 21.5
[2024-06-26 14:28] VITALS: BP 191/87
--- NOTE | 2024-06-26 14:46 | ED.GENMED ---
History of Present Illness
General
Chief Complaint: Abdominal Symptoms
Source: patient and family (Mother)
Exam Limitations: none
Time Seen by Provider: 06/26/24 14:38
Nursing documentation reviewed up to this point in time: agreed with
History of Present Illness
History of Present Illness:
53-year-old male with past medical history COPD, atrial fibrillation, cardiomyopathy, hypertension, GERD, diabetes, polysubstance use on methadone who presents to the emergency department for evaluation of abdominal pain with nausea and vomiting.
Patient reports onset of symptoms early this morning and they have been constant throughout the day. He reports pain in the upper abdomen radiates diffusely. No clear triggering or relieving factors noted. Associate with nausea and also episodes
of vomiting. He reports 1 episode of trace streaks of blood in vomitus but no large-volume hematemesis. Triage note mentions diarrhea but patient denies any diarrhea to me. He has not noted any fever or chills. He denies any chest pain,
shortness of breath, cough or any other complaints. He has prior surgical history of appendectomy. He does have prior history of kidney stones requiring stenting. He says he has been consistent with methadone has not missed any doses including
this morning despite his nausea and vomiting.
Past History
Past History
ED Past Medical History: Arrthythmia (afib), Cancer (Skin Ca Melanoma), COPD, GERD, HTN, Hypercholesterolemia, NIDDM, Other (pericarditis, cardiomyopathy, Kidney stones, UTI, Opiate abuse, Pyelonephritis, PVD, Chronic back pain, Chronic Bronchitis,
Sleep apnea, Diverticulitis, GI bleeding, Gout) and Other (Ischemic esophagus, Esophageal tears)
ED Past Surgical History: Appendectomy, Orthopedic (right shoulder surgery X 2, left shoulder surgery), Urological and Other (Cataracts, Fem-pop bypass. Esophageal tears)
Patient has exhibited threatening behavior?: No
Social History
Tobacco: Smoker (1-2 packs per day)
Alcohol: None
Drug: Former user and Narcotics
Personal:
Living: alone
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
Family History
Family History: Other (mom with hx PE); Negative Early CAD or CAD
Review of Systems
Review of Systems
All Other Systems: ROS reviewed and negative except as documented in HPI and ROS
Constitutional: Denies fever or chills
Respiratory: Denies cough or trouble breathing
Cardiac: Denies chest pain or palpitations
ABD/GI: Reports abdominal pain, nausea and vomiting; Denies diarrhea
: Denies flank pain
Musculoskeletal: Denies neck pain or back pain
Neurological: Denies dizzy or headache
Phy Exam
Physical Exam
Physical Exam:
General: Awake, alert, oriented x3; no acute distress
Head: Normocephalic, atraumatic
Eyes: Conjunctiva normal, pupils midrange and reactive to light bilaterally
Throat: Airway intact, dry mucous membranes
Neck: Trachea midline, supple without meningismus
Lungs: Clear to auscultation bilaterally, no wheezing, rales, rhonchi
Heart: Regular rate and rhythm, no murmurs, gallops, or rubs
Abd: Soft, non distended, diffusely tender to palpation, no palpable masses
Neuro: No gross deficits
Skin: Warm, dry, no rash
Extremities: No edema in extremities, warm and well-perfused
Scores
Heart Failure Risk
Heart Failure Risk Score: Not Applicable
Heart Score for Chest Pain Patients
STEMI patient?: Not applicable
Withdrawal Assessment of Alcohol
Withdrawal Assessment Completed?: Not applicable
Course
Orders/Labs/Results
Orders:
Orders
06/26/24 14:44
CT Abd/pelvis W Iv Cont Urgent
Comment:
Reason For Exam: N/V, abd pain, diffusely tender
0.9% Sodium Chloride 1000 ml [Nss] 1,000 ml IV BOLUS
Ondansetron Injectable [Zofran] 4 mg IV NOW STA
Pantoprazole [Protonix IV] 40 mg IV NOW STA
06/26/24 14:45
Electrocardiogram (*1) Urgent
Reason for Study: Abdominal Pain
EKG- Treatment ONCE
06/26/24 14:50
Type+Screen Urgent
Alcohol Urgent
Complete Blood Count/With Diff Urgent
Comprehensive Metabolic Panel Urgent
Lipase Urgent
PTT Urgent
Prothrombin Time Urgent
06/26/24 16:10
0.9% Sodium Chloride 1000 ml [Nss] 1,000 ml IV BOLUS
Abnormal Lab Results
06/26/24
14:50
WBC 14.0 H 10^3/uL
(4.8-10.8)
MPV 10.5 H fL
(7.4-10.4)
Abs Immat Gran (auto) 0.1 H 10^3/uL
(0-0.05)
Absolute Neuts (auto) 12.4 H 10^3/uL
(1.4-6.5)
Absolute Lymphs (auto) 1.1 L 10^3/uL
(1.2-3.4)
Neutrophils % 88.7 H %
(42.2-75.2)
Lymphocytes % 7.9 L %
(20.5-51.1)
Glucose 190 H mg/dl
(70-99)
Alkaline Phosphatase 128 H U/L
(38-126)
06/26/24 14:50
06/26/24 14:50
Vital Signs
Initial and Last Documented VS:
Initial Vital Signs
Temp Pulse Resp BP Pulse Ox
36.6 C 59 16 190/87 98
06/26/24 11:17 06/26/24 11:17 06/26/24 11:17 06/26/24 11:17 06/26/24 11:17
Last Documented Vital Signs
Temp Pulse Resp BP Pulse Ox
37.0 C 92 20 165/96 94
06/26/24 14:55 06/26/24 16:30 06/26/24 16:30 06/26/24 16:00 06/26/24 15:00
MDM/Problems Addressed
Differential Diagnosis Includes:
Gastritis, gastroenteritis, cholelithiasis/cholecystitis, pancreatitis, bowel obstruction, diverticulitis/appendicitis less likely
MDM/Problems Addressed:
53-year-old male with history as documented presents for evaluation of abdominal pain associate with nausea and vomiting all day today. He arrived was hypertensive but otherwise normal vitals. Physical exam as above. He does appear dehydrated.
Will plan to place an IV check labs including a CBC and a CMP, lipase. Will swab for COVID and flu. Will check CT abdomen pelvis. Will provide fluids, antiemetic. EKG for QTc monitoring�patient is on methadone. Monitor closely reassess after
the above.
Initial labs reviewed: CBC shows leukocytosis to 14, CMP no clinically significant abnormalities. Lipase normal. Awaiting results of CT. On clinical reassessment patient has had symptomatic improvement with ED treatment.
CT reviewed shows signs consistent with acute gastroenteritis. Clinical reassessment patient is feeling worse once again we will provide IV Protonix, additional fluids, IV Tylenol. He is having some chest pain reported some scant blood in vomitus
earlier suspect Elizabet-Briggs tear. He has history of similar. Will admit to the hospitalist for continued management of his symptoms secondary to acute gastroenteritis and acute dehydration. I did review his EKG showed QT prolongation cautious
with antiemetics. Case discussed with hospitalist for admission.
Chronic conditions affecting care:
Substance use on methadone
Acute Exacerbation and/or Progression of Chronic Illness:
Acutely hypertensive likely from nausea/vomiting�treat symptomatically but no indication for emergent antihypertensive treatment
*Radiology
Radiology exam reviewed: radiology read reviewed
*Pulse Oximetry
Patient hypoxic: no
*Critical Care Note
Total Time (30-74mins, 75-104mins- exclusive of procedures): Not Applicable
Data Reviewed
Review of Other/Old Records Reveals: Labs and Records
Source: patient, records and family
Patient Management
Social determinants of health affecting care: Substance abuse
Discussion with other providers: Hospitalist (Discussed with hospitalist)
Escalation/DeEscalation of care consider admission/obs:
Admission indicated
ED Attending Note
-
Portions of this chart may have been created with voice recognition software.� Occasional wrong word or��sound alike� substitutions may have occurred due to the inherent limitations of voice recognition software.
Discharge Plan
Departure
Patient Disposition: Admit
Date of Disposition: 06/26/24
Time of Disposition: 18:01
Admit to doctor: Du
Presentation/result/management discussed w/ accepting MD/DO: Hospitalist
Discharge Problem:
Gastroenteritis, Acute dehydration
Prescriptions:
No Action
Trelegy Ellipta 1 EACH blister with device
1 puff inhalation R DAILY
aspirin 81 MG tablet,delayed release (DR/EC)
81 mg PO DAILY
Jardiance 10 mg tablet
10 mg PO DAILY
Entresto 24-26 mg tablet
1 tab PO BID
atorvastatin 10 mg tablet
10 mg PO DAILY
pantoprazole 40 mg tablet,delayed release (DR/EC)
40 mg PO BID Qty: 60 0RF
methadone [Methadone Intensol] 10 mg/mL Concentrate
153 mg PO DAILY
Patient Comments:
11/28/2023: [facility] [phone] FAX [phone]
05/06/24 Contacted [facility]. Confirmed patient's dose has changed to 153mg since 04/29/24. Patient picked up 6 take home bottles at 153mg methadone each.
carvedilol [Coreg] 6.25 mg Tablet
6.25 mg PO BID
Patient Comments:
decrease dose on 03/15/24
furosemide [Lasix] 20 mg Tablet
20 mg PO DAILY
vancomycin 125 mg capsule
125 mg PO BID Qty: 14 0RF
cefdinir 300 mg capsule
300 mg PO BID 2 Days Qty: 4 0RF
metronidazole 500 mg tablet
500 mg PO Q8H 2 Days Qty: 6 0RF
Referrals:
UNKNOWN - PT DOES,NOT KNOW [Family Provider] -
Interventions
Interventions:
*Risk Screen - Suicide Last Done: 06/26/24 11:17
*General Assessment Last Done: 06/26/24 11:17
*Neglect/Abuse Screening Last Done: 06/26/24 11:17
ED- Fall Risk Assessment Last Done: 06/26/24 14:38
*ED COVID-19 Vaccine History Last Done: 06/26/24 14:26
IH-Utvgab-Qvuwhtvfoi Assessment Last Done: 06/26/24 14:37
Discharge Date and Time
Print Language: [place]
[2024-06-26] MEDS: PROTONIX IV 40 MG IV ×2 (14:52→18:12)
[2024-06-26] MEDS: ZOFRAN 4 MG IV (14:52)
[2024-06-26] MEDS: NSS 1000 IV ×3 (14:52→20:59)
[2024-06-26 15:07] LABS: % Basophils 0.2 % (0-2); % Eosinophils 0.1 % (0-6); % Immature Granulocytes 0.4 % (0-0.5); % Lymphocytes 7.9 % (20.5-51.1); % Monocytes 2.7 % (1.7-9.3); % Neutrophils 88.7 % (42.2-75.2); Absolute Immature Granulocytes 0.1 10^3/uL (0-0.05); Absolute Lymphocytes 1.1 10^3/uL (1.2-3.4); Absolute Monocytes 0.4 10^3/uL (0.1-0.6); Absolute Neutrophils 12.4 10^3/uL (1.4-6.5); Hematocrit 43.8 % (39.0-52.0); Hemoglobin 15.1 g/dL (13.0-18.0); Mean Corp Hgb Conc. 34.5 g/dL (33.0-37.0); Mean Corpuscular Volume 89.9 fL (80.0-94.0); Mean Platelet Volume 10.5 fL (7.4-10.4); Nucleated Red Blood Cells % 0 % (-); Platelet Count 214 10^3/uL (130-400); Red Blood Cell Count 4.87 10^6/uL (4.70-6.10); Red Cell Dist. Width 13.4 % (11.5-14.5)
[2024-06-26 15:24] LABS: Lipase 49 U/L (23-300)
[2024-06-26 15:25] LABS: APTT 27.8 Sec (23.4-35.0); Alcohol None Detected; INR 0.93; PT 12.9 Sec (11.4-14.6)
[2024-06-26 15:55] LABS: ALT (SGPT) 40 U/L (0-50); AST (SGOT) 33 U/L (17-59); Albumin 4.6 g/dl (3.5-5.0); Alkaline Phosphatase 128 U/L (38-126); Blood Urea Nitrogen 18 mg/dl (9-20); Calcium 9.5 mg/dl (8.4-10.2); Carbon Dioxide 28 mmol/L (22-30); Chloride 99 mmol/L (98-107); Estimated Creatinine Clearance 103 ml/min; Glucose 190 mg/dl (70-99); Potassium 3.6 mmol/L (3.5-5.1); Sodium 139 mmol/L (135-145); Total Bilirubin 0.8 mg/dl (0.2-1.3); Total Protein 7.7 g/dl (6.3-8.2); eGFR > 60.00
[2024-06-26 16:00] VITALS: BP 165/96
[2024-06-26] MEDS: OFIRMEV 100 IV (18:12)
[2024-06-26 18:14] VITALS: BP 150/98
--- NOTE | 2024-06-26 18:21 | PHANOTE ---
Addendum entered by Evita Ledesma 06/26/24 18:26:
patient currently does not have recent pharmacy fills for Entresto, Jardiance and Lipitor
Original Note:
med rec note- called patient methadone unable to get a hold of someone, left message for Thursday follow up. also fax medical release form over to [phone]
[2024-06-26 18:30] LABS: Phosphorus 2.1 mg/dl (2.5-4.5)
--- NOTE | 2024-06-26 18:37 | HPS.HSE ---
Family Physician
-
Family Physician: NOT KNOW UNKNOWN - PT DOES
Chief Complaint
-
Nausea Vomiting
History of Present Illness
53M COPD Afib cardiomyopathy HTN GERD hx DM (A1c consistently prediabetic for the last years) , hx polysubstance abuse on Methadone, marijuana tobacco use, p/w acute onset nausea vomiting starting in morning prompting visit to ED. Reported chills
and some trace blood noted in vomitus. Denied fever headache coughing sneezing diarrhea. Notably patient was previously here for sigmoid colitis and found to be colonized with Cdiff, non-toxic, for which he completed a prophylactic course of PO
vancomycin outpt. ED eval notable for mild Leukocytosis, Tachycardia, QT prolongation, and hypertension. CT abd/pelvis noted gastroenteritis.
Medical History
Past Medical History
Past Medical History: Reports Other (as above)
Past Surgical History: Reports Other (as above)
Social History
Tobacco: Smoker
Alcohol: None
Drug: Marijuana
Living: With Family
Family History
Family History: Not pertinent (reviewed)
Allergies / Home Medications
Allergies reflects when Allergies were last updated in [facility].
Home Medications with original date entered in [facility]
Allergy/Medication List:
Allergies
Allergy/AdvReac Type Severity Reaction Status Date / Time
acetaminophen Allergy Rash Verified 06/26/24 11:17
amlodipine besylate Allergy Tongue Verified 06/26/24 11:17
[From [facility]] Swelling
erythromycin base Allergy Hives Verified 06/26/24 11:17
ibuprofen Allergy Hives Verified 06/26/24 11:17
Penicillins Allergy Hives/tolerates Verified 06/26/24 11:17
ceftriaxone
Home Medications
fluticasone fur. 100 mcg-umeclid 62.5 mcg-vilant 25 mcg inhalat.powder (Trelegy Ellipta) 1 puff inhalation R DAILY Lung/breathing issues 07/03/20
aspirin 81 mg tablet,delayed release 81 mg PO DAILY Blood clot prevention/tx 09/14/20
empagliflozin 10 mg tablet (Jardiance) 10 mg PO DAILY Diabetes/CHF 04/29/22
sacubitril 24 mg-valsartan 26 mg tablet (Entresto) 1 tab PO BID Heart Failure 04/29/22
atorvastatin 10 mg tablet 10 mg PO DAILY High cholesterol 10/21/22
methadone 10 mg/mL oral concentrate (Methadone Intensol) 150 mg PO DAILY SUBSTANCE USE DISORDER 08/21/23
carvedilol 6.25 mg tablet (Coreg) 6.25 mg PO BID Blood Pressure 03/17/24
fluoxetine 10 mg tablet 10 mg PO DAILY 06/26/24
fluoxetine 20 mg tablet 20 mg PO DAILY 06/26/24
furosemide 40 mg tablet 40 mg PO DAILY 06/26/24
Review of Systems
-
A 12 point ROS was completed and negative except as noted: Yes
Constitutional: Reports Other (as below)
Physical Exam
Vital Signs
Vital Signs
Temp Pulse Resp BP Pulse Ox
98.6 F 92 20 165/96 94
06/26/24 14:55 06/26/24 16:30 06/26/24 16:30 06/26/24 16:00 06/26/24 15:00
Physical Exam
General: Other (as below)
Laboratory Results
-
06/26/24 14:50
06/26/24 14:50
Laboratory Results
PT 12.9 Sec (11.4-14.6) 06/26/24 14:50
INR 0.93 06/26/24 14:50
APTT 27.8 Sec (23.4-35.0) 06/26/24 14:50
Total Bilirubin 0.8 mg/dl (0.2-1.3) 06/26/24 14:50
Total Bilirubin Cancelled 06/26/24 14:50
AST 33 U/L (17-59) 06/26/24 14:50
AST Cancelled 06/26/24 14:50
ALT 40 U/L (0-50) 06/26/24 14:50
ALT Cancelled 06/26/24 14:50
Alkaline Phosphatase 128 U/L (38-126) H 06/26/24 14:50
Alkaline Phosphatase Cancelled 06/26/24 14:50
Lipase 49 U/L (23-300) 06/26/24 14:50
Impression/Plan
-
ROS
General: Denies fever chills night sweats unexpected weight loss
Neuro: Denies seizure shaking loss of consciousness dizziness vertigo
Psych: denies depression hallucinations confusion manic episodes
Endocrine: Denies polyuria polydipsia polyphagia heat/cold intolerance
HEENT: Denies blindness visual disturbances epistaxis
Pulmonary: denies coughing hemoptysis sneezing sob dyspnea on exertion
Cardiovascular: denies chest pain palpitations leg swelling
Hematology: denies signs symptoms of anemia easy bruising/bleeding
Gastrointestinal: reports nausea vomiting denies diarrhea constipation hematemesis hematochezia melena
Genito-Urinary: denies retention incontinence dysuria
Musculoskeletal: denies joint pain weakness
Dermatology: denies rash laceration bruising
Physical Exam
General: No pallor, cyanosis, or jaundice.
HEENT: Throat clear. PERRLA Normocephalic atraumatic
NECK: Supple. No JVD Carotid Bruits
RESPIRATORY: wheezing
CVS: S1, S2 normal. RRR. No murmur, rub or gallop.
ABDOMEN: Soft, non-tender. No distension. BS+/normal.
EXTREMITIES: No peripheral cyanosis or edema.
VISUAL ARTIST: AOx3
IMPRESSION:
53M COPD pAfib cardiomyopathy HTN GERD hx DM (A1c consistently prediabetic for the last year) , hx polysubstance abuse on Methadone, marijuana tobacco use, p/w acute onset nausea vomiting starting in morning prompting visit to ED. Reported chills
and some trace blood noted in vomitus. Denied fever headache coughing sneezing diarrhea. Notably patient was previously here for sigmoid colitis and found to be colonized with Cdiff, non-toxic, for which he completed a prophylactic course of PO
vancomycin outpt. ED eval notable for mild Leukocytosis, Tachycardia, QT prolongation, and hypertension. CT abd/pelvis noted gastroenteritis.
PLAN:
#N/V gastroenteritis suspect viral
#QT prolongation
Tele admit
clear liquid diet as tolerated
IVF support
Follow up repeat EKG in AM
Tigan prn nausea for now pending improvement in QT
#Hypophosphatemia
monitor and replete as necessary
#Possible Aspiration PNA sepsis (tachycardia, leukocytosis, BP stable, lactic acid pending)
#COPD wheezing
Otherwise stable respiratory status on room air. Reports some subjective feelings shortness of breath
R QID Atrovent and prn Atrovent
empiric abx ceftriaxone and flagyll (PCN allergy noted, tolerated these abx in past)
follow cultures
check Chest X-ray
monitor respiratory status
#Polysubstance Abuse
#Tobacco use
#Marijuana use
check toxicology
cont home Methadone, monitor on Tele with QT prolongation
Toradol prn mod severe pain (tolerated in past despite listed allergy ibuprofen)
Nicotine supplementation declined, smoking cessation counseled
#hx NICM, HFpEF
Lasix on hold d/t nausea vomiting as above
cont Entresto Coreg with holding parameters
dvt ppx SCD
gi ppx Protonix
Full Code
discussed with patient and patient's father also named Christian
I spent a total of 76 minutes with the patient or on the floor. More than 50% of this time involved counseling and coordination of care.
[2024-06-26 18:59] LABS: Marijuana Positive (Negative)
[2024-06-26 19:00] VITALS: BP 115/68
[2024-06-26 19:00] LABS: Amphetamines Negative (Negative); Barbiturates Negative (Negative); Benzodiazepines Negative (Negative); Buprenorphine Negative (Negative); Cocaine Negative (Negative); Methadone Positive (Negative); Methamphetamines Negative (Negative); Opiates Negative (Negative); Phencyclidine Negative (Negative); Tricyclic Antidepressants Negative (Negative)
[2024-06-26 19:20] LABS: Fentanyl, Urine Negative (Negative)
[2024-06-26 20:26] VITALS: BP 125/83; BMI 21.0
[2024-06-26 21:31] LABS: Lactic Acid 1.3 mmol/L (0.7-2.0)
[2024-06-26] MEDS: ROCEPHIN 2000 MG IV (21:33)
[2024-06-26] MEDS: STERILE WATER FOR INJECTION 20 ML IV (21:33)
[2024-06-26] MEDS: FLAGYL 500 MG 100 IV (21:42)
[2024-06-26 21:55] VITALS: BMI 21.8
[2024-06-26] MEDS: COREG 6.25 MG PO (22:09)
[2024-06-26] MEDS: ENTRESTO 24 MG/26 MG 1 TAB PO (22:09)
--- NOTE | 2024-06-27 02:16 | PTCARENOTE ---
Pt. rec'd into room 2137 from ED AAOX3, VSS, NSR with BBC on the monitor. Able to ambulate from bed to stretcher with steady gait. Initially complained of some nausea that passed, no vomiting or diarrhea since pt. was admitted. Attempted to
administer potassium phosphate crystal as ordered, but pt. refused, states he's familiar with drug and it will burn - offered to ask for PO supplements instead, pt. still adamantly refusing. Hospitalist PALOMO Craft notified, phosphorus level added on
to AM labs. Pt. agreeable to IVF's & antibiotics (BC's & lactic acid drawn prior to starting); CXR completed. No complaints SOB, RA pulse ox 96%, some slight expiatory wheezing assessed. Pt. states he's very tired, sleeps when undisturbed.
[2024-06-27] MEDS: TIGAN 200 MG IM ×2 (02:43→09:44)
[2024-06-27 03:25] VITALS: BP 116/65
[2024-06-27] MEDS: FLAGYL 500 MG 100 IV ×3 (04:56→19:53)
[2024-06-27 05:39] VITALS: BMI 21.8
[2024-06-27] MEDS: SYMBICORT 80/4.5 MCG INHALER 2 PUFF INH (06:17)
[2024-06-27] MEDS: SPIRIVA RESPIMAT 2.5 MCG 2 PUFF INH (06:17)
--- NOTE | 2024-06-27 06:32 | W.PN.HOSP.TC ---
Today's Communication/Plan
-
cont abx for now
stop IVF
clear liquid advanced to low residue
TIgan prn nausea
repeat EKG in AM for QT monitoring
ok to dc youth nutritional monitor per patient's request
Replete K
Assessment / Plan
Assessment / Plan
Physical Exam
General: No pallor, cyanosis, or jaundice.
HEENT: Throat clear. PERRLA Normocephalic atraumatic
NECK: Supple. No JVD Carotid Bruits
RESPIRATORY: Clear to auscultation
CVS: S1, S2 normal. RRR. No murmur, rub or gallop.
ABDOMEN: Soft, non-tender. No distension. BS+/normal.
EXTREMITIES: No peripheral cyanosis or edema.
HIM MANAGER: AOx3
IMPRESSION:
53M COPD pAfib cardiomyopathy HTN GERD hx DM (A1c consistently prediabetic for the last year) , hx polysubstance abuse on Methadone, marijuana tobacco use, p/w acute onset nausea vomiting starting in morning prompting visit to ED. Reported chills
and some trace blood noted in vomitus. Denied fever headache coughing sneezing diarrhea. Notably patient was previously here for sigmoid colitis and found to be colonized with Cdiff, non-toxic, for which he completed a prophylactic course of PO
vancomycin outpt. ED eval notable for mild Leukocytosis, Tachycardia, QT prolongation, and hypertension. CT abd/pelvis noted gastroenteritis.
PLAN:
#N/V gastroenteritis suspect viral
#QT prolongation
Tele admit
clear liquid diet tolerated advanced to Low Residue tolerating though intermittent episodes nausea persist
IVF support completed
Follow up repeat EKG in AM till QT prolongation resolves, youth nutritional monitor removed per patient's request.
Tigan prn nausea for now pending improvement in QT
Notably patient endorses recently starting Fluoxetine 30 mg daily, for depression, a few days ago
-suspect current episode gastritis and QT prolongation may have been triggered by fluoxetine (half-life 4-6 days), onset of symptoms and timing of new medication seem to align. Hold Fluoxetine for now
#Hypophosphatemia
monitor and replete as necessary
#Possible Aspiration PNA sepsis (tachycardia, leukocytosis, BP stable, lactic acid wnl)
#COPD wheezing
Otherwise stable respiratory status on room air. Reports some subjective feelings shortness of breath
R QID Atrovent and prn Atrovent
empiric abx ceftriaxone and flagyll (PCN allergy noted, tolerated these abx in past)
follow cultures
CR chest appreciated no acute abn's, emphysema noted
monitor respiratory status
#Polysubstance Abuse
#Tobacco use
#Marijuana use
toxicology pos for methadone and marijuana
cont home Methadone, monitor on Tele with QT prolongation
Toradol prn mod severe pain (tolerated in past despite listed allergy ibuprofen)
Nicotine supplementation declined, smoking cessation counseled
#hx NICM, HFpEF
Lasix on held d/t nausea vomiting as above, restarted given tolerating diet.
cont Entresto Coreg with holding parameters
#Hypokalemia
monitor and replete as necessary (patient prefers elixir potassium supplements)
dvt ppx SCD
gi ppx Protonix
Full Code
I spent a total of 50 minutes with the patient or on the floor. More than 50% of this time involved counseling and coordination of care.
Anticipated Discharge: 24 - 48 hours
Subjective/Interval History
-
No acute distress resting comfortably in bed. Reports improvement in overall symptoms though nausea persists intermittently, tolerating clear liquid diet, requesting advancement.
Objective Data
-
Labs:
Laboratory Results
06/27/24
06:00
WBC Pending
Hgb Pending
Hct Pending
Plt Count Pending
Sodium Pending
Potassium Pending
Chloride Pending
Carbon Dioxide Pending
BUN Pending
Creatinine Pending
Glucose Pending
Calcium Pending
Vital Signs:
Vital Signs
Temp Pulse Resp BP Pulse Ox
98.6 F 78 16 116/65 98
06/27/24 03:25 06/27/24 06:24 06/27/24 06:24 06/27/24 03:25 06/27/24 06:24
I&O
06/25/24 06/26/24 06/27/24
06:59 06:59 06:59
Intake Total 1860 / 1860
Output Total 400 / 400
Balance 1460 / 1460
[2024-06-27] MEDS: ASPIR LOW (ENTERIC COATED) 81 MG PO (08:51)
[2024-06-27] MEDS: ENTRESTO 24 MG/26 MG 1 TAB PO ×2 (08:51→19:54)
[2024-06-27] MEDS: PROTONIX IV 40 MG IV (08:51)
[2024-06-27] MEDS: NSS (PRESERVATIVE FREE) 10 ML IV (08:51)
[2024-06-27] MEDS: COREG 6.25 MG PO (08:51)
[2024-06-27] MEDS: LIPITOR 10 MG PO (08:52)
[2024-06-27] MEDS: METHADONE 100 MG/10 ML 150 MG PO (08:52)
[2024-06-27 09:13] VITALS: BP 144/78
[2024-06-27 09:38] LABS: Mean Corp Hgb Conc. 34.2 g/dL (33.0-37.0); Mean Corpuscular Hgb 30.8 pg (27.0-31.0); Mean Platelet Volume 10.5 fL (7.4-10.4); Platelet Count 172 10^3/uL (130-400); Red Blood Cell Count 4.22 10^6/uL (4.70-6.10); Red Cell Dist. Width 13.7 % (11.5-14.5); White Blood Cell Count 15.2 10^3/uL (4.8-10.8)
[2024-06-27 10:30] LABS: Blood Urea Nitrogen 11 mg/dl (9-20); Calcium 8.6 mg/dl (8.4-10.2); Carbon Dioxide 18 mmol/L (22-30); Chloride 105 mmol/L (98-107); Estimated Creatinine Clearance 105 ml/min; Glucose 87 mg/dl (70-99); Magnesium 1.9 mg/dl (1.6-2.3); Phosphorus 2.9 mg/dl (2.5-4.5); Potassium 3.4 mmol/L (3.5-5.1); Sodium 137 mmol/L (135-145); eGFR > 60.00
[2024-06-27] MEDS: NSS 1000 IV (11:13)
[2024-06-27] MEDS: KCL ELIXIR 40 MEQ PO (11:38)
[2024-06-27 11:55] VITALS: BP 135/83
--- NOTE | 2024-06-27 12:35 | CM ---
Reviewed the chart notes and spoke with the patient at the bedside. Patient admitted for gastroenteritis. The patient resides with his parents in a two story home with three steps to enter. The patient reports on DME in home is a nebulizer. The
patient has had [facility] in the past, but no SNF. The patient confirmed his pharmacy of choice is the [facility] [address]. Patient [facility] CM continues to be available to patient/family and is
monitoring medical plan for needs at discharge.
Plan: Discharge plans will depend on the patient's progress.
[2024-06-27 15:46] VITALS: BP 132/84
--- NOTE | 2024-06-27 16:30 | PTCARENOTE ---
Patient with okay to shower order per MD, asking to be taken off monitor tech after shower. This RN communicated with MD, transfer to med-surg order placed per MD, EKG ordered for tomorrow AM for qtc monitoring. Patient verbalizes
understanding. Patient with episode of nausea with vomiting this AM after breakfast, relieved with PRN IM Tigan. Patient denies any abdominal pain or diarrhea prior to admission and throughout shift. This RN communicated with MD and Infection
Prevention; patient to remain on enhanced precautions, MD stated to check stool cx if patient develops diarrhea.
[2024-06-27] MEDS: STERILE WATER FOR INJECTION 20 ML IV (19:55)
[2024-06-27] MEDS: ROCEPHIN 2000 MG IV (19:55)
[2024-06-27] MEDS: COREG PO (19:55)
[2024-06-27] MEDS: SYMBICORT 80/4.5 MCG INHALER INH (20:55)
[2024-06-27 23:15] VITALS: BP 146/80
[2024-06-28] MEDS: FLAGYL 500 MG 100 IV (03:33)
[2024-06-28 05:36] VITALS: BMI 21.3
[2024-06-28 07:25] VITALS: BP 138/78
[2024-06-28] MEDS: COREG 6.25 MG PO (08:44)
[2024-06-28] MEDS: KCL ELIXIR 40 MEQ PO (08:44)
[2024-06-28] MEDS: PROTONIX IV 40 MG IV (08:44)
[2024-06-28] MEDS: NSS (PRESERVATIVE FREE) 10 ML IV (08:44)
[2024-06-28] MEDS: LASIX 40 MG PO (08:45)
[2024-06-28] MEDS: LIPITOR 10 MG PO (08:45)
[2024-06-28] MEDS: ENTRESTO 24 MG/26 MG 1 TAB PO (08:45)
[2024-06-28] MEDS: ASPIR LOW (ENTERIC COATED) 81 MG PO (08:45)
[2024-06-28] MEDS: METHADONE 100 MG/10 ML 150 MG PO (08:46)
[2024-06-28] MEDS: SYMBICORT 80/4.5 MCG INHALER INH (09:07)
[2024-06-28] MEDS: SPIRIVA RESPIMAT 2.5 MCG INH (09:07)
--- NOTE | 2024-06-28 09:17 | W.PN.HOSP.TC ---
Addendum entered and electronically signed by Briseida Fried MD 06/29/24 17:07:
Dictation- [id number]
Original Note:
Today's Communication/Plan
-
Discharge
Assessment / Plan
Assessment / Plan
53M COPD pAfib cardiomyopathy HTN GERD hx DM (A1c consistently prediabetic for the last year) , hx polysubstance abuse on Methadone, marijuana tobacco use, p/w acute onset nausea vomiting starting in morning prompting visit to ED. Reported chills
and some trace blood noted in vomitus. Denied fever headache coughing sneezing diarrhea. Notably patient was previously here for sigmoid colitis and found to be colonized with Cdiff, non-toxic, for which he completed a prophylactic course of PO
vancomycin outpt. ED eval notable for mild Leukocytosis, Tachycardia, QT prolongation, and hypertension. CT abd/pelvis noted gastroenteritis.
CVS: S1-S2 normal
Chest: CTA B/L
Abdomen: Soft, NT / Bowel sounds present
Extremities: No edema, normal pulses
PLAN:
#N/V gastroenteritis suspect viral
clear liquid diet tolerated advanced to Low Residue tolerating though intermittent episodes nausea persist
IVF support completed
Notably patient endorses recently starting Fluoxetine 30 mg daily, for depression, a few days ago
suspect current episode gastritis and QT prolongation may have been triggered by fluoxetine (half-life 4-6 days), onset of symptoms and timing of new medication seem to align. Hold Fluoxetine for now discussed with patient to hold off on fluoxetine
for a week and restart to see if he can tolerate. This is likely gastroenteritis.
# Prolonged QTc-resolved. May use Zofran for nausea. Patient has been tolerating diet without needing this.
#Hypophosphatemia-monitor and replete as necessary
#Possible Aspiration PNA sepsis (tachycardia, leukocytosis, BP stable, lactic acid wnl)
#COPD -continue Trelegy Ellipta or equivalent
Otherwise stable respiratory status on room air. Feels stable
R QID Atrovent and prn Atrovent
empiric abx ceftriaxone and Flagyl (PCN allergy noted, tolerated these abx in past)-stop antibiotics chest x-ray negative and also history of C. difficile colonization
Blood cultures negative
#Polysubstance Abuse
Tobacco use
Marijuana use
Toxicology pos for methadone and marijuana
cont home Methadone, monitor on Tele with QT prolongation
Toradol prn mod severe pain (tolerated in past despite listed allergy ibuprofen)
Nicotine supplementation declined, smoking cessation counseled
#H/O NICM, HFpEF
Lasix on held d/t nausea vomiting as above, restarted given tolerating diet.
Cont Entresto Coreg with holding parameters, restart Jardiance
Restart Lasix at discharge
#Hypokalemia-monitor and replete as necessary (patient prefers elixir potassium supplements)
#H/O Melanoma removal from the back
#Clostridium difficile colonization
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
# hyperlipidemia-continue atorvastatin
# Diabetes-continue SGLT2 inhibitors. Patient states that since he lost weight he has not needed any medicines.
# Enlarged adrenal gland-outpatient follow-up
# Sleep apnea-patient states that he lost weight therefore is not using PAP. Advised to go back and check if he needs it or not.
# Diverticulosis
# GERD
# Nephrolithiasis
# Gout
# Active smoker-cessation counseling
#DVT prophylaxis- SCD
#Full Code
Discussed with nursing
He is tolerating diet and okay for discharge
Discharge coordination time more than 33 minutes
Anticipated Discharge: Today
Subjective/Interval History
-
Date of Service: June 28, 2024
Objective Data
-
Labs:
Laboratory Results
06/28/24
09:01
WBC Pending
Hgb Pending
Hct Pending
Plt Count Pending
Sodium Pending
Potassium Pending
Chloride Pending
Carbon Dioxide Pending
BUN Pending
Creatinine Pending
Glucose Pending
Calcium Pending
Vital Signs:
Vital Signs
Temp Pulse Resp BP Pulse Ox
98.0 F 72 18 138/78 96
06/28/24 07:25 06/28/24 08:44 06/28/24 07:25 06/28/24 08:45 06/28/24 07:25
I&O
06/27/24 06/28/24 06/29/24
06:59 06:59 06:59
Intake Total 1860 / 1860 3240 / 3240
Output Total 400 / 400 2580 / 2580
Balance 1460 / 1460 660 / 660
[2024-06-28 09:47] LABS: Hematocrit 43.6 % (39.0-52.0); Hemoglobin 14.9 g/dL (13.0-18.0); Mean Corp Hgb Conc. 34.2 g/dL (33.0-37.0); Mean Corpuscular Hgb 31.3 pg (27.0-31.0); Mean Corpuscular Volume 91.6 fL (80.0-94.0); Mean Platelet Volume 10.3 fL (7.4-10.4); Platelet Count 191 10^3/uL (130-400); Red Blood Cell Count 4.76 10^6/uL (4.70-6.10); Red Cell Dist. Width 13.2 % (11.5-14.5); White Blood Cell Count 11.3 10^3/uL (4.8-10.8)
[2024-06-28 10:23] LABS: Blood Urea Nitrogen 9 mg/dl (9-20); Carbon Dioxide 28 mmol/L (22-30); Chloride 103 mmol/L (98-107); Estimated Creatinine Clearance 102 ml/min; Glucose 110 mg/dl (70-99); Phosphorus 2.4 mg/dl (2.5-4.5); Potassium 4.1 mmol/L (3.5-5.1); Sodium 139 mmol/L (135-145); eGFR > 60.00
--- NOTE | 2024-06-28 10:59 | W.DS.TRANS ---
DC Summary - Tube Drawer
-
Discharge Instructions:
Sleep Apnea Risk Intermediate
Discharge Diagnosis/Procedures Gastroenteritis
COPD
HFpEF
Cardiomyopathy
Low potassium
Smoking
Diet 2 Gram Sodium,Restrict fluids to 48 oz
Activity As tolerated
Driving Restrictions As prior to admission
Specialty Instructions Weigh Daily
Instructions:
Stand-Alone Forms:
Changes to Home Medications: No
Discharge Medications:
DC Medications w/original date entered in ICU Metrix
fluticasone fur. 100 mcg-umeclid 62.5 mcg-vilant 25 mcg inhalat.powder (Trelegy Ellipta) 1 puff inhalation R DAILY Lung/breathing issues 07/03/20
aspirin 81 mg tablet,delayed release 81 mg PO DAILY Blood clot prevention/tx 09/14/20
empagliflozin 10 mg tablet (Jardiance) 10 mg PO DAILY Diabetes/CHF 04/29/22
sacubitril 24 mg-valsartan 26 mg tablet (Entresto) 1 tab PO BID Heart Failure 04/29/22
atorvastatin 10 mg tablet 10 mg PO DAILY High cholesterol 10/21/22
methadone 10 mg/mL oral concentrate (Methadone Intensol) 150 mg PO DAILY SUBSTANCE USE DISORDER 08/21/23
carvedilol 6.25 mg tablet (Coreg) 6.25 mg PO BID Blood Pressure 03/17/24
fluoxetine 10 mg tablet 10 mg PO DAILY Mental Health/Anxiety 06/26/24
fluoxetine 20 mg tablet 20 mg PO DAILY Mental Health/Anxiety 06/26/24
furosemide 40 mg tablet 40 mg PO DAILY Fluid Retention/Swelling 06/26/24
Home Medication Changes
Pending Results: Yes
Additional Pending Results:
HbA1C Pending
[2024-06-28 12:37] VITALS: BP 154/98
--- NOTE | 2024-06-28 12:55 | CM ---
Chart reviewed and patient has been cleared for discharge to home today, IMM completed and placed on chart.
Plan; Home today, no needs.
[2024-06-28 13:50] LABS: Glycohemoglobin (HgbA1c) 5.5 % (4.0-5.6)
== END 2024-06-28 13:02 | disposition home or self-care (01) | DRG 871 ==
LOC: 2 NORTH 19:25
PROVIDERS: Emergency Medicine; ADMITTING PHYSICIAN Internal Medicine; ATTENDING PHYSICIAN Hospitalist; EMERGENCY PHYSICIAN Emergency Medicine
DX: A41.9 Sepsis, unspecified organism (principal); J69.0 Pneumonitis due to inhalation of food and vomit; F17.210 Nicotine dependence, cigarettes, uncomplicated; E83.39 Other disorders of phosphorus metabolism; J44.89 Other specified chronic obstructive pulmonary disease; F12.90 Cannabis use, unspecified, uncomplicated; A08.4 Viral intestinal infection, unspecified; I48.0 Paroxysmal atrial fibrillation
CPT/HCPCS: 71046; 74177; 80048; 80053; 80306; 80307; 82077; 83036; 83605; 83690; 83735; 84100; 85025; 85027; 85610; 85730; 86850; 86900; 86901; 87040; 93005; 94640; 96361; 96374; 96375; 99285; 99406; Q9967

== ENCOUNTER → 2024-07-05 13:08 | Outpatient (REF) | payer MEDICARE, SELFPAY | LOC: HWRCS 13:08 | PROVIDERS: ATTENDING PHYSICIAN Nurse Practitioner; FAMILY PHYSICIAN Internal Medicine | DX: I42.8 Other cardiomyopathies (principal); I25.10 Atherosclerotic heart disease of native coronary artery without angina pectoris; I50.32 Chronic diastolic (congestive) heart failure | CPT/HCPCS: 93306 ==

== ENCOUNTER → 2024-07-11 14:33 | Outpatient (REF) | payer MEDICARE, SELFPAY | LOC: HWRAD 14:33 | PROVIDERS: ATTENDING PHYSICIAN Specialist; FAMILY PHYSICIAN Internal Medicine | DX: N20.0 Calculus of kidney (principal) | CPT/HCPCS: 74018 ==

== ENCOUNTER 2024-08-03 17:22 | Emergency (ER) | payer MEDICARE, SELFPAY ==
[2024-08-03 17:25] VITALS: BP 158/105
[2024-08-03 17:30] VITALS: BP 158/105; BMI 22.1
--- NOTE | 2024-08-03 17:54 | ED.GENMED ---
History of Present Illness
General
Chief Complaint: Flank Pain
Source: patient
Exam Limitations: none
Time Seen by Provider: 08/03/24 17:43
Nursing documentation reviewed up to this point in time: agreed with
History of Present Illness
History of Present Illness:
54-year-old male from [facility] with history of nonobstructing bilateral kidney stone measuring up to 7 mm on the left and 2 mm on the right last seen 05/06/2024 on CAT scan presents for left flank pain. He states he is scheduled to have the kidney
stones removed by Dr. Gonzalez and he has been having 'discomfort' but today the pain got worse.
One view abdomen on 07/11/24 showed 'There is an 8 x 4 mm calcification in the left upper quadrant, corresponding to lower pole nephrolith on prior CT examination.
2 small calcifications are seen projecting over the right mid kidney, also corresponding to nephroliths on prior CT examination.'
Past History
Past History
ED Past Medical History: Arrthythmia (afib), Cancer (Skin Ca Melanoma), COPD, GERD, HTN, Hypercholesterolemia, NIDDM, Other (pericarditis, cardiomyopathy, Kidney stones, UTI, Opiate abuse, Pyelonephritis, PVD, Chronic back pain, Chronic Bronchitis,
Sleep apnea, Diverticulitis, GI bleeding, Gout) and Other (Ischemic esophagus, Esophageal tears)
ED Past Surgical History: Appendectomy, Orthopedic (right shoulder surgery X 2, left shoulder surgery), Urological and Other (Cataracts, Fem-pop bypass. Esophageal tears)
Patient has exhibited threatening behavior?: No
Social History
Tobacco: Smoker (1-2 packs per day)
Alcohol: None
Drug: Former user and Narcotics
Personal:
Living: alone
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
Family History
Family History: Other (mom with hx PE); Negative Early CAD or CAD
Review of Systems
Review of Systems
Allergies reviewed?: Yes
All Other Systems: ROS reviewed and negative except as documented in HPI and ROS
Constitutional: Denies fever or chills
Respiratory: Denies trouble breathing
Cardiac: Denies chest pain
ABD/GI: Denies abdominal pain, nausea, vomiting or diarrhea
: Reports flank pain (Left); Denies dysuria or difficulty voiding
Musculoskeletal: Reports no symptoms
Skin: Reports no symptoms
Neurological: Reports no symptoms
Phy Exam
Physical Exam
Physical Exam:
GENERAL: No acute distress. A&Ox3.
CONSTITUTIONAL: Afebrile.
EYES: clear, conjunctivae normal
ENMT: moist mucus membranes
RESPIRATORY: Regular respirations, nonlabored, lungs clear.
CARDIOVASCULAR: Regular rate and rhythm, no murmurs, no rubs.
GI: Soft, nontender, normal BS. Left flank tenderness to perxuaaion.
MUSCULOSKELETAL: Moves with ease. Well perfused.
SKIN: Warm, dry, pink
PSYCH: Normal mood and affect. Well kept, interactive and appropriate
NEUROLOGIC: Awake, alert and oriented. No focal neurological deficits
Course
Orders/Labs/Results
Orders:
Orders
08/03/24 18:04
CMP [Comprehensive Metabolic Panel] Urgent
Complete Blood Count/With Diff Urgent
Urinalysis Reflex To Culture Urgent
Date Specimen was Collected: 08/03/24
Time Specimen was Collected: 17:57
08/03/24 18:06
Acetaminophen [Tylenol] 1,000 mg PO NOW STA
US Renal With Bladder Urgent
Comment: bladder not full ok, looking at ureteral jets
Reason For Exam: L flank pain, hx kidney stones
Abnormal Lab Results
08/03/24
18:04
WBC 13.1 H 10^3/uL
(4.8-10.8)
MPV 10.7 H fL
(7.4-10.4)
Abs Immat Gran (auto) 0.1 H 10^3/uL
(0-0.05)
Absolute Neuts (auto) 11.3 H 10^3/uL
(1.4-6.5)
Neutrophils % 86.1 H %
(42.2-75.2)
Lymphocytes % 9.5 L %
(20.5-51.1)
Chloride 97 L mmol/L
(98-107)
Carbon Dioxide 31 H mmol/L
(22-30)
Glucose 138 H mg/dl
(70-99)
08/03/24 18:04
08/03/24 18:04
Vital Signs
Initial and Last Documented VS:
Initial Vital Signs
BP
158/105
08/03/24 17:25
Last Documented Vital Signs
Temp Pulse Resp BP Pulse Ox
98.7 F 68 13 120/65 98
08/03/24 17:30 08/03/24 21:15 08/03/24 21:15 08/03/24 21:00 08/03/24 17:30
MDM/Problems Addressed
MDM/Problems Addressed:
54-year-old male from [facility] with history of nonobstructing bilateral kidney stone measuring up to 7 mm on the left and 2 mm on the right last seen 05/06/[address]24 on CAT scan presents for left flank pain. He states he is scheduled to have the kidney
stones removed by Dr. Gonzalez and he has been having 'discomfort' but today the pain got worse.
One view abdomen on 07/11/24 showed 'There is an 8 x 4 mm calcification in the left upper quadrant, corresponding to lower pole nephrolith on prior CT examination.
2 small calcifications are seen projecting over the right mid kidney, also corresponding to nephroliths on prior CT examination.'
Pt has had numerous CT's and xrays, will obtain US to minimize radiation.
CBC, CMP with no clinically significant abnormality.
Pt requesting Dilaudid, will hold off until US report. Tylenol given. Does not appear in significant discomfort.
U/A neg
8:30 p.m.
US report reviewed: IMPRESSION:
Nonobstructing bilateral renal stones. New on the right. Stable on the left.
Simple right renal cyst. New.
Nonvisualization of the right ureteral jet.
Pt had to be awakened, informed of results. Stable for discharge back to Group Home.
*Critical Care Note
Total Time (30-74mins, 75-104mins- exclusive of procedures): Not Applicable
ED Attending Note
-
Portions of this chart may have been created with voice recognition software.� Occasional wrong word or��sound alike� substitutions may have occurred due to the inherent limitations of voice recognition software.
Discharge Plan
Departure
Patient Disposition: Group Home
Date of Disposition: 08/03/24
Time of Disposition: 20:44
Condition: Good
Discharge Problem:
Flank pain
Instructions: Flank Pain (DC)
Prescriptions:
No Action
Trelegy Ellipta 1 EACH blister with device
1 puff inhalation R DAILY
aspirin 81 MG tablet,delayed release (DR/EC)
81 mg PO DAILY
sacubitril-valsartan [Entresto] 24-26 mg tablet
1 tab PO BID
atorvastatin 10 mg tablet
10 mg PO DAILY
methadone [Methadone Intensol] 10 mg/mL Concentrate
150 mg PO DAILY
Patient Comments:
06/26/24: faxed release form to methadone clinic,
[place]/2023: [place] [facility] [phone] FAX [phone]--05/06/24 Contacted [facility]. Confirmed patient's dose has changed to 153mg since 04/29/24. Patient picked up 6 take home bottles at 153mg methadone each.
carvedilol [Coreg] 6.25 mg Tablet
6.25 mg PO BID
furosemide 40 mg Tablet
40 mg PO DAILY
fluoxetine 10 mg Tablet
10 mg PO DAILY
fluoxetine 20 mg Tablet
20 mg PO DAILY
Medical Marijuana
1 unit PO PRN PRN (Reason: prn)
Referrals:
UNKNOWN - PT DOES,NOT KNOW [Family Provider] -
Activity Restrictions/Additional Instructions:
Mr Renae's workup here shows nothing worrisome.
No significant kidney stones, no sign of hydronephrosis on US. Urinalysis is neg.
Nothing to explain his pain.
Stable to go back to incarceration.
Interventions
Interventions:
*Risk Screen - Suicide Last Done: 08/03/24 17:30
*General Assessment Last Done: 08/03/24 17:30
*Neglect/Abuse Screening Last Done: 08/03/24 17:30
ED- Fall Risk Assessment Last Done: 08/03/24 17:30
*ED COVID-19 Vaccine History Last Done: 08/03/24 17:30
*Nursing Disposition Last Done: 08/03/24 21:29
KU-Jivclm-Pbedndahxv Assessment Last Done: 08/03/24 17:30
ED-Male Genitourinary Assessment Last Done: 08/03/24 17:30
Discharge Date and Time
Discharge Date/Time: 08/03/24 21:35
Print Language: ANGUILLAN
[2024-08-03 18:10] LABS: % Basophils 0.5 % (0-2); % Eosinophils 0.7 % (0-6); % Immature Granulocytes 0.4 % (0-0.5); % Lymphocytes 9.5 % (20.5-51.1); % Monocytes 2.8 % (1.7-9.3); % Neutrophils 86.1 % (42.2-75.2); Absolute Basophils 0.1 10^3/uL (0-0.2); Absolute Eosinophils 0.1 10^3/uL (0-0.7); Absolute Immature Granulocytes 0.1 10^3/uL (0-0.05); Absolute Lymphocytes 1.2 10^3/uL (1.2-3.4); Absolute Monocytes 0.4 10^3/uL (0.1-0.6); Absolute Neutrophils 11.3 10^3/uL (1.4-6.5); Hematocrit 44.3 % (39.0-52.0); Hemoglobin 14.6 g/dL (13.0-18.0); Mean Platelet Volume 10.7 fL (7.4-10.4); Nucleated Red Blood Cells % 0 % (-); Platelet Count 232 10^3/uL (130-400); Red Blood Cell Count 4.87 10^6/uL (4.70-6.10); Red Cell Dist. Width 13.7 % (11.5-14.5); Urine Albumin Negative (Neg - Trace); Urine Bilirubin Negative (Negative); Urine Character Clear (Clear); Urine Color Yellow; Urine Glucose Negative (Negative); Urine Ketone Negative (Negative); Urine Leukocyte Negative (Negative); Urine Nitrite Negative (Negative); Urine Occult Blood Negative (Negative); Urine Urobilinogen Negative (Neg - 1+); White Blood Cell Count 13.1 10^3/uL (4.8-10.8)
[2024-08-03 18:27] LABS: ALT (SGPT) 30 U/L (0-50); AST (SGOT) 28 U/L (17-59); Albumin 4.8 g/dl (3.5-5.0); Alkaline Phosphatase 102 U/L (38-126); Blood Urea Nitrogen 19 mg/dl (9-20); Calcium 9.6 mg/dl (8.4-10.2); Carbon Dioxide 31 mmol/L (22-30); Chloride 97 mmol/L (98-107); Estimated Creatinine Clearance 92 ml/min; Glucose 138 mg/dl (70-99); Potassium 4.5 mmol/L (3.5-5.1); Sodium 137 mmol/L (135-145); Total Bilirubin 0.6 mg/dl (0.2-1.3); Total Protein 7.7 g/dl (6.3-8.2); eGFR > 60.00
[2024-08-03 19:23] VITALS: BP 135/87
[2024-08-03 20:00] VITALS: BP 113/92
[2024-08-03 21:00] VITALS: BP 120/65
== END 2024-08-03 21:35 ==
LOC: EMR 17:22
PROVIDERS: Registered Nurse; EMERGENCY PHYSICIAN Emergency Medicine
DX: R10.9 Unspecified abdominal pain (principal); I48.91 Unspecified atrial fibrillation; J44.9 Chronic obstructive pulmonary disease, unspecified; K21.9 Gastro-esophageal reflux disease without esophagitis; I42.9 Cardiomyopathy, unspecified; I10 Essential (primary) hypertension; G47.30 Sleep apnea, unspecified; E78.00 Pure hypercholesterolemia, unspecified; E11.51 Type 2 diabetes mellitus with diabetic peripheral angiopathy without gangrene; F17.210 Nicotine dependence, cigarettes, uncomplicated; Z85.820 Personal history of malignant melanoma of skin; Z85.828 Personal history of other malignant neoplasm of skin; Z87.440 Personal history of urinary (tract) infections; Z87.442 Personal history of urinary calculi; Z90.49 Acquired absence of other specified parts of digestive tract
CPT/HCPCS: 99284; 76770; 80053; 81003; 85025

== ENCOUNTER 2024-08-04 06:09 | Day surgery (SDC) | payer MEDICARE, SELFPAY | END 2024-08-04 06:10 | disposition home or self-care (01) | LOC: SDS 06:09 | PROVIDERS: ATTENDING PHYSICIAN Specialist | DX: N20.0 Calculus of kidney (principal); Z53.9 Procedure and treatment not carried out, unspecified reason ==

== ENCOUNTER → 2024-12-07 13:57 | Outpatient (REF) | payer MEDICARE, SELFPAY | LOC: HWRAD 13:57 | PROVIDERS: ATTENDING PHYSICIAN Internal Medicine Cardiovascular Disease; FAMILY PHYSICIAN Internal Medicine | DX: R60.9 Edema, unspecified (principal) | CPT/HCPCS: 93971 ==

== ENCOUNTER 2025-03-08 14:02 | Emergency (ER) | payer MEDICARE, SELFPAY ==
[2025-03-08 14:02] VITALS: BMI 24.3
--- NOTE | 2025-03-08 14:50 | ED.GENMED ---
History of Present Illness
<Isaac Mcleod PA-C - Last Filed: 03/08/25 16:44>
General
Chief Complaint: Abdominal Symptoms
Time Seen by Provider: 03/08/25 14:15
History of Present Illness
History of Present Illness:
54-year-old male with history of A-fib, cardiomyopathy, COPD, and chronic pain syndrome on methadone presents to the emergency department for evaluation of intractable nausea vomiting and chills beginning this morning. Mother states that he has had
this symptom on occasion throughout the past that seems to resolve spontaneously. He reports generalized nonfocal abdominal pain, denies fevers. No recent suspicious food intake, no ill contacts. No diarrhea
Past History
<Isaac Mcleod PA-C - Last Filed: 03/08/25 16:44>
Past History
ED Past Medical History: Arrthythmia (afib), Cancer (Skin Ca Melanoma), COPD, GERD, HTN, Hypercholesterolemia, NIDDM, Other (pericarditis, cardiomyopathy, Kidney stones, UTI, Opiate abuse, Pyelonephritis, PVD, Chronic back pain, Chronic Bronchitis,
Sleep apnea, Diverticulitis, GI bleeding, Gout) and Other (Ischemic esophagus, Esophageal tears)
ED Past Surgical History: Appendectomy, Orthopedic (right shoulder surgery X 2, left shoulder surgery), Urological and Other (Cataracts, Fem-pop bypass. Esophageal tears)
Patient has exhibited threatening behavior?: No
Social History
Tobacco: Smoker (1-2 packs per day)
Alcohol: None
Drug: Former user and Narcotics
Personal:
Living: alone
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
Family History
Family History: Other (mom with hx PE); Negative Early CAD or CAD
Review of Systems
<Isaac Mcleod PA-C - Last Filed: 03/08/25 16:44>
Review of Systems
Allergies reviewed?: Yes
All Other Systems: ROS reviewed and negative except as documented in HPI and ROS
Phy Exam
<Isaac Mcleod PA-C - Last Filed: 03/08/25 16:44>
Physical Exam
Physical Exam:
GEN: Ill-appearing, no immediate distress
HEENT: Oral mucosa moist, no scleral icterus
Cardiac: Regular rate, no murmur
Lung: No respiratory distress, no tachypnea
Abdomen: Soft, grossly nontender
MSK: No gross deformity or injuries
Skin: Good color, no pallor or jaundice, no rashes
Neuro: AO x3, moves all extremities freely
Psych: Calm, cooperative
Course
<Isaac Mcleod PA-C - Last Filed: 03/08/25 16:44>
Orders/Labs/Results
Orders:
Orders
03/08/25 14:25
0.9% Sodium Chloride 1000 ml [Nss] 1,000 ml IV BOLUS
03/08/25 14:26
Electrocardiogram (*1) Urgent
Reason for Study: QTc Monitoring
EKG- Treatment ONCE
03/08/25 14:51
Ondansetron Injectable [Zofran] 4 mg IV NOW STA
03/08/25 14:53
Complete Blood Count/With Diff Urgent
03/08/25 16:27
Comprehensive Metabolic Panel Urgent
Lipase Urgent
03/08/25 16:41
0.9% Sodium Chloride 1000 ml [Nss] 1,000 ml IV BOLUS
Metoclopramide [Reglan] 5 mg IV NOW STA
03/08/25 17:32
CT Abd/pelvis W Iv Cont Urgent
Comment:
Reason For Exam: intractable vomiting, diffuse abd. pain
03/08/25 18:25
Urinalysis Reflex To Culture Urgent
Date Specimen was Collected: 03/08/25
Time Specimen was Collected: 18:24
Urine Microscopic Reflex Cult Urgent
03/08/25 19:23
Ondansetron Injectable [Zofran] 4 mg IV NOW STA
Abnormal Lab Results
03/08/25 03/08/25 03/08/25
14:53 16:27 18:25
WBC 17.8 H 10^3/uL
(4.8-10.8)
MCHC 32.6 L g/dL
(33.0-37.0)
RDW 14.6 H %
(11.5-14.5)
MPV 10.6 H fL
(7.4-10.4)
Abs Immat Gran (auto) 0.1 H 10^3/uL
(0-0.05)
Absolute Neuts (auto) 16.0 H 10^3/uL
(1.4-6.5)
Immature Gran % 0.6 H %
(0-0.5)
Neutrophils % 89.8 H %
(42.2-75.2)
Lymphocytes % 6.8 L %
(20.5-51.1)
Glucose 183 H mg/dl
(70-99)
Urine Ketones 2+ A
(Negative)
Ur Occult Blood Reflex 4+ A
(Negative)
Urine RBC 16-20 A /HPF
(0-2)
Urine Bacteria (Reflex) Few A
(Negative)
Urine Glucose 3+ A
(Negative)
Urine Albumin (Reflex) 2+ A
(Neg - Trace)
03/08/25 14:53
03/08/25 16:27
Vital Signs
Initial and Last Documented VS:
Initial Vital Signs
Temp Pulse Resp Pulse Ox
98.4 F 50 16 99
03/08/25 14:03 03/08/25 14:03 03/08/25 14:03 03/08/25 14:03
Last Documented Vital Signs
Temp Pulse Resp BP Pulse Ox
98.4 F 71 17 152/79 95
03/08/25 14:03 03/08/25 16:00 03/08/25 16:00 03/08/25 16:00 03/08/25 16:00
<Coby Irene NP - Last Filed: 03/08/25 19:30>
Orders/Labs/Results
Orders:
Orders
03/08/25 14:25
0.9% Sodium Chloride 1000 ml [Nss] 1,000 ml IV BOLUS
03/08/25 14:26
Electrocardiogram (*1) Urgent
Reason for Study: QTc Monitoring
EKG- Treatment ONCE
03/08/25 14:51
Ondansetron Injectable [Zofran] 4 mg IV NOW STA
03/08/25 14:53
Complete Blood Count/With Diff Urgent
03/08/25 16:27
Comprehensive Metabolic Panel Urgent
Lipase Urgent
03/08/25 16:41
0.9% Sodium Chloride 1000 ml [Nss] 1,000 ml IV BOLUS
Metoclopramide [Reglan] 5 mg IV NOW STA
03/08/25 17:32
CT Abd/pelvis W Iv Cont Urgent
Comment:
Reason For Exam: intractable vomiting, diffuse abd. pain
03/08/25 18:25
Urinalysis Reflex To Culture Urgent
Date Specimen was Collected: 03/08/25
Time Specimen was Collected: 18:24
Urine Microscopic Reflex Cult Urgent
03/08/25 19:23
Ondansetron Injectable [Zofran] 4 mg IV NOW STA
Abnormal Lab Results
03/08/25 03/08/25 03/08/25
14:53 16:27 18:25
WBC 17.8 H 10^3/uL
(4.8-10.8)
MCHC 32.6 L g/dL
(33.0-37.0)
RDW 14.6 H %
(11.5-14.5)
MPV 10.6 H fL
(7.4-10.4)
Abs Immat Gran (auto) 0.1 H 10^3/uL
(0-0.05)
Absolute Neuts (auto) 16.0 H 10^3/uL
(1.4-6.5)
Immature Gran % 0.6 H %
(0-0.5)
Neutrophils % 89.8 H %
(42.2-75.2)
Lymphocytes % 6.8 L %
(20.5-51.1)
Glucose 183 H mg/dl
(70-99)
Urine Ketones 2+ A
(Negative)
Ur Occult Blood Reflex 4+ A
(Negative)
Urine RBC 16-20 A /HPF
(0-2)
Urine Bacteria (Reflex) Few A
(Negative)
Urine Glucose 3+ A
(Negative)
Urine Albumin (Reflex) 2+ A
(Neg - Trace)
03/08/25 14:53
03/08/25 16:27
Vital Signs
Initial and Last Documented VS:
Initial Vital Signs
Temp Pulse Resp Pulse Ox
98.4 F 50 16 99
03/08/25 14:03 03/08/25 14:03 03/08/25 14:03 03/08/25 14:03
Last Documented Vital Signs
Temp Pulse Resp BP Pulse Ox
98.4 F 71 17 152/79 95
03/08/25 14:03 03/08/25 16:00 03/08/25 16:00 03/08/25 16:00 03/08/25 16:00
<Isaac Mcleod PA-C - Last Filed: 03/08/25 16:44>
Comment
Comment:
EKG independently interpreted by me shows normal sinus rhythm at a rate of 62, QTc interval of 466
*Pulse Oximetry
SaO2: 99
Oxygen Mode of Delivery: Room air
<Coby Irene NP - Last Filed: 03/08/25 19:30>
*Pulse Oximetry
Patient hypoxic: no
*Critical Care Note
Total Time (30-74mins, 75-104mins- exclusive of procedures): Not Applicable
<Isaac Mcleod PA-C - Last Filed: 03/08/25 16:44>
Update Note
Update Note:
Pt continues to vomiting. Will order 5mg [address] on cardiac monitoring due to QT prolonging meds
<Coby Irene NP - Last Filed: 03/08/25 19:30>
Update Note
Update Note:
Pt continues to vomiting. Will order 5mg [address] on cardiac monitoring due to QT prolonging meds
Patient still with severe nausea. Reports diffuse abd. pain. Labs reviewed. WBC 17.8. CT abd/pelvis ordered.
CT result of gastroenteritis reviewed with pateint. Still with some nausea, reports imrovement with IVF and medication. No further vomiting. He feels he can be discharged home. WIll order short course of zofran for him. He was given
instructions on s/s to return to ED and he is agreeable to plan.
ED Attending Note
<Isaac Mcleod PA-C - Last Filed: 03/08/25 16:44>
-
Portions of this chart may have been created with voice recognition software.� Occasional wrong word or��sound alike� substitutions may have occurred due to the inherent limitations of voice recognition software.
Discharge Plan
Departure
Patient Disposition: Home (Routine Discharge)
Date of Disposition: 03/08/25
Time of Disposition: 19:24
Patient with high blood pressure during this ER visit?: No
Condition: Good
Covid-19: Not Applicable
Discharge Problem:
Gastroenteritis
Instructions: Viral gastroenteritis in adults, Clear Liquid Diet
Prescriptions:
New
ondansetron 4 mg tablet,disintegrating
4 mg PO Q8H PRN (Reason: nausea and vomiting) Qty: 6 0RF
No Action
Trelegy Ellipta 1 EACH blister with device
1 puff inhalation R DAILY
aspirin 81 MG tablet,delayed release (DR/EC)
81 mg PO DAILY
sacubitril-valsartan [Entresto] 24-26 mg tablet
1 tab PO BID
atorvastatin 10 mg tablet
10 mg PO DAILY
methadone [Methadone Intensol] 10 mg/mL Concentrate
150 mg PO DAILY
Patient Comments:
06/26/24: faxed release form to methadone clinic,
[facility]2023: [facility] [phone] FAX [phone]--05/06/24 Contacted [facility]. Confirmed patient's dose has changed to 153mg since 04/29/24. Patient picked up 6 take home bottles at 153mg methadone each.
carvedilol [Coreg] 6.25 mg Tablet
6.25 mg PO BID
furosemide 40 mg Tablet
40 mg PO DAILY
fluoxetine 10 mg Tablet
10 mg PO DAILY
fluoxetine 20 mg Tablet
20 mg PO DAILY
Medical Marijuana
1 unit PO PRN PRN (Reason: prn)
Referrals:
UNKNOWN - PT DOES,NOT KNOW [Family Provider]
Activity Restrictions/Additional Instructions:
FOllow up with your family doctor. Return to the emergency department immediately for any changes in/worsening of your symptoms.
Interventions
Interventions:
*Risk Screen - Suicide Last Done: 03/08/25 14:39
*General Assessment Last Done: 03/08/25 14:39
*Neglect/Abuse Screening Last Done: 03/08/25 14:39
*ED- Fall Risk Assessment Last Done: 03/08/25 14:39
BU-Rslzll-Rzvtulkuaa Assessment Last Done: 03/08/25 14:39
Discharge Date and Time
Print Language: CHINESE
[2025-03-08] MEDS: NSS 1000 IV ×2 (14:53→16:54)
[2025-03-08 15:03] LABS: Hematocrit 50.9 % (39.0-52.0); Hemoglobin 16.6 g/dL (13.0-18.0); Mean Corp Hgb Conc. 32.6 g/dL (33.0-37.0); Mean Corpuscular Volume 88.5 fL (80.0-94.0); Nucleated Red Blood Cells % 0 % (-); Platelet Count 208 10^3/uL (130-400); Red Cell Dist. Width 14.6 % (11.5-14.5)
[2025-03-08] MEDS: ZOFRAN 4 MG IV ×2 (15:15→19:30)
[2025-03-08 16:00] VITALS: BP 152/79
[2025-03-08] MEDS: REGLAN 5 MG IV (16:53)
[2025-03-08 16:56] LABS: ALT (SGPT) 19 U/L (0-50); AST (SGOT) 26 U/L (17-59); Albumin 4.5 g/dl (3.5-5.0); Alkaline Phosphatase 103 U/L (38-126); Blood Urea Nitrogen 13 mg/dl (9-20); Calcium 9.1 mg/dl (8.4-10.2); Carbon Dioxide 28 mmol/L (22-30); Chloride 103 mmol/L (98-107); Estimated Creatinine Clearance 108 ml/min; Glucose 183 mg/dl (70-99); Lipase 34 U/L (23-300); Potassium 4.3 mmol/L (3.5-5.1); Sodium 139 mmol/L (135-145); Total Protein 8.0 g/dl (6.3-8.2); eGFR > 60.00
[2025-03-08 19:04] LABS: Urine Character Clear (Clear)
[2025-03-08 19:12] LABS: Urine Red Blood Cell 16-20 /HPF (0-2); Urine White Cell 0-2 /HPF (0-5)
== END 2025-03-08 19:55 | disposition home or self-care (01) ==
LOC: EMR 14:02
PROVIDERS: Nurse Practitioner; Physician Assistant; EMERGENCY PHYSICIAN Emergency Medicine
DX: K52.9 Noninfective gastroenteritis and colitis, unspecified (principal); I45.81 Long QT syndrome; E11.51 Type 2 diabetes mellitus with diabetic peripheral angiopathy without gangrene; I48.91 Unspecified atrial fibrillation; I42.9 Cardiomyopathy, unspecified; I10 Essential (primary) hypertension; E78.00 Pure hypercholesterolemia, unspecified; J44.89 Other specified chronic obstructive pulmonary disease; G47.30 Sleep apnea, unspecified; K21.9 Gastro-esophageal reflux disease without esophagitis; M10.9 Gout, unspecified; G89.4 Chronic pain syndrome; M54.9 Dorsalgia, unspecified; F17.200 Nicotine dependence, unspecified, uncomplicated; Z79.82 Long term (current) use of aspirin; Z85.820 Personal history of malignant melanoma of skin; Z79.891 Long term (current) use of opiate analgesic
CPT/HCPCS: 99284; 96374; 96375; 96376; 96361 ×2; 74177; 80053; 81003; 81015; 83690; 85025; 93005; Q9967

== ENCOUNTER 2025-03-10 10:38 | Inpatient (IN) | payer MEDICARE, SELFPAY ==
[2025-03-10] VITALS (18 sets, daily range): BP systolic 136–199; BP diastolic 64–132; PULSE 100–125; BMI 26.7; BMI 25.2
--- NOTE | 2025-03-10 06:50 | ED.GENMED ---
History of Present Illness
General
Chief Complaint: Vomiting Blood
Source: patient
Exam Limitations: none
Time Seen by Provider: 03/10/25 06:33
Nursing documentation reviewed up to this point in time: agreed with
History of Present Illness
History of Present Illness:
Patient discharged from ED 2 days ago with diagnosis of gastroenteritis, returns to ED secondary to persistent vomiting with abdominal pain since being discharged home. Patient is on maintenance methadone program. Denies fever or chills. Denies
diarrhea. Denies trauma. Denies dizziness or weakness. Denies recent travel or surgery. Denies sick contact. Denies recent change in medications or diet. Patient states that he had similar symptoms 2 years ago when he was admitted at [place]
[facility] in [place], and was treated for 'bleeding in esophagus'. No acute intervention, i.e. surgery, required at that time. Patient does not take any blood thinning medications. Patient does not drink alcohol. Patient
does admit to smoking.
Past History
Past History
ED Past Medical History: Arrthythmia (afib), Cancer (Skin Ca Melanoma), COPD, GERD, HTN, Hypercholesterolemia, NIDDM, Other (pericarditis, cardiomyopathy, Kidney stones, UTI, Opiate abuse, Pyelonephritis, PVD, Chronic back pain, Chronic Bronchitis,
Sleep apnea, Diverticulitis, GI bleeding, Gout) and Other (Ischemic esophagus, Esophageal tears)
ED Past Surgical History: Appendectomy, Orthopedic (right shoulder surgery X 2, left shoulder surgery), Urological and Other (Cataracts, Fem-pop bypass. Esophageal tears)
Patient has exhibited threatening behavior?: No
Social History
Tobacco: Smoker (1-2 packs per day)
Alcohol: None
Drug: Former user and Narcotics
Personal:
Living: alone
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
Family History
Family History: Other (mom with hx PE); Negative Early CAD or CAD
Review of Systems
Review of Systems
Allergies reviewed?: Yes
All Other Systems: ROS reviewed and negative except as documented in HPI and ROS
Constitutional: Reports no symptoms; Denies fever or chills
EENT: Reports no symptoms
Respiratory: Reports no symptoms
Cardiac: Reports no symptoms
ABD/GI: Reports abdominal pain, nausea and vomiting; Denies diarrhea
Musculoskeletal: Reports no symptoms
Skin: Reports no symptoms
Neurological: Reports no symptoms
Phy Exam
Physical Exam
Physical Exam:
Physical Exam
General: mild distress, acutely ill. afebrile
Head: nc/at. eomi
Neck: supple. no meningeal signs. normal posterior pharynx
Heart: tachycardic
Lungs: no acute respiratory distress. clear bilaterally
Abdomen: normal bowel sounds. mild diffuse tenderness to palpation. no distention
Neuro: alert and oriented x 3. no focal neurological deficits
Skin: no rash
Psychiatric: well kept. interactive and cooperative
Extremities: no edema. no calf tenderness.
Course
Orders/Labs/Results
Orders:
Orders
03/10/25 06:40
Ondansetron Injectable [Zofran] 8 mg .ROUTE .[facility]
03/10/25 06:42
Electrocardiogram (*1) Urgent
Reason for Study: QTc Monitoring
EKG- Treatment ONCE
HYDROmorphone [Dilaudid] 0.5 mg IV NOW STA
Pantoprazole 80 mg/100 ml Nss [Protonix] 80 mg in 100 ml IV NOW
Pantoprazole [Protonix IV] 80 mg IV NOW STA
03/10/25 06:43
Electrocardiogram (*1) Urgent
Reason for Study: Tachycardia
0.9% Sodium Chloride 1000 ml [Nss] 1,000 ml IV BOLUS
03/10/25 06:44
EKG- Treatment ONCE
03/10/25 06:57
Ondansetron Injectable [Zofran] 8 mg IV NOW STA
03/10/25 06:59
Type+Screen Urgent
Complete Blood Count/With Diff Urgent
Comprehensive Metabolic Panel Urgent
INR [Prothrombin Time] Urgent
Lipase Urgent
Comment: ADD ON
Magnesium Urgent
PTT Urgent
03/10/25 07:20
HYDROmorphone [Dilaudid] 0.5 mg IV NOW STA
03/10/25 07:53
CT Abd/pelvis W Iv Cont Urgent
Comment:
Reason For Exam: gi bleed/abd pain
03/10/25 08:00
0.9% Sodium Chloride 500 ml [Nss] 500 ml IV BOLUS
03/10/25 08:07
Urinalysis Reflex To Culture Urgent
Date Specimen was Collected: 03/10/25
Time Specimen was Collected: 08:03
Urine Microscopic Reflex Cult Urgent
03/10/25 08:31
Lactic Acid Q4H
Comment: CANCEL 2nd LACTIC ACID IF 1st LACTIC ACID IS LESS THAN 2
Blood Culture Q30M
POOL Source: Blood/Venous
Specimen Description:
03/10/25 08:37
Ondansetron Injectable [Zofran] 4 mg IV NOW STA
03/10/25 08:55
Blood Culture Q30M
POOL Source: Blood/Venous
Specimen Description:
03/10/25 Lunch
NPO
Allow oral meds: No
Allow clear liquids: No
NPO with Ice Chips: No
03/10/25 10:04
Admit/Transfer Patient As Directed
Co-Sign Provider:
Level of Care: Inpatient admission
Assign to:: Telemetry
Physician / Group: Hospitalist
Diagnosis: sepsis, hematemesis
Reason for Telemetry: Other
Other Reason for Telemetry: Upper GI bleed
Date to Stop Telemetry: 03/12/25
Time to Stop Telemetry: 11:00
Reason for Hospitalization: Sepsis, hematemesis
Expected length of stay greater than two midnights?: Yes
ELOS- Estimated Length of Stay in days: 3
I certify the patient meets the requirements for IP care: Yes
03/10/25 10:09
PRN Pain Medication Management As Directed
May give lesser potent ordered pain med per pt: Yes
preference::
Protocol:: Medication orders for pain may be administered in a
manner that supports deferring to patient preference
when the pt is:
- Requesting an ordered lesser potent pain medication.
Least to most potent pain medications are defined
as: acetaminophen < NSAID < tramadol < opioids
(morphine, oxycodone, hydromorphone).
- Requesting a lesser dose of the same medication IF
ORDERED.
- Requesting a less intrusive route of administration
if both routes are prescribed by the provider (PO <
IV).
03/10/25 10:13
Code Status As Directed
Resuscitation Status: Do not resuscitate
Reached after discussion with pt or family/Healthcare POA: Yes
03/10/25 10:14
DNR Bracelet Application ONCE
03/10/25 10:25
HYDROmorphone [Dilaudid] 0.5 mg IV Q4HPRN PRN
HYDROmorphone [Dilaudid] 1 mg IV Q4HPRN PRN
Ondansetron Injectable [Zofran] 4 mg IV Q6HPRN PRN
03/10/25 11:00
Piperacillin/Tazo 3.375 Gram [Zosyn] 3.375 gram in 50 ml IV Q6
03/10/25 12:15
Lactic Acid Q4H
Comment: CANCEL 2nd LACTIC ACID IF 1st LACTIC ACID IS LESS THAN 2
03/10/25 13:03
H&H Q6H
03/10/25 13:03
GASTROINTESTINAL CONSULT Routine
Consulting Provider: Litzy Fuchs
Was physician already notified: Yes
Activity As Directed
Activity Level: With Assistance
INT (Intravenous Needle Therapy) As Directed
Comment: Place 2 IV catheters of the largest bore possible until stable
Orthostatic Vital Signs As Directed
Orthostatic VS Frequency: Now
Comment: then every four hours for twenty-four hours
Pneumatic Compression Sleeves As Directed
Type: Knee high
Vital Signs As Directed
Frequency: Per unit guidelines
US Abdomen Complete/Upper Routine
Comment:
Reason For Exam: Abdominal pain, vomiting
DX Deep Vein Thrombosis Video Routine
03/10/25 14:00
0.9% Sodium Chloride 1000 ml [Nss] 1,000 ml IV 100 mls/hr
Pantoprazole 80 mg/100 ml Nss [Protonix] 80 mg in 100 ml IV Q10H
03/10/25 16:00
Lactic Acid Q6H
03/10/25 19:03
H&H Q6H
03/10/25 22:00
Lactic Acid Q6H
03/11/25 01:03
H&H Q6H
03/11/25 06:00
Complete Blood Count/No Diff IN AM
Comprehensive Metabolic Panel IN AM
03/12/25 11:00
DC Protocol for Telemetry ONCE
Abnormal Lab Results
03/10/25 03/10/25 03/10/25
06:59 08:07 08:31
WBC 32.5 H 10^3/uL
(4.8-10.8)
RDW 14.6 H %
(11.5-14.5)
MPV 11.1 H fL
(7.4-10.4)
Abs Immat Gran (auto) 0.4 H 10^3/uL
(0-0.05)
Absolute Neuts (auto) 28.7 H 10^3/uL
(1.4-6.5)
Absolute Monos (auto) 2.0 H 10^3/uL
(0.1-0.6)
Immature Gran % 1.2 H %
(0-0.5)
Neutrophils % 88.2 H %
(42.2-75.2)
Lymphocytes % 4.2 L %
(20.5-51.1)
Sodium 131 L D mmol/L
(135-145)
BUN 23 H mg/dl
(9-20)
Glucose 269 H mg/dl
(70-99)
Lactic Acid 2.2 H mmol/L
(0.7-2.0)
Urine Ketones 2+ A
(Negative)
Ur Occult Blood Reflex 3+ A
(Negative)
Urine RBC 3-6 A /HPF
(0-2)
Urine Glucose 4+ A
(Negative)
Urine Albumin (Reflex) 2+ A
(Neg - Trace)
03/10/25 06:59
03/10/25 06:59
Vital Signs
Initial and Last Documented VS:
Initial Vital Signs
Temp Pulse Resp BP Pulse Ox
97.2 F 132 24 186/120 99
03/10/25 06:31 03/10/25 06:31 03/10/25 06:31 03/10/25 06:31 03/10/25 06:31
Last Documented Vital Signs
Temp Pulse Resp BP Pulse Ox
98.2 F 132 19 148/101 97
03/10/25 13:20 03/10/25 13:20 03/10/25 13:20 03/10/25 10:30 03/10/25 13:20
MDM/Problems Addressed
MDM/Problems Addressed:
Patient evaluated immediate upon arrival. Patient started on IV fluid bolus along with medications.
H&H noted, as well as significant leukocytosis. Patient reports mild improvement symptoms after treatment. Blood pressure remained stable.
Discussed with on-call GI physician (Dr. Fuchs) -recommend starting patient on Protonix infusion, as well as repeating CT abdomen pelvis with contrast, secondary to significant leukocytosis with ongoing symptoms. Does not recommend p.o. contrast,
as it may exacerbate his vomiting symptoms. Will withhold antibiotics at this time.
Critical care statement: A total of 40 minutes of critical care time was provided for this patient. This includes management of unstable vital signs, evaluation of the patient at bedside, reviewing the patient's pertinent medical records, discussion
with consultants, review of old EKGs and review of pertinent medical records. This time with separate from time utilized to perform the aforementioned documented procedures
*Pulse Oximetry
SaO2: 99
Oxygen Mode of Delivery: Room air
Patient hypoxic: no
*EKG
Interpreted by ED Provider?: Yes
EKG Intrepretation Date: 03/10/25
Heart Rate: 120
Rate: tachycardiac
Rhythm: sinus
Interval: normal QT interval
QRS Pattern: right bundle branch block
*Critical Care Note
Total Time (30-74mins, 75-104mins- exclusive of procedures): 40 min
ED Attending Note
-
Portions of this chart may have been created with voice recognition software.� Occasional wrong word or��sound alike� substitutions may have occurred due to the inherent limitations of voice recognition software.
Discharge Plan
Departure
Patient Disposition: Admit
Date of Disposition: 03/10/25
Time of Disposition: 08:01
Admit to: IMU
Presentation/result/management discussed w/ accepting MD/DO: Hospitalist
Discharge Problem:
GI bleed
Interventions
Interventions:
*Risk Screen - Suicide Last Done: 03/10/25 06:31
*General Assessment Last Done: 03/10/25 06:31
*Neglect/Abuse Screening Last Done: 03/10/25 06:31
*ED- Fall Risk Assessment Last Done: 03/10/25 06:31
*ED COVID-19 Vaccine History Last Done: 03/10/25 06:31
*Nursing Disposition Last Done: 03/10/25 13:14
TG-Lqfdah-Vnlihqclxa Assessment Last Done: 03/10/25 07:26
ED- Cardiac Assessment Last Done: 03/10/25 07:25
ED- Pulmonary Assessment Last Done: 03/10/25 07:25
Discharge Date and Time
Discharge Date/Time: 03/10/25 13:15
[2025-03-10] MEDS: NSS 1000 IV ×2 (06:58→13:27)
[2025-03-10] MEDS: ZOFRAN 8 MG IV (06:59)
[2025-03-10] MEDS: PROTONIX IV 80 MG IV (07:04)
[2025-03-10] MEDS: PROTONIX 100 IV ×2 (07:04→17:33)
[2025-03-10] MEDS: DILAUDID 0.5 MG IV ×2 (07:05→07:24)
[2025-03-10 07:21] LABS: APTT 24.7 Sec (23.4-35.0); INR 1.09; PT 14.6 Sec (11.4-14.6)
[2025-03-10 07:28] LABS: ALT (SGPT) 18 U/L (0-50); AST (SGOT) 20 U/L (17-59); Albumin 4.2 g/dl (3.5-5.0); Alkaline Phosphatase 86 U/L (38-126); Blood Urea Nitrogen 23 mg/dl (9-20); Calcium 8.9 mg/dl (8.4-10.2); Carbon Dioxide 22 mmol/L (22-30); Chloride 100 mmol/L (98-107); Estimated Creatinine Clearance 108 ml/min; Glucose 269 mg/dl (70-99); Magnesium 1.7 mg/dl (1.6-2.3); Potassium 3.5 mmol/L (3.5-5.1); Sodium 131 mmol/L (135-145); Total Protein 7.2 g/dl (6.3-8.2); eGFR > 60.00
[2025-03-10 07:43] LABS: Hematocrit 49.6 % (39.0-52.0); Hemoglobin 16.9 g/dL (13.0-18.0); Mean Corp Hgb Conc. 34.1 g/dL (33.0-37.0); Mean Corpuscular Volume 86.0 fL (80.0-94.0); Platelet Count 204 10^3/uL (130-400); Red Cell Dist. Width 14.6 % (11.5-14.5)
[2025-03-10] MEDS: NSS 500 IV (08:05)
[2025-03-10 08:11] LABS: Nucleated Red Blood Cells % 0 % (-)
[2025-03-10 08:23] LABS: Urine Character Clear (Clear)
--- NOTE | 2025-03-10 08:38 | PHANOTE ---
med rec note- patient said he does not know his medication and i should call [facility]. [facility] has not filled any medication for the year of 2024 expect for Trelegy and lasix for 90 days back in 11/03/24. patient has no current fill that would last him to
the current date.
-called methadone clinic and received fax of current dose for patient
[2025-03-10] MEDS: ZOFRAN 4 MG IV ×3 (08:42→19:29)
--- NOTE | 2025-03-10 10:15 | CM ---
Patient seen at bedside in ED. Patient stated that he lives with his parents in a 2 story home and his grandmother is also living in the home. Patient father states that his mother in law is 103. Patient stated that he has a nebulizer at home and
that his PCP is Dr. Jones and that he uses [facility] in [place]. Patient goes to [facility] and has methadone daily. Patient complaining of pain and medical work up in progress per physician. CM will continue to follow for discharge planning
needs.
Plan; home with follow up at [facility] and family supports.
--- NOTE | 2025-03-10 10:28 | HPS.HSE ---
Addendum entered and electronically signed by Mai Jefferson MD 03/10/25 11:59:
I personally performed a history and physical exam of the patient and discussed management with the resident. I reviewed the resident's note and agree with the documented findings and plan of care HPI/CC.
GENERAL: well developed, well nourished, male in some distress--appears uncomfortable
HEENT: NC/AT--dry mucous membranes
HEART: regular rate and rhythm, +S1, +S2--tachycardic
LUNGS : clear to auscultation bilaterally
ABDOM: soft, tender diffusely--worse in right upper and midepigastrium, nondistended, + bowel sounds
EXT: no cyanosis, clubbing, or edema
NEUROLOGIC: grossly intact
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
Yemi)--CT with mildly distended gallbladder --check US--await GI, likely needs EGD--NPO/IVF/pain control/PPI drip--rechecking lipase--start zosyn--follow cultures
Hyponatremia-- Secondary to intractable vomiting and hypovolemia --trend
History of opioid use disorder--no IV--snorting heroin/fentanyl--clean and going to [facility] for methadone dosing--Dr. Madsen called [facility] to confirm methadone dosing of 160 mg daily. Patient was dosed on morning of admission 03/10/2025. Continue
dosing while admitted.
Ecr-xncjusd-wzhjvqqqo diabetes mellitus-- Hold oral medications including Jardiance- Insulin sliding scale
Essential hypertension---Hold home antihypertensives after med rec while NPO- As needed hydralazine
History of nontoxigenic C. difficile-- Will start prophylactic oral vancomycin
Paroxysmal A-fib-- Currently sinus tach- On no chronic anticoagulation
PAD-Status post femoral bypass-- Continue aspirin 81 when no longer n.p.o.
Bilateral adrenal hyperplasia- Follow-up outpatient with primary recommended
COPD- Not in acute exacerbation
Current smoker- Declines nicotine patch
GERD-On PPI drip
HFimpEF--agree no acute exacerbation--cont maintenance IVF--- Continue Lasix when able to take p.o.
Pericarditis
Kidney stone
Sleep apnea on CPAP
PAD: Holding Asp 81 while NPO
Diverticulitis
Colonic polyps
DVT proph--SCDs
CODE STATUS-- DNR
Original Note:
Family Physician
-
Family Physician: Karen Jones DO
Chief Complaint
-
Intractible vomiting, hematemesis
History of Present Illness
54 year old male with history of GERD, esophagitis/esophageal tear/stenosis/Boerhaave's (2021), recurrent vomiting, chronic pain/opioid use disorder on 160mg daily methadone via [facility], paroxysmal afib, CHF, COPD, HTN, hypercholesterolemia,
ztg-gfzdjcg-cxisgdtod diabetes mellitus, pericarditis, kidney stone, ELA on CPAP, PAD status post femoral bypass, who presents with intractable vomiting, crampy abdominal pain, and hematemesis x 2 days. He was seen for abdominal pain/vomiting 2
days ago at [facility] where he had WBC 17 with stable vitals. He was presumed to have gastroenteritis, and discharged on Zofran.
Symptoms worsened since then and he presents today with the above symptoms. He describes generalized abdominal pain worse in right lower quadrant, occasional radiation to the back, chills/sweats, poor oral intake over the past two days. He denies
fever, NSAID use, trauma, recent travel, sick contacts. He has never lived outside of the [place]. Of note he presents with recurrent vomiting and abdominal pain more than once a month. In 2021, he had an esophageal tear and was evaluated/treated at
[facility]. He did not have any surgical intervention at the time, but required esophageal dilation for stenosis following his treatment, every 3 months or so. He has not returned for dilation in about 6 to 8 months.
He has no known history of gastroparesis. He religiously follows his methadone regimen with no missed doses. He is not on any anticoagulation for A-fib, denies any family history of bleeding/clotting disorder, nose bleeds, or NSAID use.
Medical History
Past Medical History
Past Medical History: Reports Arrhythmia (Paroxysmal A-fib), Cancer (Melanoma), CHF, COPD, GERD, HTN, Hypercholesterolemia, NIDDM, Psychiatric (Opioid use disorder on methadone) and Other (Anxiety, PAD, pericarditis, diverticulitis, colon polyps,)
Past Surgical History: Reports Orthopedic (Left shoulder surgery right shoulder surgery) and Other (Right femoral bypass)
Social History
Tobacco: Smoker (1 pack a day)
Alcohol: None
Drug: Former User (Heroin/fentanyl (snorting)) and Marijuana (Current weekly vaping of medical marijuana for anxiety/pain)
Personal:
Living: With Family
Employment: Employed
Family History
Family History: Cancer (Mother had breast cancer, mother had PE)
Allergies / Home Medications
Allergies reflects when Allergies were last updated in [employer].
Home Medications with original date entered in [employer]
Allergy/Medication List:
Allergies
Allergy/AdvReac Type Severity Reaction Status Date / Time
acetaminophen Allergy Rash Verified 03/08/25 14:06
amlodipine besylate (From Allergy Tongue Verified 03/08/25 14:06
Norvasc) Swelling
erythromycin base Allergy Hives Verified 03/08/25 14:06
ibuprofen Allergy Hives Verified 03/08/25 14:06
Penicillins Allergy Hives/tolerates Verified 03/08/25 14:06
ceftriaxone
If medication reconciliation has not been performed, why?: Other (Med rec incomplete. Please check updated med rec)
Review of Systems
-
History Source: Patient
Constitutional: Reports Chills (And sweats); Denies Fever
Respiratory: Reports Trouble Breathing and Other (Occasional chest pain)
Cardiac: Reports Chest Pain (Occasional); Denies Palpitations
Abdomen/GI: Reports Abdominal Pain, Nausea, Vomiting, Anorexia and Other (pink granular blood in vomit); Denies Diarrhea, Bloody Stools or Black Stools
: Denies Dysuria, Difficulty Voiding, Urgency or Bleeding
Musculoskeletal: Reports Other (Right lower back pain)
Neurological: Denies Dizzy or Headache
Physical Exam
Vital Signs
Vital Signs
Temp Pulse Resp BP Pulse Ox
97.2 F 113 18 136/99 93
03/10/25 06:31 03/10/25 09:30 03/10/25 09:30 03/10/25 10:04 03/10/25 09:30
Physical Exam
General: Well Developed and Pain
HEENT: NormoCephalic, Anicteric, Atraumatic and Other (Dry mucous membranes)
Respiratory: Clear and Non Labored Respirations; No Wheezes, Rales, Rhonchi or Crackles
Cardiac: S1/S2; No Murmur, Rub, Gallop, Peripheral Edema or Calf Tenderness
GI: Soft, Non Distended, Normal Bowel Sounds and Tender (Generalized tenderness, worse in right upper and left upper quadrants)
Genito-urinary: No costovertebral tender
Musculoskeletal: No Clubbing, No Cyanosis and No Edema
Skin: Warm and Dry
Neuro: Awake, Alert and Oriented
Laboratory Results
-
03/10/25 06:59
03/10/25 06:59
Laboratory Results
PT 14.6 Sec (11.4-14.6) 03/10/25 06:59
INR 1.09 03/10/25 06:59
APTT 24.7 Sec (23.4-35.0) 03/10/25 06:59
Lactic Acid 2.2 mmol/L (0.7-2.0) H 03/10/25 08:31
Total Bilirubin 1.1 mg/dl (0.2-1.3) 03/10/25 06:59
AST 20 U/L (17-59) 03/10/25 06:59
ALT 18 U/L (0-50) 03/10/25 06:59
Alkaline Phosphatase 86 U/L (38-126) 03/10/25 06:59
Impression/Plan
-
IMPRESSION:
54 year old male with history of GERD, esophagitis/esophageal tear/stenosis/Boerhaave's (2021), recurrent vomiting, chronic pain/opioid use disorder on 160mg daily methadone via [facility], paroxysmal afib, CHF, COPD, HTN, hypercholesterolemia,
rfh-xqkqtvo-xcchyjpiv diabetes mellitus, pericarditis, kidney stone, ELA on CPAP, PAD status post femoral bypass, who presents with sepsis secondary to duodenitis, hematemesis, intractable vomiting, abdominal pain
PLAN:
Sepsis secondary to duodenitis: Tachycardia, leukocytosis:
Upper GI bleed, hematemesis, intractable vomiting:
CT abdomen pelvis with duodenitis
History of Boerhaave syndrome with stenosis requiring serial dilations with Yemi
- Received 1500 bolus normal saline in ED. Will hold off on further sepsis hydration protocol given history of CHF.
-Start Zosyn
- Maintenance IV fluids 100 mL/h. Pain control, nausea control.
- PPI drip
- Check lipase
- Admit to telemetry
- Stable coags. Trend CBC. Transfuse for hemoglobin under 7
- NPO. GI consult. Possible endoscopy
- Notable right upper quadrant tenderness on exam. Will check abdominal ultrasound for potential gallbladder involvement
Hyponatremia:
- Secondary to intractable vomiting.
- Monitor with IVF
History of opioid use disorder:
- None IV drug use/snorting heroin/fentanyl
- In treatment with [facility]. Called [facility] to confirm methadone dosing of 160 mg daily. Patient was dosed on morning of admission 03/10/2025. Continue dosing while admitted.
Yaz-haxribd-ffbjyvqxj diabetes mellitus:
- Hold oral medications including Jardiance
- Insulin sliding scale
Essential hypertension:
-Hold home antihypertensives after med rec while NPO
- As needed hydralazine
History of nontoxigenic C. difficile:
- Will start prophylactic oral vancomycin
Paroxysmal A-fib:
- Currently sinus tach
- On no chronic anticoagulation
PAD:
Status post femoral bypass.
- Continue aspirin 81 when no longer n.p.o.
Bilateral adrenal hyperplasia:
- Follow-up outpatient with primary recommended
COPD:
- Not in acute exacerbation
Current smoker:
- Declines nicotine patch
GERD:
-On PPI drip
HFimpEF:
- Not in acute exacerbation. Does not appear fluid overloaded
- Continue Lasix when able to take p.o.
- Cautious with IV fluids, monitor fluid status
Pericarditis
Kidney stone
Sleep apnea on CPAP
PAD: Holding Asp 81 while NPO
Diverticulitis
Colonic polyps
DVT prophylaxis: SCDs
CODE STATUS: DNR
[2025-03-10] MEDS: DILAUDID 1 MG IV ×3 (10:37→19:40)
[2025-03-10 11:59] LABS: Lipase 23 U/L (23-300)
--- NOTE | 2025-03-10 12:11 | CON.GI ---
Addendum entered and electronically signed by Litzy Fuchs MD 03/10/25 20:35:
I saw and examined the patient.
The Resident's note was reviewed and I agree with the note.
Comment: 54-year-old male with past medical history erosive esophagitis noncompliant with PPI, ? Eosinophilic esophagitis, esophageal strictures with ? dilation in the past at [place], h/o Boerhaave's, diabetes, opiate use on methadone,
nonischemic cardiomyopathy with improved EF, PAD, daily cannabis use presenting with complaints of abdominal pain, nausea, vomiting and hematemesis. He reports that abdominal pain started couple of days ago with nausea and vomiting, initially
nonbilious vomiting and then this morning had hematemesis. No further episodes since admission. He reports having these episodes once or twice a month, unclear triggers, each episode would last for a couple of days but usually does not have
hematemesis. He has been seen multiple times in past last in February 2024 with vomiting with concern for ischemia and Boerhaave's in 2021. He has been followed by Dr. Chinchilla for serial dilations. He was admitted in April 2024 with elevated
LFT's with bili 1.4, AST 82, ALT 285, alk phos 85. Imaging with US with concern for CBD dilation 1.2 cm but no cholelithiasis,or acute cholecystitis. Ct was noted with colitis. MRCP did not show any evidence of choledocholithiasis and LFTs
improved suggesting a passed stone. He also has history of C. difficile in the past. Colonoscopy performed May 2024, poor prep, diverticulosis noted.
This admission, labs show leukocytosis with white count of 32.5, hemoglobin of 16.9, platelets of 204, INR is 1, CMP unremarkable except sodium of 131
CT scan of the abdomen pelvis with contrast shows thickened or inflamed appearance of the duodenum suspicious for duodenitis, mildly distended gallbladder, subsequent abdominal ultrasound showed distended gallbladder without any gallstones, mild
biliary dilation,Chest x-ray done for leukocytosis did not show any evidence of active cardiopulmonary disease.
- History of erosive esophagitis noncompliant with PPI now coming in with abdominal discomfort nausea, vomiting and subsequent hematemesis
currently hemodynamically stable, hemoglobin stable, no further hematemesis
Symptoms could be related to cannabinoid hyperemesis as he does have these episodically and chronic methadone use causing slow gastric emptying
Continue PPI drip
Okay for clear liquid diet, will advance as tolerated
Eventual upper endoscopy prior to discharge to evaluate the duodenal thickening noted on CT scan
Reviewed with patient the importance of being compliant with PPI
If esophageal dilation is needed, he can follow-up at [facility] with Dr. Chinchilla
- Leukocytosis, unclear etiology
Blood cultures pending
Currently on broad-spectrum antibiotic
On vancomycin 125 mg twice a day for history of C. difficile
Will follow
Original Note:
Consultation
-
Date/Time Consultation Requested: 03/10/2025
Date/Time Consultation Performed: 03/10/2025
Requesting Provider: Maribel Madsen
Performing Provider: Litzy Fuchs
Reason for Consultation: Duodenitis, hematemesis
Medical History
Chief Complaint / HPI
Chief Complaint: Intractable nausea/vomiting/abdominal pain
History of Present Illness:
Christian is a 54 year old male with a history of esophagitis/esophageal tear/stenosis/Boerhaave's syndrome (2021), chronic pain/opioid use disorder on 160mg daily methadone with [facility], paroxysmal afib (not on OAC), CHF, COPD, HTN,
hypercholesterolemia, NIDDM, ELA on CPAP, PAD s/p femoral bypass, who presents with intractable vomiting, crampy abdominal pain, and hematemesis x 2 days. Of note, he was seen for abdominal pain/vomiting 2 days ago at [facility] ED where he had WBC count
of 17 and stable vitals. He was presumed to have gastroenteritis, and discharged on Zofran. However, his symptoms worsened and he returned. He reports that the vomiting was initially containing previously eaten food, but then progressed to clear
liquid and then finally pink and frothy, concerning for blood.
He reports a chronic history of intermittent episodes of intractable nausea/vomiting which will last for a few days and then resolve on its own. He is fine between these episodes, with normal eating, drinking and bowel movements. He has never had
associated diarrhea, bloody stools, fevers, chills, joint pain during these episodes. He does report chronic Marijuanna use every 1-2 weeks and is on chronic methadone as above. He has been following with [facility] for intermittent esophageal
dilation, but has not been seen in over 1 year for EGD. He has not been on a PPI. He has not had any weight loss.
On admission CT scan was obtained which demonstrated duodenitis. Abd US was done which was unrevealing. He had leukocytosis of 32.5, afebrile, tachycardic with normal LFTs. He was presumed septic, given IVF, IV abx, anti-emetics, blood cultures
obtained.
GI was consulted for duodenitis.
Past Medical History
Past Medical History: Other (see hpi)
Past Surgical History: Other
Social History
Tobacco: Smoker (1ppd)
Alcohol: None
Drug: Former User (former opioid use, on chronic methadone) and Marijuana
Family History
Family History: Reviewed & Not Pertinent
Allergies / Home Medications
Allergy/AdvReac Type Severity Reaction Status Date / Time
acetaminophen Allergy Rash Verified 03/08/25 14:06
amlodipine besylate (From Allergy Tongue Verified 03/08/25 14:06
Norvasc) Swelling
erythromycin base Allergy Hives Verified 03/08/25 14:06
ibuprofen Allergy Hives Verified 03/08/25 14:06
Penicillins Allergy Hives/tolerates Verified 03/08/25 14:06
ceftriaxone
�Medication �Instructions �Recorded
sacubitril 24 mg-valsartan 26 mg 1 tab PO BID Heart Failure 04/29/22
tablet (Entresto)
atorvastatin 10 mg tablet 10 mg PO DAILY High cholesterol 10/21/22
methadone 10 mg/mL oral 160 mg PO DAILY SUBSTANCE USE 08/21/23
concentrate (Methadone Intensol) DISORDER
carvedilol 6.25 mg tablet (Coreg) 6.25 mg PO BID Blood Pressure 03/17/24
furosemide 40 mg tablet 20 mg PO DAILY Fluid 06/26/24
Retention/Swelling
Medical Marijuana 1 puff PO DAILYPRN PRN 08/03/24
anxety/stress
fluoxetine 10 mg capsule 10 mg PO DAILY 03/10/25
ondansetron 4 mg disintegrating 4 mg PO Q8HPRN PRN nausea and 03/10/25
tablet vomiting
Review of Systems
-
History Source: Patient and Family
All other systems: A 12 pt ROS was Negative except as stated above in HPI
Vital Signs
Temp Pulse Resp BP Pulse Ox
97.2 F 108 23 148/101 94
03/10/25 06:31 03/10/25 10:30 03/10/25 10:30 03/10/25 10:30 03/10/25 10:30
Physical Exam
Exam
General: Well Developed, Well Nourished and Other (uncomfortable, nauseous)
HEENT: Normocephalic, Anicteric, Moist Mucous Membranes and Atraumatic
Respiratory: Clear and Non Labored Respirations; Negative Wheezes, Rales or Rhonchi
Cardiac: S1/S2 and Regular Rhythm; Negative Murmur or Rub
Breast: N/A
GI: Soft, Non Distended, Normal Bowel Sounds and Tender (diffuse abdominal tenderness, worse in upper abdomen)
Rectal: Deferred by Provider
Genito-urinary: No Costovertebral Tender
Musculoskeletal: No Clubbing, No Cyanosis and No Edema
Skin: Warm and Dry
Neuro: AO x 3
Psych: Other (cranky due to discomfort/nausea)
Results
WBC 32.5 10^3/uL (4.8-10.8) H 03/10/25 06:59
Hgb 16.9 g/dL (13.0-18.0) 03/10/25 06:59
Hct 49.6 % (39.0-52.0) 03/10/25 06:59
MCV 86.0 fL (80.0-94.0) 03/10/25 06:59
Plt Count 204 10^3/uL (130-400) 03/10/25 06:59
Absolute Neuts (auto) 28.7 10^3/uL (1.4-6.5) H 03/10/25 06:59
PT 14.6 Sec (11.4-14.6) 03/10/25 06:59
INR 1.09 03/10/25 06:59
APTT 24.7 Sec (23.4-35.0) 03/10/25 06:59
Sodium 131 mmol/L (135-145) L D 03/10/25 06:59
Potassium 3.5 mmol/L (3.5-5.1) 03/10/25 06:59
Chloride 100 mmol/L (98-107) 03/10/25 06:59
Carbon Dioxide 22 mmol/L (22-30) 03/10/25 06:59
BUN 23 mg/dl (9-20) H 03/10/25 06:59
Creatinine 0.7 mg/dL (0.7-1.3) 03/10/25 06:59
Calcium 8.9 mg/dl (8.4-10.2) 03/10/25 06:59
Total Bilirubin 1.1 mg/dl (0.2-1.3) 03/10/25 06:59
AST 20 U/L (17-59) 03/10/25 06:59
ALT 18 U/L (0-50) 03/10/25 06:59
Alkaline Phosphatase 86 U/L (38-126) 03/10/25 06:59
Lipase 23 U/L (23-300) 03/10/25 06:59
Diagnostic Image Results:
CT Abd/pelvis W Iv Cont:
IMPRESSION:
1. Thickened/inflamed appearance of the duodenum suspicious for duodenitis.
2. Nonobstructing bilateral renal calculi.
3. Mildly distended gallbladder filled with hyperdense material, likely vicarious excretion of contrast. There is also some hyperdense material within the distal common bile duct without upstream dilatation.
4. Additional findings above.
US Abdomen Complete/Upper:
IMPRESSION:
1. Distended gallbladder without evidence for cholelithiasis.
2. Mild biliary dilatation.
3. Bilateral nonobstructing intrarenal calculi.
Prior GI Procedures:
EGD:
Procedure: Upper GI endoscopy
Indications: Hematemesis
Providers: Mika Martin MD (Doctor), Lila Peña, KELSIE, Coby
KELSIE Davis, Bee Chen, KELSIE, Harvey Hernandez,
(Anesthesia Staff), Jeanne Gonzales CRNA
(Anesthesia Staff)
Referring MD: Abelardo Amaro DO (Referring MD)
Medicines: General Anesthesia
Complications: No immediate complications.
Impression: - Deep mucosal tear at the gastroesophageal junction,
but difficult to fully evaluate due to large overlying
clot.
- Discolored dusky mucosa in the entire esophagus.
- Hematin (altered blood/xaqnqk-uujntd-lagy material)
in the stomach.
- Non-bleeding duodenal ulcers with no stigmata of
bleeding.
- No specimens collected.
Recommendation: - Transfer to tertiary center for management of distal
esophageal tear, leukocytosis, ischemic changes in
proximal esophagus. Suspect Booerhave's injury
Procedure: Upper GI endoscopy
Indications: Dysphagia, Hematochezia
Providers: Chuck Hagan MD (Doctor), Aida Easton,
RN, Talia Etienne, Pocket Marker, Chuck Coleman CRNA
(Anesthesia Staff), Shaan Crowe MD (Anesthesia
Staff)
Referring MD: Chuck Hagan MD (Referring MD)
Medicines: Monitored Anesthesia Care
Complications: No immediate complications.
Impression: - LA Grade D esophagitis with bleeding as describe
above, friable, with areas of stenosis including GE
junction which could not be passed though was patent.
Possible change of EoE noted. Biopsied.
- Few areas of Esophageal stenoses including GE
junction.
Recommendation: - LIkely healing severe possibly ischemic esophagitis
prior. Now appears healthy appearing, though friable,
with some clot throughout the esophagus. Will await
biopsies, though EoE seems less likely. Clears for
now, continue PPI BID, add carafate suspension,
smoking cessation. If continues to improve then repeat
EGD in 6 week.
Colonoscopy:
Procedure: Colonoscopy
Indications: Surveillance: Personal history of adenomatous polyps
on last colonoscopy > 3 years ago, Last colonoscopy:
July 2019
Providers: Curtis Rivera MD (Doctor), Chuck Zamora
PAULINA Coleman (Anesthesia Staff), Huey Davidson MD
(Anesthesia Staff)
Referring MD: Karen Jones Do (Referring MD)
Medicines: See the Anesthesia note for documentation of the
administered medications
Complications: No immediate complications.
Impression: - Preparation of the colon was inadequate with an
extensive amount of stool in the rectum, in the
sigmoid colon and in the descending colon resulting.
The procedure was subsequently aborted
- Diverticulosis in the sigmoid colon and in the
descending colon.
- No specimens collected.
Recommendation: - Discharge patient to home (with escort).
- Resume previous diet today.
- Continue present medications.
- Repeat colonoscopy within 3 months for surveillance
of colon polyps. Patient will require two day bowel
prep to ensure adequate prep at time of next
colonoscopy
- Patient has a contact number available for
emergencies. The signs and symptoms of potential
delayed complications were discussed with the patient.
Return to normal activities tomorrow. Written
discharge instructions were provided to the patient.
- The findings and recommendations were discussed with
the patient.
Assessment / Plan
-
Christian is a 54 year old male with a history of esophagitis/esophageal tear/stenosis/Boerhaave's syndrome (2021), chronic pain/opioid use disorder on 160mg daily methadone with [facility], paroxysmal afib (not on OAC), CHF, COPD, HTN,
hypercholesterolemia, NIDDM, ELA on CPAP, PAD s/p femoral bypass, with a history of recurrent bouts of similar sx who presents with intractable vomiting, crampy abdominal pain, and hematemesis x 2 days
#Intractable Nausea/vomiting
#Esophagitis
#Hematemesis
#Mild Duodenitis
#h/o Boerhaave Syndrome with stenosis requiring serial dilations at [place]
#h/o esophagitis
Given cyclical nature of nausea, vomiting, abdominal pain without other systemic or lower GI signs, along with periods of normalcy in between, and chronic history of methadone and marijuana, as well as EGD proven esophagitis without PPI treatment or
consistent follow up, would presume a multifactorial etiology of sx related to 1) marijuana induced hyperemesis, and 2) uncontrolled/untreated esophagitis, all exacerbated by 3) dysmotility secondary to chronic opioid use with Methadone.
- would c/w PPI ggt for now
- c/w IV anti-emetics as needed
- c/w IVF
- observe for sx of nausea/vomiting
- if reduced sx today and no new hematemesis, can try CLD as tolerated
Plan to wait until Thursday for EGD with bx.
Will need solid, consistent follow up with GI as outpatient -- can continue with Dr. Rivera and if needed or agreed, may need to go back to [place] for continued dilation of esophageal stricturing
-
-
Thank you for consultation and allowing me to participate in the patient's care. Please call the semiconductor packages tester GI physician during the after hours with any questions or concerns.
[2025-03-10] MEDS: ZOSYN 50 IV ×2 (13:26→17:18)
[2025-03-10 13:28] LABS: Glucose - Point of Care 172 mg/dl (70-99)
--- NOTE | 2025-03-10 14:29 | W.PN.UPDATE ---
Update Note
Progress Note Update
Pt has declined bringing his CPAP machine from home as well as declined to use hospital CPAP machine while admitted.
--- NOTE | 2025-03-10 14:30 | RESPNOTE ---
attempted to have the pt. sign a waiver for him to use his own CPAP machine as order.
pt stated he does not use his cpap at home as it makes him nauseous.
pt declined the use of hospital cpap at this time.
notified ordering physician Yifan Brady via TT.
[2025-03-10 15:00] LABS: Hematocrit 47.1 % (39.0-52.0); Hemoglobin 16.3 g/dL (13.0-18.0)
[2025-03-10] MEDS: FIRVANQ 125 MG PO ×2 (17:18→22:46)
[2025-03-10 18:11] LABS: Glucose - Point of Care 148 mg/dl (70-99)
[2025-03-10 20:09] LABS: Hematocrit 44.8 % (39.0-52.0); Hemoglobin 15.2 g/dL (13.0-18.0)
[2025-03-11 00:07] LABS: Glucose - Point of Care 126 mg/dl (70-99)
[2025-03-11] MEDS: ZOSYN 50 IV ×4 (01:35→18:04)
[2025-03-11] MEDS: NSS 1000 IV (01:35)
[2025-03-11] MEDS: PROTONIX 100 IV ×3 (01:35→21:39)
[2025-03-11] MEDS: DILAUDID 1 MG IV ×4 (01:38→19:10)
[2025-03-11] MEDS: ZOFRAN 4 MG IV ×3 (01:38→14:19)
--- NOTE | 2025-03-11 02:04 | PTCARENOTE ---
Patient has been agitated with blood draws throughout shift, states 'That's enough, it's too much. I have nowhere to go, I have already been stuck everywhere. I'm calling it.' Refusing to have H&H drawn at this time, requesting it carry over to be
drawn with AM labs. Will monitor.
[2025-03-11 03:35] VITALS: BP 155/91
[2025-03-11 06:42] LABS: Glucose - Point of Care 139 mg/dl (70-99)
[2025-03-11] MEDS: METHADONE 100 MG/10 ML 160 MG PO (07:41)
[2025-03-11] MEDS: FIRVANQ 125 MG PO ×2 (07:43→21:39)
[2025-03-11 07:48] VITALS: BP 169/91
[2025-03-11 08:37] LABS: ALT (SGPT) 14 U/L (0-50); AST (SGOT) 21 U/L (17-59); Albumin 3.6 g/dl (3.5-5.0); Alkaline Phosphatase 67 U/L (38-126); Blood Urea Nitrogen 18 mg/dl (9-20); Calcium 8.4 mg/dl (8.4-10.2); Carbon Dioxide 25 mmol/L (22-30); Chloride 106 mmol/L (98-107); Estimated Creatinine Clearance 108 ml/min; Glucose 126 mg/dl (70-99); Magnesium 2.0 mg/dl (1.6-2.3); Potassium 3.7 mmol/L (3.5-5.1); Sodium 137 mmol/L (135-145); Total Protein 6.4 g/dl (6.3-8.2); eGFR > 60.00
[2025-03-11 08:55] LABS: Hematocrit 44.1 % (39.0-52.0); Hemoglobin 14.8 g/dL (13.0-18.0); Mean Corp Hgb Conc. 33.6 g/dL (33.0-37.0); Mean Corpuscular Volume 88.6 fL (80.0-94.0); Red Cell Dist. Width 14.6 % (11.5-14.5)
[2025-03-11 09:12] LABS: Platelet Count 154 10^3/uL (130-400)
--- NOTE | 2025-03-11 09:55 | W.PN.HOSP.TC ---
Today's Communication/Plan
-
clears
transfer to med/surg
PPI drip
Assessment / Plan
Assessment / Plan
pt is a 54 year old male
Sepsis secondary to duodenitis--improving hematemesis likely due to retching and possible small MWT--nothing further on admission (History of Boerhaave syndrome with stenosis requiring serial dilations with [facility])--CT with mildly distended
gallbladder --US same--apprec GI, EGD with bx Thursday--clears/PPI drip--cont zosyn--follow cultures
Hyponatremia-- Secondary to intractable vomiting and hypovolemia --trend
History of opioid use disorder--no IV--snorting heroin/fentanyl--clean and going to [facility] for methadone dosing, cont dose as per [facility] (160mg)
Tmd-phwuzli-tctaqvczz diabetes mellitus-- Hold oral medications including Jardiance- Insulin sliding scale
Essential hypertension---Hold home antihypertensives after med rec while NPO- As needed hydralazine
History of nontoxigenic C. difficile-- Will start prophylactic oral vancomycin
Paroxysmal A-fib-- Currently sinus tach- On no chronic anticoagulation
PAD-Status post femoral bypass-- Continue aspirin 81 when no longer n.p.o.
Bilateral adrenal hyperplasia- Follow-up outpatient with primary recommended
COPD- Not in acute exacerbation
Current smoker- Declines nicotine patch
GERD-On PPI drip
HFimpEF--agree no acute exacerbation--cont maintenance IVF--- Continue Lasix when able to take p.o.
Pericarditis
Kidney stone
Sleep apnea on CPAP
PAD: Holding Asp 81 while NPO
Diverticulitis
Colonic polyps
DVT proph--SCDs
CODE STATUS-- DNR
Anticipated Discharge: > 48 hours
Subjective/Interval History
-
Date of Service: March 11, 2025
pt feeling better--OK to try clears
Objective Data
-
Labs:
Laboratory Results
03/11/25 03/11/25
01:03 07:13
WBC 19.3 H
Hgb Pending 14.8
Hct Pending 44.1
Plt Count 154 D
Sodium 137
Potassium 3.7
Chloride 106
Carbon Dioxide 25
BUN 18
Creatinine 0.7
Glucose 126 H
Calcium 8.4
Total Bilirubin 1.1
AST 21
ALT 14
Alkaline Phosphatase 67
Vital Signs:
max temp for 24 hours
03/10/25
19:55
Temp 99 F
Vital Signs
Temp Pulse Resp BP Pulse Ox
98.2 F 99 16 169/91 97
03/11/25 07:48 03/11/25 07:48 03/11/25 07:48 03/11/25 07:48 03/11/25 07:48
I&O
03/10/25 03/11/25 03/12/25
06:59 06:59 06:59
Intake Total 3220 / 3220
Output Total 2225 / 2225
Balance 995 / 995
Review of Systems
-
All other systems: Reviewed and negative
Physical Exam
-
General: Well Developed, Well Nourished and No Apparent Distress
HEENT: Normocephalic and Atraumatic
Respiratory: Clear to Auscultation; Negative Wheezes or Rhonchi
Cardiac: Regular Rhythm and S1/S2; Negative Murmur
GI: Soft, Nontender, Nondistended and Normal Bowel Sounds
Musculoskeletal: No Clubbing, No Cyanosis and No Edema
Neuro: Awake and Alert
[2025-03-11 10:39] LABS: Glycohemoglobin (HgbA1c) 6.1 % (4.0-5.6)
[2025-03-11] MEDS: NSS IV (10:46)
[2025-03-11 11:57] LABS: Glucose - Point of Care 168 mg/dl (70-99)
[2025-03-11] MEDS: TUMS CHEWABLE TABLET 200 MG PO (12:42)
[2025-03-11] MEDS: NOVOLOG FLEXPEN-LOW RESISTANCE 1 UNITS SC (13:12)
--- NOTE | 2025-03-11 14:39 | W.PN.GI.CBS2 ---
Today's Communication / Plan
-
- would c/w PPI ggt for now
- c/w IV anti-emetics as needed
- c/w IVF
- observe for sx of nausea/vomiting
- if reduced sx today and no new hematemesis, okay for clear liquid diet
Plan for EGD with bx Thursday
Will need solid, consistent follow up with GI as outpatient -- can continue with Dr. Rivera and if needed or agreed, may need to go back to [place] for continued dilation of esophageal stricturing
Assessment / Plan
-
Christian is a 54 year old male with a history of esophagitis/esophageal tear/stenosis/Boerhaave's syndrome (2021), chronic pain/opioid use disorder on 160mg daily methadone with [facility], paroxysmal afib (not on OAC), CHF, COPD, HTN,
hypercholesterolemia, NIDDM, ELA on CPAP, PAD s/p femoral bypass, with a history of recurrent bouts of similar sx who presents with intractable vomiting, crampy abdominal pain, and hematemesis x 2 days
#Intractable Nausea/vomiting
#Esophagitis
#Hematemesis
#Mild Duodenitis
#h/o Boerhaave Syndrome with stenosis requiring serial dilations at [place]
#h/o esophagitis
Given cyclical nature of nausea, vomiting, abdominal pain without other systemic or lower GI signs, along with periods of normalcy in between, and chronic history of methadone and marijuana, as well as EGD proven esophagitis without PPI treatment or
consistent follow up, would presume a multifactorial etiology of sx related to 1) marijuana induced hyperemesis, and 2) uncontrolled/untreated esophagitis, all exacerbated by 3) dysmotility secondary to chronic opioid use with Methadone.
- would c/w PPI ggt for now
- c/w IV anti-emetics as needed
- c/w IVF
- observe for sx of nausea/vomiting
- if reduced sx today and no new hematemesis, okay for clear liquid diet
Plan for EGD with bx Thursday
Will need solid, consistent follow up with GI as outpatient -- can continue with Dr. Rivera and if needed or agreed, may need to go back to [facility] for continued dilation of esophageal stricturing
Subjective
Subjective
Date of Service: March 11, 2025
Patient reports having some stomach upset but no further episodes of vomiting. Tolerating clears
Objective
Data Reviewed
Laboratory Data:
Laboratory Results
03/11/25 07:13
03/11/25 07:13
Laboratory Results
PT 14.6 Sec (11.4-14.6) 03/10/25 06:59
INR 1.09 03/10/25 06:59
APTT 24.7 Sec (23.4-35.0) 03/10/25 06:59
Magnesium 2.0 mg/dl (1.6-2.3) 03/11/25 07:13
Total Bilirubin 1.1 mg/dl (0.2-1.3) 03/11/25 07:13
AST 21 U/L (17-59) 03/11/25 07:13
ALT 14 U/L (0-50) 03/11/25 07:13
Alkaline Phosphatase 67 U/L (38-126) 03/11/25 07:13
Lipase 23 U/L (23-300) 03/10/25 06:59
Vital Signs and I&O:
Vital Signs
Temp Pulse Resp BP Pulse Ox
98.2 F 99 16 169/91 97
03/11/25 07:48 03/11/25 07:48 03/11/25 07:48 03/11/25 07:48 03/11/25 07:48
I&O
03/10/25 03/11/25 03/12/25
06:59 06:59 06:59
Intake Total 3220 / 3220
Output Total 2225 / 2225
Balance 995 / 995
Physical Exam
Physical Exam
GI: Soft, Non Distended and Non Tender
[2025-03-11 15:52] VITALS: BP 175/98
[2025-03-11 17:16] LABS: Glucose - Point of Care 105 mg/dl (70-99)
[2025-03-11] MEDS: NOVOLOG FLEXPEN-LOW RESISTANCE SC (17:25)
[2025-03-11] MEDS: COMPAZINE 5 MG IV (21:39)
[2025-03-11] MEDS: COREG 6.25 MG PO (21:41)
[2025-03-11 21:58] LABS: Glucose - Point of Care 102 mg/dl (70-99)
[2025-03-11 23:30] VITALS: BP 133/74
[2025-03-12] MEDS: ZOSYN 50 IV ×5 (00:32→23:40)
[2025-03-12] MEDS: DILAUDID 1 MG IV ×5 (00:43→21:45)
[2025-03-12] MEDS: ZOFRAN 4 MG IV ×3 (00:56→15:05)
--- NOTE | 2025-03-12 03:44 | PTCARENOTE ---
Pt complained of nausea and abdominal pain and observed to be dry heaving. Zofran provided to pt during change of shift, pt requested something additional to help with the nausea. [facility] SANITARIAN ordered Compazine which was given. Pt encouraged to stay NPO, no
ice chips. Pt verbalizes improvement of symptoms and appears to be comfortable this time.
[2025-03-12 07:00] VITALS: BP 130/74
[2025-03-12 07:19] LABS: Glucose - Point of Care 112 mg/dl (70-99)
[2025-03-12] MEDS: NOVOLOG FLEXPEN-LOW RESISTANCE SC ×2 (08:14→16:35)
[2025-03-12 08:15] LABS: Hematocrit 40.2 % (39.0-52.0); Hemoglobin 13.6 g/dL (13.0-18.0); Mean Corp Hgb Conc. 33.8 g/dL (33.0-37.0); Mean Corpuscular Volume 88.4 fL (80.0-94.0); Platelet Count 148 10^3/uL (130-400); Red Cell Dist. Width 14.3 % (11.5-14.5)
[2025-03-12] MEDS: FLUSH (NSS) 2 FLUSH IV ×3 (08:20→17:08)
[2025-03-12] MEDS: PROTONIX 100 IV (08:23)
[2025-03-12] MEDS: FLUSH (NSS) 1 FLUSH IV ×3 (08:23→15:08)
[2025-03-12 08:34] LABS: Blood Urea Nitrogen 15 mg/dl (9-20); Calcium 8.4 mg/dl (8.4-10.2); Carbon Dioxide 27 mmol/L (22-30); Chloride 104 mmol/L (98-107); Estimated Creatinine Clearance 108 ml/min; Glucose 114 mg/dl (70-99); Magnesium 2.0 mg/dl (1.6-2.3); Potassium 3.8 mmol/L (3.5-5.1); Sodium 136 mmol/L (135-145); eGFR > 60.00
[2025-03-12] MEDS: METHADONE 100 MG/10 ML 160 MG PO (08:36)
[2025-03-12] MEDS: FIRVANQ 125 MG PO ×2 (08:43→20:12)
[2025-03-12] MEDS: COREG 6.25 MG PO ×2 (08:43→20:17)
[2025-03-12] MEDS: PROZAC 10 MG PO (08:43)
--- NOTE | 2025-03-12 11:27 | W.PN.GI.CBS2 ---
Today's Communication / Plan
-
- would c/w PPI ggt for now
- c/w IV anti-emetics as needed
- c/w IVF
- observe for sx of nausea/vomiting
- continue clear liquid diet
Plan for EGD with bx Thursday
Will need solid, consistent follow up with GI as outpatient -- can continue with Dr. Rivera and if needed or agreed, may need to go back to [place] for continued dilation of esophageal stricturing
Assessment / Plan
-
Christian is a 54 year old male with a history of esophagitis/esophageal tear/stenosis/Boerhaave's syndrome (2021), chronic pain/opioid use disorder on 160mg daily methadone with [facility], paroxysmal afib (not on OAC), CHF, COPD, HTN,
hypercholesterolemia, NIDDM, ELA on CPAP, PAD s/p femoral bypass, with a history of recurrent bouts of similar sx who presents with intractable vomiting, crampy abdominal pain, and hematemesis x 2 days
#Intractable Nausea/vomiting
#Esophagitis
#Hematemesis
#Mild Duodenitis
#h/o Boerhaave Syndrome with stenosis requiring serial dilations at [place]
#h/o esophagitis
Given cyclical nature of nausea, vomiting, abdominal pain without other systemic or lower GI signs, along with periods of normalcy in between, and chronic history of methadone and marijuana, as well as EGD proven esophagitis without PPI treatment or
consistent follow up, would presume a multifactorial etiology of sx related to 1) marijuana induced hyperemesis, and 2) uncontrolled/untreated esophagitis, all exacerbated by 3) dysmotility secondary to chronic opioid use with Methadone.
- would c/w PPI ggt for now
- c/w IV anti-emetics as needed
- c/w IVF
- observe for sx of nausea/vomiting
- continue clear liquid diet
Plan for EGD with bx Thursday
Will need solid, consistent follow up with GI as outpatient -- can continue with Dr. Rivera and if needed or agreed, may need to go back to [place] for continued dilation of esophageal stricturing
Subjective
Subjective
Date of Service: March 12, 2025
Patient reports having dry heaves last night and spitting up clears. Small black bowel movement this morning, burning in the esophagus even with clear liquids.
Objective
Data Reviewed
Laboratory Data:
Laboratory Results
03/12/25 08:01
03/12/25 08:01
Laboratory Results
PT 14.6 Sec (11.4-14.6) 03/10/25 06:59
INR 1.09 03/10/25 06:59
APTT 24.7 Sec (23.4-35.0) 03/10/25 06:59
Magnesium 2.0 mg/dl (1.6-2.3) 03/12/25 08:01
Total Bilirubin 1.1 mg/dl (0.2-1.3) 03/11/25 07:13
AST 21 U/L (17-59) 03/11/25 07:13
ALT 14 U/L (0-50) 03/11/25 07:13
Alkaline Phosphatase 67 U/L (38-126) 03/11/25 07:13
Lipase 23 U/L (23-300) 03/10/25 06:59
Vital Signs and I&O:
Vital Signs
Temp Pulse Resp BP Pulse Ox
98.4 F 75 12 130/74 96
03/12/25 07:00 03/12/25 08:43 03/12/25 07:00 03/12/25 08:43 03/12/25 07:00
I&O
03/11/25 03/12/25 03/13/25
06:59 06:59 06:59
Intake Total 3220 / 3220 1080 / 1080
Output Total 2225 / 2225 1575 / 1575
Balance 995 / 995 -495 / -495
Physical Exam
Physical Exam
GI: Soft, Non Distended and Non Tender
[2025-03-12 11:31] LABS: Glucose - Point of Care 163 mg/dl (70-99)
[2025-03-12] MEDS: NSS (PRESERVATIVE FREE) 10 ML IV ×2 (12:42→20:12)
[2025-03-12] MEDS: PROTONIX IV 40 MG IV ×2 (12:42→20:12)
[2025-03-12] MEDS: NOVOLOG FLEXPEN-LOW RESISTANCE 1 UNITS SC (12:48)
--- NOTE | 2025-03-12 13:04 | W.PN.HOSP.TC ---
Today's Communication/Plan
-
EGD with bx tomorrow
NPO after MN
Assessment / Plan
Assessment / Plan
pt is a 54 year old male
Sepsis secondary to duodenitis--improving hematemesis likely due to retching and possible small MWT (black stools could be remnants of swallowing a bit of blood)--nothing further since admission (History of Boerhaave syndrome with stenosis requiring
serial dilations with [facility])--CT with mildly distended gallbladder --US same--apprec GI, EGD with bx Thursday--clears/PPI drip--cont zosyn--follow cultures--WBC improving from 32,19,12
Hyponatremia-- Secondary to intractable vomiting and hypovolemia --resolved
History of opioid use disorder--no IV--snorting heroin/fentanyl--clean and going to [facility] for methadone dosing, cont dose as per Aldi (160mg)
Odn-wxugkuz-yhqxykxoo diabetes mellitus-- Hold oral medications including Jardiance- Insulin sliding scale
Essential hypertension---Hold home antihypertensives after med rec while NPO- As needed hydralazine
History of nontoxigenic C. difficile-- Will start prophylactic oral vancomycin
Paroxysmal A-fib-- Currently sinus tach- On no chronic anticoagulation
PAD-Status post femoral bypass-- Continue aspirin 81 when no longer n.p.o.
Bilateral adrenal hyperplasia- Follow-up outpatient with primary recommended
COPD- Not in acute exacerbation
Current smoker- Declines nicotine patch
GERD-On PPI drip
HFimpEF--agree no acute exacerbation--cont maintenance IVF--- Continue Lasix when able to take p.o.
Pericarditis
Kidney stone
Sleep apnea on CPAP
PAD: Holding Asp 81 while NPO
Diverticulitis
Colonic polyps
DVT proph--SCDs
CODE STATUS-- DNR
Anticipated Discharge: > 48 hours
Subjective/Interval History
-
Date of Service: March 12, 2025
pt states his stomach still hurts, hurts to swallow, passing dark black stool
Objective Data
-
Labs:
Laboratory Results
03/12/25
08:01
WBC 12.2 H
Hgb 13.6
Hct 40.2
Plt Count 148
Sodium 136
Potassium 3.8
Chloride 104
Carbon Dioxide 27
BUN 15
Creatinine 0.7
Glucose 114 H
Calcium 8.4
Vital Signs:
max temp for 24 hours
03/11/25
23:30
Temp 98.4 F
Vital Signs
Temp Pulse Resp BP Pulse Ox
98.4 F 75 12 130/74 96
03/12/25 07:00 03/12/25 08:43 03/12/25 07:00 03/12/25 08:43 03/12/25 07:00
I&O
03/11/25 03/12/25 03/13/25
06:59 06:59 06:59
Intake Total 3220 / 3220 1080 / 1080
Output Total 2225 / 2225 1575 / 1575
Balance 995 / 995 -495 / -495
Review of Systems
-
All other systems: Reviewed and negative
Abdomen/GI: Reports Abdominal Pain and Black Stools
Physical Exam
-
General: Well Developed, Well Nourished and No Apparent Distress
HEENT: Normocephalic and Atraumatic; Negative Oxygen
Respiratory: Clear to Auscultation; Negative Wheezes or Rhonchi
Cardiac: Regular Rhythm and S1/S2; Negative Murmur
GI: Soft, Nondistended, Normal Bowel Sounds and Tender (worse on right side)
Musculoskeletal: No Clubbing, No Cyanosis and No Edema
Skin: Warm
Neuro: Awake
Psych: Calm
[2025-03-12] MEDS: COMPAZINE 5 MG IV ×2 (13:05→20:21)
[2025-03-12] MEDS: FLUSH (NSS) 3 FLUSH IV (13:06)
[2025-03-12 15:00] VITALS: BP 146/96
[2025-03-12 16:20] LABS: Glucose - Point of Care 143 mg/dl (70-99)
[2025-03-12 21:56] LABS: Glucose - Point of Care 106 mg/dl (70-99)
[2025-03-12 23:42] VITALS: BP 175/91
[2025-03-13] VITALS: BP 150/90
[2025-03-13] MEDS: ZOFRAN 4 MG IV ×3 (04:40→18:26)
[2025-03-13] MEDS: DILAUDID 0.5 MG IV ×3 (04:41→20:03)
[2025-03-13] MEDS: ZOSYN 50 IV ×4 (05:50→23:41)
[2025-03-13 05:56] LABS: Glucose - Point of Care 147 mg/dl (70-99)
[2025-03-13 07:59] VITALS: BP 138/81
[2025-03-13] MEDS: PROTONIX IV 40 MG IV ×2 (09:09→19:56)
[2025-03-13] MEDS: NSS (PRESERVATIVE FREE) 10 ML IV ×2 (09:09→19:55)
[2025-03-13] MEDS: COMPAZINE 5 MG IV ×2 (09:10→23:49)
--- NOTE | 2025-03-13 09:14 | W.PN.HOSP.TC ---
Today's Communication/Plan
-
C Diff testing
f/w GI recommendations
Assessment / Plan
Assessment / Plan
Physical Exam
-
General: Well Developed, Well Nourished and No Apparent Distress
HEENT: Normocephalic and Atraumatic; Negative Oxygen
Respiratory: Clear to Auscultation; Negative Wheezes or Rhonchi
Cardiac: Regular Rhythm and S1/S2; Negative Murmur
GI: Soft, Nondistended, Normal Bowel Sounds, not tender.
Musculoskeletal: No Clubbing, No Cyanosis and No Edema
Skin: Warm
Neuro: AAOX3, non focal, followed commands.
Psych: Calm
pt is a 54 year old male
#Sepsis secondary to duodenitis--
He presented with intractable Nausea/vomiting/crampy abdominal pain, and hematemesis x 2 days
Possible Esophagitis/ Duodenitis
#h/o Boerhaave Syndrome with stenosis requiring serial dilations at [facility]
Acute diarrhea , he thinks he has recurrent C Diff, will test stool
c/w empiric IV Antibiotics
NO fever, less pain, no nausea
For EGD today
Empiric IV Abx. WBC is normal now. Afebrile
Appreciate GI Help
Hyponatremia-- Secondary to intractable vomiting and hypovolemia --resolved
History of opioid use disorder--no IV--snorting heroin/fentanyl--clean and going to [facility] for methadone dosing, cont dose as per Aldi (160mg)
Hra-pvqewku-bcpshmrym diabetes mellitus-- Hold oral medications including Jardiance- Insulin sliding scale
Essential hypertension---Hold home antihypertensives after med rec while NPO- As needed hydralazine
History of nontoxigenic C. difficile, he complains of C diff recurrent symptoms with diarrhea, send for testing
Paroxysmal A-fib-- Currently sinus tach- On no chronic anticoagulation
PAD-Status post femoral bypass-- Continue aspirin 81 when no longer n.p.o.
Bilateral adrenal hyperplasia- Follow-up outpatient with primary recommended
COPD- Not in acute exacerbation
Current smoker- Declines nicotine patch
GERD-On PPI drip
HFimpEF--agree no acute exacerbation--cont maintenance IVF--- Continue Lasix when able to take p.o.
Pericarditis
Kidney stone
Sleep apnea on CPAP
PAD: Holding Asp 81 while NPO
Diverticulitis
Colonic polyps
DVT proph--SCDs
CODE STATUS-- DNR
Total time spent to see the patient, examine the patient, review data and lab results, discuss treatment plan with patient, nursing staff around 55 minutes
Anticipated Discharge: > 48 hours
Subjective/Interval History
-
Date of Service: March 13, 2025
NO chest pain
No abd pain
He wants Methadone
Objective Data
-
Labs:
Laboratory Results
03/13/25
08:13
WBC Pending
Hgb Pending
Hct Pending
Plt Count Pending
Sodium Pending
Potassium Pending
Chloride Pending
Carbon Dioxide Pending
BUN Pending
Creatinine Pending
Glucose Pending
Calcium Pending
Vital Signs:
Vital Signs
Temp Pulse Resp BP Pulse Ox
97.4 F 72 14 138/81 98
03/13/25 07:59 03/13/25 07:59 03/13/25 07:59 03/13/25 07:59 03/13/25 07:59
I&O
03/12/25 03/13/25 03/14/25
06:59 06:59 06:59
Intake Total 1080 / 1080 830 / 830
Output Total 1575 / 1575 850 / 850
Balance -495 / -495 -20 / -20
[2025-03-13 09:26] LABS: Hematocrit 39.3 % (39.0-52.0); Hemoglobin 13.1 g/dL (13.0-18.0); Mean Corp Hgb Conc. 33.3 g/dL (33.0-37.0); Mean Corpuscular Volume 89.7 fL (80.0-94.0); Platelet Count 150 10^3/uL (130-400); Red Cell Dist. Width 14.1 % (11.5-14.5)
[2025-03-13 10:00] LABS: Blood Urea Nitrogen 13 mg/dl (9-20); Calcium 8.4 mg/dl (8.4-10.2); Carbon Dioxide 29 mmol/L (22-30); Chloride 105 mmol/L (98-107); Estimated Creatinine Clearance 84 ml/min; Glucose 133 mg/dl (70-99); Magnesium 2.1 mg/dl (1.6-2.3); Potassium 3.8 mmol/L (3.5-5.1); Sodium 137 mmol/L (135-145); eGFR > 60.00
[2025-03-13 10:34] VITALS: BMI 25.0
[2025-03-13] MEDS: METHADONE 100 MG/10 ML 160 MG PO (11:54)
[2025-03-13 12:40] LABS: Glucose - Point of Care 113 mg/dl (70-99)
[2025-03-13] MEDS: DILAUDID 1 MG IV ×3 (13:14→23:48)
[2025-03-13 14:45] VITALS: BP 127/79
[2025-03-13 14:51] LABS: Glucose - Point of Care 102 mg/dl (70-99)
[2025-03-13 15:00] VITALS: BP 140/86; BP 164/90
[2025-03-13] MEDS: COREG PO (15:03)
[2025-03-13] MEDS: PROZAC 10 MG PO (15:36)
[2025-03-13] MEDS: FIRVANQ PO (15:47)
[2025-03-13 17:19] LABS: Glucose - Point of Care 154 mg/dl (70-99)
[2025-03-13] MEDS: LIPITOR 10 MG PO (17:32)
[2025-03-13] MEDS: LASIX PO (17:35)
[2025-03-13] MEDS: FIRVANQ 125 MG PO (18:27)
[2025-03-13] MEDS: COREG 6.25 MG PO (19:55)
[2025-03-13] MEDS: ENTRESTO 24 MG/26 MG 1 TAB PO (19:55)
[2025-03-13 22:02] LABS: Glucose - Point of Care 139 mg/dl (70-99)
[2025-03-13 23:00] VITALS: BP 160/90
[2025-03-14] MEDS: ZOFRAN 4 MG IV (03:56)
[2025-03-14 04:27] VITALS: BMI 24.5
[2025-03-14] MEDS: ZOSYN 50 IV (05:56)
[2025-03-14] MEDS: FIRVANQ 125 MG PO (05:58)
[2025-03-14 06:00] VITALS: BMI 24.5
[2025-03-14 07:49] LABS: Glucose - Point of Care 128 mg/dl (70-99)
[2025-03-14 08:11] VITALS: BP 142/90
[2025-03-14] MEDS: COREG 6.25 MG PO (08:43)
[2025-03-14] MEDS: LASIX 20 MG PO (08:44)
[2025-03-14] MEDS: METHADONE 100 MG/10 ML 160 MG PO (08:44)
[2025-03-14] MEDS: ENTRESTO 24 MG/26 MG 1 TAB PO (08:44)
[2025-03-14] MEDS: PROZAC 10 MG PO (08:45)
[2025-03-14] MEDS: PROTONIX 40 MG PO (08:45)
--- NOTE | 2025-03-14 09:09 | W.PN.HOSP.TC ---
Today's Communication/Plan
-
dc
Assessment / Plan
Assessment / Plan
Physical Exam
-
General: Well Developed, Well Nourished and No Apparent Distress
HEENT: Normocephalic and Atraumatic; Negative Oxygen
Respiratory: Clear to Auscultation; Negative Wheezes or Rhonchi
Cardiac: Regular Rhythm and S1/S2; Negative Murmur
GI: Soft, Nondistended, Normal Bowel Sounds, not tender.
Musculoskeletal: No Clubbing, No Cyanosis and No Edema
Skin: Warm
Neuro: AAOX3, non focal, followed commands.
Psych: Calm
pt is a 54 year old male
#Sepsis secondary to duodenitis, resolved. --
He presented with intractable Nausea/vomiting/crampy abdominal pain, and hematemesis x 2 days
#h/o Boerhaave Syndrome with stenosis requiring serial dilations at [place]
s/p EGD that showed esophagitis. Non-obstructing Schatzki ring
GI recommended PPI BID and OP f/u.
Acute diarrhea , resolved.
C diff negative toxin, + Ag.
s/p empiric IV Antibiotics
NO fever, less pain, no nausea
Afberile. Not sure why he is asking for Dilaudid, earlier he had no pain and abd exam was normal.
Hyponatremia-- Secondary to intractable vomiting and hypovolemia --resolved
History of opioid use disorder--no IV--snorting heroin/fentanyl--clean and going to [facility] for methadone dosing, cont dose as per Aldi (160mg). He requested pain medications in hospital although he took methadone.
Owc-dnyiavc-mqivvlyhv diabetes mellitus-- No changes intended.
Essential hypertension---no changes intended.
History of nontoxigenic C. difficile,
Paroxysmal A-fib-- Currently sinus tach- On no chronic anticoagulation
PAD-Status post femoral bypass-- Continue aspirin 81 when no longer n.p.o.
Bilateral adrenal hyperplasia- Follow-up outpatient with primary recommended
COPD- Not in acute exacerbation
Current smoker- Declines nicotine patch
GERD-On PPI drip
HFimpEF no acute exacerbation-
Pericarditis
Kidney stone
Sleep apnea on CPAP
PAD: Holding Asp 81 while NPO
Diverticulitis
Colonic polyps
DVT proph--SCDs
CODE STATUS-- DNR
Total discharge time spent to see the patient, examine the patient, review data and lab results, discuss discharge plan with patient, nursing staff around 65 minutes
Anticipated Discharge: Today
Subjective/Interval History
-
Date of Service: March 14, 2025
He feels better
No abd pain
No diarrhea
No fevers
Objective Data
-
Vital Signs:
Vital Signs
Temp Pulse Resp BP Pulse Ox
97.2 F 63 16 142/90 96
03/14/25 08:11 03/14/25 08:11 03/14/25 08:11 03/14/25 08:11 03/14/25 08:11
I&O
03/13/25 03/14/25 03/15/25
06:59 06:59 06:59
Intake Total 830 / 830 1440 / 1440
Output Total 850 / 850
Balance -20 / -20 1440 / 1440
[2025-03-14] MEDS: DILAUDID 0.25 MG IV (09:56)
[2025-03-14 10:59] VITALS: BP 138/88
--- NOTE | 2025-03-14 11:30 | PN.CDI ---
CDI
- -
CDI:
Physician Documentation Request
Admit Date: 03/10/25 10:38
Dear Doctor Jef,
Patient admitted with sepsis due to duodenitis.
03/13 Endoscopy Procedure, 'Non-bleeding duodenal ulcers with no stigmata of bleeding.'
Please clarify which of the following accurately represents the acuity of the duodenal ulcers:
Acute
Acute on chronic
Chronic
Other
Use of terms such as suspected, likely, concern for, or probable (associated with a specific diagnosis that is being evaluated, monitored, or treated as if it exists) are acceptable and can be coded in the inpatient setting, when documented at the
time of discharge.
Thank you,
Kristine HUDSON,RN,CCDS
CDI Specialist
Available via tiger text
Please use your independent medical judgment in providing your response.
--- NOTE | 2025-03-14 13:42 | W.DCSUMMARY ---
Discharge Summary
Discharge Data
Date of Admission: 03/10/25
Date of Discharge: 03/14/25
-
Pending Results: No
Hospital Course
54 years old male presented with abdominal discomfort, nausea, vomiting and coffee-ground emesis. Patient had history of GI problem including esophagitis, esophageal stricture, diabetes, opioid use on methadone, cannabis intake and diabetes.
Patient was evaluated by gastroenterology. He was started on intravenous Protonix drip. Scan of the abdomen and pelvis showed thickened/inflamed appearance of the duodenum, nonobstructing bilateral renal calculi and mildly distended gallbladder
without evidence of inflammation. Abdominal ultrasound showed distended gallbladder without evidence of cholelithiasis, mild biliary dilatation and bilateral nonobstructing intrarenal calculi. Patient was given empiric antibiotic for leukocytosis
and mild lactic acidosis. Blood culture did not show any growth. Patient complained of diarrhea. C. difficile antigen test was positive but not toxin. He was given oral vancomycin prophylactically. Upper endoscopy on 03/13 showed grade C
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 Diet was advanced slowly. Patient was started on Protonix twice a day. Patient was advised to continue taking
Protonix and to repeat upper endoscopy in the outpatient setting after few weeks. Patient was given prescription to finish course of oral vancomycin. Patient felt better and tolerated diet. He remained hemodynamically stable was discharged home
in stable condition
Discharge Plan
-
Patient Disposition: Home (Routine Discharge)
Discharge Diagnosis/Procedures: esophagitis with no bleeding.
EGD showed : Mucosa consistent with long-segment Montalvo's esophagus, non-obstructing Schatzki ring, 2 cm hiatal hernia.
Condition: Good
Diet: As tolerated
Referrals:
Karen Jones DO [Family Provider, Family Practice]
Litzy Fuchs MD [Active, Gastroenterology] - in one to two months
Prescriptions:
New
pantoprazole 40 mg Tablet,Delayed Release (Dr/Ec)
40 mg PO BID Qty: 60 0RF
vancomycin 125 mg capsule
125 mg PO TID Qty: 15 0RF
Continued
sacubitril-valsartan [Entresto] 24-26 mg tablet
1 tab PO BID
atorvastatin 10 mg tablet
10 mg PO DAILY
methadone [Methadone Intensol] 10 mg/mL Concentrate
160 mg PO DAILY
carvedilol [Coreg] 6.25 mg Tablet
6.25 mg PO BID
furosemide 40 mg Tablet
20 mg PO DAILY
Medical Marijuana
1 puff PO DAILYPRN PRN (Reason: anxety/stress)
fluoxetine 10 mg Capsule
10 mg PO DAILY
ondansetron 4 mg tablet,disintegrating
4 mg PO Q8HPRN PRN (Reason: nausea and vomiting)
hydroxyzine pamoate 50 mg Capsule
50 mg PO TID PRN (Reason: Cytokine Release Syndrome)
Jardiance 10 mg Tablet
10 mg PO DAILY
Trelegy Ellipta 100-62.5-25 mcg Blister With Device
1 inh INHALATION DAILY
Discontinued
pantoprazole 40 mg Tablet,Delayed Release (Dr/Ec)
40 mg PO BID
aspirin 81 mg Tablet
81 mg PO DAILY
Discharge Orders:
Discharge Patient (As Directed); Ordered 03/14/25
Ordered By: Seth Bauer
Discharge Date and Time
Discharge Date/Time: 03/14/25 11:46
Print Language: ARABIC
--- NOTE | 2025-03-16 12:17 | W.PN.UPDATE ---
Update Note
Progress Note Update
Duodenal ulcerations, likely acute
== END 2025-03-14 11:46 | disposition home or self-care (01) | DRG 871 ==
LOC: 3 WEST ACU 10:38
PROVIDERS: Student in an Organized Health Care Education/Training Program; ADMITTING PHYSICIAN Internal Medicine; ATTENDING PHYSICIAN Internal Medicine; CONSULT PHYSICIAN Internal Medicine Gastroenterology; EMERGENCY PHYSICIAN Emergency Medicine; FAMILY PHYSICIAN Internal Medicine
PROC: 0DJ08ZZ Inspection of Upper Intestinal Tract, Via Natural or Artificial Opening Endoscopic (ICD-10-PCS; 2025-03-13)
DX: A41.9 Sepsis, unspecified organism (principal); K21.01 Gastro-esophageal reflux disease with esophagitis, with bleeding; K22.3 Perforation of esophagus; E87.1 Hypo-osmolality and hyponatremia; F11.20 Opioid dependence, uncomplicated; I50.30 Unspecified diastolic (congestive) heart failure; I31.9 Disease of pericardium, unspecified; I42.8 Other cardiomyopathies; K57.32 Diverticulitis of large intestine without perforation or abscess without bleeding; K92.0 Hematemesis; K26.3 Acute duodenal ulcer without hemorrhage or perforation; K29.80 Duodenitis without bleeding; E86.1 Hypovolemia; I48.0 Paroxysmal atrial fibrillation; E11.51 Type 2 diabetes mellitus with diabetic peripheral angiopathy without gangrene; E27.8 Other specified disorders of adrenal gland; E78.00 Pure hypercholesterolemia, unspecified; Z66 Do not resuscitate; D89.839 Cytokine release syndrome, grade unspecified; F17.210 Nicotine dependence, cigarettes, uncomplicated; G47.30 Sleep apnea, unspecified; I11.0 Hypertensive heart disease with heart failure; J44.89 Other specified chronic obstructive pulmonary disease; K22.70 Barrett's esophagus without dysplasia; K22.2 Esophageal obstruction; K26.9 Duodenal ulcer, unspecified as acute or chronic, without hemorrhage or perforation; K31.89 Other diseases of stomach and duodenum; K44.9 Diaphragmatic hernia without obstruction or gangrene; K82.8 Other specified diseases of gallbladder; N20.0 Calculus of kidney; Z79.899 Other long term (current) drug therapy
CPT/HCPCS: 71045; 74177; 76700; 80048; 80053; 81003; 81015; 82962; 83036; 83605; 83690; 83735; 85014; 85018; 85025; 85027; 85610; 85730; 86850; 86900; 86901; 87040; 87070; 87147; 87324; 87449; 93005; 96361; 96374; 96375; 96376; 99284; 99291; 99406; Q9967

== ENCOUNTER 2025-03-19 19:02 | Emergency (ER) | payer MEDICARE, SELFPAY ==
[2025-03-19 19:09] VITALS: BP 155/94
[2025-03-19 19:48] LABS: Urine Character Clear (Clear)
[2025-03-19 20:12] LABS: Urine Red Blood Cell 0-2 /HPF (0-2); Urine Squamous Cell 0-2 /LPF (Few); Urine White Cell 0-2 /HPF (0-5)
--- NOTE | 2025-03-19 20:58 | ED.GENMED ---
History of Present Illness
General
Chief Complaint: Flank Pain
Source: patient and records
Time Seen by Provider: 03/19/25 20:51
History of Present Illness
History of Present Illness:
54 year old male with past medical history of COPD, Atrial fibrillations, cardiomyopathy, hypertension, hyperlipidemia, NIDDM, melanoma and previous kidney stones presenting to the emergency department for evaluation after he developed a sudden
onset of right-sided flank pain described to be sharp, radiating into the right lower abdomen, accompanied with nausea and vomiting, scant hematuria. Pain is similar to previous episodes of kidney stones. Patient did not take anything for symptoms
prior to arrival. He notes being recently admitted to this facility for a GI bleed. Currently not on any anticoagulants. No other concerns presently
Past History
Past History
ED Past Medical History: Arrthythmia (afib), Cancer (Skin Ca Melanoma), COPD, GERD, HTN, Hypercholesterolemia, NIDDM, Other (pericarditis, cardiomyopathy, Kidney stones, UTI, Opiate abuse, Pyelonephritis, PVD, Chronic back pain, Chronic Bronchitis,
Sleep apnea, Diverticulitis, GI bleeding, Gout) and Other (Ischemic esophagus, Esophageal tears)
ED Past Surgical History: Appendectomy, Orthopedic (right shoulder surgery X 2, left shoulder surgery), Urological and Other (Cataracts, Fem-pop bypass. Esophageal tears)
Patient has exhibited threatening behavior?: No
Social History
Tobacco: Smoker (1-2 packs per day)
Alcohol: None
Drug: Former user and Narcotics
Personal:
Living: alone
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
Family History
Family History: Other (mom with hx PE); Negative Early CAD or CAD
Review of Systems
Review of Systems
All Other Systems: ROS reviewed and negative except as documented in HPI and ROS
Phy Exam
Physical Exam
Physical Exam:
GENERAL: Alert , appears in considerable pain, curled up on the bed
EYE: clear conjunctiva b/l
HEAD: NCAT
ENT: o/p clr, mmm.
CARDIAC: Regular rate and rhythm .
LUNGS: Clear breath sounds bilaterally, no acute respiratory distress, no wheezes/rales/rhonchi
ABDOMEN: Soft, without focal tenderness, no r/g, moderate right CVAT
NEUROLOGICAL: Alert and oriented
SKIN: Warm and dry, skin intact.
MUSCULOSKELETAL: No edema, well perfused.
PSYCH: Normal and appropriate interaction.
Scores
Heart Failure Risk
Heart Failure Risk Score: Not Applicable
Heart Score for Chest Pain Patients
STEMI patient?: Not applicable
Withdrawal Assessment of Alcohol
Withdrawal Assessment Completed?: Not applicable
Course
Orders/Labs/Results
Orders:
Orders
03/19/25 19:33
Urinalysis Reflex To Culture Urgent
Date Specimen was Collected: 03/19/25
Time Specimen was Collected: 19:10
Urine Microscopic Reflex Cult Urgent
03/19/25 20:57
CT Abd/pel Without Iv Or Oral Urgent
Comment:
Reason For Exam: right flank pain, hematuria, hx stones
0.9% Sodium Chloride 1000 ml [Nss] 1,000 ml IV BOLUS
Morphine Sulfate 4 mg IV NOW STA
Ondansetron Injectable [Zofran] 4 mg IV NOW STA
03/19/25 21:21
Complete Blood Count/With Diff Urgent
Comprehensive Metabolic Panel Urgent
Abnormal Lab Results
03/19/25 03/19/25
19:33 21:21
WBC 19.0 H 10^3/uL
(4.8-10.8)
RBC 4.05 L 10^6/uL
(4.70-6.10)
Hgb 12.1 L g/dL
(13.0-18.0)
Hct 36.3 L %
(39.0-52.0)
RDW 14.8 H %
(11.5-14.5)
MPV 10.5 H fL
(7.4-10.4)
Abs Immat Gran (auto) 0.1 H 10^3/uL
(0-0.05)
Absolute Neuts (auto) 15.8 H 10^3/uL
(1.4-6.5)
Absolute Monos (auto) 1.0 H 10^3/uL
(0.1-0.6)
Immature Gran % 0.6 H %
(0-0.5)
Neutrophils % 83.1 H %
(42.2-75.2)
Lymphocytes % 10.3 L %
(20.5-51.1)
Glucose 104 H mg/dl
(70-99)
Total Protein 6.2 L g/dl
(6.3-8.2)
Ur Occult Blood Reflex 1+ A
(Negative)
03/19/25 21:21
03/19/25 21:21
Vital Signs
Initial and Last Documented VS:
Initial Vital Signs
Temp Pulse Resp BP Pulse Ox
98.5 F 85 16 155/94 97
03/19/25 19:09 03/19/25 19:09 03/19/25 19:09 03/19/25 19:09 03/19/25 19:09
Last Documented Vital Signs
Temp Pulse Resp BP Pulse Ox
98.5 F 67 14 126/81 95
03/19/25 19:09 03/19/25 22:30 03/19/25 22:30 03/19/25 22:00 03/19/25 22:30
MDM/Problems Addressed
Differential Diagnosis Includes:
Renal/Ureteral Colic
UTI
Pyelonephritis
Cholecystitis/symptomatic cholelithiasis
Appendicitis
ileitis
Musculoskeletal back pain
MDM/Problems Addressed:
54-year-old male presenting the ER for evaluation of sudden onset of right flank pain 3 hours prior to arrival, history of kidney stones in the past. He recently had CT imaging of the abdomen and pelvis over a week ago here which showed bilateral
intrarenal stones. Based off the presentation I have high degree of suspicion for kidney stone/renal/ureteral colic as the likely cause for current symptoms. Given recent GI bleed we will hold off on treating with any Toradol. Morphine, Zofran
and fluids ordered for symptoms.
Chronic conditions affecting care: Arrhythmia and Other (Previous kidney stones)
*Radiology
Radiology exam reviewed: radiology read reviewed
*Pulse Oximetry
SaO2: 97
Oxygen Mode of Delivery: Room air
Patient hypoxic: no
*Critical Care Note
Total Time (30-74mins, 75-104mins- exclusive of procedures): Not Applicable
Data Reviewed
Review of Other/Old Records Reveals: Labs, Records and Radiology Studies
Patient Management
Escalation/DeEscalation of care consider admission/obs:
Patient does note improvement of symptoms. He does have a leukocytosis of 19,000. Chemistry unremarkable. Urine unremarkable. Considered antibiotic for urinary tract infection however patient has a history of C. difficile and his urinalysis does
not show any obvious signs of infection. At this time I would recommend patient to follow-up with primary care fighter, follow-up in 1 to 2 weeks to have repeat blood work to ensure normalization of his leukocytosis. Discussed return precautions
to the ER. Stable for discharge home.
ED Attending Note
-
Portions of this chart may have been created with voice recognition software.� Occasional wrong word or��sound alike� substitutions may have occurred due to the inherent limitations of voice recognition software.
Discharge Plan
Departure
Patient Disposition: Home (Routine Discharge)
Date of Disposition: 03/19/25
Time of Disposition: 22:29
Patient with high blood pressure during this ER visit?: Yes
Discharge Problem:
Right flank pain
Instructions: Flank Pain (DC)
Prescriptions:
No Action
sacubitril-valsartan [Entresto] 24-26 mg tablet
1 tab PO BID
atorvastatin 10 mg tablet
10 mg PO DAILY
methadone [Methadone Intensol] 10 mg/mL Concentrate
160 mg PO DAILY
carvedilol [Coreg] 6.25 mg Tablet
6.25 mg PO BID
furosemide 40 mg Tablet
20 mg PO DAILY
Medical Marijuana
1 puff PO DAILYPRN PRN (Reason: anxety/stress)
fluoxetine 10 mg Capsule
10 mg PO DAILY
ondansetron 4 mg tablet,disintegrating
4 mg PO Q8HPRN PRN (Reason: nausea and vomiting)
hydroxyzine pamoate 50 mg Capsule
50 mg PO TID PRN (Reason: Cytokine Release Syndrome)
Jardiance 10 mg Tablet
10 mg PO DAILY
Trelegy Ellipta 100-62.5-25 mcg Blister With Device
1 inh INHALATION DAILY
pantoprazole 40 mg Tablet,Delayed Release (Dr/Ec)
40 mg PO BID Qty: 60 0RF
vancomycin 125 mg capsule
125 mg PO TID Qty: 15 0RF
Referrals:
Cathie Jones DO [Family Provider, Family Practice]
Interventions
Interventions:
*Risk Screen - Suicide Last Done: 03/19/25 19:09
*General Assessment Last Done: 03/19/25 21:06
*Neglect/Abuse Screening Last Done: 03/19/25 19:09
*ED- Fall Risk Assessment Last Done: 03/19/25 21:06
*ED COVID-19 Vaccine History Last Done: 03/19/25 21:06
*Nursing Disposition Last Done: 03/19/25 22:45
HE-Kamyvl-Ygrobqejow Assessment Last Done: 03/19/25 21:08
ED-Male Genitourinary Assessment Last Done: 03/19/25 21:08
Discharge Date and Time
Discharge Date/Time: 03/19/25 22:46
Print Language: MONGOLIAN
[2025-03-19 21:05] VITALS: BP 145/93
[2025-03-19 21:11] VITALS: BMI 26.8
[2025-03-19] MEDS: ZOFRAN 4 MG IV (21:15)
[2025-03-19] MEDS: MORPHINE SULFATE 4 MG IV (21:15)
[2025-03-19] MEDS: NSS 1000 IV (21:16)
[2025-03-19 21:30] LABS: Hematocrit 36.3 % (39.0-52.0); Hemoglobin 12.1 g/dL (13.0-18.0); Mean Corp Hgb Conc. 33.3 g/dL (33.0-37.0); Mean Corpuscular Volume 89.6 fL (80.0-94.0); Nucleated Red Blood Cells % 0 % (-); Platelet Count 202 10^3/uL (130-400); Red Cell Dist. Width 14.8 % (11.5-14.5)
[2025-03-19 21:45] LABS: ALT (SGPT) 17 U/L (0-50); AST (SGOT) 19 U/L (17-59); Albumin 3.5 g/dl (3.5-5.0); Alkaline Phosphatase 51 U/L (38-126); Blood Urea Nitrogen 14 mg/dl (9-20); Calcium 9.1 mg/dl (8.4-10.2); Carbon Dioxide 26 mmol/L (22-30); Chloride 105 mmol/L (98-107); Estimated Creatinine Clearance 94 ml/min; Glucose 104 mg/dl (70-99); Potassium 4.0 mmol/L (3.5-5.1); Sodium 135 mmol/L (135-145); Total Protein 6.2 g/dl (6.3-8.2); eGFR > 60.00
[2025-03-19 21:55] VITALS: BP 139/81
[2025-03-19 22:00] VITALS: BP 126/81
== END 2025-03-19 22:46 | disposition home or self-care (01) ==
LOC: EMR 19:02
PROVIDERS: Physician Assistant Medical; Student in an Organized Health Care Education/Training Program; EMERGENCY PHYSICIAN Emergency Medicine; FAMILY PHYSICIAN Family Medicine
DX: R10.31 Right lower quadrant pain (principal); D72.829 Elevated white blood cell count, unspecified; E11.51 Type 2 diabetes mellitus with diabetic peripheral angiopathy without gangrene; I48.91 Unspecified atrial fibrillation; I42.9 Cardiomyopathy, unspecified; E78.00 Pure hypercholesterolemia, unspecified; I10 Essential (primary) hypertension; J44.89 Other specified chronic obstructive pulmonary disease; G47.30 Sleep apnea, unspecified; M10.9 Gout, unspecified; M54.9 Dorsalgia, unspecified; G89.29 Other chronic pain; F17.200 Nicotine dependence, unspecified, uncomplicated; Z79.84 Long term (current) use of oral hypoglycemic drugs; Z85.820 Personal history of malignant melanoma of skin; Z86.19 Personal history of other infectious and parasitic diseases
CPT/HCPCS: 99284; 96374; 96375; 96361; 74176; 80053; 81003; 81015; 85025

== ENCOUNTER 2025-04-27 06:04 | Day surgery (SDC) | payer MEDICARE, SELFPAY ==
[2025-04-27] VITALS (14 sets, daily range): BP systolic 134–185; BP diastolic 76–102; BMI 26.3
[2025-04-27] MEDS: NORMOSOL-R/PLASMALYTE-A 1000 IV ×4 (07:19→19:29)
--- NOTE | 2025-04-27 09:00 | W.SUR.POST ---
Surgical Immediate Post Op
Note
Pre Op Diagnosis: bilateral renal stones
Post Op Diagnosis:same
Procedure Performed: bilaterl uretoscopy and laser and bilat jj stents
Primary Surgeon: froylan
Secondary Surgeons:
Anesthesia: fermín general
Estimated Blood Loss:1cc
Fluids: nss
Drains/Shuntsbil 6 fr 24 cm jj stents
Specimens/Cultures:0
Doppler/Duplex/Angio (Y/N):
Complications: 0
Operative Findings: bilatrla l renal stones
--- NOTE | 2025-04-27 09:02 | W.PN.URO.CBU ---
Today's Communication / Plan
-
observe for pain control
Assessment / Plan
-
stable bilateral stone laser will observe and can have tramadol but if sebvere pain may administer morphine or dilaudid
Diagnosis
-
Date of Service: April 27, 2025
-
Patient Diagnosis:
s/p bilaterla laser stoneswith stents
Post Op Day:
Subjective
-
colic dysuria
Objective
-
Vital Signs
Temp Pulse Resp BP Pulse Ox
97.7 F 61 20 163/93 97
04/27/25 07:05 04/27/25 07:05 04/27/25 07:05 04/27/25 07:05 04/27/25 07:05
Review of Systems
-
: Dysuria, Frequency and Urgency
Physical Exam
-
General - well developed, well nourished, no acute distress
Chest - clear bilaterally
Abdomen - soft, non-tender, positive bowel sounds, no CVAT, no incisional pain or distention
Genitalia - normal
Rectal - normal
Skin - warm & dry with no rash
Neuro - AOx3, no motor deficits
Extremities - no clubbing, no cyanosis, no edema
Incision - clean, dry
Dressing - clean, dry, intact
Care Review
Data Reviewed
Discussed with: Nursing
[2025-04-27] MEDS: DILAUDID 0.5 MG IV ×4 (09:43→19:53)
[2025-04-27] MEDS: MORPHINE SULFATE 4 MG IV ×7 (11:17→22:41)
--- NOTE | 2025-04-27 11:53 | PTCARENOTE ---
Received pt from PACU, admission complete by this RN, AAOx3, pt assisted to stand at bedside to urinate. Burning sensation with urination, medicated for pain, all urine being strained for stones. Pt only allowing this RN to do minimal assessment at
this time, DEBURRER gave report of similar situation. MD aware. No new orders at this time.
[2025-04-27] MEDS: PROTONIX 40 MG PO (19:49)
[2025-04-27] MEDS: ENTRESTO 24 MG/26 MG 1 TAB PO (19:49)
[2025-04-27] MEDS: COREG 6.25 MG PO (19:49)
[2025-04-27] MEDS: SYMBICORT 80/4.5 MCG INHALER INH (20:20)
[2025-04-28] MEDS: MORPHINE SULFATE 4 MG IV ×3 (01:18→06:51)
[2025-04-28 03:00] VITALS: BP 164/98
[2025-04-28] MEDS: NORMOSOL-R/PLASMALYTE-A 1000 IV (03:30)
[2025-04-28 04:20] VITALS: BP 177/102
[2025-04-28] MEDS: DILAUDID 0.5 MG IV (04:24)
[2025-04-28 06:00] VITALS: BMI 26.2
[2025-04-28 06:44] LABS: Hematocrit 44.2 % (39.0-52.0); Hemoglobin 14.2 g/dL (13.0-18.0); Mean Corp Hgb Conc. 32.1 g/dL (33.0-37.0); Mean Corpuscular Volume 93.1 fL (80.0-94.0); Platelet Count 168 10^3/uL (130-400); Red Cell Dist. Width 13.8 % (11.5-14.5)
[2025-04-28 07:00] VITALS: BP 152/90
[2025-04-28 07:19] LABS: Blood Urea Nitrogen 15 mg/dl (9-20); Calcium 8.8 mg/dl (8.4-10.2); Carbon Dioxide 27 mmol/L (22-30); Chloride 103 mmol/L (98-107); Estimated Creatinine Clearance 94 ml/min; Glucose 142 mg/dl (70-99); Potassium 3.8 mmol/L (3.5-5.1); Sodium 134 mmol/L (135-145); eGFR > 60.00
[2025-04-28] MEDS: SYMBICORT 80/4.5 MCG INHALER 2 PUFF INH (07:28)
[2025-04-28] MEDS: SPIRIVA RESPIMAT 2.5 MCG 2 PUFF INH (07:28)
--- NOTE | 2025-04-28 08:08 | W.DCSUMMARY ---
Discharge Summary
Discharge Data
Date of Admission: 04/27/25
Date of Discharge: 04/28/25
Total time spent discharging patient (in min): 45
-
Pending Results: No
Hospital Course
The pt has stones he undeerwent successful bilateral laser lithotripsy with stenting Inpast could not tolerate stents so was observed over evening hours and did well Home todayl
Discharge Plan
-
Patient Disposition: Home (Routine Discharge)
Discharge Diagnosis/Procedures: bilateral kidney stones post op pain
Condition: Good
Diet: No restrictions
Activity: No restrictions
Bathing Restrictions: None
Referrals:
Harvey Gonzalez MD [Active, Urology]
Referral Note: call dr gonzalez [phone] ext [phone] to set up outpatient removal stents with ms lea expect frequency urgency and blood in urine until stents come out
UNKNOWN,NO INTERVIEW [Family Provider]
Prescriptions:
Continued
sacubitril-valsartan [Entresto] 24-26 mg tablet
1 tab PO BID
atorvastatin 10 mg tablet
10 mg PO DAILY
methadone [Methadone Intensol] 10 mg/mL Concentrate
160 mg PO DAILY
carvedilol [Coreg] 6.25 mg Tablet
6.25 mg PO BID
Medical Marijuana
1 inh PO DAILYPRN PRN (Reason: ANXIETY/STRESS)
fluoxetine 10 mg Capsule
10 mg PO DAILY
ondansetron 4 mg tablet,disintegrating
4 mg PO Q8HPRN PRN (Reason: N/V)
hydroxyzine pamoate 50 mg Capsule
50 mg PO PRN PRN (Reason: Cytokine Release Syndrome)
Jardiance 10 mg Tablet
10 mg PO DAILY
Trelegy Ellipta 100-62.5-25 mcg Blister With Device
1 inh INHALATION DAILY
furosemide 20 mg Tablet
20 mg PO DAILY
pantoprazole 40 mg tablet,delayed release (DR/EC)
40 mg PO BID
Discharge Date and Time
Print Language: FAROESE
[2025-04-28] MEDS: FARXIGA 10 MG PO (08:25)
[2025-04-28] MEDS: PROZAC 10 MG PO (08:25)
[2025-04-28] MEDS: ENTRESTO 24 MG/26 MG 1 TAB PO (08:26)
[2025-04-28] MEDS: COREG 6.25 MG PO (08:26)
[2025-04-28] MEDS: PROTONIX 40 MG PO (08:26)
[2025-04-28] MEDS: LIPITOR 10 MG PO (08:26)
[2025-04-28] MEDS: LASIX 20 MG PO (08:29)
[2025-04-28] MEDS: NORMOSOL-R/PLASMALYTE-A IV (08:33)
--- NOTE | 2025-04-28 12:28 | CM ---
patient chart reviewed
discharged today
s/p Bilateral ureteroscopy, bilateral laser lithotripsy of
bilateral stones, bilateral double-J stent placement
PLAN: home, no needs
== END 2025-04-28 11:17 | disposition home or self-care (01) ==
LOC: SDS 06:04
PROVIDERS: ATTENDING PHYSICIAN Specialist
DX: N20.0 Calculus of kidney (principal)
CPT/HCPCS: 52356; 74018; 76000; 80048; 85027; 94640; C1894; C2617

== ENCOUNTER 2025-05-22 06:28 | Day surgery (SDC) | payer MEDICARE, SELFPAY | END 2025-05-22 14:57 | disposition home or self-care (01) | LOC: GI 06:28 | PROVIDERS: ATTENDING PHYSICIAN Student in an Organized Health Care Education/Training Program | DX: K22.70 Barrett's esophagus without dysplasia (principal); K29.70 Gastritis, unspecified, without bleeding; K22.89 Other specified disease of esophagus; K44.9 Diaphragmatic hernia without obstruction or gangrene; K31.89 Other diseases of stomach and duodenum | CPT/HCPCS: 43239; 88305; 88342 ==

== ENCOUNTER 2025-06-13 13:13 | Inpatient (IN) | payer MEDICARE, SELFPAY ==
[2025-06-13] VITALS (8 sets, daily range): BP systolic 118–176; BP diastolic 83–121; PULSE 90–101; BMI 25.7
[2025-06-13 06:50] LABS: Hematocrit 52.9 % (39.0-52.0); Hemoglobin 17.9 g/dL (13.0-18.0); Mean Corp Hgb Conc. 33.8 g/dL (33.0-37.0); Mean Corpuscular Volume 87.3 fL (80.0-94.0); Platelet Count 259 10^3/uL (130-400); Red Cell Dist. Width 13.8 % (11.5-14.5)
[2025-06-13 06:58] LABS: ALT (SGPT) 27 U/L (0-50); AST (SGOT) 28 U/L (17-59); Albumin 4.9 g/dl (3.5-5.0); Alkaline Phosphatase 123 U/L (38-126); Blood Urea Nitrogen 19 mg/dl (9-20); Calcium 9.6 mg/dl (8.4-10.2); Carbon Dioxide 23 mmol/L (22-30); Chloride 94 mmol/L (98-107); Glucose 253 mg/dl (70-99); Lipase 36 U/L (23-300); Potassium 3.6 mmol/L (3.5-5.1); Sodium 132 mmol/L (135-145); Total Protein 8.5 g/dl (6.3-8.2); eGFR > 60.00
--- NOTE | 2025-06-13 07:30 | ED.GENMED ---
History of Present Illness
<Tito Bellamy DO - Last Filed: 06/13/25 08:53>
General
Chief Complaint: Vomiting Blood
Time Seen by Provider: 06/13/25 07:29
<Malik Escobar DO, Resident - Last Filed: 06/13/25 13:29>
General
Source: patient and family
Exam Limitations: none
Nursing documentation reviewed up to this point in time: agreed with
History of Present Illness
History of Present Illness:
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 Patient states that he started having crampy abdominal pain 2 days ago associated
with intractable vomiting, q30min, then yesterday started to notice BRB in vomitus. Patient notes that he has had one prior episode back in 2021 when he had copious blood, and was dx Boerhaave via EGD and transferred to [facility]. He notes that the
amount of blood in the vomitus at this visit is much less than that admission, and appears more as blood in vomitus. Associated symptoms include feeling feverish, body aches, and epigastric discomfort with vomiting. He endorses one episode of
diarrhea over the past 2 days, otherwise normal bowel habits. Decreased PO intake 2/2 nausea. He has been trying to take Gatorade at home. Otherwise tried Tylenol twice, but threw it up.
Past History
<Tito Bellamy DO - Last Filed: 06/13/25 08:53>
Past History
ED Past Medical History: Arrthythmia (afib), Cancer (Skin Ca Melanoma), COPD, GERD, HTN, Hypercholesterolemia, NIDDM, Other (pericarditis, cardiomyopathy, Kidney stones, UTI, Opiate abuse, Pyelonephritis, PVD, Chronic back pain, Chronic Bronchitis,
Sleep apnea, Diverticulitis, GI bleeding, Gout) and Other (Ischemic esophagus, Esophageal tears)
ED Past Surgical History: Appendectomy, Orthopedic (right shoulder surgery X 2, left shoulder surgery), Urological and Other (Cataracts, Fem-pop bypass. Esophageal tears)
Patient has exhibited threatening behavior?: No
Social History
Tobacco: Smoker (1-2 packs per day)
Alcohol: None
Drug: Former user and Narcotics
Personal:
Living: alone
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
Family History
Family History: Other (mom with hx PE); Negative Early CAD or CAD
Review of Systems
<Malik Escobar DO, Resident - Last Filed: 06/13/25 13:29>
Review of Systems
Allergies reviewed?: Yes
All Other Systems: ROS reviewed and negative except as documented in HPI and ROS
Phy Exam
<Malik Escobar DO, Resident - Last Filed: 06/13/25 13:29>
Physical Exam
Physical Exam:
General: uncomfortable appearing male, in no acute distress
HEENT: sclera anicteric
CV: mild tachycardia @ approx. 100bpm, regular rhythm no m/r/g
Lungs: CTAB
Abdomen: soft, nondistended, mild tenderness to palpation diffusely
Neuro: AOX3, moving all 4s
Psych: Calm, normal affect
Scores
<Malik Escobar DO, Resident - Last Filed: 06/13/25 13:29>
Heart Failure Risk
Heart Failure Risk Score: Not Applicable
Heart Score for Chest Pain Patients
STEMI patient?: Not applicable
Withdrawal Assessment of Alcohol
Withdrawal Assessment Completed?: Not applicable
Course
<Tito Bellamy DO - Last Filed: 06/13/25 08:53>
Orders/Labs/Results
Orders:
Orders
06/13/25 06:20
IV Insert/Care/Rem.- Treatment PRN
06/13/25 06:21
Electrocardiogram (*1) Urgent
Reason for Study: Abdominal Pain
EKG- Treatment ONCE
06/13/25 06:24
Complete Blood Count/With Diff Urgent
Comprehensive Metabolic Panel Urgent
Lipase Urgent
Magnesium Urgent
Comment: ADD ON
Manual Differential Urgent
06/13/25 08:04
Pantoprazole [Protonix IV] 80 mg IV NOW STA
06/13/25 08:15
CT Chest With Iv Contrast Stat
Comment:
Reason For Exam: Hematemesis, hx Boerhaave
0.9% Sodium Chloride 1000 ml [Nss] 1,000 ml IV 100 mls/hr
06/13/25 08:18
GASTROINTESTINAL CONSULT Urgent
Consulting Provider: Mika Martin
Was physician already notified: Yes
06/13/25 08:31
0.9% Sodium Chloride 500 ml [Nss] 500 ml IV BOLUS
06/13/25 08:40
Ondansetron Injectable [Zofran] 4 mg .ROUTE .STK-MED ONE
06/13/25 08:41
Ondansetron Injectable [Zofran] 4 mg IV NOW STA
06/13/25 10:00
Methadone HCl [Methadone 100 mg/10 ml] 145 mg PO ONCE ONE
06/13/25 12:15
Pantoprazole 80 mg/100 ml Nss [Protonix] 80 mg in 100 ml IV Q10H
06/13/25 12:38
0.9% Sodium Chloride 500 ml [Nss] 500 ml IV BOLUS
06/13/25 12:41
Admit/Transfer Patient As Directed
Co-Sign Provider:
Level of Care: Inpatient admission
Assign to:: Telemetry
Physician / Group: Cierra Ortiz
Diagnosis: hematemesis
Reason for Telemetry: Chest Pain syndromes
Date to Stop Telemetry: 06/15/25
Time to Stop Telemetry: 11:00
Reason for Hospitalization: hematemesis
Expected length of stay greater than two midnights?: Yes
ELOS- Estimated Length of Stay in days: 3
I certify the patient meets the requirements for IP care: Yes
PRN Pain Medication Management As Directed
May give lesser potent ordered pain med per pt: Yes
preference::
Protocol:: Medication orders for pain may be administered in a
manner that supports deferring to patient preference
when the pt is:
- Requesting an ordered lesser potent pain medication.
Least to most potent pain medications are defined
as: acetaminophen < NSAID < tramadol < opioids
(morphine, oxycodone, hydromorphone).
- Requesting a lesser dose of the same medication IF
ORDERED.
- Requesting a less intrusive route of administration
if both routes are prescribed by the provider (PO <
IV).
06/13/25 12:42
Code Status As Directed
Resuscitation Status: Do not resuscitate
Reached after discussion with pt or family/Healthcare POA: Yes
DNR Bracelet Application ONCE
06/13/25 12:44
Add On- LAB Routine
Tests Added?: magnesium
06/13/25 13:00
Lactated Ringers [Lr] 1,000 ml Potassium Chloride [KCl] 20 meq IV 100 mls/hr
06/15/25 11:00
DC Protocol for Telemetry ONCE
Abnormal Lab Results
06/13/25
06:24
WBC 31.8 H 10^3/uL
(4.8-10.8)
Hct 52.9 H %
(39.0-52.0)
Abs Neuts (Manual) 28.6 H 10^3/uL
(1.4-6.5)
Segmented Neutrophils 90 H %
(42-75)
Lymphocytes (Manual) 5 L %
(20-51)
Sodium 132 L mmol/L
(135-145)
Chloride 94 L mmol/L
(98-107)
Glucose 253 H mg/dl
(70-99)
Total Protein 8.5 H g/dl
(6.3-8.2)
06/13/25 06:24
06/13/25 06:24
Vital Signs
Pulse: 100
Initial and Last Documented VS:
Initial Vital Signs
Temp Pulse BP Pulse Ox
98.5 F 134 176/121 98
06/13/25 06:19 06/13/25 06:19 06/13/25 06:19 06/13/25 06:19
Last Documented Vital Signs
Temp Pulse BP Pulse Ox
98.5 F 100 125/100 92
06/13/25 06:19 06/13/25 08:53 06/13/25 12:00 06/13/25 12:00
<Malik Escobar DO, Resident - Last Filed: 06/13/25 13:29>
Orders/Labs/Results
Orders:
Orders
06/13/25 06:20
IV Insert/Care/Rem.- Treatment PRN
06/13/25 06:21
Electrocardiogram (*1) Urgent
Reason for Study: Abdominal Pain
EKG- Treatment ONCE
06/13/25 06:24
Complete Blood Count/With Diff Urgent
Comprehensive Metabolic Panel Urgent
Lipase Urgent
Magnesium Urgent
Comment: ADD ON
Manual Differential Urgent
06/13/25 08:04
Pantoprazole [Protonix IV] 80 mg IV NOW STA
06/13/25 08:15
CT Chest With Iv Contrast Stat
Comment:
Reason For Exam: Hematemesis, hx Boerhaave
0.9% Sodium Chloride 1000 ml [Nss] 1,000 ml IV 100 mls/hr
06/13/25 08:18
GASTROINTESTINAL CONSULT Urgent
Consulting Provider: Mika Martin
Was physician already notified: Yes
06/13/25 08:31
0.9% Sodium Chloride 500 ml [Nss] 500 ml IV BOLUS
06/13/25 08:40
Ondansetron Injectable [Zofran] 4 mg .ROUTE .STK-MED ONE
06/13/25 08:41
Ondansetron Injectable [Zofran] 4 mg IV NOW STA
06/13/25 10:00
Methadone HCl [Methadone 100 mg/10 ml] 145 mg PO ONCE ONE
06/13/25 12:15
Pantoprazole 80 mg/100 ml Nss [Protonix] 80 mg in 100 ml IV Q10H
06/13/25 12:38
0.9% Sodium Chloride 500 ml [Nss] 500 ml IV BOLUS
06/13/25 12:41
Admit/Transfer Patient As Directed
Co-Sign Provider:
Level of Care: Inpatient admission
Assign to:: Telemetry
Physician / Group: Cierra Ortiz
Diagnosis: hematemesis
Reason for Telemetry: Chest Pain syndromes
Date to Stop Telemetry: 06/15/25
Time to Stop Telemetry: 11:00
Reason for Hospitalization: hematemesis
Expected length of stay greater than two midnights?: Yes
ELOS- Estimated Length of Stay in days: 3
I certify the patient meets the requirements for IP care: Yes
PRN Pain Medication Management As Directed
May give lesser potent ordered pain med per pt: Yes
preference::
Protocol:: Medication orders for pain may be administered in a
manner that supports deferring to patient preference
when the pt is:
- Requesting an ordered lesser potent pain medication.
Least to most potent pain medications are defined
as: acetaminophen < NSAID < tramadol < opioids
(morphine, oxycodone, hydromorphone).
- Requesting a lesser dose of the same medication IF
ORDERED.
- Requesting a less intrusive route of administration
if both routes are prescribed by the provider (PO <
IV).
06/13/25 12:42
Code Status As Directed
Resuscitation Status: Do not resuscitate
Reached after discussion with pt or family/Healthcare POA: Yes
DNR Bracelet Application ONCE
06/13/25 12:44
Add On- LAB Routine
Tests Added?: magnesium
06/13/25 13:00
Lactated Ringers [Lr] 1,000 ml Potassium Chloride [KCl] 20 meq IV 100 mls/hr
06/15/25 11:00
DC Protocol for Telemetry ONCE
Abnormal Lab Results
06/13/25
06:24
WBC 31.8 H 10^3/uL
(4.8-10.8)
Hct 52.9 H %
(39.0-52.0)
Abs Neuts (Manual) 28.6 H 10^3/uL
(1.4-6.5)
Segmented Neutrophils 90 H %
(42-75)
Lymphocytes (Manual) 5 L %
(20-51)
Sodium 132 L mmol/L
(135-145)
Chloride 94 L mmol/L
(98-107)
Glucose 253 H mg/dl
(70-99)
Total Protein 8.5 H g/dl
(6.3-8.2)
06/13/25 06:24
06/13/25 06:24
Vital Signs
Initial and Last Documented VS:
Initial Vital Signs
Temp Pulse BP Pulse Ox
98.5 F 134 176/121 98
06/13/25 06:19 06/13/25 06:19 06/13/25 06:19 06/13/25 06:19
Last Documented Vital Signs
Temp Pulse BP Pulse Ox
98.5 F 100 125/100 92
06/13/25 06:19 06/13/25 08:53 06/13/25 12:00 06/13/25 12:00
<Malik Escobar DO, Resident - Last Filed: 06/13/25 13:29>
MDM/Problems Addressed
Differential Diagnosis Includes:
Elizabet-Briggs Tear, Boerhaave, Esophagitis, Gastritis, Enteritis, PUD
MDM/Problems Addressed:
54M w/ PMHx opioid use d/o, previous history of UGIB 2/2 Boerhaave syndrome (2021, transferred to tertiary center) who is presenting with 2 days of intractable vomiting and 24 hours of blood-tinged vomitus associated with crampy abdominal pain.
On arrival tachycardic 30s and hypertensive. Laboratory studies showed hemoglobin 17.6 (likely from hemoconcentration) and normal BUN. WBC 31K, however this appears chronic. EKG showed sinus tachycardia. Prior admission notes endoscopy in 2021
reviewed.At the time of physical examination, heart rate back down to around 100, and exam only positive for mild diffuse tenderness. There was a vomit bucket at bedside, that had a small amount of blood. Patient currently only dry heaving.
Patient given 1 dose of hypertonic saline, Zofran, NS bolus. GI consulted, suggest getting CT chest in setting of history of Boerhaave syndrome. They will be down to see him.
[place] Score: 3
Methodone dose was confirmed by pharmacy. Patient given his usual dose.
CT Chest w/ IV: Moderate circumferential wall thickening involving the mid to lower thoracic esophagus and stomach may reflect esophagitis/gastritis. No pneumomediastinum or mediastinal hematoma seen.
Plan is to admit this patient in the setting of complex history of esophageal tears and tachycardia in 130s on arrival. Patient remains stable in ED.
<Tito Bellamy DO - Last Filed: 06/13/25 08:53>
*Pulse Oximetry
SaO2: 98
Oxygen Mode of Delivery: Room air
<Malik Escobar DO, Resident - Last Filed: 06/13/25 13:29>
*Pulse Oximetry
Patient hypoxic: no
*Critical Care Note
Total Time (30-74mins, 75-104mins- exclusive of procedures): Not Applicable
ED Attending Note
<Tito Bellamy DO - Last Filed: 06/13/25 08:53>
ED Attending Note
Patient seen and examined by attending physician: Yes
I performed a history and physical exam of patient and discussed management with resident, I reviewed resident's note and agree with documented findings and plan of care.: Yes
ED Attending Note:
I evaluated the patient at bedside. White count is elevated at 31.8 which has intermittently occurred over the last few years here. His hemoglobin is 17.9 but he arrived tachycardic with rates in the 130s. I reviewed the recent endoscopy report
with Dr. Rivera. In 2021, he reportedly had Boerhaave syndrome and was flown to tertiary care facility managed nonoperatively. Heart rate currently is around 100. Will give Protonix IV. GI notified and requests CT imaging of the chest to evaluate
for Boerhaave syndrome.
-
Portions of this chart may have been created with voice recognition software.� Occasional wrong word or��sound alike� substitutions may have occurred due to the inherent limitations of voice recognition software.
Discharge Plan
Departure
Patient Disposition: Admit
Date of Disposition: 06/13/25
Time of Disposition: 10:00
Admit to: Med/Surg
Admit to doctor: Isaac Escudero
Presentation/result/management discussed w/ accepting MD/DO: Hospitalist
Patient with high blood pressure during this ER visit?: Yes
Condition: Fair
Discharge Problem:
Hematemesis, Abdominal pain
Interventions
Interventions:
*General Assessment Last Done: 06/13/25 08:57
*Neglect/Abuse Screening Last Done: 06/13/25 06:18
[facility] Fall Risk Assessment Tool Last Done: 06/13/25 09:18
[facility]-Gmiqkjovq[facility] Assessment Last Done: 06/13/25 08:59
ED- Cardiac Assessment Last Done: 06/13/25 08:59
ED- Pulmonary Assessment Last Done: 06/13/25 08:59
[2025-06-13] MEDS: NSS 500 IV ×2 (08:42→13:29)
[2025-06-13] MEDS: PROTONIX IV 80 MG IV (08:43)
[2025-06-13] MEDS: ZOFRAN 4 MG IV ×2 (08:49→17:59)
--- NOTE | 2025-06-13 09:02 | CON.GI ---
Addendum entered and electronically signed by Mika Martin MD 06/13/25 13:39:
I saw and evaluated the patient. I reviewed the resident�s note and agree with findings and plan as documented in the resident�s note.
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 Subsequently developed esophageal stricture requiring serial dilation. Most recently noted to have
Grade C esophagitis and f/u EGD showed long segment Montalvo's couple weeks ago. He presents with n/v for two days and began with hematemesis today. WBC 31. CT chest negative for pneumomediastinum, but showed esophagitis. Hgb 17.9. Reports
episodic n/v for 1-2 days followed by asymptomatic periods for week or two. He does use marijuana but reports cutting back and not being able to afford as much. He is somewhat defensive when questioned about use.
REC:
Protonix gtt
Zofran prn
NPO x sips clears. Monitor exam and further bleeding
If stable, can advance diet
Will hold off on EGD given elevated WBC and pain. He probably has Elizabet Briggs tear and if no active bleeding, I would avoid making it worse with procedure
Serial Hgb
Original Note:
Consultation
-
Date/Time Consultation Requested: 06/13/25, 8:18am
Date/Time Consultation Performed: 06/13/25, 9.15am
Requesting Provider: Malik Escobar DO, resident physician
Performing Provider: Sara Mi MD for Mika Bruno MD
Reason for Consultation: Hematemesis
Medical History
Chief Complaint / HPI
Chief Complaint: Vomiting blood
History of Present Illness:
54-year-old male with past medical history significant for esophagitis, GERD, discharged stenosis of the esophagus, Montalvo-syndrome (2021), opioid use disorder in remission, currently maintained on 145 mg of daily methadone, paroxysmal A-fib not
on any oral anticoagulation, congestive heart failure, COPD, hypertension, hyperlipidemia, ELA on CPAP, NIDDM, PAD s/p femoral bypass, medical marijuana use presents with 2-day history of cramping right upper quadrant and epigastric abdominal pain
with intractable vomiting once every 30 minutes to an hour. His abdominal pain is baseline aching pain but before the episode of emesis it tends to be a sharp cramping 8/10 pain, and he reports to be noticing fresh blood in his vomitus since
yesterday. He reports to have associated intermittent nausea with it. The blood in his emesis is weight less than the blood during the previous admission. He also reports having some myalgias, subjective fevers, and fatigue over the last 2 days.
He reports single episode of loose bowel movement (Schulter stool scale 6), denies tarry colored bowel movements or fresh blood in the stool. His last bowel movement was yesterday. His last oral intake was about 2 days ago, he recalls it to be
soup. He has been trying Gatorade, Tylenol [id number] over the last 2 days with no significant improvement. He also reports to be not taking his PPI as prescribed. He does not see GI regularly, has compliance issues.
He denies having rectal urgency, chest pain, dyspnea on exertion, palpitations, syncope or near syncopal episodes, and emesis since discharge.
Upon arrival to the ER he is found to be tachycardic with heart rate at 120, and blood pressure at 176/126. His hemoglobin is at 17.9, hematocrit is at 52.9, leukocytosis with a WBC count of 31.8, and elevated monocyte count. His AST, ALT and alk
phos are within normal limits. His lipase is at 36.
His last marijuana intake was THC about 7 days prior to this ER visit, and states it is not much, probably 150mcg or mg.
Past Medical History
Past Medical History: Other (esophagitis/esophageal tear/stenosis/Boerhaave's syndrome (2021), chronic pain/opioid use disorder on 160mg daily methadone with [facility], paroxysmal afib (not on OAC), CHF, COPD, HTN, hypercholesterolemia,
NIDDM, ELA on CPAP, PAD)
Past Surgical History: Other (femoral bypass)
Social History
Tobacco: Smoker (1 pack a day)
Alcohol: None
Drug: Former User (opioids, in remission, on methadone) and Marijuana (THC 150-200mg, last use 7 days ago. )
Personal:
Living: With Family
Employment: Employed
Family History
Family History: Other (mother with h/o breast cancer and PE)
Allergies / Home Medications
Allergy/AdvReac Type Severity Reaction Status Date / Time
acetaminophen Allergy Rash Verified 06/13/25 06:20
amlodipine besylate (From Allergy Tongue Verified 06/13/25 06:20
Norvasc) Swelling
erythromycin base Allergy Hives Verified 06/13/25 06:20
ibuprofen Allergy Hives Verified 06/13/25 06:20
Penicillins Allergy HIVES Verified 06/13/25 06:20
(CHILDHOOD)
�Medication �Instructions �Recorded
sacubitril 24 mg-valsartan 26 mg 1 tab PO BID Heart Failure 04/29/22
tablet (Entresto)
atorvastatin 10 mg tablet 10 mg PO DAILY High cholesterol 10/21/22
methadone 10 mg/mL oral 145 mg PO DAILY SUBSTANCE USE 08/21/23
concentrate (Methadone Intensol) DISORDER
carvedilol 6.25 mg tablet (Coreg) 6.25 mg PO BID Blood Pressure 03/17/24
Medical Marijuana 1 inh PO DAILYPRN PRN 08/03/24
ANXIETY/STRESS
fluoxetine 10 mg capsule 10 mg PO DAILY Depression 03/10/25
ondansetron 4 mg disintegrating 4 mg PO Q8HPRN PRN N/V 03/10/25
tablet
empagliflozin 10 mg tablet 10 mg PO DAILY 03/13/25
(Jardiance)
fluticasone fur. 100 mcg-umeclid 1 inh inhalation DAILY 03/13/25
62.5 mcg-vilant 25 mcg
inhalat.powder (Trelegy Ellipta)
hydroxyzine pamoate 50 mg capsule 50 mg PO PRN PRN Cytokine Release 03/13/25
Syndrome
furosemide 20 mg tablet 20 mg PO DAILY 04/24/25
pantoprazole 40 mg tablet,delayed 40 mg PO BID GERD 04/24/25
release
Review of Systems
-
Constitutional: Reports Fever and Fatigue
EENT: Reports No Symptoms
Respiratory: Reports No Symptoms
Cardiac: Reports No Symptoms
Abdomen/GI: Reports Abdominal Pain, Nausea and Vomiting; Denies Diarrhea, Constipated, Bloody Stools, Black Stools, Anorexia or Pain
: Reports Urgency
Musculoskeletal: Reports No Symptoms
Skin: Reports No Symptoms
Neurological: Reports Weakness
Endocrine: Reports No Symptoms
Hematologic/Lymphatic: Reports No Symptoms
Vital Signs
Temp Pulse BP Pulse Ox
98.5 F 100 176/121 98
06/13/25 06:19 06/13/25 08:53 06/13/25 06:19 06/13/25 08:06
Physical Exam
Exam
General: Well Nourished and Comfortable
Respiratory: Clear; Negative Wheezes, Rales or Rhonchi
Cardiac: S1/S2 and Regular Rhythm; Negative Murmur, Rub or JVD
GI: Soft, Non Distended, Normal Bowel Sounds, Tender (In the right upper quadrant, left upper quadrant, epigastric tenderness.) and Other (Tympanic on percussion); Negative Organomegaly
Musculoskeletal: No Clubbing, No Cyanosis and No Edema
Neuro: Other (Somnolent, easily arousable and holding up conversations, oriented to time person and place.)
Psych: Calm
Results
WBC 31.8 10^3/uL (4.8-10.8) H 06/13/25 06:24
Hgb 17.9 g/dL (13.0-18.0) 06/13/25 06:24
Hct 52.9 % (39.0-52.0) H 06/13/25 06:24
MCV 87.3 fL (80.0-94.0) 06/13/25 06:24
Plt Count 259 10^3/uL (130-400) 06/13/25 06:24
Sodium 132 mmol/L (135-145) L 06/13/25 06:24
Potassium 3.6 mmol/L (3.5-5.1) 06/13/25 06:24
Chloride 94 mmol/L (98-107) L 06/13/25 06:24
Carbon Dioxide 23 mmol/L (22-30) 06/13/25 06:24
BUN 19 mg/dl (9-20) 06/13/25 06:24
Creatinine 0.9 mg/dL (0.7-1.3) 06/13/25 06:24
Calcium 9.6 mg/dl (8.4-10.2) 06/13/25 06:24
Total Bilirubin 1.1 mg/dl (0.2-1.3) 06/13/25 06:24
AST 28 U/L (17-59) 06/13/25 06:24
ALT 27 U/L (0-50) 06/13/25 06:24
Alkaline Phosphatase 123 U/L (38-126) 06/13/25 06:24
Lipase 36 U/L (23-300) 06/13/25 06:24
Diagnostic Image Results:
CT chest with IV contrast-
1. Moderate circumferential wall thickening involving the mid to lower thoracic esophagus and stomach may reflect esophagitis/gastritis. No pneumomediastinum or mediastinal hematoma seen.
Prior GI Procedures:
Dilatation of esophagus --2021
EGD:
His most recent upper GI endoscopy was on 05/18/2025-
Impression:
- Normal proximal esophagus.
- [place]-colored mucosa suspicious for long-segment Montalvo's
esophagus. Biopsied.
- Small hiatal hernia with a thickened, redundant fold. Biopsied.
- Gastritis, characterized by erythema and erosions. Biopsied.
- Erythematous duodenopathy. Biopsied.
- The examination was otherwise normal.
Upper GI endoscopy on 03/13/2025-
Impression:
- LA Grade C esophagitis with no bleeding.
- [place]-colored mucosa consistent with long-segment Montalvo's
esophagus.
- Non-obstructing Schatzki ring.
- 2 cm hiatal hernia.
- Erythematous mucosa in the antrum.
- Erythematous duodenopathy.
- Non-bleeding duodenal ulcers with no stigmata of bleeding.
- No specimens collected.
Colonoscopy: 05/2024 -
Impression:
- Preparation of the colon was inadequate with an extensive amount of stool in the rectum, in the sigmoid colon and in the descending colon resulting. The procedure was subsequently aborted
- Diverticulosis in the sigmoid colon and in the descending colon.
- No specimens collected.
Recommendation: - Discharge patient to home (with escort).
- Resume previous diet today.
- Continue present medications.
- Repeat colonoscopy within 3 months for surveillance
of colon polyps. Patient will require two day bowel
prep to ensure adequate prep at time of next
colonoscopy
- Patient has a contact number available for
emergencies. The signs and symptoms of potential
delayed complications were discussed with the patient.
Return to normal activities tomorrow. Written
discharge instructions were provided to the patient.
- The findings and recommendations were discussed with
the patient.
Assessment / Plan
-
[id number] male with PMHx significant for esophagitis, GERD, esophageal tear/Boerhaave syndrome (2021), esophageal stenosis s/p dilatation of esophagus, opioid use disorder on methadone currently, paroxysmal A-fib, CHF, COPD,
hypertension, hyperlipidemia, NIDDM, ELA on CPAP, PAD s/p femoral bypass presents with intractable vomiting, crampy abdominal pain and hematemesis x 2 days.
Problem list-
#Intractable vomiting.
# Hematemesis
# Esophagitis
# Gastritis
# History of Boerhaave syndrome with stenosis requiring serial dilatations of esophagus.
Likely the patient's intractable vomiting and hematemesis is multifactorial in nature. Could likely be a confluence of marijuana hyperemesis syndrome acute on chronic esophagitis, and acute gastritis as evidenced by the CT chest. Suspect if there
is component of gastroparesis given methadone use.
Plan-
Start the patient on PPI GGT.
IV Zofran as needed.
Gentle hydration with IV fluids (history of heart failure).
Clear liquid diet as tolerated.
-
-
Thank you for consultation and allowing me to participate in the patient's care. Please call the court liaison GI physician during the after hours with any questions or concerns.
[2025-06-13 09:53] LABS: Absolute Neutrophils -Man Diff 28.6 10^3/uL (1.4-6.5); Hypersegmented Neutrophil 1+; Normal RBC Morphology Yes; Platelets Checked Yes; Total Cells Counted 100
[2025-06-13] MEDS: METHADONE 100 MG/10 ML 145 MG PO (10:04)
--- NOTE | 2025-06-13 10:20 | PHANOTE ---
MED REC NOTE-PATIENT HAS NO USE OR CURRENT MEDICATION FILL, ONLY RECENT FILL WAS FOR TRELEGY HFA
--- NOTE | 2025-06-13 12:14 | HPS.HSE ---
Family Physician
-
Family Physician: Karen Jones DO
Chief Complaint
-
abdominal pain and throwing up blood
History of Present Illness
Mr. Christian Renae is a 54 yo man with hx esophagitis/esophageal stricture/tear and Boerhaave's syndrome (2021), DM, Opioid use on Methadone, DM, paroxysmal atrial fibrillation not on AC, ELA on CPAP, essential HTN, HLD, PAD s/p femoral bypass with hx
several admissions for hematmesis presents to the ER with nausea/vomiting and hematemesis.
Patient states symptoms started 2 days ago. He had frequent vomiting, no diarrhea. He noted small clots of blood today and so came to the ER. Mild abdominal tenderness. He is very fatigued, hasn't slept well. + chills, no measured fevers, no LE
swelling.
No chest pain or shortness of breath.
Medical History
Past Medical History
Past Medical History: Reports Arrhythmia (Paroxysmal A-fib), Cancer (Melanoma), CHF, COPD, GERD, HTN, Hypercholesterolemia, NIDDM, Psychiatric (Opioid use disorder on methadone) and Other (Anxiety, PAD, pericarditis, diverticulitis, colon polyps,)
Past Surgical History: Reports Orthopedic (Left shoulder surgery right shoulder surgery) and Other (Right femoral bypass)
Social History
Tobacco: Smoker (1 pack a day)
Alcohol: None
Drug: Former User (Heroin/fentanyl (snorting)) and Marijuana (Current weekly vaping of medical marijuana for anxiety/pain)
Personal:
Living: With Family
Employment: Employed
Family History
Family History: Cancer (Mother had breast cancer, mother had PE)
Allergies / Home Medications
Allergies reflects when Allergies were last updated in [facility].
Home Medications with original date entered in [facility]
Allergy/Medication List:
Allergies
Allergy/AdvReac Type Severity Reaction Status Date / Time
acetaminophen Allergy Rash Verified 06/13/25 06:20
amlodipine besylate (From Allergy Tongue Verified 06/13/25 06:20
Norvasc) Swelling
erythromycin base Allergy Hives Verified 06/13/25 06:20
ibuprofen Allergy Hives Verified 06/13/25 06:20
Penicillins Allergy HIVES Verified 06/13/25 06:20
(CHILDHOOD)
Home Medications
methadone 10 mg/mL oral concentrate (Methadone Intensol) 145 mg PO DAILY SUBSTANCE USE DISORDER 08/21/23
carvedilol 6.25 mg tablet (Coreg) 6.25 mg PO BID Blood Pressure 03/17/24
Medical Marijuana 1 inh PO DAILYPRN PRN ANXIETY/STRESS 08/03/24
empagliflozin 10 mg tablet (Jardiance) 10 mg PO DAILY 03/13/25
fluticasone fur. 100 mcg-umeclid 62.5 mcg-vilant 25 mcg inhalat.powder (Trelegy Ellipta) 1 inh inhalation R DAILY 03/13/25
Review of Systems
-
History Source: Patient
A 12 point ROS was completed and negative except as noted: Yes
Physical Exam
Vital Signs
Vital Signs
Temp Pulse BP Pulse Ox
98.5 F 100 138/97 96
06/13/25 06:19 06/13/25 08:53 06/13/25 11:00 06/13/25 11:00
Physical Exam
General: No Apparent Distress and Other (appears fatigued but arousable )
HEENT: PERRLA
Respiratory: Clear; No Wheezes
Cardiac: S1/S2 and Regular Rhythm
GI: Other (mildly tender, no rebound or guarding )
Musculoskeletal: No Edema
Skin: Warm and Dry; No Rash
Neuro: AO x 3
Psych: Calm
Laboratory Results
-
06/13/25 06:24
06/13/25 06:24
Laboratory Results
Total Bilirubin 1.1 mg/dl (0.2-1.3) 12/16/25 06:24
AST 28 U/L (17-59) 06/13/25 06:24
ALT 27 U/L (0-50) 06/13/25 06:24
Alkaline Phosphatase 123 U/L (38-126) 06/13/25 06:24
Lipase 36 U/L (23-300) 06/13/25 06:24
Data Reviewed
-
Diagnostic Radiology: Report Reviewed by me
Lab Data: Labs Reviewed by me
Impression/Plan
-
Mr. Christian Renae is a 54 yo man with hx esophagitis/esophageal stricture/tear and Boerhaave's syndrome (2021), DM, Opioid use on Methadone, DM, paroxysmal atrial fibrillation not on AC, ELA on CPAP, essential HTN, HLD, PAD s/p femoral bypass with hx
several admissions for hematemesis presents to the ER with nausea/vomiting and hematemesis.
Triage VS: T 98.5, P 134, BP 176/121, SpO2 98%
LABS: WBC 31.8, Hg 17.9, PLT 259, Na 132, K+ 3.6, cO2 23, BUN 19, Cr 0.9, Glucose 253, liver enzymes WNL
CT Chest
IMPRESSION:
1. Moderate circumferential wall thickening involving the mid to lower thoracic esophagus and stomach may reflect esophagitis/gastritis. No pneumomediastinum or mediastinal hematoma seen.
EGD from 05/22/25:
Impression:
- Normal proximal esophagus.
- [place]-colored mucosa suspicious for long-segment Montalvo's
esophagus. Biopsied.
- Small hiatal hernia with a thickened, redundant fold. Biopsied.
- Gastritis, characterized by erythema and erosions. Biopsied.
- Erythematous duodenopathy. Biopsied.
- The examination was otherwise normal.
MAR: IVF, IV Protonix gtt, Methadone
Nausea/vomiting
Hematemesis likely from MWT
Hx Esophagitis/Esophageal stenosis/tear (Boerhaave's syndrome 2021)
-prior admissions thought multifactorial from marijuana induced hyperemesis, esophagitis, dysmotility from chronic opioid use
-admit to telemetry
-GI consult appreciated
-trend Hg, likely hemoconcentrate in labs in ER
-patient is not on blood thinners
-unclear why PPI not on home meds
-continue IV Protonix gtt
-LR + 20mEq IVF @ 100
-clears
-patient is on methadone; QTc 484 - will order IV Zofran PRN and repeat EKG tomorrow AM to monitor QTc
Hx Substance Abuse disorder now on Methadone - continue
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
Hx PAD s/p femoral bypass - review with GI if OK to resume aspirin
NIDDM
-hold Jardiance
-ISS low
COPD
-[employer]IVER Trelegy inhaler
DVT PPx SCD
DNR - this was discussed on admission
76 minutes spent on patient care
[2025-06-13 13:19] LABS: Magnesium 1.9 mg/dl (1.6-2.3)
[2025-06-13] MEDS: PROTONIX 100 IV ×2 (13:28→21:41)
--- NOTE | 2025-06-13 14:05 | EDCM ---
Reviewed chart and met with pt bedside in ED. Lives with his parents and grandmother in [address] [facility] [address] [place]. Has full bath on first floor.
Independent in ADLs, personal care and ambulation at baseline. No Assistive devices, only DME is [employer].
Goes to [facility] daily for methadone.
History includes UGIB, Boerhaave Syndrome, Afib, Skin cancer, COPD, GERD, HTN, Hypercholesterolemia, NIDDM, pericarditis, kidney stone, UTI, Opiate abuse, Pyelonephritis, PVD, Chronic back pain, chronic bronchitis, sleep apnea, diverticulitis and
Gout.
Confirms prescription coverage.
No hx VN or SNF
PCP: Karen Jones
Pharmacy: [facility]
Anticipate discharge home when medically stable, CM will continue to follow for all discharge planning needs.
[2025-06-13] MEDS: NSS 1000 IV ×2 (15:17→23:36)
[2025-06-13 16:51] LABS: Hematocrit 44.6 % (39.0-52.0); Hemoglobin 15.0 g/dL (13.0-18.0)
[2025-06-13] MEDS: FLUSH (NSS) 1 FLUSH IV (17:59)
[2025-06-13] MEDS: TYLENOL 650 MG PO (18:17)
--- NOTE | 2025-06-13 18:31 | W.PN.UPDATE ---
Update Note
Progress Note Update
Pt requesting stronger pain med than Tylenol, discussed with Dr. Ortiz, avoiding NSAIDs due to GIB, given pt is on methadone for substance abuse history will avoid too much narcotic pain med, trial small dose IV dilaudid 0.25mg x1, PPI should also
start to help.
[2025-06-13] MEDS: NOVOLOG FLEXPEN-LOW RESISTANCE SC (18:39)
[2025-06-13 18:40] LABS: Glucose - Point of Care 139 mg/dl (70-99)
--- NOTE | 2025-06-13 18:40 | PTCARENOTE ---
Received pt from ER via stretcher, accompanied by ER staff. Pt AAO x3, HARRIS well, ambulatory to bed, no c/o weakness/dizziness. VSS. Placed on telemetry:sinus tachy 100's. On room air- pulse ox 97%, no SOB noted. Abd soft, rounded, NPO
maintained, pt can have ice chips/sips clears. Pt c/o nausea/retching, also c/o 'pain all along my esophagus'. IV Zofran 4 mg and P Tylenol 650 mg given. IV NSS @ 100 ml/hr and Protonix drip @ 8 mg/hr (10 ml/hr) infuisng via Rt wrist site without
sx of infiltration. Oriented to 4East, currently resting in bed. Will continue to monitor.
[2025-06-13] MEDS: SYMBICORT 80/4.5 MCG INHALER 2 PUFF INH (19:29)
--- NOTE | 2025-06-13 20:58 | W.PN.UPDATE ---
Update Note
Progress Note Update
- QTC > 500 on the monitor, EKG done and qtc 519. Patient is asymptomatic.
-Will d/c Zofran.
-Continue tele services.
--- NOTE | 2025-06-13 20:59 | PTCARENOTE ---
Pts QTc monitoring >500 house GRANT WRITER aware EKG completed and reviewed.
[2025-06-13] MEDS: COREG PO (21:04)
[2025-06-13] MEDS: COREG 6.25 MG PO (21:09)
--- NOTE | 2025-06-13 21:10 | VATNOTE ---
MD order to place 2 large bore IV sites until client stable. Client adamantly refuses second site stating he is a 'horrible stick' Rationale for 2 IVs explained but client continues to refuse. Primary care RN aware.
[2025-06-13 21:14] LABS: Glucose - Point of Care 114 mg/dl (70-99)
[2025-06-13] MEDS: DILAUDID 0.25 MG IV (21:44)
[2025-06-14] VITALS (7 sets, daily range): BP systolic 131–166; BP diastolic 70–99; PULSE 68–69
--- NOTE | 2025-06-14 00:45 | PTCARENOTE ---
HGB noted, house CUTTER BARREL DRUM aware.
[2025-06-14 01:38] LABS: Hematocrit 42.3 % (39.0-52.0); Hemoglobin 13.9 g/dL (13.0-18.0)
[2025-06-14] MEDS: TYLENOL 1000 MG PO (01:59)
[2025-06-14 02:11] LABS: Glucose - Point of Care 116 mg/dl (70-99)
--- NOTE | 2025-06-14 04:28 | PTCARENOTE ---
Patient refusing many aspects of care, refusing orthostatic VS, refusing 0300 VS, refusing 0600 accucheck, refusing labs 'until I get a midline.' House HOLLOW HANDLE KNIFE ASSEMBLER aware.
[2025-06-14] MEDS: SYMBICORT 80/4.5 MCG INHALER 2 PUFF INH ×2 (07:29→19:32)
[2025-06-14] MEDS: SPIRIVA RESPIMAT 2.5 MCG 2 PUFF INH (07:29)
[2025-06-14] MEDS: METHADONE 100 MG/10 ML 145 MG PO (08:27)
[2025-06-14] MEDS: COREG 6.25 MG PO ×2 (08:27→19:54)
[2025-06-14] MEDS: TIGAN 200 MG IM ×2 (08:29→19:54)
[2025-06-14 08:46] LABS: Hematocrit 41.2 % (39.0-52.0); Hemoglobin 13.7 g/dL (13.0-18.0); Mean Corp Hgb Conc. 33.3 g/dL (33.0-37.0); Mean Corpuscular Volume 90.0 fL (80.0-94.0); Platelet Count 171 10^3/uL (130-400); Red Cell Dist. Width 13.8 % (11.5-14.5)
--- NOTE | 2025-06-14 09:02 | W.PN.GI.CBS2 ---
Today's Communication / Plan
-
WBC improved
Hgb plateau after drop to 13, likely dilutional
Cont protonix gtt
Add carafate
Advance to clears
Hold on EGD if Hgb stable
Assessment / Plan
-
Summary: 54yo male with hx Montalvo's, esophageal tear requiring transfer to [place] for concern for Boerhaave's syndrome managed conservatively in 2021. Subsequently developed esophageal stricture requiring serial dilation. Most recently noted
to have Grade C esophagitis and f/u EGD showed long segment Montalvo's couple weeks ago. He presents with n/v for two days and began with hematemesis. WBC 31. CT chest negative for pneumomediastinum, but showed esophagitis. Hgb 17.9. Reports
episodic n/v for 1-2 days followed by asymptomatic periods for week or two. He does use marijuana but reports cutting back and not being able to afford as much. He is somewhat defensive when questioned about use.
Impression:
n/v hematemesis
WBC 31K. CT chest negative pneumomediastinum. Suspect deep MW tear similar to presentation in 2021
Hx deep MW tear with subsequent stricture req dilations
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
Subjective
Subjective
Date of Service: June 14, 2025
c/o throat pain, difficult sleeping. n/v overnight, but no blood. Feeling slightly better
Objective
Data Reviewed
Laboratory Data:
Laboratory Results
06/14/25 06:50
Laboratory Results
Magnesium 1.9 mg/dl (1.6-2.3) 06/13/25 06:24
Total Bilirubin 1.1 mg/dl (0.2-1.3) 06/13/25 06:24
AST 28 U/L (17-59) 06/13/25 06:24
ALT 27 U/L (0-50) 06/13/25 06:24
Alkaline Phosphatase 123 U/L (38-126) 06/13/25 06:24
Lipase 36 U/L (23-300) 06/13/25 06:24
Vital Signs and I&O:
Vital Signs
Temp Pulse Resp BP Pulse Ox
98.4 F 96 16 156/96 96
06/14/25 00:40 06/14/25 07:31 06/14/25 07:31 06/14/25 00:40 06/14/25 00:40
I&O
06/13/25 06/14/25 06/15/25
06:59 06:59 06:59
Intake Total 240 / 240
Output Total 300 / 300
Balance -60 / -60
Physical Exam
Physical Exam
GI: Soft, Non Distended and Non Tender
[2025-06-14 09:05] LABS: Glycohemoglobin (HgbA1c) 6.2 % (4.0-5.9)
[2025-06-14 09:12] LABS: Blood Urea Nitrogen 17 mg/dl (9-20); Calcium 8.5 mg/dl (8.4-10.2); Carbon Dioxide 24 mmol/L (22-30); Chloride 105 mmol/L (98-107); Estimated Creatinine Clearance 94 ml/min; Glucose 98 mg/dl (70-99); Magnesium 1.9 mg/dl (1.6-2.3); Potassium 3.7 mmol/L (3.5-5.1); Sodium 134 mmol/L (135-145); eGFR > 60.00
[2025-06-14] MEDS: NOVOLOG FLEXPEN-LOW RESISTANCE SC ×2 (09:16→17:09)
[2025-06-14] MEDS: PROTONIX 100 IV ×2 (09:50→19:53)
[2025-06-14] MEDS: NSS 1000 IV ×2 (09:51→19:54)
[2025-06-14] MEDS: CARAFATE SUSPENSION 1 GM PO ×3 (10:38→21:51)
[2025-06-14 11:06] LABS: Glucose - Point of Care 156 mg/dl (70-99)
[2025-06-14] MEDS: NOVOLOG FLEXPEN-LOW RESISTANCE 1 UNITS SC (12:40)
--- NOTE | 2025-06-14 13:07 | W.PN.HOSP.TC ---
Today's Communication/Plan
-
Monitor hemoglobin.
Continue IV Protonix
Assessment / Plan
Assessment / Plan
Impression:
Mr. Christian Renae is a 54-year-old male with a significant past medical history of esophagitis, esophageal stricture and tear, Boerhaave�s syndrome (2021), diabetes mellitus, opioid use disorder on methadone, paroxysmal atrial fibrillation (not on
anticoagulation), obstructive sleep apnea on CPAP, essential hypertension, hyperlipidemia, and peripheral arterial disease status post femoral bypass. He has had multiple prior admissions for hematemesis.He presents to the ED with nausea, vomiting,
and hematemesis, started on Protonix drip, hemoglobin remains stable, seen by GI and started on Carafate.
Assessment/plan:
Nausea, vomiting, and hematemesis,
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 He has a history of esophagitis, esophageal stenosis and tear (Boerhaave�s syndrome in 2021), and multiple prior admissions for hematemesis thought to be multifactorial, including marijuana-induced
hyperemesis, esophagitis, and dysmotility related to chronic opioid use.
Admitted to telemetry
GI consult, noted appreciated
Trend hemoglobin; initial elevation likely due to hemoconcentration
Patient is not on anticoagulation
Patient is on methadone; switch Zofran to Tigan
GI recommends continuing Protonix drip, adding Carafate, advancing to clears, and holding EGD if hemoglobin remains stable
WBC improving; hemoglobin plateau after dilutional drop to 13
Substance Use Disorder:
Continue methadone
Essential Hypertension:
Resume home Coreg
Paroxysmal Atrial Fibrillation:
Continue Coreg; patient not on anticoagulation
Peripheral Arterial Disease (s/p femoral bypass):
Resume aspirin once cleared by GI
Diabetes Mellitus (NIDDM):
Hold Jardiance
Use low-dose insulin sliding scale
COPD:
Continue home Trelegy inhaler
CODE STATUS: DNR
DVT prophylaxis: SCDs
Diet: CLD
Disposition: Monitor hemoglobin.
Continue IV Protonix
Total time spent on today's encounter was 65 minutes which included time spent in counseling the patient/family regarding diagnosis and treatment plan as listed above, goals of care, and symptom management. Case was discussed with nursing staff,
specialists, and care coordinators/case management. All labs and imaging personally reviewed by me. Remainder the time spent in detailed review of previous records, lab data, imaging, and other medical provider documentation.
Anticipated Discharge: Within 24 hours
Subjective/Interval History
-
Date of Service: June 14, 2025
Patient seen and examined at bedside, nausea and vomiting improved with Tigan, abdominal pain relieved with IV Dilaudid.
Objective Data
-
Labs:
Laboratory Results
06/14/25 06/14/25
00:30 06:50
WBC 18.0 H
Hgb 13.9 13.7
Hct 42.3 41.2
Plt Count 171 D
Sodium 134 L
Potassium 3.7
Chloride 105
Carbon Dioxide 24
BUN 17
Creatinine 0.8
Glucose 98
Calcium 8.5
Vital Signs:
Vital Signs
Temp Pulse Resp BP Pulse Ox
97.8 F 69 16 160/96 97
06/14/25 11:11 06/14/25 11:11 06/14/25 11:11 06/14/25 11:11 06/14/25 11:11
I&O
06/13/25 06/14/25 06/15/25
06:59 06:59 06:59
Intake Total 240 / 240
Output Total 300 / 300
Balance -60 / -60
Physical Exam
-
General: Well Developed, Well Nourished, No Apparent Distress and Comfortable
HEENT: Normocephalic, Atraumatic, Moist Mucous Membranes, No Ptosis, PERRLA and Nose Appears Normal
Respiratory: Clear to Auscultation and Non Labored Respirations
Cardiac: Regular Rhythm and S1/S2
Breast: Deferred by me
GI: Soft, Nontender, Nondistended and Normal Bowel Sounds
Genito-urinary: No Costovertebral Tender
Musculoskeletal: No Clubbing, No Cyanosis and No Edema
Skin: Warm
Neuro: Awake, Alert, Oriented, AO x 3 and No Motor Deficits
Psych: Calm
Data Reviewed
-
Diagnostic Radiology: Image personally visualized and interpreted and Report Reviewed by me
CT Scan: Image personally visualized and interpreted and Report Reviewed by me
Ultrasound: Image personally visualized and interpreted and Report Reviewed by me
MRI: Image personally visualized and interpreted and Report Reviewed by me
Medical Tests (Nuc Med, Echo etc): Image personally visualized and interpreted and Report Reviewed by me
Labs: Labs Reviewed by me
Old Records: Reviewed
[2025-06-14] MEDS: DILAUDID 0.25 MG IV ×2 (13:42→21:55)
[2025-06-14 17:02] LABS: Glucose - Point of Care 148 mg/dl (70-99)
[2025-06-14 21:48] LABS: Glucose - Point of Care 108 mg/dl (70-99)
[2025-06-15] MEDS: NSS 1000 IV (02:31)
[2025-06-15 03:55] VITALS: BP 141/79
[2025-06-15 06:00] VITALS: BMI 25.9
[2025-06-15] MEDS: PROTONIX 100 IV (06:07)
[2025-06-15] MEDS: DILAUDID 0.25 MG IV (06:08)
[2025-06-15] MEDS: SYMBICORT 80/4.5 MCG INHALER 2 PUFF INH (07:31)
[2025-06-15] MEDS: SPIRIVA RESPIMAT 2.5 MCG 2 PUFF INH (07:31)
[2025-06-15 07:41] VITALS: BP 151/96
[2025-06-15] MEDS: METHADONE 100 MG/10 ML 145 MG PO (07:51)
[2025-06-15 07:53] LABS: Glucose - Point of Care 103 mg/dl (70-99)
[2025-06-15 07:53] LABS: Hematocrit 42.0 % (39.0-52.0); Hemoglobin 14.2 g/dL (13.0-18.0); Mean Corp Hgb Conc. 33.8 g/dL (33.0-37.0); Mean Corpuscular Volume 89.9 fL (80.0-94.0); Platelet Count 147 10^3/uL (130-400); Red Cell Dist. Width 13.5 % (11.5-14.5)
[2025-06-15] MEDS: COREG 6.25 MG PO (07:53)
[2025-06-15] MEDS: CARAFATE SUSPENSION 1 GM PO ×2 (07:54→11:25)
[2025-06-15] MEDS: NOVOLOG FLEXPEN-LOW RESISTANCE SC (07:56)
[2025-06-15 08:03] LABS: Blood Urea Nitrogen 10 mg/dl (9-20); Calcium 8.4 mg/dl (8.4-10.2); Carbon Dioxide 23 mmol/L (22-30); Chloride 107 mmol/L (98-107); Estimated Creatinine Clearance 108 ml/min; Glucose 99 mg/dl (70-99); Potassium 3.7 mmol/L (3.5-5.1); Sodium 137 mmol/L (135-145); eGFR > 60.00
--- NOTE | 2025-06-15 08:10 | W.PN.GI.CBS2 ---
Today's Communication / Plan
-
WBC normalized. Hgb stable
d/c protonix gtt, change to BID
Cont carfate
Advance to low res diet
If tolerates, OK for d/c and f/u with Dr Rivera in office
Assessment / Plan
-
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 Subsequently developed esophageal stricture requiring serial dilation. Most recently noted
to have Grade C esophagitis and f/u EGD showed long segment Montalvo's couple weeks ago. He presents with n/v for two days and began with hematemesis. WBC 31. CT chest negative for pneumomediastinum, but showed esophagitis. Hgb 17.9. Reports
episodic n/v for 1-2 days followed by asymptomatic periods for week or two. He does use marijuana but reports cutting back and not being able to afford as much. He is somewhat defensive when questioned about use.
Impression:
n/v hematemesis
WBC 31K. CT chest negative pneumomediastinum. Suspect deep MW tear similar to presentation in 2021
Hx deep MW tear with subsequent stricture req dilations
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
Subjective
Subjective
Date of Service: June 15, 2025
Still throat pain, but improving
Objective
Data Reviewed
Laboratory Data:
Laboratory Results
06/15/25 07:10
06/15/25 07:10
Laboratory Results
Magnesium 1.9 mg/dl (1.6-2.3) 06/14/25 06:50
Total Bilirubin 1.1 mg/dl (0.2-1.3) 06/13/25 06:24
AST 28 U/L (17-59) 06/13/25 06:24
ALT 27 U/L (0-50) 06/13/25 06:24
Alkaline Phosphatase 123 U/L (38-126) 06/13/25 06:24
Lipase 36 U/L (23-300) 06/13/25 06:24
Vital Signs and I&O:
Vital Signs
Temp Pulse Resp BP Pulse Ox
99.1 F 67 20 151/96 96
06/15/25 07:41 06/15/25 07:41 06/15/25 07:41 06/15/25 07:41 06/15/25 07:41
I&O
06/14/25 06/15/25 06/16/25
06:59 06:59 06:59
Intake Total 240 / 240 3970 / 3970
Output Total 300 / 300 1500 / 1500
Balance -60 / -60 2470 / 2470
Physical Exam
Physical Exam
GI: Soft and Non Distended
[2025-06-15 10:50] VITALS: BP 163/95
[2025-06-15 11:23] LABS: Glucose - Point of Care 182 mg/dl (70-99)
[2025-06-15] MEDS: NOVOLOG FLEXPEN-LOW RESISTANCE 1 UNITS SC (11:24)
--- NOTE | 2025-06-15 11:56 | W.PN.HOSP.TC ---
Today's Communication/Plan
-
Discharge home today
Assessment / Plan
Assessment / Plan
Impression:
Mr. Christian Renae is a 54-year-old male with a significant past medical history of esophagitis, esophageal stricture and tear, Boerhaave�s syndrome (2021), diabetes mellitus, opioid use disorder on methadone, paroxysmal atrial fibrillation (not on
anticoagulation), obstructive sleep apnea on CPAP, essential hypertension, hyperlipidemia, and peripheral arterial disease status post femoral bypass. He has had multiple prior admissions for hematemesis.He presents to the ED with nausea, vomiting,
and hematemesis, started on Protonix drip, hemoglobin remains stable, seen by GI and started on Carafate.
hemoglobin remained stable, plan to discharge home today and follow-up with GI as OP
Assessment/plan:
Nausea, vomiting, and hematemesis,
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 He has a history of esophagitis, esophageal stenosis and tear (Boerhaave�s syndrome in 2021), and multiple prior admissions for hematemesis thought to be multifactorial, including marijuana-induced
hyperemesis, esophagitis, and dysmotility related to chronic opioid use.
Admitted to telemetry
GI consult, noted appreciated
Trend hemoglobin; initial elevation likely due to hemoconcentration
Patient is not on anticoagulation
Patient is on methadone; switch Zofran to Tigan
GI recommends continuing Protonix drip, adding Carafate, advancing to clears, and holding EGD if hemoglobin remains stable
WBC improving; hemoglobin plateau after dilutional drop to 13
hemoglobin remained stable, plan to discharge home today and follow-up with GI as OP
Substance Use Disorder:
Continue methadone
Essential Hypertension:
Resume home Coreg
Paroxysmal Atrial Fibrillation:
Continue Coreg; patient not on anticoagulation
Peripheral Arterial Disease (s/p femoral bypass):
Resume aspirin once cleared by GI
Diabetes Mellitus (NIDDM):
Hold Jardiance
Use low-dose insulin sliding scale
COPD:
Continue home Trelegy inhaler
CODE STATUS: DNR
DVT prophylaxis: SCDs
Diet: Low residual
Disposition: Discharge home today
Total time spent on today's encounter was 65 minutes which included time spent in counseling the patient/family regarding diagnosis and treatment plan as listed above, goals of care, and symptom management. Case was discussed with nursing staff,
specialists, and care coordinators/case management. All labs and imaging personally reviewed by me. Remainder the time spent in detailed review of previous records, lab data, imaging, and other medical provider documentation.
Anticipated Discharge: Today
Subjective/Interval History
-
Date of Service: June 15, 2025
Patient seen and examined at bedside, denies any chest pain or shortness of breath, no abdominal pain, no nausea, no vomiting, no diarrhea or constipation.
Objective Data
-
Labs:
Laboratory Results
06/15/25
07:10
WBC 10.8
Hgb 14.2
Hct 42.0
Plt Count 147
Sodium 137
Potassium 3.7
Chloride 107
Carbon Dioxide 23
BUN 10
Creatinine 0.7
Glucose 99
Calcium 8.4
Vital Signs:
Vital Signs
Temp Pulse Resp BP Pulse Ox
99.4 F 68 25 163/95 95
06/15/25 10:50 06/15/25 10:50 06/15/25 10:50 06/15/25 10:50 06/15/25 10:50
I&O
06/14/25 06/15/25 06/16/25
06:59 06:59 06:59
Intake Total 240 / 240 3970 / 3970
Output Total 300 / 300 1500 / 1500
Balance -60 / -60 2470 / 2470
Physical Exam
-
General: Well Developed, Well Nourished, No Apparent Distress and Comfortable
HEENT: Normocephalic, Atraumatic, Moist Mucous Membranes, No Ptosis, PERRLA and Nose Appears Normal
Respiratory: Clear to Auscultation and Non Labored Respirations
Cardiac: Regular Rhythm and S1/S2
Breast: Deferred by me
GI: Soft, Nontender, Nondistended and Normal Bowel Sounds
Genito-urinary: No Costovertebral Tender
Musculoskeletal: No Clubbing, No Cyanosis and No Edema
Skin: Warm
Neuro: Awake, Alert, Oriented, AO x 3 and No Motor Deficits
Psych: Calm
--- NOTE | 2025-06-15 12:01 | W.DCSUMMARY ---
Discharge Summary
Discharge Data
Date of Admission: 06/13/25
Date of Discharge: 06/15/25
Total time spent discharging patient (in min): 40
-
Pending Results: No
Hospital Course
Hospital course
Mr. Christian Renae is a 54-year-old male with a significant past medical history of esophagitis, esophageal stricture and tear, Boerhaave�s syndrome (2021), diabetes mellitus, opioid use disorder on methadone, paroxysmal atrial fibrillation (not on
anticoagulation), obstructive sleep apnea on CPAP, essential hypertension, hyperlipidemia, and peripheral arterial disease status post femoral bypass. He has had multiple prior admissions for hematemesis.He presents to the ED with nausea, vomiting,
and hematemesis, started on Protonix drip, hemoglobin remains stable, seen by GI and started on Carafate.
hemoglobin remained stable, plan to discharge home today and follow-up with GI as OP
During hospitalization patient was treated from the following
Nausea, vomiting, and hematemesis,
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 He has a history of esophagitis, esophageal stenosis and tear (Boerhaave�s syndrome in 2021), and multiple prior admissions for hematemesis thought to be multifactorial, including marijuana-induced
hyperemesis, esophagitis, and dysmotility related to chronic opioid use.
Admitted to telemetry
GI consult, noted appreciated
Trend hemoglobin; initial elevation likely due to hemoconcentration
Patient is not on anticoagulation
Patient is on methadone; switch Zofran to Tigan
GI recommends continuing Protonix drip, adding Carafate, advancing to clears, and holding EGD if hemoglobin remains stable
WBC improving; hemoglobin plateau after dilutional drop to 13
hemoglobin remained stable, plan to discharge home today and follow-up with GI as OP
Substance Use Disorder:
Continue methadone
Essential Hypertension:
Resume home Coreg
Paroxysmal Atrial Fibrillation:
Continue Coreg; patient not on anticoagulation
Peripheral Arterial Disease (s/p femoral bypass):
Resume aspirin once cleared by GI
Diabetes Mellitus (NIDDM):
Hold Jardiance
Use low-dose insulin sliding scale
COPD:
Continue home Trelegy inhaler
CODE STATUS: DNR
DVT prophylaxis: SCDs
Diet: Low residual
Disposition: Discharge home today
Total time spent on today's encounter was 40 minutes which included time spent in counseling the patient/family regarding diagnosis and treatment plan as listed above, goals of care, and symptom management. Case was discussed with nursing staff,
specialists, and care coordinators/case management. All labs and imaging personally reviewed by me. Remainder the time spent in detailed review of previous records, lab data, imaging, and other medical provider documentation.
Anticipated Discharge: Today
Discharge Plan
-
Patient Disposition: Home (Routine Discharge)
Discharge Diagnosis/Procedures: Nausea, vomiting, and hematemesis.
Essential Hypertension
Paroxysmal Atrial Fibrillation
Diet: Low Fiber and Diabetic, Carb Controlled
Activity: As tolerated
Referrals:
Karen Jones DO [Family Provider, Family Practice]
Curtis Rivera DO [Active, Gastroenterology]
Prescriptions:
New
sucralfate 100 mg/mL Suspension
1 g PO ACHS 30 Days Qty: 1200 0RF
pantoprazole 40 mg Tablet,Delayed Release (Dr/Ec)
40 mg PO BID 30 Days Qty: 60 0RF
alum-mag hydroxide-simeth [Maalox Maximum Strength] 400-400-40 mg/5 mL suspension
10 ml PO TID PRN (Reason: indigestion) Qty: 3000 0RF
Continued
methadone [Methadone Intensol] 10 mg/mL Concentrate
145 mg PO DAILY
carvedilol [Coreg] 6.25 mg Tablet
6.25 mg PO BID
Jardiance 10 mg Tablet
10 mg PO DAILY
Trelegy Ellipta 100-62.5-25 mcg Blister With Device
1 inh INHALATION R DAILY
Medical Marijuana
1 inh PO DAILYPRN PRN (Reason: ANXIETY/STRESS) Qty: 0 0RF
Rx Instructions:
Hold for nausea and vomiting
Discharge Orders:
Discharge Patient (As Directed); Ordered 06/15/25
Ordered By: Codie Chapin
Discharge Date and Time
Print Language: TRISTANIAN
--- NOTE | 2025-06-15 12:21 | CM ---
Pt is discharged to home. Will be transported by his son. Will return to [place] for methadone.
== END 2025-06-15 12:27 | disposition home or self-care (01) | DRG 369 ==
LOC: 4 EAST ACU 13:13
PROVIDERS: ADMITTING PHYSICIAN Student in an Organized Health Care Education/Training Program; ATTENDING PHYSICIAN General Practice; CONSULT PHYSICIAN Specialist; EMERGENCY PHYSICIAN Emergency Medicine; FAMILY PHYSICIAN Internal Medicine
DX: K22.6 Gastro-esophageal laceration-hemorrhage syndrome (principal); I42.8 Other cardiomyopathies; I11.0 Hypertensive heart disease with heart failure; I48.0 Paroxysmal atrial fibrillation; Z66 Do not resuscitate; J44.9 Chronic obstructive pulmonary disease, unspecified; E11.51 Type 2 diabetes mellitus with diabetic peripheral angiopathy without gangrene; G47.33 Obstructive sleep apnea (adult) (pediatric); F11.21 Opioid dependence, in remission; Z79.84 Long term (current) use of oral hypoglycemic drugs; F17.210 Nicotine dependence, cigarettes, uncomplicated; F41.9 Anxiety disorder, unspecified; Z80.3 Family history of malignant neoplasm of breast; Z88.6 Allergy status to analgesic agent; Z88.0 Allergy status to penicillin; E78.00 Pure hypercholesterolemia, unspecified; G47.30 Sleep apnea, unspecified; G89.29 Other chronic pain; Z86.0100 Personal history of colon polyps, unspecified; Z79.899 Other long term (current) drug therapy; Z88.1 Allergy status to other antibiotic agents; Z88.8 Allergy status to other drugs, medicaments and biological substances
CPT/HCPCS: 71260; 80048; 80053; 82962; 83036; 83690; 83735; 85014; 85018; 85025; 85027; 93005; 94640; 96365; 96366; 96375; 99285; 99406; Q9967